=== PATIENT | male | born 1950 | race Caucasian/White ===

== ENCOUNTER 2020-10-19 22:42 | Inpatient (IN) ==
--- NOTE | 2020-10-19 22:53 | Emergency Department Note ---
Impression & Plan Non-ST elevation [place] (NSTEMI), CHF (congestive heart failure), GENAO (dyspnea on exertion) ED Provider Note NAME: BREEZY RAMIREZ AGE: 70 SEX: M : 1950 ARRIVES VIA: Ambulance INFORMANT: patient, ED PROVIDER(S): Fernando Lee MD Chief Complaint: Shortness of breath HPI: Patient does present with shortness of breath is been ongoing approximately 3 to 4 weeks. The patient had been seen in the outpatient setting due to increasing lower extremity edema and was told to continue to follow-up. The patient states he has been compliant with his medications. The patient does have a known history of CABG x4 completed 20+ years ago and does follow with Dr. Us locally. The patient denies any increase in salt or liquids in the diet. The patient does complain of exertional dyspnea but not so much orthopnea. The patient has noticed increasing swelling in his legs bilaterally. Patient has had chronic nonproductive cough and is a former smoker many years ago. The patient denies any sick contacts or recent travel. The patient denies prior history of DVT or PE. The patient does state that he was walking to and from the bathroom will cause him to be fairly winded. EMS reported the patient was able to walk to the stretcher from the home but did have some increased shortness of breath. ROS: See HPI for pertinent positives and negatives. A total of 10 systems were reviewed and otherwise negative. Past medical history: See below Surgical history: See below Social history: See below Physical Exam: GENERAL: Wearing glasses and a mask. NAD, non-toxic. EYE EXAM: Normal conjunctiva. PERRL, no anisocoria and EOM's grossly intact w/o pain. NECK: Supple, no nuchal rigidity, no adenopathy, non-tender. No signs of meningismus. LUNGS: Bibasilar crackles noted. Normal chest wall mechanics. HEART: NSR, no MRG. ABDOMEN: Abdomen soft, non-tender, normo-active bowel sounds, no masses, no rebound or guarding. BACK: No CVA TTP. SKIN: No rashes and no bruising. UPPER EXTREMITIES: Upper extremities are grossly normal. LOWER EXTREMITIES: Grossly normal, 2-3+ bilateral symmetric lower extremity edema. Well-healed bypass graft harvest scar of the left lower extremity. NEURO EXAM: A&O x3, cranial nerves II-XII grossly intact, normal speech, moves all 4 extremities on command w/o issue. Differential diagnoses: Reactive airway disease, pneumonia, pneumothorax, COPD, CHF, infections, cardiac ischemia, pulmonary embolism, musculoskeletal, gastrointestinal, as well as other pathologies. Course: Patient was seen and evaluated the bedside. Full history physical exam was performed. EKG: Location: Shortness of breath Sinus rhythm, rate of 99, normal intervals, normal axis, Q-wave in lead III. No obvious ST changes in contiguous leads. Possible slight depression in V5. Oc casional PVCs noted. Imaging Studies: 1 view chest x-ray Cardiomegaly, elevated right hemidiaphragm. Sternotomy wires and surgical clips noted. No obvious pneumothorax. Cardiac monitoring: An order was placed for continuous cardiac monitoring. The monitor shows a rate of 98 with sinus rhythm. MDM: Patient was seen due to concern for shortness of breath and does have a known history of CABG. Blood work is obtained along with an EKG troponin chest x-ray. The patient was ordered IV Lasix due to concern for volume overload. The patient has a mild white count 12 with a normal H&H and platelet count. Kidney function does show creatinine 1.6. The patient's troponin is 2.8. Upon reassessment the patient is allergic to aspirin and cannot take this. The patient denies any chest pains just exertional shortness of breath. Given this and his history of CABG I do think it of benefit to start the patient on heparin. Nitropaste also ordered. Patient also did relate that he has noticed that his systolic blood pressure at home has been in the 180s and 190s this time. Chest x-ray does show cardiomegaly. No obvious pneumothorax. Patient states that he did feel improved after just using the restroom and getting up to walk. The patient even with walking denies any chest pains. EKG without acute STEMI criteria. Given this and the lack of chest pain and the patient does not have any shortness of breath at rest which might be considered an anginal equivalent do not believe he requires emergent catheterization at this time. The patient certainly could have a component of congestive heart failure or even hypertensive emergency given the endorgan damage. It is through the on-call hospitalist Dr. Estrella and the patient was admitted to the medicine service Critical Care: I have personally spent 55 minutes of critical care time in direct management of this patient. This includes bedside care, interpretation of diagnostic studies, and testing, discussion with consultants, patient, and family members, and other require inpatient management activities. This 55 minutes is in excess of all separately billable procedures. Past Med/Surg History Medical History Benign localized prostatic hyperplasia with lower urinary tract symptoms (LUTS) CKD (chronic kidney disease), stage III Coronary artery disease Diabetes mellitus, type II History of gastric ulcer Hypercholesterolemia Hypertension Nephrolithiasis Surgical History H/O elbow surgery H/O knee surgery H/O shoulder surgery History of coronary artery bypass graft Status post coronary artery bypass grafting Family History Unknown Kidney disease kidney stones Other Diabetes No pertinent family history Social History Smoking Status: Former smoker Hx Alcohol Use: No Preferred Language: Macedonian marital status: current occupational status: retired Feels Safe at Home: Yes Allergies Allergies Allergy/AdvReac Type Severity Reaction Status Date / Time aspirin Allergy Severe GI SYMPTOMS Verified 10/19/20 23:35 Home Meds Home Medications Medication Instructions Recorded Confirmed blood sugar diagnostic #10 ea 03/23/19 10/19/20 hydrochlorothiazide 25 mg tablet 25 mg PO DAILY #30 tab 03/23/19 10/19/20 insulin syringe-needle U-100 0.3 #10 ea 03/23/19 10/19/20 mL 29 gauge x 1/2" losartan 100 mg tablet 100 mg PO DAILY #90 tab 03/23/19 10/19/20 metoprolol tartrate 50 mg tablet 75 mg PO BID #180 tab 03/23/19 10/19/20 pen needle, diabetic 32 gauge x #10 ea 03/23/19 10/19/20 5/32" pravastatin 80 mg tablet 80 mg PO DAILY tab 03/23/19 10/19/20 insulin regular human [Novolin R 60 unit SUBCUT TIDM 11/28/19 10/19/20 Regular U-100 Insuln] amlodipine 5 mg PO DAILY 10/19/20 10/19/20 Previous Rx's Medication Instructions Recorded allopurinol 100 mg tablet 100 mg PO DAILY #90 tab 04/04/20 tamsulosin 0.4 mg capsule 0.4 mg PO HS #90 cap 10/19/20 Results & Data (ED) Vital Signs Vital Signs - 24 hr 10/19/20 22:46 10/19/20 22:50 10/19/20 23:00 Temperature 37.1 C Temperature Source Oral Pulse Rate 104 H 98 H 92 H Pulse Rate from SpO2 Sensor 96 H 87 Respiratory Rate 19 22 26 H Respiratory Effort / Characteristics Non-Labored Respiratory Depth Normal Respiratory Pattern Regular Blood Pressure 156/105 H 156/105 H 172/87 H Blood Pressure Mean 122 122 115 Blood Pressure Position Lying Pulse Oximetry 96 97 96 Oxygen Delivery Method Room Air Sepsis Recent Fever Within 48 Hours No Sepsis New/Unexplained Change in Mental Status No Sepsis Action Taken by Nursing No Action Required 10/19/20 23:30 Temperature Temperature Source Pulse Rate Pulse Rate from SpO2 Sensor 85 Respiratory Rate 32 H Respiratory Effort / Characteristics Respiratory Depth Respiratory Pattern Blood Pressure 180/95 H Blood Pressure Mean 123 Blood Pressure Position Pulse Oximetry 96 Oxygen Delivery Method Sepsis Recent Fever Within 48 Hours Sepsis New/Unexplained Change in Mental Status Sepsis Action Taken by Shelter Medications Current Medication List: was personally reviewed by me Laboratory Data Attestation: I reviewed the patient's lab results. Result diagrams: 10/19/20 23:07 10/19/20 23:07 Lab Results 10/19/20 10/19/20 10/19/20 Range/Units 23:07 23:07 23:07 WBC 12.19 H (4.8-10.8) K/uL RBC 4.95 (4.7-6.1) M/uL Hgb 14.7 (14.0-18.0) g/dL Hct 43.4 (42-52) % MCV 87.7 (80-100) fL MCH 29.7 (25-34) pg MCHC 33.9 (32-36) g/dL RDW Std Deviation 45.6 (36.4-46.3) fL RDW Coeff of Livier 14.2 (11.5-14.5) % Plt Count 259 (130-400) K/uL MPV 9.9 (7.4-10.4) fL Immature Gran % (Auto) 0.4 % Neut % (Auto) 72.9 % Lymph % (Auto) 13.9 % [place] % (Auto) 10.3 % Eos % (Auto) 2.2 % Baso % (Auto) 0.3 % Neut # (Auto) 8.87 H (1.4-6.5) K/uL Lymph # (Auto) 1.70 (1.2-3.4) K/uL [place] # (Auto) 1.26 H (0.11-0.59) K/uL Eos # (Auto) 0.27 (0-0.5) K/uL Baso # (Auto) 0.04 (0-0.2) K/uL Immature Gran # (Auto) 0.05 H (0.00-0.02) K/uL PT 10.7 (9.0-12.0) Seconds INR 1.1 (0.9-1.1) APTT 31.2 H (21.0-31.0) Seconds PTT Ratio 1.2 Sodium 136 (136-145) mmol/L Potassium 4.1 (3.5-5.1) mmol/L Chloride 103 (98-107) mmol/L Carbon Dioxide 29 (21-32) mmol/L Anion Gap 4.0 (3-11) BUN 31 H (7-18) mg/dl Creatinine 1.64 H (0.6-1.4) mg/dl Est Cr Clr Drug Dosing 62.9 ml/min Est GFR ( Amer) 48.7 Est GFR (Non-Af Amer) 42.0 BUN/Creatinine Ratio 18.7 (10-20) Glucose 223 H (70-99) mg/dl Calcium 8.8 (8.5-10.1) mg/dl Phosphorus 3.2 (2.5-4.9) mg/dl Magnesium 1.8 (1.8-2.4) mg/dl Total Bilirubin 1.0 (0.2-1) mg/dl AST 19 (15-37) U/L ALT 20 (12-78) U/L Alkaline Phosphatase 124 H (45-117) U/L Troponin I 2.830 H* (0-0.045) ng/ml NT-Pro-B Natriuret Pep 841 (0-900) pg/ml Total Protein 7.5 (6.4-8.2) gm/dl Albumin 3.4 (3.4-5.0) gm/dl Globulin 4.1 H (2.5-4.0) gm/dl Albumin/Globulin Ratio 0.8 L (0.9-2) COVID-19 Eval Order SARS-CoV-2 (PCR) (Negative) Influenza Type A (PCR) (Neg) Influenza Type B (PCR) (Neg) RSV (RT-PCR) (Neg) 10/19/20 10/19/20 Range/Units 23:15 23:15 WBC (4.8-10.8) K/uL RBC (4.7-6.1) M/uL Hgb (14.0-18.0) g/dL Hct (42-52) % MCV (80-100) fL MCH (25-34) pg MCHC (32-36) g/dL RDW Std Deviation (36.4-46.3) fL RDW Coeff of [place]ier (11.5-14.5) % Plt Count (130-400) K/uL MPV (7.4-10.4) fL Immature Gran % (Auto) % Neut % (Auto) % Lymph % (Auto) % [place] % (Auto) % Eos % (Auto) % Baso % (Auto) % Neut # (Auto) (1.4-6.5) K/uL Lymph # (Auto) (1.2-3.4) K/uL [place] # (Auto) (0.11-0.59) K/uL Eos # (Auto) (0-0.5) K/uL Baso # (Auto) (0-0.2) K/uL Immature Gran # (Auto) (0.00-0.02) K/uL PT (9.0-12.0) Seconds INR (0.9-1.1) APTT (21.0-31.0) Seconds PTT Ratio Sodium (136-145) mmol/L Potassium (3.5-5.1) mmol/L Chloride (98-107) mmol/L Carbon Dioxide (21-32) mmol/L Anion Gap (3-11) BUN (7-18) mg/dl Creatinine (0.6-1.4) mg/dl Est Cr Clr Drug Dosing ml/min Est GFR ( Amer) Est GFR (Non-Af Amer) BUN/Creatinine Ratio (10-20) Glucose (70-99) mg/dl Calcium (8.5-10.1) mg/dl Phosphorus (2.5-4.9) mg/dl Magnesium (1.8-2.4) mg/dl Total Bilirubin (0.2-1) mg/dl AST (15-37) U/L ALT (12-78) U/L Alkaline Phosphatase (45-117) U/L Troponin I (0-0.045) ng/ml NT-Pro-B Natriuret Pep (0-900) pg/ml Total Protein (6.4-8.2) gm/dl Albumin (3.4-5.0) gm/dl Globulin (2.5-4.0) gm/dl Albumin/Globulin Ratio (0.9-2) COVID-19 Eval Order CovFluRsv at [facility] SARS-CoV-2 (PCR) NEGATIVE (Negative) Influenza Type A (PCR) Negative (Neg) Influenza Type B (PCR) Negative (Neg) RSV (RT-PCR) Negative (Neg) Administered Medications Heparin Sodium/Dextrose (Heparin Sodium/Dextrose) 25,000 units in 500 mls @ 0.02 mls/hr IV .Q24H TALON; Protocol Stop: 11/18/20 23:44 Last Admin: 10/20/20 00:24 Dose: 1,900 units/hr, 38 mls/hr Documented by: [id number] Cosigned by: [id number] Discontinued Medications Furosemide (Furosemide 40 Mg/4 Ml Vial) 40 mg IV NOW STA Stop: 10/19/20 23:02 Last Admin: 10/19/20 23:06 Dose: 40 mg Documented by: [id number] Heparin Sodium/Dextrose (Heparin Iv Standard *No* Bolus) 1 ea IV ONE ONE; Protocol Stop: 10/19/20 23:56 Last Admin: 10/20/20 00:25 Dose: 1 ea Documented by: [id number] Nitroglycerin (Nitroglycerin 2% Ointment 30gm Tube) 1 inch EXT NOW ONE Stop: 10/20/20 00:02 Last Admin: 10/20/20 00:24 Dose: 1 inch Documented by: [id number] Discharge Plan Visit Data Chief Complaint: Shortness of Breath/Dyspnea Stated Complaint: SOB ED Provider: Fernando Lee Discharge Problem: Non-ST elevation [place] (NSTEMI), CHF (congestive heart failure), GENAO (dyspnea on exertion) Forms Stand Alone Forms: My [facility] Prescriptions Prescriptions: No Action (DME) insulin syringe-needle U-100 [BD Insulin Syringe] 0.3 mL 29 gauge x 1/2" syringe See Dose Instructions .ROUTE .MEDSUPPLY Qty: 10 RF: 0 (DME) pen needle, diabetic [ReliOn Pen [place]] 32 gauge x 5/32" needle See Dose Instructions .ROUTE .MEDSUPPLY Qty: 10 RF: 0 (DME) Truetest Test Strips strip See Dose Instructions .ROUTE .MEDSUPPLY Qty: 10 RF: 0 pravastatin 80 mg tablet 80 mg PO DAILY RF: 0 hydrochlorothiazide 25 mg tablet 25 mg PO DAILY Qty: 30 RF: 0 losartan 100 mg tablet 100 mg PO DAILY Qty: 90 RF: 0 metoprolol tartrate 50 mg tablet 75 mg PO BID Qty: 180 RF: 0 tamsulosin 0.4 mg capsule 0.4 mg PO HS Qty: 90 RF: 3 allopurinol 100 mg tablet 100 mg PO DAILY Qty: 90 RF: 3 Novolin R Regular U-100 Insuln 100 unit/mL solution 60 unit subcut TIDM RF: 0 amlodipine 5 mg tablet 5 mg PO DAILY RF: 0 Discharge Problem: CHF (congestive heart failure) Qualifiers: Heart failure type: systolic Heart failure chronicity: acute Qualified Code(s): I50.21 - Acute systolic (congestive) heart failure
[2020-10-19] MEDS ORDERED: FUROSEMIDE 40 MG/4 ML VIAL IV STA (23:01)
[2020-10-19 23:26] LABS: Basophils # (auto) 0.04 K/uL (0-0.2); Basophils % (auto) 0.3 %; Eosinophils # (auto) 0.27 K/uL (0-0.5); Eosinophils % (auto) 2.2 %; Hematocrit (blood only) 43.4 % (42-52); Hemoglobin 14.7 g/dL (14.0-18.0); Immature Granulocytes # (auto) 0.05 K/uL (0.00-0.02); Immature Granulocytes % (auto) 0.4 %; Lymphocytes % (auto) 13.9 %; Mean Corpuscular Hemoglobin 29.7 pg (25-34); Mean Corpuscular Hgb Conc 33.9 g/dL (32-36); Mean Corpuscular Volume 87.7 fL (80-100); Mean Platelet Volume 9.9 fL (7.4-10.4); Monocytes # (auto) 1.26 K/uL (0.11-0.59); Monocytes % (auto) 10.3 %; Neutrophils # (auto) 8.87 K/uL (1.4-6.5); Neutrophils % (auto) 72.9 %; Platelet Count 259 K/uL (130-400); RDW Coefficient of Variation 14.2 % (11.5-14.5); RDW Standard Deviation 45.6 fL (36.4-46.3); Red Blood Count 4.95 M/uL (4.7-6.1); White Blood Count 12.19 K/uL (4.8-10.8)
[2020-10-19 23:42] LABS: INR 1.1 (0.9-1.1); Partial Thromboplastin Ratio 1.2; Partial Thromboplastin Time 31.2 Seconds (21.0-31.0); Prothrombin Time 10.7 Seconds (9.0-12.0)
[2020-10-19 23:45] LABS: Albumin Level 3.4 gm/dl (3.4-5.0); BUN Creatinine Ratio 18.7 (10-20); Calcium 8.8 mg/dl (8.5-10.1); Creatinine Clr Calc Pharmacy 62.9 ml/min; Est GFR (African American) 48.7; Magnesium 1.8 mg/dl (1.8-2.4); Potassium 4.1 mmol/L (3.5-5.1)
[2020-10-19 23:54] LABS: Albumin Globulin Ratio 0.8 (0.9-2); Globulin 4.1 gm/dl (2.5-4.0); Phosphorus 3.2 mg/dl (2.5-4.9); Total Protein 7.5 gm/dl (6.4-8.2); Troponin I 2.83 ng/ml (0-0.045)
[2020-10-19] MEDS ORDERED: Heparin IV Adult Wt-Based Standard *NO* Bolus Protocol IV ONE (23:55)
[2020-10-20] MEDS ORDERED: NITROGLYCERIN 2% OINTMENT 30GM TUBE EXT ONE (00:01)
[2020-10-20 00:17] LABS: Influenza A virus by PCR Negative (Neg); Influenza B virus by PCR Negative (Neg); RSV by PCR Negative (Neg); SARS CoV2 RNA(COVID-19) InHosp NEGATIVE (Negative)
[2020-10-20] MEDS: HEPARIN SODIUM/DEXTROSE 25,000 UNITS/500 ML BAG IV SCH ×2 (00:24→13:27)
[2020-10-20] MEDS ORDERED: ASPIRIN 300 MG SUPP PR ONE (01:21)
--- NOTE | 2020-10-20 01:21 | History & Physical Report ---
Date of Service October 20, 2020 Assessment & Plan (1) Non-ST elevation [place] (NSTEMI): hx CAD sp CABG Decompensated heart failure Subacute symptoms ? Uncontrolled BP as precipitant Leg swelling secondary to above rule out DVT hyperlipidemia on statin Rx PUD as per records, hx of stomach irritation from enteric-coated aspirin in the past as per patient DM2 insulin requiring, suboptimal control as of recent hemoglobin A1c of 04 August 2020 CRI, creatinine at baseline past tobacco abuse PCU Lasix albumin, monitor renal function Strict I/Os, daily weights, CHF education, fluid restriction DONNA, Cardiology consult Re: ACS, CHF Follow troponin Rectal aspirin in place of oral aspirin (given stomach irritation concerns) for ACS continue home beta-acosta, statin Rx, IV heparin initiated at the ER Titrate home BP meds LE venous Dopplers rule out DVT Basal insulin, ISS BG goal [id number], carb count coverage DVT prophylaxis with IV heparin Full code Text document was generated using [employer] voice recognition software. It may contain grammatical or spelling errors. Kindly contact undersigned for clarification of any documentation item in question. History of Present Illness Chief Complaint: Shortness of breath, leg swelling Primary Care Provider: Akash Gonzalez MD History obtained from patient and records. Medical history significant for CAD status post CABG, hypertension, hyperlipidemia, PUD as per records, DM2 insulin requiring, CRI (baseline creatinine 1.6), BPH, history nephrolithiasis, past tobacco abuse. Last confinement March 2015 for hypertensive urgency. Patient noted shortness of breath worse on exertion since last month. Bilateral leg swelling despite compliance with home diuretic Rx. Denies dietary indiscretion. No OTC NSAID intake at home. No unusual cough symptoms, no chest pain. Possible weight gain as per patient. Patient unaware of daily BP and weight trend at home. Denies snoring. Worsening exertional dyspnea the last week with abdominal distention and leg swelling. At the ER, IV Heparin started for possible ACS. Lasix given for possible CHF. Patient feeling much better. 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 Allergies Allergy/AdvReac Type Severity Reaction Status Date / Time aspirin Allergy Severe GI SYMPTOMS Verified 10/19/20 23:35 Home Medications Medication Instructions Recorded Confirmed Type blood sugar diagnostic #10 ea 03/23/19 10/19/20 History hydrochlorothiazide 25 mg tablet 25 mg PO DAILY #30 tab 03/23/19 10/19/20 History insulin syringe-needle U-100 0.3 #10 ea 03/23/19 10/19/20 History mL 29 gauge x 1/2" losartan 100 mg tablet 100 mg PO DAILY #90 tab 03/23/19 10/19/20 History metoprolol tartrate 50 mg tablet 75 mg PO BID #180 tab 03/23/19 10/19/20 History pen needle, diabetic 32 gauge x #10 ea 03/23/19 10/19/20 History 5/32" pravastatin 80 mg tablet 80 mg PO DAILY tab 03/23/19 10/19/20 History insulin regular human [Novolin R 60 unit SUBCUT TIDM 11/28/19 10/19/20 History Regular U-100 Insuln] allopurinol 100 mg tablet 100 mg PO DAILY #90 tab 04/04/20 10/19/20 Rx amlodipine 5 mg PO DAILY 10/19/20 10/19/20 History tamsulosin 0.4 mg capsule 0.4 mg PO HS #90 cap 10/19/20 10/19/20 Rx Past Med/Surg History Medical History (Updated 10/20/20 @ 13:07 by Ynes Nye DO) Benign localized prostatic hyperplasia with lower urinary tract symptoms (LUTS) CKD (chronic kidney disease), stage III Coronary artery disease Diabetes mellitus, type II History of gastric ulcer Hypercholesterolemia Hypertension Nephrolithiasis Surgical History (Updated 10/20/20 @ 13:05 by Ynes Nye DO) H/O elbow surgery H/O knee surgery H/O shoulder surgery History of coronary artery bypass graft Status post coronary artery bypass grafting Family History Unknown Kidney disease kidney stones Other Diabetes No pertinent family history Social History Smoking Status: Never smoker Hx Alcohol Use: No Hx Substance Use: No Preferred Language: Micronesian Beliefs That Will Affect Care: None marital status: Current Living Situation: Family current occupational status: retired Other Information That Helps Us Care for You: No Feels Safe at Home: Yes Safety Concerns: Feels Safe At This Time Assistive Devices: Glasses Review of Systems Review of Systems: As per HPI, all 10 systems reviewed, all other ROS negative Physical Exam Physical Exam: GENERAL: Slightly anxious, morbidly obese, episodic tachypnea SKIN: Normal color, warm HEENT: Alopecia, bespectacled, pink palpebral conjunctivae, no ptosis, dry buccal mucosa NECK : Supple, short neck, no tenderness CHEST : Decreased breath sounds, no tenderness HEART : Tachycardic, no obvious murmurs ABDOMEN: Marked abdominal distention, nontender EXTREMITIES : Bilateral LE swelling, no LE tenderness no other conspicuous deformities noted NEUROLOGIC : Coherent, no facial asymmetry, no other gross focality Results & Data Results & Data ([facility]) Vital Signs (Past 12 Hours) Vital Signs Temp Pulse Resp BP Pulse Ox 10/20/20 00:45 98 10/20/20 00:30 92 H 26 H 154/78 H 96 10/19/20 23:30 32 H 180/95 H 96 10/19/20 23:00 92 H 26 H 172/87 H 96 10/19/20 22:50 37.1 C 98 H 22 156/105 H 97 10/19/20 22:46 104 H 19 156/105 H 96 Laboratory Results Laboratory Results WBC 12.19 K/uL (4.8-10.8) H 10/19/20 23:07 RBC 4.95 M/uL (4.7-6.1) 10/19/20 23:07 Hgb 14.7 g/dL (14.0-18.0) 10/19/20 23:07 Hct 43.4 % (42-52) 10/19/20 23:07 MCV 87.7 fL (80-100) 10/19/20 23:07 MCH 29.7 pg (25-34) 10/19/20 23:07 MCHC 33.9 g/dL (32-36) 10/19/20 23:07 RDW Std Deviation 45.6 fL (36.4-46.3) 10/19/20 23:07 RDW Coeff of Livier 14.2 % (11.5-14.5) 10/19/20 23:07 Plt Count 259 K/uL (130-400) 10/19/20 23:07 MPV 9.9 fL (7.4-10.4) 10/19/20 23:07 Immature Gran % (Auto) 0.4 % 10/19/20 23:07 Neut % (Auto) 72.9 % 10/19/20 23:07 Lymph % (Auto) 13.9 % 10/19/20 23:07 [place] % (Auto) 10.3 % 10/19/20 23:07 Eos % (Auto) 2.2 % 10/19/20 23:07 Baso % (Auto) 0.3 % 10/19/20 23:07 Neut # (Auto) 8.87 K/uL (1.4-6.5) H 10/19/20 23:07 Lymph # (Auto) 1.70 K/uL (1.2-3.4) 10/19/20 23:07 [place] # (Auto) 1.26 K/uL (0.11-0.59) H 10/19/20 23:07 Eos # (Auto) 0.27 K/uL (0-0.5) 10/19/20 23:07 Baso # (Auto) 0.04 K/uL (0-0.2) 10/19/20 23:07 Immature Gran # (Auto) 0.05 K/uL (0.00-0.02) H 10/19/20 23:07 PT 10.7 Seconds (9.0-12.0) 10/19/20 23:07 INR 1.1 (0.9-1.1) 10/19/20 23:07 APTT 31.2 Seconds (21.0-31.0) H 10/19/20 23:07 PTT Ratio 1.2 10/19/20 23:07 Sodium 136 mmol/L (136-145) 10/19/20 23:07 Potassium 4.1 mmol/L (3.5-5.1) 10/19/20 23:07 Chloride 103 mmol/L (98-107) 10/19/20 23:07 Carbon Dioxide 29 mmol/L (21-32) 10/19/20 23:07 Anion Gap 4.0 (3-11) 10/19/20 23:07 BUN 31 mg/dl (7-18) H 10/19/20 23:07 Creatinine 1.64 mg/dl (0.6-1.4) H 10/19/20 23:07 Est Cr Clr Drug Dosing 62.9 ml/min 10/19/20 23:07 Est GFR ( Amer) 48.7 10/19/20 23:07 Est GFR (Non-Af Amer) 42.0 10/19/20 23:07 BUN/Creatinine Ratio 18.7 (10-20) 10/19/20 23:07 Glucose 223 mg/dl (70-99) H 10/19/20 23:07 Calcium 8.8 mg/dl (8.5-10.1) 10/19/20 23:07 Phosphorus 3.2 mg/dl (2.5-4.9) 10/19/20 23:07 Magnesium 1.8 mg/dl (1.8-2.4) 10/19/20 23:07 Total Bilirubin 1.0 mg/dl (0.2-1) 10/19/20 23:07 AST 19 U/L (15-37) 10/19/20 23:07 ALT 20 U/L (12-78) 10/19/20 23:07 Alkaline Phosphatase 124 U/L (45-117) H 10/19/20 23:07 Troponin I 2.830 ng/ml (0-0.045) H* 10/19/20 23:07 NT-Pro-B Natriuret Pep 841 pg/ml (0-900) 10/19/20 23:07 Total Protein 7.5 gm/dl (6.4-8.2) 10/19/20 23:07 Albumin 3.4 gm/dl (3.4-5.0) 10/19/20 23:07 Globulin 4.1 gm/dl (2.5-4.0) H 10/19/20 23:07 Albumin/Globulin Ratio 0.8 (0.9-2) L 10/19/20 23:07 COVID-19 Eval Order CovFluRsv at [facility] 10/19/20 23:15 SARS-CoV-2 (PCR) NEGATIVE (Negative) 10/19/20 23:15 Influenza Type A (PCR) Negative (Neg) 10/19/20 23:15 Influenza Type B (PCR) Negative (Neg) 10/19/20 23:15 RSV (RT-PCR) Negative (Neg) 10/19/20 23:15 Diagnostic Findings Chest x-ray as per my interpretation: Minimal pulmonary congestion, cardiomegaly EKG as per my interpretation : Rate 100, NSR, normal axis, T wave abnormalities lateral leads, PVCs
[2020-10-20] MEDS ORDERED: DEXTROSE 50% 50 ML SYRINGE IV PRN (02:02)
[2020-10-20] MEDS ORDERED: GLUCOSE 10 TABS/TUBE PO PRN (02:02)
[2020-10-20] MEDS ORDERED: CARBOHYDRATES FOR HYPOGLYCEMIA PO PRN (02:02)
[2020-10-20] MEDS ORDERED: ACETAMINOPHEN 325 MG TAB PO PRN (02:02)
[2020-10-20] MEDS ORDERED: LORazepam 0.5 MG/1 ML VIAL IV PRN (02:02)
[2020-10-20] MEDS ORDERED: XOPENEX/ATROVENT 1.25mg/0.5MG NEB COMBO NEB STA (02:02)
[2020-10-20] MEDS ORDERED: GLUCAGON FOR INJ 1 MG VIAL SQ PRN (02:02)
[2020-10-20] MEDS ORDERED: PROMETHAZINE HCL 12.5 MG in SODIUM CHLORIDE 0.9% 50 ML IV PRN (02:02)
[2020-10-20] MEDS ORDERED: traMADol HCL 50 MG TABLET PO PRN (02:02)
[2020-10-20] MEDS ORDERED: HYDROmorphone INJ 0.5 MG/0.5 ML SYR IV PRN (02:02)
[2020-10-20] MEDS ORDERED: GLUCOSE 40% GEL 15 GM TUBE PO PRN (02:02)
[2020-10-20] MEDS ORDERED: LEVALBUTEROL 1.25MG/0.5ML NEB INH STA (02:21)
[2020-10-20] MEDS ORDERED: IPRATROPIUM BROMIDE NEB SOLN 0.02% 2.5 ML VIAL INH STA (02:21)
[2020-10-20] MEDS: INSULIN ASPART 100 UNITS/ML 3 ML PEN SC SCH ×5 (02:32→20:32)
[2020-10-20] MEDS ORDERED: MAGNESIUM SULFATE / D5W 1 GM/100 ML BAG IV ONE (02:33)
[2020-10-20 06:24] LABS: Basophils # (auto) 0.04 K/uL (0-0.2); Basophils % (auto) 0.3 %; Eosinophils # (auto) 0.27 K/uL (0-0.5); Eosinophils % (auto) 2.2 %; Hematocrit (blood only) 41.7 % (42-52); Hemoglobin 13.8 g/dL (14.0-18.0); Immature Granulocytes # (auto) 0.03 K/uL (0.00-0.02); Immature Granulocytes % (auto) 0.2 %; Lymphocytes # (auto) 1.85 K/uL (1.2-3.4); Lymphocytes % (auto) 15.3 %; Mean Corpuscular Hemoglobin 29.1 pg (25-34); Mean Corpuscular Hgb Conc 33.1 g/dL (32-36); Mean Platelet Volume 9.9 fL (7.4-10.4); Monocytes # (auto) 1.23 K/uL (0.11-0.59); Monocytes % (auto) 10.2 %; Neutrophils # (auto) 8.69 K/uL (1.4-6.5); Neutrophils % (auto) 71.8 %; Platelet Count 215 K/uL (130-400); RDW Coefficient of Variation 14.1 % (11.5-14.5); RDW Standard Deviation 45.5 fL (36.4-46.3); Red Blood Count 4.74 M/uL (4.7-6.1); White Blood Count 12.11 K/uL (4.8-10.8)
[2020-10-20 06:45] LABS: Partial Thromboplastin Time 51.3 Seconds (21.0-31.0)
[2020-10-20 06:52] LABS: BUN Creatinine Ratio 20.1 (10-20); Calcium 8.7 mg/dl (8.5-10.1); Creatinine Clr Calc Pharmacy 70.5 ml/min; Est GFR (African American) 56.5; Est GFR (Non-African American) 48.8; Potassium 3.7 mmol/L (3.5-5.1)
[2020-10-20] MEDS ORDERED: ALBUMIN HUMAN 25% 12.5 GM/50 ML VIAL IV ONE (07:09)
[2020-10-20 07:16] LABS: Troponin I 3.74 ng/ml (0-0.045)
--- NOTE | 2020-10-20 07:22 | Ultrasound Report ---
US abdomen ltd ascites CLINICAL HISTORY: abd distension COMPARISON STUDY: Abdomen and pelvis CT 03/08/2020. FINDINGS: Real-time sonographic imaging of the abdomen was performed with underwriting service representative images submi tted. There is no ascites identified. IMPRESSION: No ascites. ACT 112: Negative or not required by law. Electronically signed by: Mal Petty M.D. 10/20/2020 7:21 AM
--- NOTE | 2020-10-20 07:26 | Ultrasound Report ---
BILATERAL LOWER EXTREMITY VENOUS DOPPLER HISTORY: leg swelling COMPARISON STUDY: None. FINDINGS: There is normal compressibility, flow, and augmentation within the bilateral lower extremit y deep venous systems. IMPRESSION: No DVT within the right or left lower extremity. ACT 112: Negative or not required by law. Electronically signed by: Mal Petty M.D. 10/20/2020 7:25 AM
[2020-10-20] MEDS: allopurinoL 100 MG TAB PO SCH (08:00)
[2020-10-20] MEDS: PRAVASTATIN SOD 40 MG TAB PO SCH (08:00)
[2020-10-20] MEDS: amLODIPine BESYLATE 5 MG TAB PO SCH (08:01)
[2020-10-20] MEDS: METOPROLOL TARTRATE 25 MG TAB PO SCH ×2 (08:01→19:46)
--- NOTE | 2020-10-20 08:11 | XRay Report ---
XR chest 1V portable HISTORY: Dyspnea COMPARISON: Chest 04/05/2015. FINDINGS: There are low lung volumes. No pneumothorax. The heart remains enlarged. There is chronic e levation of the right hemidiaphragm. There is mild central pulmonary vascular congestion without over t edema. No new focal lung consolidations to suggest pneumonia. Poststernotomy changes. IMPRESSION: 1. No significant change compared to the prior study. 2. Cardiomegaly. 3. Mild central pulmonary vascular congestion without overt edema. ACT 112: Negative or not required by law. Electronically signed by: Mal Petty M.D. 10/20/2020 8:09 AM
[2020-10-20] MEDS: ALBUMIN 25% 12.5 GM/50 ML VIAL IV SCH ×2 (08:25→20:06)
[2020-10-20] MEDS ORDERED: INSULIN GLARGINE SOLOSTAR 100 UNITS/ML 3 ML PEN SC SCH ×2 (09:00→21:00)
[2020-10-20] MEDS ORDERED: FUROSEMIDE 40 MG/4 ML VIAL IV SCH (09:00)
[2020-10-20] MEDS: FUROSEMIDE 40 MG in SYRINGE 0 ML IV SCH ×2 (09:33→19:46)
--- NOTE | 2020-10-20 11:57 | Cardiology Consultation ---
Date of Consultation October 20, 2020 Assessment & Plan (1) CHF (congestive heart failure): -appears to be acute diastolic CHF. -echocardiogram notes normal left ventricular systolic function. -agree with b.i.d. dosing of intravenous Lasix. -admits to dietary indiscretion with salt (canned soup, hamburgers, [place] fries). (2) Elevated troponin: -likely secondary to acute presentation. -coronary artery bypass was over 25 years ago. -have discussed a cardiac catheterization, however, the patient is uncertain at this time. (3) CAD (coronary artery disease): -s/p CABG x4 in 1993. -as above, consider cardiac catheterization. (4) Hypertension: -adequate control on current regimen. History of Present Illness Attending Physician: Ynes Nye, History of Present Illness Mr. Renee is a 70-year-old male admitted yesterday with symptomatic hypervolemia. This consultation was ordered to assistance cardiac management. Of note, the patient is well known to me from the outpatient setting. The patient was in his usual state of health until approximately 1 month prior to presentation. The patient was noticing progressive exertional dyspnea and lower extremity edema. Over the last week, he began to note an increase in his abdominal girth and his exertional dyspnea became quite limiting. At no time has the patient experienced angina pectoris. He also denies PND and orthopnea. He was brought to the emergency room for further care. The patient has a longstanding history of coronary artery disease having undergone a 4 vessel bypass in 1993. This included an WILSON to the LAD, an SVG to the PDA, an SVG to a PLB, and an SVG to the ramus intermedius. The patient has done well with medical management. The patient also has a longstanding history of hypercholesterolemia. He has been stable on Pravachol 80 mg q.h.s.. A fasting lipid panel performed earlier this month noted excellent control with an LDL cholesterol 63, an HDL of 44. The patient is currently resting comfortably in bed and without complaints. Past medical and surgical history 1. Coronary artery disease-see above 2. CABG x 4-1993 3. Hypertension 4. LVH 5. Hypercholesterolemia 6. Diabetes mellitus 7. Chronic renal failure 8. Nephrolithiasis 9. Gout 10. Peptic ulcer disease 11. BPH 12. Hearing deficit 13. Spinal stenosis 14. Left lower extremity radiculopathy 15. History of shoulder surgery 16. History of knee surgery 17. History of elbow surgery Social history and lives with his Retired from [employer] No tobacco Rare alcohol Family history No early coronary artery disease Review of systems A 10 review systems was undertaken and negative except for that described above. Allergies Allergy/AdvReac Type Severity Reaction Status Date / Time aspirin Allergy Severe GI SYMPTOMS Verified 10/19/20 23:35 Home Medications Medication Instructions Recorded Confirmed Type blood sugar diagnostic #10 ea 03/23/19 10/19/20 History hydrochlorothiazide 25 mg tablet 25 mg PO DAILY #30 tab 03/23/19 10/19/20 History insulin syringe-needle U-100 0.3 #10 ea 03/23/19 10/19/20 History mL 29 gauge x 1/2" losartan 100 mg tablet 100 mg PO DAILY #90 tab 03/23/19 10/19/20 History metoprolol tartrate 50 mg tablet 75 mg PO BID #180 tab 03/23/19 10/19/20 History pen needle, diabetic 32 gauge x #10 ea 03/23/19 10/19/20 History 5/32" pravastatin 80 mg tablet 80 mg PO DAILY tab 03/23/19 10/19/20 History insulin regular human [Novolin R 60 unit SUBCUT TIDM 11/28/19 10/19/20 History Regular U-100 Insuln] allopurinol 100 mg tablet 100 mg PO DAILY #90 tab 04/04/20 10/19/20 Rx amlodipine 5 mg PO DAILY 10/19/20 10/19/20 History tamsulosin 0.4 mg capsule 0.4 mg PO HS #90 cap 10/19/20 10/19/20 Rx Patient History Medical History Benign localized prostatic hyperplasia with lower urinary tract symptoms (LUTS) CKD (chronic kidney disease), stage III Coronary artery disease Diabetes mellitus, type II History of gastric ulcer Hypercholesterolemia Hypertension Nephrolithiasis Surgical History H/O elbow surgery H/O knee surgery H/O shoulder surgery History of coronary artery bypass graft Status post coronary artery bypass grafting Family History Unknown Kidney disease kidney stones Other Diabetes No pertinent family history Social History Smoking Status: Never smoker Hx Alcohol Use: No Hx Substance Use: No Preferred Language: Latvian Beliefs That Will Affect Care: None marital status: Current Living Situation: Family current occupational status: retired Other Information That Helps Us Care for You: No Feels Safe at Home: Yes Safety Concerns: Feels Safe At This Time Assistive Devices: Oxygen - Continuous Physical Exam Physical Exam: In general this is an obese white male in no acute distress. HEENT exam is negative. Neck is thick with full carotid upstrokes. No carotid bruits. Jugular venous pressure is difficult to assess. Cardiovascular exam reveals a regular rhythm with distant heart sounds. No obvious murmurs. No S3. Lungs are clear without rales, rhonchi or wheezes. Abdomen is obese without bruits. Extremities reveal intact radial artery pulses bilaterally. There is 2+ pitting edema distal to the knees, 1+ pitting edema in the thighs bilaterally. Results & Data ([facility]) Vital Signs (Past 12 Hours) Vital Signs Temp Pulse Pulse Resp BP BP BP 10/20/20 11:01 36.9 C 90 18 144/71 H 10/20/20 08:00 121 H 10/20/20 07:47 155/91 H 10/20/20 07:03 36.9 C 112 H 20 10/20/20 02:05 36.7 C 76 20 145/87 H 10/20/20 02:02 37.1 C 89 21 143/79 H 10/20/20 01:30 92 H 22 144/76 H 10/20/20 00:45 10/20/20 00:30 92 H 26 H 154/78 H Pulse Ox 10/20/20 11:01 94 10/20/20 08:00 10/20/20 07:47 10/20/20 07:03 97 10/20/20 02:05 96 10/20/20 02:02 96 10/20/20 01:30 96 10/20/20 00:45 98 10/20/20 00:30 96 Laboratory Results CBC notes hemoglobin 13.8, crit 41.7, white count 12.1, platelet count [id number]. Electrolytes noted sodium 137, potassium 3.7, chloride 103, bicarb 27, BUN 29, creatinine 1.45, and glucose of 182. Initial troponin was 2.83 with a follow-up value of 3.74. LDL cholesterol 63 with an HDL of 44. Diagnostic Findings EKG notes normal sinus rhythm with PVCs and nonspecific ST and T-wave abnormality. Echocardiogram being performed at the bedside notes normal left ventricular systolic function and mild LVH. Chest x-ray notes cardiomegaly and poor inspiration. PG Care Time/CCT Total # of Minutes Spent Total Time Spent with Patient: Total time spent is greater than 50% in coordination of care (as documented) at patient's floor/unit and/or counseling patient: Coding Level of Care Code 30215 Initial Inpt Care Lvl 3 Diagnoses CHF (congestive heart failure) I50.21 Heart failure chronicity: acute Heart failure type: systolic Elevated troponin R77.8 CAD (coronary artery disease) I25.10 Hypertension I10 (1) CHF (congestive heart failure) Heart failure chronicity: acute Heart failure type: systolic Qualified Code(s): I50.21 - Acute systolic (congestive) heart failure
--- NOTE | 2020-10-20 12:48 | XCELERA ---
[id number]
[2020-10-20] MEDS ORDERED: MoRPHine SULFATE 2 MG/ML CARP IV PRN (13:19)
--- NOTE | 2020-10-20 13:22 | Electrocardiogram Report ---
Test Reason : Blood Pressure : / mmHG Vent. Rate : 099 BPM Atrial Rate : 099 BPM P-R Int : 166 ms QRS Dur : 100 ms QT Int : 350 ms P-R-T Axes : 013 039 131 degrees QTc Int : 449 ms Sinus rhythm with occasional Premature ventricular complexes Nonspecific ST and T wave abnormality Abnormal ECG When compared with ECG of 28-NOV-2019 16:24, Premature ventricular complexes are now Present Nonspecific T wave abnormality now evident in Inferior leads Confirmed by Terell Us ([id number]) on 10/20/2020 1:21:53 PM Referred By: REFERRED SELF Confirmed By:Terell Us
--- NOTE | 2020-10-20 13:23 | Hospitalist Progress Note ---
Date of Service October 20, 2020 Assessment & Plan (1) Acute diastolic heart failure: GENAO and heart failure syndrome symptoms for the past 2-4 weeks. Cont with intravenous Lasix for now. Low salt diet, daily standing weights, accurate I/O monitoring. Cardiology following (2) Non-ST elevation [place] (NSTEMI): Known h/o CAD s/p CABG. Elevated troponin without any pain. Some concerning index anginal symptoms per patient, however. He remains on medical therapy at this time including heparin drip, Lopressor, and pravastatin. Documented allergy to aspirin. Cont monitoring on PCU and cardiology consulted and following. (3) CAD (coronary artery disease): Cont medical therapy as above. (4) Diabetes mellitus, type II: Uncontrolled with last A1C 9.0 in Jul 2020. Repeat A1C pending. Currently inpatient glucose uncontrolled. Will adjust bolus insulin range to increase correction. Will increase Lantus to 24 Units BID from 10 Units BID. Cont carb controlled diet. (5) Hypertension: At goal, cont amlodipine per home regimen. Change diet to 2gram sodium restriction. Home HCTZ also held while giving him IV Lasix. Cont to monitor. (6) Benign localized prostatic hyperplasia with lower urinary tract symptoms (LUTS): Cont tamsulosin per home regimen. (7) CKD (chronic kidney disease), stage III: Around baseline creatinine. Monitor daily BMP while on Lasix intravenous therapy. (8) Status post aorto-coronary artery bypass graft: (9) DVT prophylaxis: heparin drip Full Code Dispo-to home when medically stable. Currently treating NSTEMI medically and uncertain if further workup with cardiac cath will be needed. Will await further cardiology recommendations. Ynes Nye DO [facility] Hospitalist Admission and Anticipated Discharge Date Admission Date: October 20, 2020 Subjective 70 yo M with a h/o CAD s/p CABG 25 yrs ago presented with worsening dyspnea on exertion for the past 2-4 weeks. Patient reports feeling better today than yesterday breathing is much improved. He does admit that his symptoms are consistent with his index angina although he specifically denies any chest pain. Review of Systems Review of Systems: All systems reviewed & are unremarkable except as noted in Subjective Physical Exam Physical Exam: CONSTITUTIONAL: obese, vitals as above, generally well- appearing EYES: normal n, no scleral icterus ENT: external ear and nose normal, MMM RESPIRATORY: clear to auscultation bilaterally, no crackles, rales or wheezes, normal respiratory effort, no conversational dyspnea. CARDIOVASCULAR: regular rate and rhythm, S1 and 2 heard without murmurs, gallops or rubs, no JVD, 2+pitting edema bilaterally. GASTROINTESTINAL: soft, nontender, protuberant, no guarding MUSCULOSKELETAL: strength 5/5 throughout, head is normocephalic and atraumatic SKIN: warm and dry NEUROLOGIC: CN 2-12 grossly intact, no sensory deficit, normal cognition, normal speech, no gross focal deficits. PSYCHIATRIC: alert cooperative and oriented to person, place and time. Results & Data Results & Data ([facility]) Vital Signs (Past 12 Hours) Vital Signs Temp Pulse Pulse Resp BP BP BP 10/20/20 11:01 36.9 C 90 18 144/71 H 10/20/20 08:00 121 H 10/20/20 07:47 155/91 H 10/20/20 07:03 36.9 C 112 H 20 10/20/20 02:05 36.7 C 76 20 145/87 H 10/20/20 02:02 37.1 C 89 21 143/79 H 10/20/20 01:30 92 H 22 144/76 H Pulse Ox 10/20/20 11:01 94 10/20/20 08:00 10/20/20 07:47 10/20/20 07:03 97 10/20/20 02:05 96 10/20/20 02:02 96 10/20/20 01:30 96
[2020-10-20] MEDS ORDERED: POLYETHYLENE (MIRALAX) 17 GM PACK PO PRN (17:24)
[2020-10-20] MEDS: TAMSULOSIN HCL 0.4 MG CAP PO SCH (19:46)
[2020-10-20] MEDS: INSULIN GLARGINE SOLOSTAR 100 UNITS/ML 3 ML PEN SC SCH (20:32)
[2020-10-21] MEDS: HEPARIN SODIUM/DEXTROSE 25,000 UNITS/500 ML BAG IV SCH ×2 (02:49→15:53)
[2020-10-21 08:10] LABS: Partial Thromboplastin Ratio 2.2
[2020-10-21 08:13] LABS: Partial Thromboplastin Time 58.9 Seconds (21.0-31.0)
[2020-10-21] MEDS: INSULIN ASPART 100 UNITS/ML 3 ML PEN SC SCH ×4 (08:34→20:55)
[2020-10-21] MEDS: FUROSEMIDE 40 MG in SYRINGE 0 ML IV SCH ×2 (08:35→16:43)
[2020-10-21] MEDS: INSULIN GLARGINE SOLOSTAR 100 UNITS/ML 3 ML PEN SC SCH ×2 (08:35→20:54)
[2020-10-21] MEDS: PRAVASTATIN SOD 40 MG TAB PO SCH (08:36)
[2020-10-21] MEDS: allopurinoL 100 MG TAB PO SCH (08:36)
[2020-10-21] MEDS: amLODIPine BESYLATE 5 MG TAB PO SCH (08:36)
[2020-10-21] MEDS: METOPROLOL TARTRATE 25 MG TAB PO SCH ×2 (08:36→20:55)
[2020-10-21 11:23] LABS: Hematocrit (blood only) 41.5 % (42-52); Mean Corpuscular Hemoglobin 29.3 pg (25-34); Mean Corpuscular Hgb Conc 33.7 g/dL (32-36); Mean Corpuscular Volume 86.8 fL (80-100); Platelet Count 211 K/uL (130-400); RDW Standard Deviation 44.3 fL (36.4-46.3); Red Blood Count 4.78 M/uL (4.7-6.1); White Blood Count 12.66 K/uL (4.8-10.8)
[2020-10-21 11:40] LABS: BUN Creatinine Ratio 20.2 (10-20); Calcium 9.2 mg/dl (8.5-10.1); Creatinine Clr Calc Pharmacy 66.2 ml/min; Est GFR (Non-African American) 45.7; Magnesium 1.9 mg/dl (1.8-2.4); Potassium 3.6 mmol/L (3.5-5.1)
[2020-10-21 11:47] LABS: Troponin I 1.06 ng/ml (0-0.045)
--- NOTE | 2020-10-21 12:43 | Cardiology Progress Note ---
Date of Service October 21, 2020 Assessment & Plan (1) CHF (congestive heart failure): -hypervolemia improving with intravenous diuretics. -echocardiogram notes normal left ventricular systolic function. -continue IV Lasix. -admits to dietary indiscretion with salt. (2) Elevated troponin: -likely secondary to acute presentation. -coronary artery bypass was over 25 years ago. -proceed with cardiac catheterization tomorrow morning. (3) CAD (coronary artery disease): -s/p CABG x4 in 1993. -cardiac catheterization tomorrow. (4) Hypertension: -borderline control on current regimen. Admission and Anticipated Discharge Date Admission Date: October 20, 2020 Subjective The patient is resting comfortably in the bedside chair without complaints of chest discomfort. His dyspnea has improved. We have discussed proceeding with a cardiac catheterization tomorrow. Physical Exam Physical Exam: In general this is an obese white male in no acute distress. HEENT exam is negative. Neck is thick with full carotid upstrokes. No carotid bruits. Jugular venous pressure is difficult to assess. Cardiovascular exam reveals a regular rhythm with distant heart sounds. No obvious murmurs. No S3. Lungs are clear without rales, rhonchi or wheezes. Abdomen is obese without bruits. Extremities reveal intact radial artery pulses bilaterally. There is 1-2+ pitting edema distal to the knees, trace pitting edema in the thighs bilaterally. Results & Data ([facility]) Vital Signs (Past 12 Hours) Vital Signs Temp Pulse Pulse Resp BP Pulse Ox 10/21/20 12:10 36.7 C 91 H 18 150/70 H 95 10/21/20 07:48 36.8 C 99 H 18 143/75 H 94 10/21/20 07:30 106 H 10/21/20 03:12 36.8 C 92 H 18 149/76 H 94 Laboratory Results Second troponin I level has increased to 3.74 from initial value of 2.83. Diagnostic Findings food order expediter notes sinus rhythm with occasional episodes of sinus tachycardia. PG Care Time/CCT Total # of Minutes Spent Total Time Spent with Patient: Total time spent is greater than 50% in coordination of care (as documented) at patient's floor/unit and/or counseling patient: Coding Level of Care Code 34267 Subseq Hosp Care Lvl 3 Diagnoses CHF (congestive heart failure) I50.21 Heart failure chronicity: acute Heart failure type: systolic Elevated troponin R77.8 CAD (coronary artery disease) I25.10 Hypertension I10 (1) CHF (congestive heart failure) Heart failure chronicity: acute Heart failure type: systolic Qualified Code(s): I50.21 - Acute systolic (congestive) heart failure
--- NOTE | 2020-10-21 13:28 | Hospitalist Progress Note ---
Date of Service October 21, 2020 Assessment & Plan (1) Acute diastolic heart failure: GENAO and heart failure syndrome symptoms for the past 2-4 weeks. Cont with intravenous Lasix for now; he is improving from a symptom standpoint. Low salt diet, daily standing weights, accurate I/O monitoring. Cardiology following (2) Non-ST elevation [place] (NSTEMI): Known h/o CAD s/p CABG. Elevated troponin without any pain. Some concerning index anginal symptoms per patient, however, these are now resolved. He remains on medical therapy at this time including heparin drip, Lopressor, and pravastatin. Documented allergy to aspirin. Cont monitoring on PCU and cardiology consulted and following. Planned cath in am. (3) CAD (coronary artery disease): Cont medical therapy as above. (4) Diabetes mellitus, type II: Uncontrolled with last A1C 9.0 in Jul 2020. Repeat A1C pending. Currently inpatient glucose still uncontrolled. Will again adjust bolus insulin range to increase correction. Will increase Lantus to 30 Units BID from 24 Units BID. Tighten correction factor and increase carb coverage. (5) Hypertension: Borderline control with SBP in the 150s, cont amlodipine per home regimen. Change diet to 2gram sodium restriction. Home HCTZ also held while giving him IV Lasix. Also restarted home losartan today which was also held on admission. (6) Benign localized prostatic hyperplasia with lower urinary tract symptoms (LUTS): Cont tamsulosin per home regimen. (7) CKD (chronic kidney disease), stage III: Around baseline creatinine. Monitor daily BMP while on Lasix intravenous therapy. (8) Status post aorto-coronary artery bypass graft: (9) DVT prophylaxis: heparin drip Full Code Dispo-to home when medically stable. Cath in am. Ynes Nye DO [facility] Hospitalist Admission and Anticipated Discharge Date Admission Date: October 20, 2020 Subjective 70 yo M with a h/o CAD s/p CABG 25 yrs ago presented with worsening dyspnea on exertion for the past 2-4 weeks. Patient reports continued easy breathing. He did not sleep well last night He is tolerating p.o. Feels his legs are still swollen Patient admits that his index angina symptom has resolved today. Review of Systems Review of Systems: All systems reviewed & are unremarkable except as noted in Subjective Physical Exam Physical Exam: CONSTITUTIONAL: obese, vitals as above, generally well- appearing EYES: no scleral icterus ENT: external ear and nose normal, MMM RESPIRATORY: clear to auscultation bilaterally, no crackles, rales or wheezes, normal respiratory effort, no conversational dyspnea. CARDIOVASCULAR: regular rate and rhythm, S1 and 2 heard without murmurs, gallops or rubs, no JVD, 2+pitting edema bilaterally. GASTROINTESTINAL: soft, nontender, protuberant, no guarding MUSCULOSKELETAL: strength 5/5 throughout, head is normocephalic and atraumatic SKIN: warm and dry NEUROLOGIC: CN 2-12 grossly intact, no sensory deficit, normal cognition, normal speech, no gross focal deficits. PSYCHIATRIC: alert cooperative and oriented to person, place and time. Results & Data Results & Data ([facility]) Vital Signs (Past 12 Hours) Vital Signs Temp Pulse Pulse Resp BP Pulse Ox 10/21/20 12:10 36.7 C 91 H 18 150/70 H 95 10/21/20 07:48 36.8 C 99 H 18 143/75 H 94 10/21/20 07:30 106 H 10/21/20 03:12 36.8 C 92 H 18 149/76 H 94 Laboratory Results Short CBC 10/21/20 Range/Units 11:11 WBC 12.66 H (4.8-10.8) K/uL Hgb 14.0 (14.0-18.0) g/dL Hct 41.5 L (42-52) % Plt Count 211 (130-400) K/uL BMP 10/21/20 11:11 Sodium 133 L Potassium 3.6 Chloride 100 Carbon Dioxide 28 BUN 31 H Creatinine 1.53 H Glucose 275 H Calcium 9.2 Cardiac Enzymes 10/21/20 Range/Units 11:11 Troponin I 1.060 H* (0-0.045) ng/ml Medications Administered Current Inpatient Medications Acetaminophen (Acetaminophen 325 Mg Tab) 650 mg PO Q4H PRN PRN Reason: Pain or Fever Stop: 11/19/20 02:01 Allopurinol (Allopurinol 100 Mg Tab) 100 mg PO DAILY TALON Stop: 11/19/20 08:59 Last Admin: 10/21/20 08:36 Dose: 100 mg Documented by: Amlodipine Besylate (Amlodipine Besylate 5 Mg Tab) 5 mg PO DAILY TALON Stop: 11/19/20 08:59 Last Admin: 10/21/20 08:36 Dose: 5 mg Documented by: Dextrose (Dextrose 50% 50 Ml Syringe) 25 - 50 ml IV UD PRN; Protocol PRN Reason: Hypoglycemia Protocol Stop: 11/19/20 02:01 Glucagon (Glucagon For Inj 1 Mg Vial) 1 mg SQ UD PRN; Protocol PRN Reason: Hypoglycemia Protocol Stop: 11/19/20 02:01 Glucose (Glucose 10 Tabs/Tube) 4 - 8 tabs PO UD PRN; Protocol PRN Reason: Hypoglycemia Protocol Stop: 11/19/20 02:01 Glucose (Glucose 40% Gel 15 Gm Tube) 15 - 30 gm PO UD PRN; Protocol PRN Reason: Hypoglycemia Protocol Stop: 11/19/20 02:01 Heparin Sodium/Dextrose (Heparin Sodium/Dextrose) 25,000 units in 500 mls @ 38 mls/hr IV .[id number] [facility]; Protocol Stop: 11/18/20 23:44 Last Titration: 10/21/20 07:04 Dose: 1,900 units/hr, 38 mls/hr Documented by: Lorazepam (Ativan) 0.5 mg in 1 mls @ 1 mls/min IV Q4H PRN PRN Reason: Anxiety/Agitation Stop: 11/19/20 02:01 Promethazine HCl 12.5 mg/ (Sodium Chloride) 50.5 mls @ 202 mls/hr IV Q6H PRN PRN Reason: Nausea And Vomiting Stop: 11/19/20 02:01 Furosemide 40 mg/ Syringe 4 mls @ 4 mls/min IV [id number] [facility] Stop: 11/20/20 16:59 Insulin Aspart (Insulin Aspart 100 Units/Ml 3 Ml Pen) 0 units SC ACHS [facility] Stop: 11/19/20 20:24 Last Admin: 10/21/20 12:24 Dose: 25 units Documented by: Insulin Glargine (Insulin Glargine Solostar 100 Units/Ml 3 Ml Pen) 30 units SC BID [facility] Stop: 11/20/20 20:59 Losartan Potassium (Losartan Potassium 50 Mg Tab) 100 mg PO DAILY [facility] Stop: 11/20/20 13:29 Metoprolol Tartrate (Metoprolol Tartrate 25 Mg Tab) 75 mg PO BID [facility] Stop: 11/19/20 08:59 Last Admin: 10/21/20 08:36 Dose: 75 mg Documented by: Miscellaneous (Carbohydrates For Hypoglycemia ) 15 - 30 gm PO UD PRN PRN Reason: Hypoglycemia Protocol Stop: 11/19/20 02:01 Morphine Sulfate (Morphine Sulfate 2 Mg/Ml Carp) 2 mg IV Q4H PRN PRN Reason: chest pain Stop: 11/03/20 13:18 Polyethylene Glycol (Polyethylene (Miralax) 17 Gm Pack) 17 gm PO DAILY PRN PRN Reason: Constipation Stop: 11/19/20 17:23 Pravastatin Sodium (Pravastatin Sod 40 Mg Tab) 80 mg PO DAILY TALON Stop: 11/19/20 08:59 Last Admin: 10/21/20 08:36 Dose: 80 mg Documented by: Tamsulosin HCl (Tamsulosin Hcl 0.4 Mg Cap) 0.4 mg PO HS [facility]ALON Stop: 11/19/20 20:59 Last Admin: 10/20/20 19:46 Dose: 0.4 mg Documented by: Tramadol HCl (Tramadol Hcl 50 Mg Tablet) 25 - 50 mg PO Q4H PRN PRN Reason: Pain Stop: 11/19/20 02:01
[2020-10-21] MEDS: LOSARTAN POTASSIUM 50 MG TAB PO SCH (14:28)
[2020-10-21] MEDS: TAMSULOSIN HCL 0.4 MG CAP PO SCH (20:56)
[2020-10-22] MEDS: HEPARIN SODIUM/DEXTROSE 25,000 UNITS/500 ML BAG IV SCH (05:25)
[2020-10-22 05:55] LABS: Estimated Average Glucose 217 mg/dl; Hemoglobin A1C 9.2 % (4.5-5.6)
[2020-10-22 07:28] LABS: Partial Thromboplastin Ratio 2.3
[2020-10-22 07:34] LABS: BUN Creatinine Ratio 20.2 (10-20); Calcium 8.7 mg/dl (8.5-10.1); Est GFR (African American) 47.3; Est GFR (Non-African American) 40.8; Magnesium 1.9 mg/dl (1.8-2.4); Potassium 3.4 mmol/L (3.5-5.1)
[2020-10-22 07:36] LABS: Partial Thromboplastin Time 60.6 Seconds (21.0-31.0)
[2020-10-22 07:42] LABS: Troponin I 0.965 ng/ml (0-0.045)
[2020-10-22] MEDS: INSULIN GLARGINE SOLOSTAR 100 UNITS/ML 3 ML PEN SC SCH ×2 (08:34→20:12)
[2020-10-22] MEDS: INSULIN ASPART 100 UNITS/ML 3 ML PEN SC SCH ×4 (08:34→20:12)
[2020-10-22] MEDS: FUROSEMIDE 40 MG in SYRINGE 0 ML IV SCH ×2 (08:34→16:52)
[2020-10-22] MEDS: amLODIPine BESYLATE 5 MG TAB PO SCH (08:35)
[2020-10-22] MEDS: PRAVASTATIN SOD 40 MG TAB PO SCH (08:35)
[2020-10-22] MEDS: METOPROLOL TARTRATE 25 MG TAB PO SCH ×2 (08:35→20:11)
[2020-10-22] MEDS: LOSARTAN POTASSIUM 50 MG TAB PO SCH (08:35)
[2020-10-22] MEDS: allopurinoL 100 MG TAB PO SCH (08:35)
--- NOTE | 2020-10-22 10:30 | Hospitalist Progress Note ---
Date of Service October 22, 2020 Assessment & Plan (1) Acute diastolic heart failure: GENAO and heart failure syndrome symptoms for the past 2-4 weeks. Cont with intravenous Lasix for now; he is improving from a symptom standpoint. Low salt diet, daily standing weights, accurate I/O monitoring. Cardiology following (2) Non-ST elevation PR (NSTEMI): Known h/o CAD s/p CABG. Elevated troponin without any pain. Heart cath today with no intervention with plan for repeat complex PCI in am. Cont medical therapy with heparin, metoprolol, pravastatin, losartan. Noted allergy documented to aspirin. Clopidogrel started per Cardiology. (3) CAD (coronary artery disease): Severe disease seen on cardiac cath with occluded bypass graft. Complex PCI planned in am. Cont medical therapy as above. (4) Diabetes mellitus, type II: Uncontrolled with last A1C 9.0 in Jul 2020. Repeat A1C 9.2 Currently inpatient glucose more controlled. Cont current basal/bolus insulin regimen. (5) Hypertension: Borderline control with SBP in the 140s, cont amlodipine per home regimen. Cont 2 gram sodium restriction. Home HCTZ also held while giving him IV Lasix. Also restarted home losartan just yesterday which was held on admission. Will hold this now with increasing creatinine and concern for contrast induced nephropathy, especially in the setting of continued intravenous diuresis. (6) Benign localized prostatic hyperplasia with lower urinary tract symptoms (LUTS): Cont tamsulosin per home regimen. (7) CKD (chronic kidney disease), stage III: Around baseline creatinine. Monitor daily BMP while on Lasix intravenous therapy. (8) Status post aorto-coronary artery bypass graft: (9) DVT prophylaxis: heparin drip Full Code Dispo-to home when medically stable. Repeat cath in am. Ynes Nye DO [facility] Hospitalist Admission and Anticipated Discharge Date Admission Date: October 20, 2020 Subjective 70 yo M with a h/o CAD s/p CABG 25 yrs ago presented with worsening dyspnea on exertion for the past 2-4 weeks. -feels better overall -heart cath today with severe CAD and elevated intracardiac pressures noted -plan for complex PCI in am pending renal function. Review of Systems Review of Systems: All systems reviewed & are unremarkable except as noted in Subjective Physical Exam Physical Exam: CONSTITUTIONAL: obese, vitals as above, generally well- appearing EYES: no scleral icterus ENT: external ear and nose normal, MMM RESPIRATORY: clear to auscultation bilaterally, no crackles, rales or wheezes, normal respiratory effort, no conversational dyspnea. CARDIOVASCULAR: regular rate and rhythm, S1 and 2 heard without murmurs, gallops or rubs, no JVD, 2+pitting edema bilaterally. GASTROINTESTINAL: soft, nontender, protuberant, no guarding MUSCULOSKELETAL: strength 5/5 throughout, head is normocephalic and atraumatic SKIN: warm and dry NEUROLOGIC: CN 2-12 grossly intact, no sensory deficit, normal cognition, normal speech, no gross focal deficits. PSYCHIATRIC: alert cooperative and oriented to person, place and time. Results & Data Results & Data ([facility]) Vital Signs (Past 12 Hours) Vital Signs Temp Pulse Pulse Pulse Resp BP Pulse Ox 10/22/20 07:22 36.7 C 95 H 17 167/88 H 89 L 10/22/20 07:17 113 H 10/22/20 03:37 36.8 C 112 H 22 159/78 H 93 10/22/20 00:34 81 10/21/20 23:20 37.4 C 87 17 134/74 95 Laboratory Results Short CBC 10/19/20 10/20/20 10/21/20 Range/Units 23:07 06:09 11:11 WBC 12.66 H (4.8-10.8) K/uL Hgb 14.0 (14.0-18.0) g/dL Hct 41.5 L (42-52) % Plt Count 211 (130-400) K/uL Creatinine 1.64 H 1.45 H (0.6-1.4) mg/dl 10/21/20 10/22/20 Range/Units 11:11 06:31 WBC (4.8-10.8) K/uL Hgb (14.0-18.0) g/dL Hct (42-52) % Plt Count (130-400) K/uL Creatinine 1.53 H 1.68 H (0.6-1.4) mg/dl BMP 10/21/20 10/22/20 11:11 06:31 Sodium 133 L 137 Potassium 3.6 3.4 L Chloride 100 101 Carbon Dioxide 28 28 BUN 31 H 34 H Creatinine 1.53 H 1.68 H Glucose 275 H 176 H Calcium 9.2 8.7 Cardiac Enzymes 10/21/20 10/22/20 Range/Units 11:11 06:31 Troponin I 1.060 H* 0.965 H* (0-0.045) ng/ml Medications Administered Current Inpatient Medications Acetaminophen (Acetaminophen 325 Mg Tab) 650 mg PO Q4H PRN PRN Reason: Pain or Fever Stop: 11/19/20 02:01 Allopurinol (Allopurinol 100 Mg Tab) 100 mg PO DAILY [facility] Stop: 11/19/20 08:59 Last Admin: 10/22/20 08:35 Dose: 100 mg Documented by: Amlodipine Besylate (Amlodipine Besylate 5 Mg Tab) 5 mg PO DAILY [facility] Stop: 11/19/20 08:59 Last Admin: 10/22/20 08:35 Dose: 5 mg Documented by: Dextrose (Dextrose 50% 50 Ml Syringe) 25 - 50 ml IV UD PRN; Protocol PRN Reason: Hypoglycemia Protocol Stop: 11/19/20 02:01 Glucagon (Glucagon For Inj 1 Mg Vial) 1 mg SQ UD PRN; Protocol PRN Reason: Hypoglycemia Protocol Stop: 11/19/20 02:01 Glucose (Glucose 10 Tabs/Tube) 4 - 8 tabs PO UD PRN; Protocol PRN Reason: Hypoglycemia Protocol Stop: 11/19/20 02:01 Glucose (Glucose 40% Gel 15 Gm Tube) 15 - 30 gm PO UD PRN; Protocol PRN Reason: Hypoglycemia Protocol Stop: 11/19/20 02:01 Heparin Sodium/Dextrose (Heparin Sodium/Dextrose) 25,000 units in 500 mls @ 38 mls/hr IV .[id number] [facility]; Protocol Stop: 11/18/20 23:44 Last Titration: 10/22/20 07:05 Dose: 1,900 units/hr, 38 mls/hr Documented by: Lorazepam (Ativan) 0.5 mg in 1 mls @ 1 mls/min IV Q4H PRN PRN Reason: Anxiety/Agitation Stop: 11/19/20 02:01 Promethazine HCl 12.5 mg/ (Sodium Chloride) 50.5 mls @ 202 mls/hr IV Q6H PRN PRN Reason: Nausea And Vomiting Stop: 11/19/20 02:01 Furosemide 40 mg/ Syringe 4 mls @ 4 mls/min IV [id number] [facility] Stop: 11/20/20 16:59 Last Admin: 10/22/20 08:34 Dose: 4 mls/min Documented by: Insulin Aspart (Insulin Aspart 100 Units/Ml 3 Ml Pen) 0 units SC ACHS [facility] Stop: 11/19/20 20:24 Last Admin: 10/22/20 08:34 Dose: Not Given Documented by: Insulin Glargine (Insulin Glargine Solostar 100 Units/Ml 3 Ml Pen) 30 units SC BID [facility] Stop: 11/20/20 20:59 Last Admin: 10/22/20 08:34 Dose: 30 units Documented by: Losartan Potassium (Losartan Potassium 50 Mg Tab) 100 mg PO DAILY [facility] Stop: 11/20/20 13:29 Last Admin: 10/22/20 08:35 Dose: 100 mg Documented by: Metoprolol Tartrate (Metoprolol Tartrate 25 Mg Tab) 75 mg PO BID [facility] Stop: 11/19/20 08:59 Last Admin: 10/22/20 08:35 Dose: 75 mg Documented by: Miscellaneous (Carbohydrates For Hypoglycemia ) 15 - 30 gm PO UD PRN PRN Reason: Hypoglycemia Protocol Stop: 11/19/20 02:01 Morphine Sulfate (Morphine Sulfate 2 Mg/Ml Carp) 2 mg IV Q4H PRN PRN Reason: chest pain Stop: 11/03/20 13:18 Polyethylene Glycol (Polyethylene (Miralax) 17 Gm Pack) 17 gm PO DAILY PRN PRN Reason: Constipation Stop: 11/19/20 17:23 Pravastatin Sodium (Pravastatin Sod 40 Mg Tab) 80 mg PO DAILY [facility] Stop: 11/19/20 08:59 Last Admin: 10/22/20 08:35 Dose: 80 mg Documented by: Tamsulosin HCl (Tamsulosin Hcl 0.4 Mg Cap) 0.4 mg PO HS [facility] Stop: 11/19/20 20:59 Last Admin: 10/21/20 20:56 Dose: 0.4 mg Documented by: Tramadol HCl (Tramadol Hcl 50 Mg Tablet) 25 - 50 mg PO Q4H PRN PRN Reason: Pain Stop: 11/19/20 02:01
--- NOTE | 2020-10-22 10:37 | Cardiology Progress Note ---
Date of Service October 22, 2020 Assessment & Plan (1) CHF (congestive heart failure): -hypervolemia improving with intravenous Lasix. -echocardiogram notes normal left ventricular systolic function. -admits to dietary indiscretion with salt. (2) Elevated troponin: -likely secondary to his acute presentation. -coronary artery bypass was over 25 years ago. -proceed with cardiac catheterization later today. (3) CAD (coronary artery disease): -s/p CABG x4 in 1993. -cardiac catheterization pending. (4) Hypertension: -borderline control on current regimen. Admission and Anticipated Discharge Date Admission Date: October 20, 2020 Subjective Mr. Renee is resting comfortably in the bedside chair without complaints of chest pain or dyspnea. We again discussed his upcoming cardiac catheterization. Physical Exam Physical Exam: In general this is an obese white male in no acute distress. HEENT exam is negative. Neck is thick with full carotid upstrokes. No carotid bruits. Jugular venous pressure is difficult to assess. Cardiovascular exam reveals a regular rhythm with distant heart sounds. No obvious murmurs. No S3. Lungs are clear without rales, rhonchi or wheezes. Abdomen is obese without bruits. Extremities reveal intact radial artery pulses bilaterally. There is 1+ pitting edema distal to the knees, trace pitting edema in the thighs bilaterally. Results & Data ([facility]) Vital Signs (Past 12 Hours) Vital Signs Temp Pulse Pulse Pulse Resp BP Pulse Ox 10/22/20 07:22 36.7 C 95 H 17 167/88 H 89 L 10/22/20 07:17 113 H 10/22/20 03:37 36.8 C 112 H 22 159/78 H 93 10/22/20 00:34 81 10/21/20 23:20 37.4 C 87 17 134/74 95 Diagnostic Findings flooring installer notes sinus rhythm with an occasional PVC. PG Care Time/CCT Total # of Minutes Spent Total Time Spent with Patient: Total time spent is greater than 50% in coordination of care (as documented) at patient's floor/unit and/or counseling patient: Coding Level of Care Code 21079 Subseq Hosp Care Lvl 3 Diagnoses CHF (congestive heart failure) I50.21 Heart failure chronicity: acute Heart failure type: systolic Elevated troponin R77.8 CAD (coronary artery disease) I25.10 Hypertension I10 (1) CHF (congestive heart failure) Heart failure chronicity: acute Heart failure type: systolic Qualified Code(s): I50.21 - Acute systolic (congestive) heart failure
[2020-10-22] MEDS ORDERED: MIDAZOLAM HCL 1 MG/ML 2ML VIAL ONE (11:22)
[2020-10-22] MEDS ORDERED: niCARdipine HCL INJ 2.5 MG/ML 10 ML AMP ONE (11:22)
[2020-10-22] MEDS ORDERED: fentaNYL citrate 100 MCG/2 ML VIAL ONE (11:22)
[2020-10-22] MEDS ORDERED: HEPARIN (PORCINE) 1000 UNIT/ML 10 ML (CATH LAB USE ONLY) ONE (11:22)
[2020-10-22] MEDS ORDERED: NITROGLYCERIN/D5W 100MCG/ML 20ML SYR ONE (11:23)
--- NOTE | 2020-10-22 11:27 | Pre Anesthesia Assessment ---
Date of Service October 22, 2020 Pre Sedation Assessment Vital Signs Temp Pulse Pulse Pulse Resp BP BP 10/22/20 07:22 98.1 F 95 H 17 167/88 H 10/22/20 07:17 113 H 10/22/20 03:37 98.2 F 112 H 22 159/78 H 10/22/20 00:34 81 10/21/20 23:20 99.3 F 87 17 134/74 10/21/20 19:08 98.6 F 98 H 18 118/75 10/21/20 15:38 97.9 F 88 19 140/71 10/21/20 15:00 107 H 10/21/20 12:10 98.1 F 91 H 18 150/70 H Pulse Ox 10/22/20 07:22 89 L 10/22/20 07:17 10/22/20 03:37 93 10/22/20 00:34 10/21/20 23:20 95 10/21/20 19:08 94 10/21/20 15:38 93 10/21/20 15:00 10/21/20 12:10 95 Cardiovascular RRR, no murmur, no edema Respiratory normal respiratory effort, lungs clear to auscultation Pre-Sedation Airway Assessment Smoking Status: Never smoker Hx Sleep Apnea: No Hx Difficult Intubation: No Short, Thick Neck: Yes Thyromental Distance: < 3.5 Finger Breadths Oral Cavity: + WNL Mallampati Class: III ASA: ASA3 NPO Status Date of Last Intake of Fluids: 10/22/20 Time of Last Intake of Fluids: 07:00 Last Oral Intake of Fluids Comment: sips Date of Last Intake of Solid Food: 10/21/20 Time of Last Intake of Solid Foods: 17:00 Procedure Planning Contraindications for Sedation: none Current Medications Reviewed: Yes Notes The planned sedation has been discussed with the patient. Informed Consent was obtained. I have identified the patient, determined the appropriateness of sedation and have assessed the patient immediately prior to the procedure. All medicine(s) and interventions are by my order.
--- NOTE | 2020-10-22 14:09 | Post Anesthesia Assessment ---
Date of Service October 22, 2020 Post Sedation Assessment Vital Signs Temp Pulse Pulse Pulse Resp BP BP 10/22/20 13:57 76 18 152/74 H 10/22/20 13:43 73 10/22/20 13:32 97.7 F 78 16 136/80 10/22/20 13:10 71 16 138/68 10/22/20 12:55 66 16 131/77 10/22/20 07:22 98.1 F 95 H 17 167/88 H 10/22/20 07:17 113 H 10/22/20 03:37 98.2 F 112 H 22 159/78 H 10/22/20 00:34 81 10/21/20 23:20 99.3 F 87 17 134/74 10/21/20 19:08 98.6 F 98 H 18 118/75 10/21/20 15:38 97.9 F 88 19 140/71 10/21/20 15:00 107 H Pulse Ox 10/22/20 13:57 95 10/22/20 13:43 10/22/20 13:32 98 10/22/20 13:10 96 10/22/20 12:55 96 10/22/20 07:22 89 L 10/22/20 07:17 10/22/20 03:37 93 10/22/20 00:34 10/21/20 23:20 95 10/21/20 19:08 94 10/21/20 15:38 93 10/21/20 15:00 Recovery Score Activity: Moves 4 extremities Respiration: Deep Breath/Cough Circulation: +/-20% PreAnes Value Consciousness: Fully Awake Oxygen Saturation: > 92% On Room Air Post Anesthesia Score: 10 Discharge Sedation Level of Care: Fast Track Phase II Post Sedation Plan On clinical assessment, the patient appears to have tolerated the sedation without complications. Patient is recovering as anticipated. Patient will continue to be monitored by nursing and may be discharged when sedation discharge criteria are met per below protocol. Upon Completions of procedure up to 15 minutes continue every 5 minute vital signs and the P.A.R. score; then discharge to a Phase I or Fast Track to Phase II per the following guidelines: * Discharge Patient to appropriate Phase II area if PAR is 8 or greater or return to pre- procedure baseline. The post - procedure orders will be as directed. * If PAR score is less than 8 or not return to pre-procedure baseline then patient will follow Phase I monitoring till PAR is reached for Phase II. The Phase I may be done in procedure room or may call to secure a Phase I area. * If naloxone or flumazenil are used for reversal, hold in Phase I for continued monitoring from when last reversal dose was given for a minimum of 60 minutes or longer pending the nurse and/or physician discretion of patient condition before discharge to Phase II. Please call the Sedation Physician to re-evaluate and complete post-note for discharge to Phase II area. Do NOT discharge from procedure sedation or Phase 1 until post- sedation evaluation note is complete by procedure /sedation MD Sedation Discharge Instructions to be given to the patient at discharge to home.
--- NOTE | 2020-10-22 14:31 | Cardiac Catheterization ---
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 Cardiac Status Clinical evaluation leading to the procedure CAD Presenation: Non STEMI Anginal Classification: CCS III Heart Failure: NYHA Class: CCS IV Cardiogenic Shock within 24 Hours: No Cardiac Arrest within 24 Hours: No Imaging Studies Past 6 Months: Yes Stress Studies Past 6 Months: No Diagnostic Physicians Name: Jorge A Manzano MD Status: Elective Closure Device Percutaneous Entry Location: Radial Closure Device: Radial Band Recommendations: PCI without planned CABG Intraprocedure Events Significant Disection: No Perforation: No Cardiac Cath Procedure Full Procedure Date October 22, 2020 Pre-Procedure Diagnosis Pre-Procedure Diagnosis: Non STEMI AUC Score AUC Score: 8 Post-Procedure Diagnosis Post-Procedure Diagnosis: Severe CAD and Elevated Intracardiac Pressures Procedure(s) Performed Procedure(s) Performed: Coronary Angiography and Left Heart Cath [employer] Package Symbol Stamper Jorge A Manzano MD Towel Cabinet Repairer(s) Salvador Estimated Blood Loss Estimated Blood Loss: 15 Medication(s) Medication(s): Fentanyl, Heparin, Lidocaine 1%, Nicardipine, Nitroglycerin and Versed Summary of Findings Indication: NSTEMI, history of coronary artery disease post 4 vessel CABG Access: 6Fr left radial artery Catheters: JL4, JR4, MPA, TIFFANY, pigtail Findings: LM -Short, calcified, 40% disease LAD -calcified, 95% ostial with diffuse 70% disease extending to takeoff of bypassed first diagonal. 50% mid segment disease after takeoff of D1. Distal vessel with luminal irregularities and tapers to apex. Ostial D1 95%. Circumflex -nondominant, small caliber, 80% ostial, 50% mid segment disease. Small OM1, OM 2 occluded proximally. RCA -dominant, calcified, 100% proximal chronic total occlusion WILSON to diagonalwidely patent. Minimal post anastomotic disease and diagonal. Faint left to left collaterals to ramus/circumflex distribution. SVG to ramusoccluded SVG to PDA, PLBpatent with 50% distal graft stenosis. PDA/PLB without significant disease LVEDP -27 Arterial Closure: TR band Summary: 1. Severe rosebud multivessel coronary artery disease -40% left main, 95% ostial LAD, 70% proximal to mid LAD. 95% ostial D1 80% ostial circumflex. Occluded small OM1, OM 2 100% proximal RCA chronic total occlusion 2. Patent WILSON to D1. Faint retrofilling into LAD. 3. Patent SVG to PDA, PLB with 50% distal graft stenosis. 4. Occluded SVG to ramus 5. Elevated intracardiac filling pressure Recommendations: Patient with high risk ostial LAD disease. WILSON to diagonal is patent but with limited retrofilling into LAD. Recommend complex PCI of ostial LAD/circumflex bifurcation. Tentatively plan on procedure tomorrow pending renal function Gentle diuresis as tolerates in interim Hemodynamics Rest Ao:: 108/59/76 Final Ao: 128/67/94 LV: 137/27 Recommendations Recommendations: PCI without planned CABG Specimens Specimens: None Radiation Exposure (mGy) 3256 Contrast (mls) 80 Fluids (cc crystalloids) Fluids (cc crystalloids): 130 Drains Drains: none Anesthesia moderate [id number] Procedural Complication(s) None Disposition PCU I attest to the content of the Intraoperative Record and any orders documented therein. Any exceptions are noted below. [facility] Procedure Codes Cardiac Catheterization Procedure 1: Cardiovascular Cath Procedures: 42837 Coronaries & LHC (+/-LV) & Grafts/IM (arterial & venous) Moderate Sedation Procedure 1: Sedation/Anesthesia: 97914 Mod Sedation by the same physician;Init15 Min Child Age 5 & Up Procedure 2: Sedation/Anesthesia: 79288 Mod Sedation by the same physician; Ea [id number] Minutes PG Care Time/CCT Total # of Minutes Spent Total Time Spent with Patient: Total time spent is greater than 50% in coordination of care (as documented) at patient's floor/unit and/or counseling patient:
[2020-10-22] MEDS ORDERED: CLOPIDOGREL BISULFATE 300 MG TAB PO STA (14:56)
[2020-10-22] MEDS: TAMSULOSIN HCL 0.4 MG CAP PO SCH (20:10)
[2020-10-23 00:53] LABS: Partial Thromboplastin Ratio 1.8
[2020-10-23 00:54] LABS: Partial Thromboplastin Time 48.4 Seconds (21.0-31.0)
[2020-10-23] MEDS: HEPARIN SODIUM/DEXTROSE 25,000 UNITS/500 ML BAG IV SCH ×3 (02:58→11:55)
[2020-10-23 07:42] LABS: BUN Creatinine Ratio 22.5 (10-20); Calcium 8.7 mg/dl (8.5-10.1); Creatinine Clr Calc Pharmacy 62.2 ml/min; Est GFR (African American) 49.5; Est GFR (Non-African American) 42.7; Magnesium 1.8 mg/dl (1.8-2.4); Potassium 3.3 mmol/L (3.5-5.1)
[2020-10-23] MEDS ORDERED: HEPARIN (PORCINE) 1000 UNIT/ML 10 ML (CATH LAB USE ONLY) ONE (08:23)
[2020-10-23] MEDS ORDERED: MIDAZOLAM HCL 1 MG/ML 2ML VIAL ONE ×2 (08:23→08:49)
[2020-10-23] MEDS ORDERED: niCARdipine HCL INJ 2.5 MG/ML 10 ML AMP ONE (08:23)
[2020-10-23] MEDS ORDERED: fentaNYL citrate 100 MCG/2 ML VIAL ONE ×2 (08:23→09:39)
[2020-10-23] MEDS ORDERED: NITROGLYCERIN/D5W 100MCG/ML 20ML SYR ONE (08:24)
[2020-10-23] MEDS ORDERED: POTASSIUM CHLORIDE CRTAB 20 MEQ TABCR PO STA (08:58)
[2020-10-23] MEDS ORDERED: CLOPIDOGREL BISULFATE 75 MG TAB PO SCH (09:00)
--- NOTE | 2020-10-23 09:00 | Hospitalist Progress Note ---
Date of Service October 23, 2020 Assessment & Plan (1) Acute diastolic heart failure: GENAO and heart failure syndrome symptoms for the past 2-4 weeks. Initially diuresed with intravenous lasix which was held while monitoring for contrast induced nephropathy. Consider restarting home PO HCTZ pending renal function in am. Low salt diet, daily standing weights, accurate I/O monitoring. Cardiology following (2) Non-ST elevation [place] (NSTEMI): Known h/o CAD s/p CABG. Elevated troponin without any pain. Heart cath today with stents placed. Cont medical therapy with heparin, metoprolol, pravastatin, losartan. Noted allergy documented to aspirin. Clopidogrel started per Cardiology. (3) CAD (coronary artery disease): Cont medical therapy as above. (4) Diabetes mellitus, type II: Uncontrolled with last A1C 9.0 in Jul 2020. Repeat A1C 9.2 Currently inpatient glucose more controlled. Cont current basal/bolus insulin regimen. (5) Hypertension: Borderline control with SBP in the 140s, cont amlodipine per home regimen. Cont 2 gram sodium restriction. Home HCTZ also held while giving him IV Lasix. Home losartan held with increasing creatinine and concern for contrast induced nephropathy (two caths in last two days). (6) Benign localized prostatic hyperplasia with lower urinary tract symptoms (LUTS): Cont tamsulosin per home regimen. (7) CKD (chronic kidney disease), stage III: Around baseline creatinine. Monitor daily BMP (8) Status post aorto-coronary artery bypass graft: (9) DVT prophylaxis: Lovenox Full Code Dispo-to home when medically stable. Ynes Nye DO [facility] Hospitalist Admission and Anticipated Discharge Date Admission Date: October 20, 2020 Subjective 70 yo M with a h/o CAD s/p CABG 25 yrs ago presented with worsening dyspnea on exertion for the past 2-4 weeks. -feels better overall -repeat heart cath today with stents placed -right groin approach, no complications -asymptomatic Review of Systems Review of Systems: All systems reviewed & are unremarkable except as noted in Subjective Physical Exam Physical Exam: CONSTITUTIONAL: obese, vitals as above, generally well- appearing EYES: no scleral icterus ENT: external ear and nose normal, MMM RESPIRATORY: clear to auscultation bilaterally, no crackles, rales or wheezes, normal respiratory effort, no conversational dyspnea. CARDIOVASCULAR: regular rate and rhythm, S1 and 2 heard without murmurs, gallops or rubs, no JVD, trace LE edema bilaterally. GASTROINTESTINAL: soft, nontender, protuberant, no guarding MUSCULOSKELETAL: strength 5/5 throughout, head is normocephalic and atraumatic SKIN: warm and dry NEUROLOGIC: CN 2-12 grossly intact, no sensory deficit, normal cognition, normal speech, no gross focal deficits. PSYCHIATRIC: alert cooperative and oriented to person, place and time. Results & Data Results & Data ([facility]) Vital Signs (Past 12 Hours) Vital Signs Temp Pulse Pulse Resp BP Pulse Ox 10/23/20 08:09 94 H 18 162/102 H 95 10/23/20 07:02 36.7 C 99 H 22 133/82 96 10/23/20 07:00 96 H 10/23/20 03:18 36.4 C L 88 20 135/80 92 10/23/20 00:31 78 10/22/20 23:35 37.1 C 88 20 119/63 99 Laboratory Results [facility] 10/23/20 06:24 Sodium 138 Potassium 3.3 L Chloride 101 Carbon Dioxide 29 BUN 37 H Creatinine 1.62 H Glucose 161 H Calcium 8.7 Medications Administered Current Inpatient Medications Acetaminophen (Acetaminophen 325 Mg Tab) 650 mg PO Q4H PRN PRN Reason: Pain or Fever Stop: 11/19/20 02:01 Allopurinol (Allopurinol 100 Mg Tab) 100 mg PO DAILY [facility] Stop: 11/19/20 08:59 Last Admin: 10/22/20 08:35 Dose: 100 mg Documented by: Amlodipine Besylate (Amlodipine Besylate 5 Mg Tab) 5 mg PO DAILY [facility] Stop: 11/19/20 08:59 Last Admin: 10/22/20 08:35 Dose: 5 mg Documented by: Clopidogrel Bisulfate (Clopidogrel Bisulfate 75 Mg Tab) 75 mg PO QAM [facility] Stop: 11/22/20 08:59 Dextrose (Dextrose 50% 50 Ml Syringe) 25 - 50 ml IV UD PRN; Protocol PRN Reason: Hypoglycemia Protocol Stop: 11/19/20 02:01 Glucagon (Glucagon For Inj 1 Mg Vial) 1 mg SQ UD PRN; Protocol PRN Reason: Hypoglycemia Protocol Stop: 11/19/20 02:01 Glucose (Glucose 10 Tabs/Tube) 4 - 8 tabs PO UD PRN; Protocol PRN Reason: Hypoglycemia Protocol Stop: 11/19/20 02:01 Glucose (Glucose 40% Gel 15 Gm Tube) 15 - 30 gm PO UD PRN; Protocol PRN Reason: Hypoglycemia Protocol Stop: 11/19/20 02:01 Heparin Sodium/Dextrose (Heparin Sodium/Dextrose) 25,000 units in 500 mls @ 38 mls/hr IV .[id number] [facility]; Protocol Stop: 11/18/20 23:44 Last Admin: 10/23/20 02:58 Dose: 1,900 units/hr, 38 mls/hr Documented by: Lorazepam (Ativan) 0.5 mg in 1 mls @ 1 mls/min IV Q4H PRN PRN Reason: Anxiety/Agitation Stop: 11/19/20 02:01 Promethazine HCl 12.5 mg/ (Sodium Chloride) 50.5 mls @ 202 mls/hr IV Q6H PRN PRN Reason: Nausea And Vomiting Stop: 11/19/20 02:01 Furosemide 40 mg/ Syringe 4 mls @ 4 mls/min IV [id number] [facility] Stop: 11/20/20 16:59 Last Admin: 10/22/20 16:52 Dose: 4 mls/min Documented by: Insulin Aspart (Insulin Aspart 100 Units/Ml 3 Ml Pen) 0 units SC ACHS [facility] Stop: 11/19/20 20:24 Last Admin: 10/22/20 20:12 Dose: 2 units Documented by: Insulin Glargine (Insulin Glargine Solostar 100 Units/Ml 3 Ml Pen) 30 units SC BID [facility] Stop: 11/20/20 20:59 Last Admin: 10/22/20 20:12 Dose: 30 units Documented by: Losartan Potassium (Losartan Potassium 50 Mg Tab) 100 mg PO DAILY [facility] Stop: 11/20/20 13:29 Last Admin: 10/22/20 08:35 Dose: 100 mg Documented by: Metoprolol Tartrate (Metoprolol Tartrate 25 Mg Tab) 75 mg PO BID [facility] Stop: 11/19/20 08:59 Last Admin: 10/22/20 20:11 Dose: 75 mg Documented by: Miscellaneous (Carbohydrates For Hypoglycemia ) 15 - 30 gm PO UD PRN PRN Reason: Hypoglycemia Protocol Stop: 11/19/20 02:01 Morphine Sulfate (Morphine Sulfate 2 Mg/Ml Carp) 2 mg IV Q4H PRN PRN Reason: chest pain Stop: 11/03/20 13:18 Polyethylene Glycol (Polyethylene (Miralax) 17 Gm Pack) 17 gm PO DAILY PRN PRN Reason: Constipation Stop: 11/19/20 17:23 Pravastatin Sodium (Pravastatin Sod 40 Mg Tab) 80 mg PO DAILY [facility] Stop: 11/19/20 08:59 Last Admin: 10/22/20 08:35 Dose: 80 mg Documented by: Tamsulosin HCl (Tamsulosin Hcl 0.4 Mg Cap) 0.4 mg PO HS [facility] Stop: 11/19/20 20:59 Last Admin: 10/22/20 20:10 Dose: 0.4 mg Documented by: Tramadol HCl (Tramadol Hcl 50 Mg Tablet) 25 - 50 mg PO Q4H PRN PRN Reason: Pain Stop: 11/19/20 02:01
[2020-10-23] MEDS: INSULIN ASPART 100 UNITS/ML 3 ML PEN SC SCH ×4 (09:03→20:06)
[2020-10-23] MEDS ORDERED: TICAGRELOR 90 MG TAB PO ONE (10:55)
--- NOTE | 2020-10-23 11:13 | Post Anesthesia Assessment ---
Date of Service October 23, 2020 Post Sedation Assessment Vital Signs Temp Pulse Pulse Pulse Resp BP BP 10/23/20 08:09 94 H 18 162/102 H 10/23/20 07:02 98.1 F 99 H 22 133/82 10/23/20 07:00 96 H 10/23/20 03:18 97.5 F L 88 20 135/80 10/23/20 00:31 78 10/22/20 23:35 98.8 F 88 20 119/63 10/22/20 19:47 97.9 F 85 18 156/78 H 10/22/20 17:27 87 18 147/70 H 10/22/20 16:27 90 18 149/80 H 10/22/20 15:29 79 10/22/20 15:27 81 18 129/72 10/22/20 15:16 73 18 152/78 H 10/22/20 14:47 95 H 16 154/89 H 10/22/20 14:17 80 18 127/80 10/22/20 13:57 76 18 152/74 H 10/22/20 13:43 73 10/22/20 13:32 97.7 F 78 16 136/80 10/22/20 13:10 71 16 138/68 10/22/20 12:55 66 16 131/77 Pulse Ox 10/23/20 08:09 95 10/23/20 07:02 96 10/23/20 07:00 10/23/20 03:18 92 10/23/20 00:31 10/22/20 23:35 99 10/22/20 19:47 95 10/22/20 17:27 93 10/22/20 16:27 94 10/22/20 15:29 10/22/20 15:27 95 10/22/20 15:16 95 10/22/20 14:47 95 10/22/20 14:17 95 10/22/20 13:57 95 10/22/20 13:43 10/22/20 13:32 98 10/22/20 13:10 96 10/22/20 12:55 96 Recovery Score Activity: Moves 4 extremities Respiration: Deep Breath/Cough Circulation: +/-20% PreAnes Value Consciousness: Fully Awake Oxygen Saturation: > 92% On Room Air Post Anesthesia Score: 10 Discharge Sedation Level of Care: Fast Track Phase II Post Sedation Plan On clinical assessment, the patient appears to have tolerated the sedation without complications. Patient is recovering as anticipated. Patient will continue to be monitored by nursing and may be discharged when sedation discharge criteria are met per below protocol. Upon Completions of procedure up to 15 minutes continue every 5 minute vital signs and the P.A.R. score; then discharge to a Phase I or Fast Track to Phase II per the following guidelines: * Discharge Patient to appropriate Phase II area if PAR is 8 or greater or return to pre- procedure baseline. The post - procedure orders will be as directed. * If PAR score is less than 8 or not return to pre-procedure baseline then patient will follow Phase I monitoring till PAR is reached for Phase II. The Phase I may be done in procedure room or may call to secure a Phase I area. * If naloxone or flumazenil are used for reversal, hold in Phase I for continued monitoring from when last reversal dose was given for a minimum of 60 minutes or longer pending the nurse and/or physician discretion of patient condition before discharge to Phase II. Please call the Sedation Physician to re-evaluate and complete post-note for discharge to Phase II area. Do NOT discharge from procedure sedation or Phase 1 until post- sedation evaluation note is complete by procedure /sedation MD Sedation Discharge Instructions to be given to the patient at discharge to home.
--- NOTE | 2020-10-23 11:17 | Post Operative Brief Note ---
Cardiology Brief Post Op Date of Surgery October 23, 2020 Pre & Post Diagnosis Coronary artery disease Procedure PCI to LM-LAD and circumflex Conference Director Jorge A Manzano MD Brand Strategist Alexander Estimated Blood Loss 15 Findings See Below Successful PCI of LM, proximal LAD (3.0 x 12, 3.0 x 30 Imtiaz) Successful PCI of circumflex with 2.5 x 22 Imtiaz Fluids 300 Specimens Specimen Description: none Anesthesia Type RN Sedation Complications none Disposition Accompanied Patient To Recovery: No Disposition: PCU Overlapping Procedure I was present for: the critical portions of procedure. I was immediately available: during the entire case. Back up surgeon: used during listed procedure.
[2020-10-23] MEDS ORDERED: SODIUM CHLORIDE 0.9% 1000ML 250 ML IV SCH (11:30)
[2020-10-23] MEDS: INSULIN GLARGINE SOLOSTAR 100 UNITS/ML 3 ML PEN SC SCH ×2 (12:45→20:07)
--- NOTE | 2020-10-23 13:45 | Cardiac Catheterization ---
[facility] Data: Extruder Operator Horizontal Cardiac Status Clinical evaluation leading to the procedure CAD Presenation: Non STEMI Anginal Classification: CCS IV Heart Failure: NYHA Class: CCS IV Cardiogenic Shock within 24 Hours: No Cardiac Arrest within 24 Hours: No Imaging Studies Past 6 Months: Yes Diagnostic Physicians Name: Jorge A Manzano MD Status: Elective Closure Device Percutaneous Entry Location: Femoral Closure Device: Angio-Seal Recommendations: PCI without planned CABG PCI Indication: PCI for high risk Non-BONILLA Lesion Segment Name: ostial LAD Culprit Artery: Yes Stenosis Prior to Rx (%): 95 Chronic Total Occlusion: No IVUS: Yes FFR: No Pre-Procedure SANDRA Flow: 3 Previously Treated Lesion: No Lesion Complexity: High/C Lesion Length (mm): 30 Thrombus Present: Yes Bifurcation Lesion: Yes Guidewire Across Lesion: Stenosis Post-Procedure (%): 10 Post-Procedure SANDRA Flow: 3 Devices(s) Deployed: Yes Yes Intraprocedure Events Significant Disection: No Perforation: No Cardiac Cath Procedure Full Procedure Date October 23, 2020 Pre-Procedure Diagnosis Pre-Procedure Diagnosis: Non STEMI AUC Score AUC Score: 8 Post-Procedure Diagnosis Post-Procedure Diagnosis: Severe CAD and Successful PCI Procedure(s) Performed Procedure(s) Performed: Coronary Angiography, Drug Eluting Stent, IVUS and Femoral Artery Angiography Inshore Undersea Warfare Officer Jorge A Manzano MD Project Estimator(s) Alexander Estimated Blood Loss Estimated Blood Loss: 25 Medication(s) Medication(s): Fentanyl, Heparin, Lidocaine 1%, Nicardipine, Nitroglycerin and Versed Medication(s): Ticagrelor Summary of Findings Indication: NSTEMI, history of coronary artery disease post 4 vessel CABG. Staged PCI of LM, LAD Access: 6Fr RT NET TRAINER Catheters: JL3.5 guide Findings: For full details of patient's coronary angiography please see cath report from yesterday 10/22/2020. Briefly patient found to have patent grafts to D1 and PDA, PLB with severe [place] LM, proximal LAD and ostial circumflex disease. Brought back for PCI today. --PCI-- LM cannulated with JL3.5 guide Supervisor Net Making 50 wire placed into distal LAD Whisper wire placed into distal circumflex LM, LAD dilated with 2.5 balloon. Ostial/proximal circumflex dilated with 2.5 balloon. [place] IVUS Catheter placed across left main revealing heavily calcified circumferential disease. Unable to pass catheter more distal into LAD. LM, proximal to mid LAD dilated with 3.0 balloon. Proximal circumflex dilated with 3.0 balloon. Ostial to mid circumflex stented with 2.5 x 22 mm [place] MELLY Stent post-dilated with stent balloon. LM, LAD redilated with 2.5 balloon and 3.0 NC balloon. Eventually with aid of a telescope support catheter able to deliver a 3.0 x 30 mm [place] MELLY to mid segment. With attempting to pull catheter back stent shortened on balloon and was deployed from proximal to mid segment - stent did not cover LM, ostial LAD. Stent postdilated with 3.5 NC to high atmospheres Third MELLY (3.0 x 12 mm [place]) placed from left main ostium to LAD overlapping initial stent. Mild to moderate residual ostial circumflex disease attempt made to rewire into circumflex but unsuccessful. Stent postdilated with 3.5 NC IC vasodilators administered for spasm Post procedure SANDRA III flow through stents. Mid segment stent with mild underexpansion despite high pressure post dilation. SANDRA-3 flow through circumflex stents mild to moderate ostial stenosis. Arterial Closure: Angioseal. Summary: 1. Successful PCI of left main, proximal to mid LAD with 2 overlapping drug- eluting stents (3.0 x 12, 3.0 x 30 mm [place]; postdilated with 3.5 NC). 2. Successful PCI of proximal to mid circumflex with single drug-eluting stent (2.5 x 22 mm Imtiaz). Recommendations: Continue DAPT with aspirin, ticagrelor for least 1 year. Likely extended DAPT in the setting of complex left main bifurcation stenting. Hold evening diuretics after IV contrast load Consult cardiac rehab If in the future if has refractory exertional chest symptoms could consider repeat invasive evaluation of distal SVG to PDA, ostial circumflex. Hemodynamics Rest Ao:: 142/78/115 Final Ao: 138/77/103 LV: -- Recommendations Recommendations: PCI without planned CABG Specimens Specimens: None Radiation Exposure (mGy) 9515-counseled on signs/sxs of radiation toxicity Contrast (mls) 220 Fluids (cc crystalloids) Fluids (cc crystalloids): 300 Drains Drains: none Anesthesia moderate [id number] Procedural Complication(s) None Disposition PCU I attest to the content of the Intraoperative Record and any orders documented therein. Any exceptions are noted below. [facility] Card Cath Procedure Codes Therapeutic Services & Ancillary Proc Procedure 1: Cardiovascular Tx and Anc Procedures: 56613 IV Ultrasound (Coronary or Graft) Moderate Sedation Procedure 1: Sedation/Anesthesia: 96227 Mod Sedation by the same physician;Init15 Min Child Age 5 & Up Procedure 2: Sedation/Anesthesia: 14137 Mod Sedation by the same physician; Ea [id number] Minutes Stenting Procedure 1: Cardiovascular Stent Procedures: 62372 Perc transcatheter placement of intracoronary stent(s), with ang Procedure 2: Cardiovascular Stent Procedures: 74279 Ea addl branch of a major coronary artery PG Care Time/CCT Total # of Minutes Spent Total Time Spent with Patient: Total time spent is greater than 50% in coordination of care (as documented) at patient's floor/unit and/or counseling patient:
[2020-10-23] MEDS: PRAVASTATIN SOD 40 MG TAB PO SCH (14:50)
[2020-10-23] MEDS: METOPROLOL TARTRATE 25 MG TAB PO SCH ×2 (14:50→20:08)
[2020-10-23] MEDS: allopurinoL 100 MG TAB PO SCH (14:50)
[2020-10-23] MEDS: amLODIPine BESYLATE 5 MG TAB PO SCH (14:50)
--- NOTE | 2020-10-23 15:17 | Electrocardiogram Report ---
Test Reason : Blood Pressure : / mmHG Vent. Rate : 092 BPM Atrial Rate : 092 BPM P-R Int : 182 ms QRS Dur : 108 ms QT Int : 390 ms P-R-T Axes : 061 060 071 degrees QTc Int : 482 ms Sinus rhythm with occasional Premature ventricular complexes Prolonged QT Abnormal ECG When compared with ECG of 19-OCT-2020 22:47, Nonspecific T wave abnormality no longer evident in Lateral leads Confirmed by Terell Us ([id number]) on 10/23/2020 3:16:41 PM Referred By: REFERRED SELF Confirmed By:Terell Us
[2020-10-23] MEDS: TAMSULOSIN HCL 0.4 MG CAP PO SCH (20:07)
[2020-10-23] MEDS: TICAGRELOR 90 MG TAB PO SCH (20:07)
[2020-10-24 07:54] LABS: Mean Corpuscular Hemoglobin 29.6 pg (25-34); Mean Corpuscular Hgb Conc 34.1 g/dL (32-36); Mean Corpuscular Volume 86.7 fL (80-100); Platelet Count 273 K/uL (130-400); RDW Standard Deviation 44.8 fL (36.4-46.3); Red Blood Count 4.73 M/uL (4.7-6.1); White Blood Count 9.19 K/uL (4.8-10.8)
[2020-10-24 08:25] LABS: BUN Creatinine Ratio 18.6 (10-20); Calcium 9.5 mg/dl (8.5-10.1); Creatinine Clr Calc Pharmacy 72.4 ml/min; Est GFR (African American) 59.5; Est GFR (Non-African American) 51.3; Potassium 3.5 mmol/L (3.5-5.1)
[2020-10-24] MEDS ORDERED: POTASSIUM CHLORIDE CRTAB 20 MEQ TABCR PO STA (08:45)
--- NOTE | 2020-10-24 08:47 | Hospitalist Progress Note ---
Date of Service October 24, 2020 Assessment & Plan (1) Acute diastolic heart failure: GENAO and heart failure syndrome symptoms for the past 2-4 weeks. Initially diuresed with intravenous lasix which was held while monitoring for contrast induced nephropathy. Low salt diet, daily standing weights, accurate I/O monitoring. Cardiology following Start lasix 40 mg daily on DC (2) Non-ST elevation [place] (NSTEMI): Known h/o CAD s/p CABG. Elevated troponin without any pain. Heart cath with stents placed. Cont medical therapy with heparin, metoprolol, pravastatin, losartan. Noted allergy documented to aspirin. Brilinta started per Cardiology. -cardiac cath revealed patent WILSON to the LAD and SVG to the PDA and PLB. -SVG to the ramus intermedius occluded. -severe disease in the left main, proximal LAD, and proximal LCx. -MELLY placed in the LM and MELLY placed in the ostial proximal LAD (3 x 12 mm, 3 x 30 mm Imtiaz). -MELLY placed in the ostial and proximal LCx (2.5 x 22 mm [place]). Follow up with cardiology on Monday 10/30 (3) CAD (coronary artery disease): Cont medical therapy as above. Metoprolol increased to 100 mg BID (4) Diabetes mellitus, type II: Uncontrolled with last A1C 9.0 in Jul 2020. Repeat A1C 9.2 Currently inpatient glucose more controlled. Cont current basal/bolus insulin regimen. (5) Hypertension: Borderline control with SBP in the 140s, cont amlodipine per home regimen. Cont 2 gram sodium restriction. Home losartan held with increasing creatinine and concern for contrast induced nephropathy (two caths in last two days). Restart losartan on DC Lasix 40 mg daily Metoprolol 100 mg BID (6) Benign localized prostatic hyperplasia with lower urinary tract symptoms (LUTS): Cont tamsulosin per home regimen. (7) CKD (chronic kidney disease), stage III: Around baseline creatinine. Monitor daily BMP (8) Status post aorto-coronary artery bypass graft: (9) DVT prophylaxis: Lovenox Full Code Dispo-to home , close follow up w/ cardiology and PCP. Admission and Anticipated Discharge Date Admission Date: October 20, 2020 Subjective 70 yo M with a h/o CAD s/p CABG 25 yrs ago presented with worsening dyspnea on exertion for the past 2-4 weeks. -feels better overall -heart cath with severe CAD and elevated intracardiac pressures noted -s/p complex PCI yesterday Currently pt feels well, denies any chest pain, shortness of breath, pal pitations, abd. pain, nausea He is inquiring about going home. Review of Systems Review of Systems: All systems reviewed & are unremarkable except as noted in HPI & below Constitutional: no fever and no chills Respiratory: no cough and no dyspnea Cardiovascular: no chest pain and no palpitations Gastrointestinal: no abdominal pain, no nausea and no vomiting Physical Exam Physical Exam: CONSTITUTIONAL: obese, vitals as above, generally well-appearing EYES: no scleral icterus ENT: external ear and nose normal, MMM RESPIRATORY: clear to auscultation bilaterally, no crackles, rales or wheezes, normal respiratory effort, no conversational dyspnea. CARDIOVASCULAR: regular rate and rhythm, S1 and 2 heard without murmurs, gallops or rubs, no JVD, 1+pitting edema bilaterally. GASTROINTESTINAL: soft, nontender, protuberant, no guarding MUSCULOSKELETAL: strength 5/5 throughout, head is normocephalic and atraumatic SKIN: warm and dry NEUROLOGIC: CN 2-12 grossly intact, no sensory deficit, normal cognition, normal speech, no gross focal deficits. PSYCHIATRIC: alert cooperative and oriented to person, place and time. Results & Data Results & Data ([facility]) Vital Signs (Past 12 Hours) Vital Signs Temp Pulse Resp BP Pulse Ox 10/24/20 07:56 36.8 C 112 H 20 175/84 H 95 10/24/20 04:06 36.6 C 92 H 18 143/80 H 95 10/24/20 00:01 36.7 C 90 20 124/68 91 Laboratory Results 10/24/20 10/24/20 10/24/20 Range/Units 07:32 07:32 07:06 WBC 9.19 (4.8-10.8) K/uL RBC 4.73 (4.7-6.1) M/uL Hgb 14.0 (14.0-18.0) g/dL Hct 41.0 L (42-52) % MCV 86.7 (80-100) fL MCH 29.6 (25-34) pg MCHC 34.1 (32-36) g/dL RDW Std Deviation 44.8 (36.4-46.3) fL RDW Coeff of Livier 14.0 (11.5-14.5) % Plt Count 273 (130-400) K/uL MPV 10.0 (7.4-10.4) fL Activ Coag Time Kaolin (94-140) SECONDS Sodium 139 (136-145) mmol/L Potassium 3.5 (3.5-5.1) mmol/L Chloride 104 (98-107) mmol/L Carbon Dioxide 28 (21-32) mmol/L Anion Gap 7.0 (3-11) BUN 26 H (7-18) mg/dl Creatinine 1.39 (0.6-1.4) mg/dl Est Cr Clr Drug Dosing 72.4 ml/min Est GFR ( Amer) 59.5 Est GFR (Non-Af Amer) 51.3 BUN/Creatinine Ratio 18.6 (10-20) Glucose 131 H (70-99) mg/dl POC Glucose 129 H (70-99) mg/dl Calcium 9.5 (8.5-10.1) mg/dl Magnesium 2.0 (1.8-2.4) mg/dl 10/23/20 10/23/20 10/23/20 Range/Units 20:04 16:17 12:02 WBC (4.8-10.8) K/uL RBC (4.7-6.1) M/uL Hgb (14.0-18.0) g/dL Hct (42-52) % MCV (80-100) fL MCH (25-34) pg MCHC (32-36) g/dL RDW Std Deviation (36.4-46.3) fL RDW Coeff of [place] (11.5-14.5) % Plt Count (130-400) K/uL MPV (7.4-10.4) fL Activ Coag Time Kaolin (94-140) SECONDS Sodium (136-145) mmol/L Potassium (3.5-5.1) mmol/L Chloride (98-107) mmol/L Carbon Dioxide (21-32) mmol/L Anion Gap (3-11) BUN (7-18) mg/dl Creatinine (0.6-1.4) mg/dl Est Cr Clr Drug Dosing ml/min Est GFR ( Amer) Est GFR (Non-Af Amer) BUN/Creatinine Ratio (10-20) Glucose (70-99) mg/dl POC Glucose 200 H 135 H 191 H (70-99) mg/dl Calcium (8.5-10.1) mg/dl Magnesium (1.8-2.4) mg/dl 10/23/20 10/23/20 Range/Units 09:44 08:50 WBC (4.8-10.8) K/uL RBC (4.7-6.1) M/uL Hgb (14.0-18.0) g/dL Hct (42-52) % MCV (80-100) fL MCH (25-34) pg MCHC (32-36) g/dL RDW Std Deviation (36.4-46.3) fL RDW Coeff of [place]ier (11.5-14.5) % Plt Count (130-400) K/uL MPV (7.4-10.4) fL Activ Coag Time Kaolin 307 H 296 H (94-140) SECONDS Sodium (136-145) mmol/L Potassium (3.5-5.1) mmol/L Chloride (98-107) mmol/L Carbon Dioxide (21-32) mmol/L Anion Gap (3-11) BUN (7-18) mg/dl Creatinine (0.6-1.4) mg/dl Est Cr Clr Drug Dosing ml/min Est GFR ( Amer) Est GFR (Non-Af Amer) BUN/Creatinine Ratio (10-20) Glucose (70-99) mg/dl POC Glucose (70-99) mg/dl Calcium (8.5-10.1) mg/dl Magnesium (1.8-2.4) mg/dl Medications Administered Current Inpatient Medications Acetaminophen (Acetaminophen 325 Mg Tab) 650 mg PO Q4H PRN PRN Reason: Pain or Fever Stop: 11/19/20 02:01 Allopurinol (Allopurinol 100 Mg Tab) 100 mg PO DAILY TALON Stop: 11/19/20 08:59 Last Admin: 10/23/20 14:50 Dose: 100 mg Documented by: Amlodipine Besylate (Amlodipine Besylate 5 Mg Tab) 5 mg PO DAILY TALON Stop: 11/19/20 08:59 Last Admin: 10/23/20 14:50 Dose: 5 mg Documented by: Dextrose (Dextrose 50% 50 Ml Syringe) 25 - 50 ml IV UD PRN; Protocol PRN Reason: Hypoglycemia Protocol Stop: 11/19/20 02:01 Enoxaparin Sodium (Enoxaparin Inj 40 Mg/0.4 Ml Syr) 40 mg SQ QAM TALON Stop: 11/23/20 08:59 Glucagon (Glucagon For Inj 1 Mg Vial) 1 mg SQ UD PRN; Protocol PRN Reason: Hypoglycemia Protocol Stop: 11/19/20 02:01 Glucose (Glucose 10 Tabs/Tube) 4 - 8 tabs PO UD PRN; Protocol PRN Reason: Hypoglycemia Protocol Stop: 11/19/20 02:01 Glucose (Glucose 40% Gel 15 Gm Tube) 15 - 30 gm PO UD PRN; Protocol PRN Reason: Hypoglycemia Protocol Stop: 11/19/20 02:01 Lorazepam (Ativan) 0.5 mg in 1 mls @ 1 mls/min IV Q4H PRN PRN Reason: Anxiety/Agitation Stop: 11/19/20 02:01 Promethazine HCl 12.5 mg/ (Sodium Chloride) 50.5 mls @ 202 mls/hr IV Q6H PRN PRN Reason: Nausea And Vomiting Stop: 11/19/20 02:01 Furosemide 40 mg/ Syringe 4 mls @ 4 mls/min IV BID17 [facility] Stop: 11/20/20 16:59 Last Admin: 10/22/20 16:52 Dose: 4 mls/min Documented by: Insulin Aspart (Insulin Aspart 100 Units/Ml 3 Ml Pen) 0 units SC ACHS [facility] Stop: 11/19/20 20:24 Last Admin: 10/23/20 20:06 Dose: 2 units Documented by: Insulin Glargine (Insulin Glargine Solostar 100 Units/Ml 3 Ml Pen) 30 units SC BID [facility] Stop: 11/20/20 20:59 Last Admin: 10/23/20 20:07 Dose: 30 units Documented by: Losartan Potassium (Losartan Potassium 50 Mg Tab) 100 mg PO DAILY [facility] Stop: 11/20/20 13:29 Last Admin: 10/22/20 08:35 Dose: 100 mg Documented by: Metoprolol Tartrate (Metoprolol Tartrate 25 Mg Tab) 75 mg PO BID [facility] Stop: 11/19/20 08:59 Last Admin: 10/23/20 20:08 Dose: 75 mg Documented by: Miscellaneous (Carbohydrates For Hypoglycemia ) 15 - 30 gm PO UD PRN PRN Reason: Hypoglycemia Protocol Stop: 11/19/20 02:01 Morphine Sulfate (Morphine Sulfate 2 Mg/Ml [place]) 2 mg IV Q4H PRN PRN Reason: chest pain Stop: 11/03/20 13:18 Polyethylene Glycol (Polyethylene (Miralax) 17 Gm Pack) 17 gm PO DAILY PRN PRN Reason: Constipation Stop: 11/19/20 17:23 Potassium Chloride (Potassium Chloride Crtab 20 Meq Tabcr) 40 meq PO NOW STA Stop: 10/24/20 08:46 Pravastatin Sodium (Pravastatin Sod 40 Mg Tab) 80 mg PO DAILY TALON Stop: 11/19/20 08:59 Last Admin: 10/23/20 14:50 Dose: 80 mg Documented by: Tamsulosin HCl (Tamsulosin Hcl 0.4 Mg Cap) 0.4 mg PO HS [place]ALON Stop: 11/19/20 20:59 Last Admin: 10/23/20 20:07 Dose: 0.4 mg Documented by: Ticagrelor (Ticagrelor 90 Mg Tab) 90 mg PO BID [place] Stop: 11/22/20 21:59 Last Admin: 10/23/20 20:07 Dose: 90 mg Documented by: Tramadol HCl (Tramadol Hcl 50 Mg Tablet) 25 - 50 mg PO Q4H PRN PRN Reason: Pain Stop: 11/19/20 02:01
[2020-10-24] MEDS ORDERED: ENOXAPARIN INJ 40 MG/0.4 ML SYR SQ SCH (09:00)
[2020-10-24] MEDS: METOPROLOL TARTRATE 25 MG TAB PO SCH (09:09)
[2020-10-24] MEDS: TICAGRELOR 90 MG TAB PO SCH (09:09)
[2020-10-24] MEDS: PRAVASTATIN SOD 40 MG TAB PO SCH (09:10)
[2020-10-24] MEDS: allopurinoL 100 MG TAB PO SCH (09:10)
[2020-10-24] MEDS: INSULIN GLARGINE SOLOSTAR 100 UNITS/ML 3 ML PEN SC SCH (09:10)
[2020-10-24] MEDS: amLODIPine BESYLATE 5 MG TAB PO SCH (09:10)
[2020-10-24] MEDS: INSULIN ASPART 100 UNITS/ML 3 ML PEN SC SCH ×2 (09:11→12:56)
--- NOTE | 2020-10-24 10:41 | Cardiology Progress Note ---
Date of Service October 24, 2020 Assessment & Plan (1) CHF (congestive heart failure): -approaching euvolemia. -discharged on Lasix 40 mg daily with an additional dose when necessary for weight gain of 3 or more lbs. -daily weights and sliding-scale diuretics. -low-salt diet. -echocardiogram notes normal left ventricular systolic function. (2) Elevated troponin: -likely secondary to his acute presentation. -coronary artery bypass was over 25 years ago. -cardiac catheterization and stent placement as described. (3) CAD (coronary artery disease): -s/p CABG x4 in 1993. -cardiac cath revealed patent WILSON to the LAD and SVG to the PDA and PLB. -SVG to the ramus intermedius occluded. -severe disease in the left main, proximal LAD, and proximal LCx. -MELLY placed in the LM and MELLY placed in the ostial proximal LAD (3 x 12 mm, 3 x 30 mm [place]). -MELLY placed in the ostial and proximal LCx (2.5 x 22 mm [place]). -Brilinta added to his medical regimen. -stable for hospital discharge. -follow-up with me as scheduled next Thursday. (4) Hypertension: -borderline control on current regimen. -would increase metoprolol tartrate to 100 mg b.i.d. as he has demonstrated some sinus tachycardia. Admission and Anticipated Discharge Date Admission Date: October 20, 2020 Subjective Mr. Renee is resting comfortably in the bedside chair without complaints of chest pain or dyspnea. He is anxious for hospital discharge. We have again reviewed the concept daily weights and sliding scale diuretics. Physical Exam Physical Exam: In general this is an obese white male in no acute distress. HEENT exam is negative. Neck is thick with full carotid upstrokes. No carotid bruits. Jugular venous pressure is difficult to assess. Cardiovascular exam reveals a regular rhythm with distant heart sounds. No obvious murmurs. No S3. Lungs are clear without rales, rhonchi or wheezes. Abdomen is obese without bruits. Extremities reveal intact radial artery pulses bilaterally. There is trace to 1+ pitting edema distal to the knees. Results & Data ([facility]) Vital Signs (Past 12 Hours) Vital Signs Temp Pulse Resp BP Pulse Ox 10/24/20 07:56 36.8 C 112 H 20 175/84 H 95 10/24/20 04:06 36.6 C 92 H 18 143/80 H 95 10/24/20 00:01 36.7 C 90 20 124/68 91 Diagnostic Findings telemetry monitor notes sinus rhythm and sinus tachycardia. PG Care Time/CCT Total # of Minutes Spent Total Time Spent with Patient: Total time spent is greater than 50% in coordination of care (as documented) at patient's floor/unit and/or counseling patient: Coding Level of Care Code 46831 Subseq Hosp Care Lvl 3 Diagnoses CHF (congestive heart failure) I50.21 Heart failure chronicity: acute Heart failure type: systolic Elevated troponin R77.8 CAD (coronary artery disease) I25.10 Hypertension I10 (1) CHF (congestive heart failure) Heart failure chronicity: acute Heart failure type: systolic Qualified Code(s): I50.21 - Acute systolic (congestive) heart failure
--- NOTE | 2020-10-24 11:23 | Discharge Summary ---
Date of Service October 24, 2020 Admission HPI Per Admitting Provider History obtained from patient and records. Medical history significant for CAD status post CABG, hypertension, hyperlipidemia, PUD as per records, DM2 insulin requiring, CRI (baseline creatinine 1.6), BPH, history nephrolithiasis, past tobacco abuse. Last confinement March 2015 for hypertensive urgency. Patient noted shortness of breath worse on exertion since last month. Bilateral leg swelling despite compliance with home diuretic Rx. Denies dietary indiscretion. No OTC NSAID intake at home. No unusual cough symptoms, no chest pain. Possible weight gain as per patient. Patient unaware of daily BP and weight trend at home. Denies snoring. Worsening exertional dyspnea the last week with abdominal distention and leg swelling. At the ER, IV Heparin started for possible ACS. Lasix given for possible CHF. Patient feeling much better. 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 Admission Exam Per Admitting Provider GENERAL: Slightly anxious, morbidly obese, episodic tachypnea SKIN: Normal color, warm HEENT: Alopecia, bespectacled, pink palpebral conjunctivae, no ptosis, dry buccal mucosa NECK : Supple, short neck, no tenderness CHEST : Decreased breath sounds, no tenderness HEART : Tachycardic, no obvious murmurs ABDOMEN: Marked abdominal distention, nontender EXTREMITIES : Bilateral LE swelling, no LE tenderness no other conspicuous deformities noted NEUROLOGIC : Coherent, no facial asymmetry, no other gross focality Principal Diagnosis Acute diastolic heart failure Non-ST elevation ND CAD DM type 2 Discharge Exam CONSTITUTIONAL: obese, vitals as above, generally well-appearing EYES: no scleral icterus ENT: external ear and nose normal, MMM RESPIRATORY: clear to auscultation bilaterally, no crackles, rales or wheezes, normal respiratory effort, no conversational dyspnea. CARDIOVASCULAR: regular rate and rhythm, S1 and 2 heard without murmurs, gallops or rubs, no JVD, 1+pitting edema bilaterally. GASTROINTESTINAL: soft, nontender, protuberant, no guarding MUSCULOSKELETAL: strength 5/5 throughout, head is normocephalic and atraumatic SKIN: warm and dry NEUROLOGIC: CN 2-12 grossly intact, no sensory deficit, normal cognition, normal speech, no gross focal deficits. PSYCHIATRIC: alert cooperative and oriented to person, place and time. Discharge Data Allergies Allergy/AdvReac Type Severity Reaction Status Date / Time aspirin Allergy Severe GI SYMPTOMS Verified 10/19/20 23:35 Consultations 10/20/20 00:18 ED Decision to Admit Stat 10/20/20 02:02 Consult Cardiology Routine 10/23/20 11:21 Consult Cardiac Rehabilitation Routine Procedures Performed Operation Date: 10/22/20 12:00 Actual Procedures p Cath, Left w/Cors Vent Grafts - Jamel Manzano MD s Cineradiography w/Routine Exam - Jamel Manzano MD Operation Date: 10/23/20 09:30 Actual Procedures p Drug Eluting Stent SGl Vessel - Jamel Manzano MD s Drug Eluting Stent each ADDTL Vessel - Jamel Manzano MD s Cineradiography w/Routine Exam - Jamel Manzano MD s IVUS Coronary each ADDL Vessel - Jamel Manzano MD s IVUS Coronary Single Vessel - Jamel Manzano MD Ordered Studies 10/20/20 01:22 US abdomen ltd ascites Urgent US venous doppler LE BI Urgent 10/22/20 09:34 CL Cath Imgs for PACS use only Stat 10/23/20 06:35 CL Cath Imgs for PACS use only Routine 10/23/20 14:36 CL IVUS Coronary Single Vessel Routine Hospital Course (1) Acute diastolic heart failure: GENAO and heart failure syndrome symptoms for the past 2-4 weeks. Initially diuresed with intravenous lasix which was held while monitoring for contrast induced nephropathy. Low salt diet, daily standing weights, accurate I/O monitoring. Cardiology following Start lasix 40 mg daily on DC (2) Non-ST elevation ND (NSTEMI): Known h/o CAD s/p CABG. Elevated troponin without any pain. Heart cath with stents placed. Cont medical therapy with heparin, metoprolol, pravastatin, losartan. Noted allergy documented to aspirin. Brilinta started per Cardiology. -cardiac cath revealed patent WILSON to the LAD and SVG to the PDA and PLB. -SVG to the ramus intermedius occluded. -severe disease in the left main, proximal LAD, and proximal LCx. -MELLY placed in the LM and MELLY placed in the ostial proximal LAD (3 x 12 mm, 3 x 30 mm Imtiaz). -MELLY placed in the ostial and proximal LCx (2.5 x 22 mm Imtiaz). Follow up with cardiology on Monday 10/30 (3) CAD (coronary artery disease): Cont medical therapy as above. Metoprolol increased to 100 mg BID (4) Diabetes mellitus, type II: Uncontrolled with last A1C 9.0 in Jul 2020. Repeat A1C 9.2 Currently inpatient glucose more controlled. Cont current basal/bolus insulin regimen. (5) Hypertension: Borderline control with SBP in the 140s, cont amlodipine per home regimen. Cont 2 gram sodium restriction. Home losartan held with increasing creatinine and concern for contrast induced nephropathy (two caths in last two days). Restart losartan on DC Lasix 40 mg daily Metoprolol 100 mg BID (6) Benign localized prostatic hyperplasia with lower urinary tract symptoms (LUTS): Cont tamsulosin per home regimen. (7) CKD (chronic kidney disease), stage III: Around baseline creatinine. Monitor daily BMP (8) Status post aorto-coronary artery bypass graft: (9) DVT prophylaxis: Lovenox Full Code Dispo-to home , close follow up w/ cardiology and PCP. Total Time Total Time Spent Total Time Spent (In Minutes): 40 Total Time Includes: Examination of the Patient, Discharge Planning, Medication Reconciliation and Communication With Other Providers Discharge Plan Discharge Items Patient Disposition: Home - Self-Care Reason For Visit: ACS Discharge Diagnosis: Acute diastolic heart failure Non-ST elevation ND CAD DM type 2 Activity: Per Instructions section Non-emergency contact: Primary Care Provider and Machine Strap Buckler Call non-emergency contact if: you have any medication questions and your symptoms worsen Follow-up/Referrals: Akash Gonzalez MD [Primary Care Provider] - (Date & Time 10/30/2020 11:00 AM Provider Akash Gonzalez MD Department [facility] ) Diet: Carb Consistent or DM2, Heart Healthy and Low Sodium (2gm) Fluids: 1800ml (7 cups) Addtl Attending Provider Instructions: Follow up with your product development engineer, the appointment was scheduled for you for next Monday 10/30. Follow up with you primary care doctor, the appointment was scheduled for you or 10/30. Take metoprolol at higher dose 100 mg twice a day and a new medication Brilinta 90 mg twice a day. Take lasix 40 mg daily. Make sure to weigh yourself daily and record your weight. Take additional 40 mg of lasix if you gain 3-5 lbs overnight, and contact your health care provider. Addtl House Repairer Provider Instructions: Call your Primary Care doctor if any of the following symptoms or problems start or get worse: * Shortness of breath or difficulty breathing * Wake up at night short of breath * Chest pain * Cough * Swelling of your hands, feet, or legs * More fatigued or tired with your normal activity * Palpitations - sudden fast heart beats WEIGHT * Weigh yourself every morning after using the bathroom. * Use the same scale. * Wear the same amount of clothing. * Write your weight down on a chart. * Call your Primary Care doctor if you gain more than 2-3 pounds in 1-2 days. MEDICATIONS * Use this discharge instruction sheet for medication instructions. * Take your medications at the time your doctor ordered. * Do not skip a dose of your medicines. * If you miss a dose of medicine, take it as soon as possible, but DO NOT DOUBLE A DOSE. * Read your medicine information when you get home. * Know all of the side effects of your medicine. If in doubt, ask your pharmacist * Call your Primary Care doctor's office if you have any side effects. * Be sure all of your doctors know what medicine and herbs you take (including cold, flu, and herbal medicine). Take the following with you to your follow-up doctor appointments: * Weight Chart * Medication List * List of questions Do not drink excessive alcohol, beer or wine. Pending Studies at Discharge: No Stand-Alone Forms: My [facility] [employer], Smoking Cessation Medications and DC Order Prescriptions: New Brilinta 90 mg Tablet 90 mg PO BID 30 Days Qty: 60 RF: 0 furosemide [Lasix] 40 mg tablet 40 mg PO DAILY Qty: 30 RF: 0 metoprolol tartrate 25 mg Tablet 100 mg PO BID Qty: 60 RF: 0 Continued (DME) insulin syringe-needle U-100 [BD Insulin Syringe] 0.3 mL 29 gauge x 1/2" syringe See Dose Instructions .ROUTE .MEDSUPPLY Qty: 10 RF: 0 (DME) pen needle, diabetic [ReliOn Pen [place]] 32 gauge x 5/32" needle See Dose Instructions .ROUTE .MEDSUPPLY Qty: 10 RF: 0 (DME) Truetest Test Strips strip See Dose Instructions .ROUTE .MEDSUPPLY Qty: 10 RF: 0 pravastatin 80 mg tablet 80 mg PO DAILY RF: 0 hydrochlorothiazide 25 mg tablet 25 mg PO DAILY Qty: 30 RF: 0 losartan 100 mg tablet 100 mg PO DAILY Qty: 90 RF: 0 tamsulosin 0.4 mg capsule 0.4 mg PO HS Qty: 90 RF: 3 allopurinol 100 mg tablet 100 mg PO DAILY Qty: 90 RF: 3 Novolin R Regular U-100 Insuln 100 unit/mL solution 60 unit subcut TIDM RF: 0 amlodipine 5 mg tablet 5 mg PO DAILY RF: 0 Changed metoprolol tartrate 50 mg tablet 100 mg PO BID Qty: 180 RF: 0 Discharge Orders: Discharge Order (Routine); Ordered 10/24/20 Ordered By: Yong Anthony Admission Data Admit Date/Time: 10/20/20 01:25 Attending Provider: Yong Anthony Admit Provider: Shant Mantilla Primary Care Provider: Akash Gonzalez Other Providers: Shant Mantilla ; Terell Us ; Ynes Nye
[2020-10-24] MEDS ORDERED: METOPROLOL TARTRATE 25 MG TAB PO ONE (11:30)
== END 2020-10-24 13:30 | disposition home or self-care (01) | DRG 246 ==
LOC: ED 22:42 → SUATTDRO 10-20 01:25 → 2S 10-20 01:25

== ENCOUNTER 2020-11-05 10:12 | Inpatient (IN) ==
--- NOTE | 2020-11-05 10:34 | Emergency Department Note ---
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 The patient has had ongoing chest pain for approximately 3 weeks. The patient was seen in our facility 4 weeks ago and was admitted for an NSTEMI. At that time he was sent to [facility] and had cardiac stenting. Currently he is taking Brilinta. He states he has been compliant with his outpatient medication regimen and took his Brilinta this morning. He has noticed chest pain as well as shortness of breath on exertion. He has noted some orthopnea as well. He denies having any fever or cough. The patient denies having any new or worsening lower extremity swelling but does h ave lower extremity swelling at baseline. The patient states he has not been seen by his primary care provider for the symptoms. The patient states that he has had a cough but this is not new for him. He denies having any hemoptysis. The patient states his symptoms started to worsen over the course of the last few days. He called 911 this morning. ROS: See above HPI for pertinent positives & negatives. A total of 10 systems reviewed and were otherwise negative. PAST MEDICAL HISTORY: See Below PAST SURGICAL HISTORY: See Below FAMILY HISTORY: See Below SOCIAL HISTORY: See Below HOME MEDICATIONS: See Below ALLERGIES: See Below VITALS: See Below PHYSICAL EXAMINATION: GENERAL: The patient is awake and alert. The patient is very anxious appearing. EYES: The conjunctivae are clear. The pupils are round and reactive. EARS, NOSE, MOUTH AND THROAT: The nose is without any evidence of any deformity. NECK: The neck is nontender and supple. RESPIRATORY: Lung sounds are diminished throughout. There is rales at both bases. There is no specific conversational dyspnea noted. CARDIOVASCULAR: Regular rate and rhythm noted there no murmurs rubs or gallops normal S1 normal S2. GASTROINTESTINAL: The abdomen is soft. Abdomen is nontender. MUSCULOSKELETAL/EXTREMITIES: There is no evidence of gross deformity full range of motion is noted in the hips and shoulders. SKIN: Skin is warm and dry. Chronic venous stasis changes are noted. Pedal edema was noted bilaterally. NEUROLOGIC: Patient is awake alert and oriented x 3. MEDICAL DECISION MAKING: The patient is a 70-year-old male who presented to the emergency department for an evaluation of shortness of breath. The patient is 1 month status post cardiac catheterization and stenting. He is been having worsening shortness of breath ever since that time. Initially I thought his condition was consistent with volume overload however he did have a fever and his work-up appears to be more consistent with pneumonia. He was found to have a positive Covid swab. I discussed the patient's laboratory and radiographic studies with him. I also [facility] They have agreed to evaluate the patient in the emergency department for further management and disposition. He was treated with IV antibiotics after the chest x-ray was evaluated. Triage Nursing notes reviewed. Prior medical records reviewed Vital Signs: reviewed and remarkable for fever. Differential diagnosis: Cardiac ischemia, aortic dissection, pulmonary embolism, pneumothorax, pneumonia, pericarditis, myocarditis, esophageal rupture, GERD, cholecystitis, pancreatitis, musculoskeletal, as well as other pathologies. ER treatment provided: See below Diagnostics interpreted by me: ECG: EKG was obtained in the emergency department. My interpretation is normal sinus rhythm at 88 bpm. There was no ectopy. Minimal ST segment abnormalities were noted in the inferior and high lateral leads. This was compared to a eda ng from October 232020. No significant changes were noted. Cardiac Monitoring: An order was placed for continuous cardiac monitoring. The monitor shows a rate of 89 bpm with sinus rhythm. Laboratory studies: As stated above and show below. Imaging studies: See below Consultation(s): 1215: I discussed this case with Brynn Whitmore who is [facility]. Past Med/Surg History Medical History Benign localized prostatic hyperplasia with lower urinary tract symptoms (LUTS) Chronic diastolic CHF (congestive heart failure) CKD (chronic kidney disease), stage III Coronary artery disease s/p CABG x4 in 1993. 09/2020 - MELLY placed in the LM and MELLY placed in the ostial proximal LAD (3 x 12 mm, 3 x 30 mm Imtiaz), MELLY placed in the ostial and proximal LCx (2.5 x 22 mm [place]) Diabetes mellitus, type II History of gastric ulcer Hypercholesterolemia Hypertension Nephrolithiasis Uric acid nephrolithiasis Surgical History H/O elbow surgery H/O knee surgery H/O shoulder surgery History of coronary artery bypass graft Family History (Updated 11/05/20 @ 14:00 by RIGO Merino) Unknown Kidney disease kidney stones Other Diabetes Social History Smoking Status: Never smoker Hx Alcohol Use: No Hx Substance Use: No Preferred Language: Korean Beliefs That Will Affect Care: None marital status: Current Living Situation: Family current occupational status: retired Feels Safe at Home: Yes Assistive Devices: Glasses Allergies Allergies Allergy/AdvReac Type Severity Reaction Status Date / Time aspirin Allergy Severe GI SYMPTOMS Verified 11/05/20 10:42 Home Meds Home Medications Medication Instructions Recorded Confirmed blood sugar diagnostic #10 ea 03/23/19 10/19/20 insulin syringe-needle U-100 0.3 #10 ea 03/23/19 10/19/20 mL 29 gauge x 1/2" losartan 100 mg tablet 100 mg PO DAILY #90 tab 03/23/19 11/05/20 pen needle, diabetic 32 gauge x #10 ea 03/23/19 10/19/20 5/32" pravastatin 80 mg tablet 80 mg PO DAILY tab 03/23/19 11/05/20 Novolin R Regular U-100 Insuln See Rx Instructions .ROUTE .COMPLEX 11/28/19 11/05/20 amlodipine 5 mg PO DAILY 10/19/20 11/05/20 Previous Rx's Medication Instructions Recorded allopurinol 100 mg tablet 100 mg PO DAILY #90 tab 04/04/20 tamsulosin 0.4 mg capsule 0.4 mg PO HS #90 cap 10/19/20 furosemide [Lasix] 40 mg PO DAILY #30 tab 10/24/20 metoprolol tartrate 100 mg PO BID #180 tab 10/24/20 ticagrelor [Brilinta] 90 mg PO BID 30 Days #60 tab 10/24/20 Results & Data (ED) Vital Signs Vital Signs - 24 hr 11/05/20 10:15 11/05/20 11:00 11/05/20 11:02 Temperature 38.2 C H Temperature Source Oral Pulse Rate 88 87 85 Pulse Rate from SpO2 Sensor 86 Respiratory Rate 16 21 26 H Blood Pressure 137/67 137/78 Blood Pressure Mean 90 97 Pulse Oximetry 92 92 Oxygen Delivery Method Room Air Room Air Sepsis Recent Fever Within 48 Hours No Sepsis New/Unexplained Change in Mental Status N/A Sepsis Action Taken by Nursing No Action Required 11/05/20 11:30 11/05/20 11:31 11/05/20 11:42 Temperature Temperature Source Pulse Rate 89 85 84 Pulse Rate from SpO2 Sensor 78 87 Respiratory Rate 24 26 H 20 Blood Pressure 136/74 Blood Pressure Mean 94 Pulse Oximetry 92 93 94 Oxygen Delivery Method Room Air Sepsis Recent Fever Within 48 Hours Sepsis New/Unexplained Change in Mental Status Sepsis Action Taken by Nursing 11/05/20 12:00 11/05/20 12:01 Temperature Temperature Source Pulse Rate 86 85 Pulse Rate from SpO2 Sensor 77 87 Respiratory Rate 34 H 34 H Blood Pressure 132/77 Blood Pressure Mean 95 Pulse Oximetry 91 93 Oxygen Delivery Method Sepsis Recent Fever Within 48 Hours Sepsis New/Unexplained Change in Mental Status Sepsis Action Taken by Shelter Medications Current Medication List: was personally reviewed by me Laboratory Data Attestation: I reviewed the patient's lab results. Result diagrams: 11/05/20 10:51 11/05/20 10:51 Lab Results 11/05/20 11/05/20 11/05/20 Range/Units 10:51 10:51 10:51 WBC 4.84 (4.8-10.8) K/uL RBC 4.90 (4.7-6.1) M/uL Hgb 14.4 (14.0-18.0) g/dL Hct 41.5 L (42-52) % MCV 84.7 (80-100) fL MCH 29.4 (25-34) pg MCHC 34.7 (32-36) g/dL RDW Std Deviation 44.7 (36.4-46.3) fL RDW Coeff of Livier 14.4 (11.5-14.5) % Plt Count 191 (130-400) K/uL MPV 10.2 (7.4-10.4) fL Immature Gran % (Auto) 0.2 % Neut % (Auto) 75.2 % Lymph % (Auto) 13.0 % Mineral % (Auto) 11.4 % Eos % (Auto) 0.0 % Baso % (Auto) 0.2 % Neut # (Auto) 3.64 (1.4-6.5) K/uL Lymph # (Auto) 0.63 L (1.2-3.4) K/uL Mineral # (Auto) 0.55 (0.11-0.59) K/uL Eos # (Auto) 0.00 (0-0.5) K/uL Baso # (Auto) 0.01 (0-0.2) K/uL Immature Gran # (Auto) 0.01 (0.00-0.02) K/uL ESR 73 H (0-14) mm/hr PT 10.8 (9.0-12.0) Seconds INR 1.1 (0.9-1.1) APTT 35.5 H (21.0-31.0) Seconds PTT Ratio 1.3 D-Dimer (0-500) ug/L FEU Sodium (136-145) mmol/L Potassium (3.5-5.1) mmol/L Chloride (98-107) mmol/L Carbon Dioxide (21-32) mmol/L Anion Gap (3-11) BUN (7-18) mg/dl Creatinine (0.6-1.4) mg/dl Est Cr Clr Drug Dosing ml/min Est GFR ( Amer) Est GFR (Non-Af Amer) BUN/Creatinine Ratio (10-20) Glucose (70-99) mg/dl Calcium (8.5-10.1) mg/dl Ferritin (8-388) ng/ml Total Bilirubin (0.2-1) mg/dl AST (15-37) U/L ALT (12-78) U/L Alkaline Phosphatase (45-117) U/L Total Creatine Kinase (39-308) U/L CK-MB (CK-2) (0.5-3.6) ng/ml CK/CKMB % Calc Troponin I (0-0.045) ng/ml C-Reactive Protein (0-0.29) mg/dl NT-Pro-B Natriuret Pep (0-900) pg/ml Total Protein (6.4-8.2) gm/dl Albumin (3.4-5.0) gm/dl Globulin (2.5-4.0) gm/dl Albumin/Globulin Ratio (0.9-2) Lipase (73-393) U/L COVID-19 Eval Order SARS-CoV-2 (PCR) (Negative) Influenza Type A (PCR) (Neg) Influenza Type B (PCR) (Neg) RSV (RT-PCR) (Neg) 11/05/20 11/05/20 11/05/20 Range/Units 10:51 11:09 11:09 WBC (4.8-10.8) K/uL RBC (4.7-6.1) M/uL Hgb (14.0-18.0) g/dL Hct (42-52) % MCV (80-100) fL MCH (25-34) pg MCHC (32-36) g/dL RDW Std Deviation (36.4-46.3) fL RDW Coeff of Livier (11.5-14.5) % Plt Count (130-400) K/uL MPV (7.4-10.4) fL Immature Gran % (Auto) % Neut % (Auto) % Lymph % (Auto) % Mineral % (Auto) % Eos % (Auto) % Baso % (Auto) % Neut # (Auto) (1.4-6.5) K/uL Lymph # (Auto) (1.2-3.4) K/uL Mineral # (Auto) (0.11-0.59) K/uL Eos # (Auto) (0-0.5) K/uL Baso # (Auto) (0-0.2) K/uL Immature Gran # (Auto) (0.00-0.02) K/uL ESR (0-14) mm/hr PT (9.0-12.0) Seconds INR (0.9-1.1) APTT (21.0-31.0) Seconds PTT Ratio D-Dimer (0-500) ug/L FEU Sodium 130 L (136-145) mmol/L Potassium 4.5 (3.5-5.1) mmol/L Chloride 97 L (98-107) mmol/L Carbon Dioxide 23 (21-32) mmol/L Anion Gap 10.0 (3-11) BUN 39 H (7-18) mg/dl Creatinine 2.00 H (0.6-1.4) mg/dl Est Cr Clr Drug Dosing 48.4 ml/min Est GFR ( Amer) 38.3 Est GFR (Non-Af Amer) 33.1 BUN/Creatinine Ratio 19.4 (10-20) Glucose 271 H (70-99) mg/dl Calcium 7.6 L (8.5-10.1) mg/dl Ferritin (8-388) ng/ml Total Bilirubin 1.2 H (0.2-1) mg/dl AST 27 (15-37) U/L ALT 20 (12-78) U/L Alkaline Phosphatase 107 (45-117) U/L Total Creatine Kinase 268 (39-308) U/L CK-MB (CK-2) < 1.0 (0.5-3.6) ng/ml CK/CKMB % Calc TNP Troponin I 0.039 (0-0.045) ng/ml C-Reactive Protein 5.40 H (0-0.29) mg/dl NT-Pro-B Natriuret Pep 1091 H (0-900) pg/ml Total Protein 7.5 (6.4-8.2) gm/dl Albumin 2.8 L (3.4-5.0) gm/dl Globulin 4.7 H (2.5-4.0) gm/dl Albumin/Globulin Ratio 0.6 L (0.9-2) Lipase 227 (73-393) U/L COVID-19 Eval Order CovFluRsv at [facility] SARS-CoV-2 (PCR) POSITIVE A* (Negative) Influenza Type A (PCR) Negative (Neg) Influenza Type B (PCR) Negative (Neg) RSV (RT-PCR) Negative (Neg) 11/05/20 11/05/20 Range/Units 11:10 11:15 WBC (4.8-10.8) K/uL RBC (4.7-6.1) M/uL Hgb (14.0-18.0) g/dL Hct (42-52) % MCV (80-100) fL MCH (25-34) pg MCHC (32-36) g/dL RDW Std Deviation (36.4-46.3) fL RDW Coeff of Livier (11.5-14.5) % Plt Count (130-400) K/uL MPV (7.4-10.4) fL Immature Gran % (Auto) % Neut % (Auto) % Lymph % (Auto) % Mineral % (Auto) % Eos % (Auto) % Baso % (Auto) % Neut # (Auto) (1.4-6.5) K/uL Lymph # (Auto) (1.2-3.4) K/uL Mineral # (Auto) (0.11-0.59) K/uL Eos # (Auto) (0-0.5) K/uL Baso # (Auto) (0-0.2) K/uL Immature Gran # (Auto) (0.00-0.02) K/uL ESR (0-14) mm/hr PT (9.0-12.0) Seconds INR (0.9-1.1) APTT (21.0-31.0) Seconds PTT Ratio D-Dimer 870 H* (0-500) ug/L FEU Sodium (136-145) mmol/L Potassium (3.5-5.1) mmol/L Chloride (98-107) mmol/L Carbon Dioxide (21-32) mmol/L Anion Gap (3-11) BUN (7-18) mg/dl Creatinine (0.6-1.4) mg/dl Est Cr Clr Drug Dosing ml/min Est GFR ( Amer) Est GFR (Non-Af Amer) BUN/Creatinine Ratio (10-20) Glucose (70-99) mg/dl Calcium (8.5-10.1) mg/dl Ferritin 483.2 H (8-388) ng/ml Total Bilirubin (0.2-1) mg/dl AST (15-37) U/L ALT (12-78) U/L Alkaline Phosphatase (45-117) U/L Total Creatine Kinase (39-308) U/L CK-MB (CK-2) (0.5-3.6) ng/ml CK/CKMB % Calc Troponin I (0-0.045) ng/ml C-Reactive Protein (0-0.29) mg/dl NT-Pro-B Natriuret Pep (0-900) pg/ml Total Protein (6.4-8.2) gm/dl Albumin (3.4-5.0) gm/dl Globulin (2.5-4.0) gm/dl Albumin/Globulin Ratio (0.9-2) Lipase (73-393) U/L COVID-19 Eval Order SARS-CoV-2 (PCR) (Negative) Influenza Type A (PCR) (Neg) Influenza Type B (PCR) (Neg) RSV (RT-PCR) (Neg) Administered Medications Benzonatate (Benzonatate 100 Mg Capsule) 100 mg PO TID PRN PRN Reason: Cough Stop: 12/05/20 14:10 Last Admin: 11/05/20 14:22 Dose: 100 mg Documented by: [id number] Doxycycline Hyclate 100 mg/ (Dextrose) 110 mls @ 50 mls/hr IV Q12H TALON Stop: 11/12/20 14:59 Last Admin: 11/05/20 15:56 Dose: 50 mls/hr Documented by: [id number] Discontinued Medications Benzonatate (Benzonatate 100 Mg Capsule) Confirm Administered Dose 100 mg .ROUTE .STK-MED ONE Stop: 11/05/20 14:17 Last Admin: 11/05/20 14:22 Dose: Not Given Documented by: [id number] Ceftriaxone Sodium (Rocephin) 1,000 mg in 50 mls @ 100 mls/hr IV NOW STA Stop: 11/05/20 12:34 Last Infusion: 11/05/20 13:15 Dose: 0 mls/hr Documented by: [id number] Admin: 11/05/20 12:40 Dose: 100 mls/hr Documented by: [id number] Imaging Data Radiologist's Impression: Chest X-Ray 11/05/20 10:22 XR chest 1V portable CLINICAL HISTORY: Chest Pain COMPARISON STUDY: Chest radiograph October 19, 2020. FINDINGS: Note is made of median sternotomy wires and mediastinal surgical clips. There is no pneumothorax or pleural effusion. Enlargement of the cardiac silhouette is unchanged. There has been interval development of multifocal bilateral airspace opacities, greater within the left lung. IMPRESSION: Interval development of bilateral airspace opacities, greater within the left lung. Pneumonia is favored. Asymmetric edema could appear similar. ACT 112: Negative or not required by law. Electronically signed by: Chung Walton M.D. 11/05/2020 11:49 AM Discharge Plan Visit Data Chief Complaint: Cardiac Assessment ED Provider: Terell Rich Discharge Problem: Bilateral pneumonia, Fever, COVID-19 Patient Disposition: Admitted As Inpatient Condition: Good Discharge Instructions Interventions: ED Discharge Assessment Last Done: 11/05/20 14:05
[2020-11-05 11:21] LABS: Hematocrit (blood only) 41.5 % (42-52); Hemoglobin 14.4 g/dL (14.0-18.0); Mean Corpuscular Hemoglobin 29.4 pg (25-34); Mean Corpuscular Hgb Conc 34.7 g/dL (32-36); Mean Corpuscular Volume 84.7 fL (80-100); Mean Platelet Volume 10.2 fL (7.4-10.4); Platelet Count 191 K/uL (130-400); RDW Coefficient of Variation 14.4 % (11.5-14.5); RDW Standard Deviation 44.7 fL (36.4-46.3); White Blood Count 4.84 K/uL (4.8-10.8)
[2020-11-05 11:31] LABS: INR 1.1 (0.9-1.1); Partial Thromboplastin Ratio 1.3; Partial Thromboplastin Time 35.5 Seconds (21.0-31.0); Prothrombin Time 10.8 Seconds (9.0-12.0)
[2020-11-05 11:36] LABS: Basophils # (auto) 0.01 K/uL (0-0.2); Basophils % (auto) 0.2 %; Immature Granulocytes # (auto) 0.01 K/uL (0.00-0.02); Immature Granulocytes % (auto) 0.2 %; Lymphocytes # (auto) 0.63 K/uL (1.2-3.4); Monocytes # (auto) 0.55 K/uL (0.11-0.59); Monocytes % (auto) 11.4 %; Neutrophils # (auto) 3.64 K/uL (1.4-6.5); Neutrophils % (auto) 75.2 %
[2020-11-05 11:37] LABS: Alanine Aminotransferase 20 U/L (12-78); Albumin Level 2.8 gm/dl (3.4-5.0); Aspartate Aminotransferase 27 U/L (15-37); BUN Creatinine Ratio 19.4 (10-20); Blood Urea Nitrogen 39 mg/dl (7-18); Calcium 7.6 mg/dl (8.5-10.1); Carbon Dioxide 23 mmol/L (21-32); Chloride 97 mmol/L (98-107); Creatinine Clr Calc Pharmacy 48.4 ml/min; Est GFR (African American) 38.3; Est GFR (Non-African American) 33.1; Glucose 271 mg/dl (70-99); Lipase 227 U/L (73-393); Potassium 4.5 mmol/L (3.5-5.1); Sodium 130 mmol/L (136-145)
[2020-11-05 11:43] LABS: Albumin Globulin Ratio 0.6 (0.9-2); Alkaline Phosphatase 107 U/L (45-117); Bilirubin,Total 1.2 mg/dl (0.2-1); Creatine Kinase 268 U/L (39-308); Creatine Kinase MB < 1.0 ng/ml (0.5-3.6); Globulin 4.7 gm/dl (2.5-4.0); NT Pro B Type Natriuretic Pept 1091 pg/ml (0-900); Total Protein 7.5 gm/dl (6.4-8.2); Troponin I 0.039 ng/ml (0-0.045)
--- NOTE | 2020-11-05 11:50 | XRay Report ---
XR chest 1V portable CLINICAL HISTORY: Chest Pain COMPARISON STUDY: Chest radiograph October 19, 2020. FINDINGS: Note is made of median sternotomy wires and mediastinal surgical clips. There is no pneumot horax or pleural effusion. Enlargement of the cardiac silhouette is unchanged. There has been interva l development of multifocal bilateral airspace opacities, greater within the left lung. IMPRESSION: Interval development of bilateral airspace opacities, greater within the left lung. Pneu monia is favored. Asymmetric edema could appear similar. ACT 112: Negative or not required by law. Electronically signed by: Chung Walton M.D. 11/05/2020 11:49 AM
[2020-11-05] MEDS ORDERED: cefTRIAXone SODIUM 1,000 MG/50 ML BAG IV STA (12:05)
[2020-11-05 12:06] LABS: Influenza A virus by PCR Negative (Neg); Influenza B virus by PCR Negative (Neg); RSV by PCR Negative (Neg)
[2020-11-05 12:10] LABS: SARS CoV2 RNA(COVID-19) InHosp POSITIVE (Negative)
[2020-11-05 13:41] LABS: D Dimer 870 ug/L FEU (0-500)
--- NOTE | 2020-11-05 14:02 | History & Physical Report ---
Date of Service November 05, 2020 Assessment & Plan (1) Pneumonia due to COVID-19 virus: -Admit to telemetry -Patient presenting from home with reports of cough, generalized weakness, diarrhea x 5 days -In the ED, tested positive for COVID-19 -CXR showing bilateral pneumonia -Temp 38.2, saturating well on room air, HR and BP stable -Does not meet criteria for treatment with dexamethasone or remdesivir at this time -D-dimer 870, if worsening or no improvement, consider CTA chest once renal f unctions improve -Ferritin 43, CRP 5.4 -Given elevated CRP, start empiric ceftriaxone and doxycycline -Supportive care with sage Rothman -Follow blood cultures (2) Acute kidney injury superimposed on CKD: (3) CKD (chronic kidney disease), stage III: -Creatinine 2.0, baseline ~1.5 -Likely prerenal in nature secondary to poor p.o. intake in combination with use of furosemide and losartan -IVF x1 L given history of CHF -Hold furosemide and losartan -Follow renal functions (4) CAD (coronary artery disease): -S/p recent stenting 09/2020 -Appears stable, no reports of chest pain -Continue Brilinta, statin, beta-acosta (5) Chronic diastolic CHF (congestive heart failure): -Holding furosemide as above -Monitor volume status closely (6) Diabetes mellitus, type II: -Hgb A1c 9.2 09/2020 -Pharmacy glycemic management consult (7) Hypertension: -BP controlled, continue metoprolol and amlodipine -Holding losartan and furosemide as above (8) DVT prophylaxis: -SQ heparin History of Present Illness Chief Complaint: Cough, weakness, diarrhea Primary Care Provider: Akash Gonzalez MD 70-year-old male with PMH CAD, chronic diastolic CHF, DM type II, HTN, CKD stage III, and other problems listed below who presents to the ED for evaluation of cough, weakness, diarrhea. Patient recently admitted to [facility] 10/20 through 10/24 for NSTEMI s/p stenting and acute on chronic diastolic CHF. Patient reports that about 5 days ago, he developed a dry, nonproductive cough. He also has felt generally weak and has had a very poor appetite. He also reports diarrhea. No bright red bleeding per rectum or dark tarry stools. Denies abdominal pain, nausea, vomiting. He denies fevers and chills. No chest pain or shortness of breath. Denies lightheadedness, dizziness, diaphoresis, syncopal events. No urinary symptoms. In the ED, patient tested positive for COVID-19. He is hemodynamically stable and saturating well on room air. Temperature 38.2. Labs show creatinine 2.0 (baseline around 1.5). Patient was given IV ceftriaxone. Allergies Allergy/AdvReac Type Severity Reaction Status Date / Time aspirin Allergy Severe GI SYMPTOMS Verified 11/05/20 10:42 Home Medications Medication Instructions Recorded Confirmed Type blood sugar diagnostic #10 ea 03/23/19 10/19/20 History insulin syringe-needle U-100 0.3 #10 ea 03/23/19 10/19/20 History mL 29 gauge x 1/2" losartan 100 mg tablet 100 mg PO DAILY #90 tab 03/23/19 11/05/20 History pen needle, diabetic 32 gauge x #10 ea 03/23/19 10/19/20 History 5/32" pravastatin 80 mg tablet 80 mg PO DAILY tab 03/23/19 11/05/20 History Novolin R Regular U-100 Insuln See Rx Instructions .ROUTE .COMPLEX 11/28/19 11/05/20 History allopurinol 100 mg tablet 100 mg PO DAILY #90 tab 04/04/20 11/05/20 Rx amlodipine 5 mg PO DAILY 10/19/20 11/05/20 History tamsulosin 0.4 mg capsule 0.4 mg PO HS #90 cap 10/19/20 11/05/20 Rx furosemide [Lasix] 40 mg PO DAILY #30 tab 10/24/20 11/05/20 Rx metoprolol tartrate 100 mg PO BID #180 tab 10/24/20 11/05/20 Rx ticagrelor [Brilinta] 90 mg PO BID 30 Days #60 tab 10/24/20 11/05/20 Rx Past Med/Surg History Medical History Benign localized prostatic hyperplasia with lower urinary tract symptoms (LUTS) Chronic diastolic CHF (congestive heart failure) CKD (chronic kidney disease), stage III Coronary artery disease s/p CABG x4 in 1993. 09/2020 - MELLY placed in the LM and MELLY placed in the ostial proximal LAD (3 x 12 mm, 3 x 30 mm [place]), MELLY placed in the ostial and proximal LCx (2.5 x 22 mm Imtiaz) Diabetes mellitus, type II History of gastric ulcer Hypercholesterolemia Hypertension Nephrolithiasis Uric acid nephrolithiasis Surgical History H/O elbow surgery H/O knee surgery H/O shoulder surgery History of coronary artery bypass graft Family History (Updated 11/05/20 @ 14:00 by RIGO Merino) Unknown Kidney disease kidney stones Other Diabetes Social History Smoking Status: Former smoker Second Hand Exposure: No; Do You Dip or Chew Tobacco: No; Tobacco Cessation Education Requested by Patient: No Hx Alcohol Use: No Hx Substance Use: No Preferred Language: Telugu Communication Ability: Effective Sausage Cutter Required: No Beliefs That Will Affect Care: None marital status: Current Living Situation: Spouse current occupational status: retired Other Information That Helps Us Care for You: No Feels Safe at Home: Yes Safety Concerns: Feels Safe At This Time Assistive Devices: Cane and Glasses Review of Systems Review of Systems: ROS per HPI, all other systems reviewed and negative Physical Exam Constitutional: WD/WN, vitals as above + ill appearing and + obese; no acute distress Eyes: PERRL, conjunctivae normal, anicteric sclerae ENMT: external ear and nose normal, oropharynx normal Respiratory: normal respiratory effort and + cough; no respiratory distress Auscultation: + diminished lung sounds Cardiovascular: Rate/Rhythm: regular rate and regular rhythm Vessels: normal peripheral pulses Extremities: no edema Gastrointestinal (Abdomen): normal bowel sounds, soft, nontender, no hepatosplenomegaly Musculoskeletal: no cyanosis or clubbing, extremities motor strength 5/5 Skin: no rashes, warm and dry Neurologic: PERRL, EOMI, accommodation nl, no face palsy, no dysarthria Psychiatric: A+Ox3, euthymic affect Results & Data Results & Data ([facility]) Vital Signs (Past 12 Hours) Vital Signs Temp Pulse Resp BP Pulse Ox 11/05/20 12:38 85 30 H 95 11/05/20 12:01 85 34 H 93 11/05/20 12:00 86 34 H 132/77 91 11/05/20 11:42 84 20 94 04/12/21 11:31 85 26 H 93 11/05/20 11:30 89 24 136/74 92 11/05/20 11:02 85 26 H 137/78 92 11/05/20 11:00 87 21 11/05/20 10:15 38.2 C H 88 16 137/67 92 Laboratory Results Short CBC 11/05/20 11/05/20 Range/Units 10:51 10:51 WBC 4.84 (4.8-10.8) K/uL Hgb 14.4 (14.0-18.0) g/dL Hct 41.5 L (42-52) % Plt Count 191 (130-400) K/uL Creatinine 2.00 H (0.6-1.4) mg/dl BMP 11/05/20 10:51 Sodium 130 L Potassium 4.5 Chloride 97 L Carbon Dioxide 23 BUN 39 H Creatinine 2.00 H Glucose 271 H Calcium 7.6 L Cardiac Enzymes 11/05/20 Range/Units 10:51 Total Creatine Kinase 268 (39-308) U/L CK-MB (CK-2) < 1.0 (0.5-3.6) ng/ml Troponin I 0.039 (0-0.045) ng/ml Liver Function 11/05/20 Range/Units 10:51 Total Bilirubin 1.2 H (0.2-1) mg/dl AST 27 (15-37) U/L ALT 20 (12-78) U/L Alkaline Phosphatase 107 (45-117) U/L Albumin 2.8 L (3.4-5.0) gm/dl Diagnostic Findings Chest X-Ray 11/05/20 10:22 XR chest 1V portable CLINICAL HISTORY: Chest Pain COMPARISON STUDY: Chest radiograph October 19, 2020. FINDINGS: Note is made of median sternotomy wires and mediastinal surgical clips. There is no pneumothorax or pleural effusion. Enlargement of the cardiac silhouette is unchanged. There has been interval development of multifocal bilateral airspace opacities, greater within the left lung. IMPRESSION: Interval development of bilateral airspace opacities, greater within the left lung. Pneumonia is favored. Asymmetric edema could appear similar. ACT 112: Negative or not required by law. Electronically signed by: Chung Walton M.D. 11/05/2020 11:49 AM Code Status & VTE Plan Code Status Patient is a full code as per my discussion with him. VTE Prophylaxis Plan VTE Prophylaxis will be ordered: Yes Supervising Physician Co-Signing Physician Notes Care coordinated with Myranda Swain CRNP. Agree with above note. Patient seen and examined. Please refer to her notes for full details. Vital signs reviewed. Physical exam: General exam: Alert and oriented. Not in acute distress. CVS: S1 and S2 heard, regular rate and rhythm, no murmurs. RS: Clear to auscultation, no wheezing mild bibasilar crackles ABD: Soft, bowel sounds present, nontender, no distention. [employer]LE [employer] CONSULTANT: Nonfocal. EXT: No edema, no erythema. Labs: Reviewed. Assessment and plan: 70M who recently had Cardiac stent recently comes with cough, weakness and found to have covid pneumonia. denies sob or chest pain.Hemodynamics stable. Saturating fine on room air. Covid pneumonia Currently not meeting criteria for dexamethasone or remdesivir Close monitor in the hospital because of co morbid conditions. Hx of CAD s/p recent stents on brilinta, statin and b acosta will monitor VIOLETTE holding lasix and losartan gentle fluids will f/u labs Hx of chronic diastolic chf holding lasix monitor for volume overload. Other diagnosis and plan of care as per []. Angel hernandez MD.
[2020-11-05] MEDS ORDERED: ALBUT/IPRATROP 3MG/0.5MG NEB 3 ML VIAL NEB PRN (14:11)
[2020-11-05] MEDS ORDERED: HEPARIN SOD 5,000 UNIT/0.5 ML VIAL SQ SCH (14:11)
[2020-11-05] MEDS ORDERED: BENZONATATE 100 MG CAPSULE ONE (14:16)
[2020-11-05] MEDS: BENZONATATE 100 MG CAPSULE PO PRN ×2 (14:22→20:34)
[2020-11-05] MEDS ORDERED: PHARMACY GLYCEMIC MGMT CONSULT PRN (14:46)
[2020-11-05] MEDS ORDERED: GLUCAGON FOR INJ 1 MG VIAL IM PRN (15:00)
[2020-11-05] MEDS ORDERED: GLUCOSE 10 TABS/TUBE PO PRN (15:00)
[2020-11-05] MEDS ORDERED: DEXTROSE 50% 50 ML SYRINGE IV PRN (15:00)
[2020-11-05] MEDS ORDERED: GLUCOSE 40% GEL 15 GM TUBE PO PRN (15:00)
[2020-11-05] MEDS ORDERED: SODIUM CHLORIDE 0.9% 1000ML 1,000 ML IV SCH (15:00)
[2020-11-05] MEDS: DOXYCYCLINE HYCLATE 100 MG in DEXTROSE 5% 100 ML IV SCH (15:56)
[2020-11-05 17:44] LABS: Appearance Urine Cloudy (Clear); Bacteria Urine Automated Negative (Negative); Bilirubin Urine Negative (Negative); Blood Urine 3+ (Negative); Color Urine Yellow; Epithelial Cell Urine Auto >30 /lpf (0-5); Glucose Urine UA Negative (Negative); Ketones Urine Negative (Negative); Leukocyte Esterase Urine Negative (Negative); Nitrite Urine Negative (Negative); Protein Urine 3+ (Negative); Specific Gravity Urine 1.021 (1.000-1.030); Urobilinogen Urine Negative (Negative)
[2020-11-05 17:58] LABS: Calcium Oxalate Crystals Urine Present (None Prsent)
[2020-11-05] MEDS ORDERED: INSULIN GLARGINE SOLOSTAR 100 UNITS/ML 3 ML PEN SC ONE (18:15)
[2020-11-05] MEDS: INSULIN ASPART 100 UNITS/ML 3 ML PEN SC SCH ×2 (18:52→20:55)
[2020-11-05] MEDS: TICAGRELOR 90 MG TAB PO SCH (20:34)
[2020-11-05] MEDS: TAMSULOSIN HCL 0.4 MG CAP PO SCH (20:35)
[2020-11-05] MEDS: METOPROLOL TARTRATE 100 MG TAB PO SCH (20:35)
[2020-11-05] MEDS: HEPARIN SOD 5,000 UNIT/0.5 ML VIAL SQ SCH (20:36)
[2020-11-05] MEDS: ACETAMINOPHEN 325 MG TAB PO PRN (23:15)
[2020-11-06] MEDS ORDERED: INSULIN ASPART 100 UNITS/ML 3 ML PEN SC ONE (02:00)
[2020-11-06] MEDS: DOXYCYCLINE HYCLATE 100 MG in DEXTROSE 5% 100 ML IV SCH ×2 (02:10→14:10)
[2020-11-06] MEDS: BENZONATATE 100 MG CAPSULE PO PRN (05:27)
[2020-11-06] MEDS: HEPARIN SOD 5,000 UNIT/0.5 ML VIAL SQ SCH ×3 (05:29→20:42)
--- NOTE | 2020-11-06 05:49 | Electrocardiogram Report ---
Test Reason : Blood Pressure : / mmHG Vent. Rate : 088 BPM Atrial Rate : 088 BPM P-R Int : 178 ms QRS Dur : 094 ms QT Int : 356 ms P-R-T Axes : 010 034 063 degrees QTc Int : 430 ms Normal sinus rhythm Normal ECG When compared with ECG of 23-OCT-2020 11:08, Premature ventricular complexes are no longer Present Confirmed by Anton Solano ([id number]) on 11/06/2020 5:48:48 AM Referred By: REFERRED SELF Confirmed By:Anton Solano
[2020-11-06 06:52] LABS: Hematocrit (blood only) 43.5 % (42-52); Hemoglobin 14.8 g/dL (14.0-18.0); Mean Corpuscular Hemoglobin 28.7 pg (25-34); Mean Corpuscular Volume 84.3 fL (80-100); Platelet Count 170 K/uL (130-400); RDW Coefficient of Variation 14.3 % (11.5-14.5); RDW Standard Deviation 44.9 fL (36.4-46.3); Red Blood Count 5.16 M/uL (4.7-6.1); White Blood Count 5.11 K/uL (4.8-10.8)
[2020-11-06 07:24] LABS: BUN Creatinine Ratio 20.3 (10-20); Calcium 8.4 mg/dl (8.5-10.1); Creatinine Clr Calc Pharmacy 45.5 ml/min; Est GFR (African American) 35.5; Est GFR (Non-African American) 30.6; Potassium 4.3 mmol/L (3.5-5.1)
--- NOTE | 2020-11-06 08:45 | Pharmacy Report ---
Pharmacy Glycemic Short Note 2 - Date of Service November 06, 2020 - Glycemic Short BSG Results (Last 24 hours): 11/05/20 11/05/20 11/05/20 10:51 17:32 20:11 Glucose 271 H POC Glucose 279 H 243 H 11/06/20 11/06/20 11/06/20 02:00 05:53 07:12 Glucose 196 H POC Glucose 203 H 187 H OUTPATIENT ANTIDIABETIC REGIMEN: * Novolin R per sliding scale (patient poor historian) * HbA1c: 9.2% (10/21/20) ASSESSMENT: * PD is a 70 year old male admitted on 11/05 with pneumonia secondary to COVID-19 virus * No steroids ordered at this time * BSGs elevated on admission - 271 mg/dL * Remained elevated overnight, 243 and 203 mg/dL * Patient received 41 units of insulin overnight - 20 units of basal and 21 units of bolus * Lunch BSG of 321 mg/dL - will increase Lantus, tighten Novolog, and give one- time IV regular insulin bolus PLAN FOR INPATIENT GLYCEMIC CONTROL: * Basal insulin * Lantus 20 units SQ x 1 this morning * Additional 10 unit Lantus dose with lunch * Lantus scale 10-25 units SC HS (see EHR for details * Bolus insulin * NovoLog per scale ACHS or Q6hrs while NPO * Goal Range: Low 110 mg/dL - High 140 mg/dL * Correction Factor: 15 mg/dL/unit * Nutritional / Prandial insulin per carb ratio of 1 unit per 5 grams CHO consumed PLAN FOR DISCHARGE: * TBD
[2020-11-06] MEDS: METOPROLOL TARTRATE 100 MG TAB PO SCH ×2 (08:53→20:41)
[2020-11-06] MEDS: allopurinoL 100 MG TAB PO SCH (08:54)
[2020-11-06] MEDS: PRAVASTATIN SOD 40 MG TAB PO SCH (08:54)
[2020-11-06] MEDS: amLODIPine BESYLATE 5 MG TAB PO SCH (08:54)
[2020-11-06] MEDS: TICAGRELOR 90 MG TAB PO SCH ×2 (08:54→21:21)
[2020-11-06] MEDS: INSULIN ASPART 100 UNITS/ML 3 ML PEN SC SCH ×4 (09:00→20:40)
[2020-11-06] MEDS ORDERED: INSULIN GLARGINE SOLOSTAR 100 UNITS/ML 3 ML PEN SC SCH ×2 (09:00→21:00)
[2020-11-06] MEDS ORDERED: SODIUM CHLORIDE 0.9% 500 ML IV SCH (09:30)
[2020-11-06] MEDS: cefTRIAXone SODIUM 2,000 MG in DEXTROSE 5% 50 ML IV SCH (11:33)
[2020-11-06] MEDS ORDERED: INSULIN GLARGINE SOLOSTAR 100 UNITS/ML 3 ML PEN SC ONE (12:00)
[2020-11-06] MEDS ORDERED: INSULIN HUMAN REGULAR PER UNIT 8 UNITS in SYRINGE 7.92 ML IV ONE (12:15)
[2020-11-06] MEDS ORDERED: INSULIN HUMAN REGULAR PER IV ONE (12:15)
[2020-11-06] MEDS: dexAMETHasone 6 MG in SYRINGE 0 ML IV SCH (16:24)
[2020-11-06] MEDS: ACETAMINOPHEN 325 MG TAB PO PRN (16:24)
--- NOTE | 2020-11-06 16:45 | Hospitalist Progress Note ---
Date of Service November 06, 2020 Assessment & Plan (1) Pneumonia due to COVID-19 virus: Multifocal COVID pneumonia Hypoxia COVID Screen:positive on 11/05/20 CXR:Interval development of bilateral airspace opacities, greater within the left lung. Pneumonia is favored. Asymmetric edema could appear similar. Troponin negative CRP:5.4 Ferritin:483 D-Dimer: 870 Blood Cultures: No growth to date Started on Dexamethasone Consider Remdesivir if renal function improves Continue empiric antibiotics for now Isolation precautions--Airborne/Contact Encourage frequent Proning Resume Lasix as able Continue Supplemental Oxygen as needed DVT prophylaxis: Heparin SQ Monitor renal function Consider repeating CXR in AM (2) Acute kidney injury superimposed on CKD: (3) CKD (chronic kidney disease), stage III: Baseline ~1.5 Cr:2.1 Held losartan, lasix Gentle IV fluids given CHF Monitor renal function (4) CAD (coronary artery disease): S/p recent stenting 09/2020 Continue Brilinta, statin, beta-acosta (5) Chronic diastolic CHF (congestive heart failure): Monitor volume status Resume diuretics as able (6) Diabetes mellitus, type II: Hgb A1c 9.2 09/2020 Pharmacy glycemic management consult Continue insulin therapy (7) Hypertension: continue metoprolol and amlodipine Holding losartan due to VIOLETTE (8) DVT prophylaxis: SQ heparin Admission and Anticipated Discharge Date Admission Date: November 05, 2020 Subjective Patient is seen and examined at bedside Patient denies any significant shortness of breath or cough Slow to respond to questions but oriented Denies chest pain, dizziness, nausea, abdominal pain offers no other complaints Afebrile today evening Review of Systems Review of Systems: All systems reviewed & are unremarkable except as noted in HPI & below Physical Exam Physical Exam: Physical Exam: Vitals signs as noted above General Appearance:Obese, no apparent distress Head: normocephalic, Atraumatic Eyes: normal inspection, EOMI Neck: supple, Trachea midline Respiratory/Chest: Decreased breath sounds, CTA, No accessory muscle use Cardiovascular: S1, S2, No murmur Abdomen/GI:Soft, Non tender, Bowel sounds present Extremities/Musculoskeletal:normal inspection, Trace pedal edema Neurologic/Psych:AAOX3, grossly no focal neurological deficits Skin: normal color, warm Results & Data Results & Data ([facility]) Vital Signs (Past 12 Hours) Vital Signs Temp Pulse Pulse Resp BP Pulse Ox 04/13/21 16:00 37.8 C H 106 H 20 158/88 H 92 11/06/20 14:20 102 H 11/06/20 10:53 37.7 C H 93 H 19 147/83 H 91 11/06/20 07:13 37.6 C H 104 H 22 165/88 H 96 11/06/20 07:00 94 H Laboratory Results Short CBC 11/06/20 Range/Units 05:53 WBC 5.11 (4.8-10.8) K/uL Hgb 14.8 (14.0-18.0) g/dL Hct 43.5 (42-52) % Plt Count 170 (130-400) K/uL BMP 11/06/20 05:53 Sodium 131 L Potassium 4.3 Chloride 99 Carbon Dioxide 22 BUN 43 H Creatinine 2.13 H Glucose 196 H Calcium 8.4 L Urine 11/05/20 Range/Units 17:10 Urine Color Yellow Urine Appearance Cloudy A (Clear) Urine pH 5.0 (4.5-7.5) Ur Specific [place] 1.021 (1.000-1.030) Urine Protein 3+ H (Negative) Urine Glucose (UA) Negative (Negative)
[2020-11-06] MEDS: TAMSULOSIN HCL 0.4 MG CAP PO SCH (20:41)
[2020-11-07] MEDS: DOXYCYCLINE HYCLATE 100 MG in DEXTROSE 5% 100 ML IV SCH ×2 (03:58→14:36)
[2020-11-07] MEDS: HEPARIN SOD 5,000 UNIT/0.5 ML VIAL SQ SCH ×3 (05:48→20:38)
[2020-11-07 06:34] LABS: Hematocrit (blood only) 43.5 % (42-52); Hemoglobin 15.2 g/dL (14.0-18.0); Mean Corpuscular Hemoglobin 29.3 pg (25-34); Mean Corpuscular Hgb Conc 34.9 g/dL (32-36); Mean Corpuscular Volume 83.8 fL (80-100); Mean Platelet Volume 10.4 fL (7.4-10.4); Platelet Count 186 K/uL (130-400); RDW Coefficient of Variation 14.1 % (11.5-14.5); RDW Standard Deviation 43.8 fL (36.4-46.3); Red Blood Count 5.19 M/uL (4.7-6.1); White Blood Count 3.85 K/uL (4.8-10.8)
[2020-11-07 07:10] LABS: BUN Creatinine Ratio 22.6 (10-20); C Reactive Protein 10.7 mg/dl (0-0.29); Calcium 8.7 mg/dl (8.5-10.1); Creatinine Clr Calc Pharmacy 46.8 ml/min; Est GFR (African American) 36.8; Est GFR (Non-African American) 31.7; Potassium 4.6 mmol/L (3.5-5.1)
[2020-11-07 07:28] LABS: Beta-Hydroxybutyrate 11.55 mg/dl (0.2-2.81)
[2020-11-07] MEDS ORDERED: INSULIN GLARGINE SOLOSTAR 100 UNITS/ML 3 ML PEN SC ONE (08:00)
[2020-11-07] MEDS: dexAMETHasone 6 MG in SYRINGE 0 ML IV SCH (08:14)
[2020-11-07] MEDS: PRAVASTATIN SOD 40 MG TAB PO SCH (08:14)
[2020-11-07] MEDS: METOPROLOL TARTRATE 100 MG TAB PO SCH ×2 (08:15→20:38)
[2020-11-07] MEDS: amLODIPine BESYLATE 5 MG TAB PO SCH (08:15)
[2020-11-07] MEDS: allopurinoL 100 MG TAB PO SCH (08:15)
[2020-11-07] MEDS: INSULIN ASPART 100 UNITS/ML 3 ML PEN SC SCH ×4 (08:30→20:39)
[2020-11-07] MEDS ORDERED: INSULIN HUMAN REGULAR PER UNIT 5 UNITS in SYRINGE 4.95 ML IV ONE (08:45)
[2020-11-07] MEDS: TICAGRELOR 90 MG TAB PO SCH ×2 (08:48→20:38)
[2020-11-07] MEDS: cefTRIAXone SODIUM 2,000 MG in DEXTROSE 5% 50 ML IV SCH (09:35)
--- NOTE | 2020-11-07 11:22 | Pharmacy Report ---
Pharmacy Glycemic Short Note 2 - Date of Service November 07, 2020 - Glycemic Short BSG Results (Last 24 hours): 11/06/20 11/06/20 11/06/20 11:12 11:40 15:59 Glucose POC Glucose 379 H* 321 H* 248 H 11/06/20 11/07/20 11/07/20 20:32 05:49 08:05 Glucose 317 H* POC Glucose 231 H 349 H* 11/07/20 08:08 Glucose POC Glucose 322 H* OUTPATIENT ANTIDIABETIC REGIMEN: * Novolin R per sliding scale (patient poor historian) * HbA1c: 9.2% (10/21/20) ASSESSMENT: 11/08 * Patient received total of 112 units of insulin yesterday, of which 60 units were basal insulin * Fasting BSG elevated at 322 mg/dL - likely due to steroids, plan increase basal insulin ~30% today with higher dosing given in AM with daily dexamethasone * BSGs yesterday elevated in 200s, before steroids even started - plan to tighten to full stress of 3 dosing this AM. Will give partial IV insulin dose this AM as well d/t elevated BSGs 11/07 * PD is a 70 year old male admitted on 11/05 with pneumonia secondary to COVID-19 virus * No steroids ordered at this time * BSGs elevated on admission - 271 mg/dL * Remained elevated overnight, 243 and 203 mg/dL * Patient received 41 units of insulin overnight - 20 units of basal and 21 units of bolus * Lunch BSG of 321 mg/dL - will increase Lantus, tighten Novolog, and give one- time IV regular insulin bolus PLAN FOR INPATIENT GLYCEMIC CONTROL: * Basal insulin * Lantus 50 x 1 this AM * Lantus 30 units HS * Bolus insulin * NovoLog per scale ACHS or Q6hrs while NPO * Goal Range: Low 110 mg/dL - High 140 mg/dL * Correction Factor: 10 mg/dL/unit * Nutritional / Prandial insulin per carb ratio of 1 unit per 4 grams CHO consumed PLAN FOR DISCHARGE: * TBD
[2020-11-07] MEDS ORDERED: INSULIN REGULAR 250 UNITS in SODIUM CHLORIDE 0.9% 247.5 ML IV SCH (12:15)
[2020-11-07] MEDS ORDERED: INSULIN HUMAN REGULAR IV BOLUS 5 UNITS in SYRINGE 0 ML IV ONE (12:15)
--- NOTE | 2020-11-07 13:14 | Hospitalist Progress Note ---
Date of Service November 07, 2020 Assessment & Plan (1) Pneumonia due to COVID-19 virus: Multifocal COVID pneumonia Hypoxia COVID Screen:positive on 11/05/20 CXR:Interval development of bilateral airspace opacities, greater within the left lung. Pneumonia is favored. Asymmetric edema could appear similar. Troponin negative CRP:5.4 Ferritin:483 D-Dimer: 870 Blood Cultures: No growth to date Continue Dexamethasone May consider Remdesivir if renal function improves Continue empiric antibiotics for now. If procalcitonin remains negative tomorrow, will discontinue Continue Isolation precautions--Airborne Educated patient about self proning Incentive spirometry and flutter Wean oxygen as tolerated Encourage frequent Proning (2) Acute kidney injury superimposed on CKD: (3) CKD (chronic kidney disease), stage III: Baseline ~1.5 Cr is 2.07 today (2.13 yesterday) Continue to hold losartan and lasix for now Monitor renal function (4) CAD (coronary artery disease): S/p recent stenting 09/2020 Continue Brilinta, statin, beta-acosta (5) Chronic diastolic CHF (congestive heart failure): Monitor volume status Hold lasix for now. Will resume diuretics as able (6) Diabetes mellitus, type II: Hgb A1c 9.2 09/2020 Pharm on board helping with glycemic management Blood glucose has been poorly controlled. Likely due to dexamethasone therapy Started on insulin drip to optimize control (7) Hypertension: Continue metoprolol and amlodipine Continue to hold losartan for now due to VIOLETTE (8) DVT prophylaxis: SQ heparin Admission and Anticipated Discharge Date Admission Date: November 05, 2020 Subjective Patient seen and examined. Reports cough. Denies chest pain Denies fevers, chills Reports diarrhea is resolved Review of Systems Constitutional: no fever, no chills and no body aches Eyes: no problem reported Ear, Nose, Mouth, Throat: no problem reported Respiratory: + cough; no chest congestion and no dyspnea Cardiovascular: no chest pain, no dyspnea, no orthopnea and no lightheadedness Gastrointestinal: no abdominal pain, no nausea and no vomiting Genitourinary: no dysuria, no difficulty urinating and no urinary frequency Neurologic: no dizziness, no headache(s) and no confusion Psychiatric: no depression, no anxiety, no hallucinations and no visual hallucinations Physical Exam Constitutional: + well hydrated and + obese; no acute distress Eyes: PERRL, conjunctivae normal, anicteric sclerae ENMT: external ear and nose normal, oropharynx normal Respiratory: normal respiratory effort; no respiratory distress On nasal cannula 2 L/min, diminished breath sounds bilaterally, no crackles Cardiovascular: Rate/Rhythm: regular rate and regular rhythm S1-S2 Gastrointestinal (Abdomen): normal bowel sounds, soft, nontender, no hepatosplenomegaly Musculoskeletal: no cyanosis or clubbing, extremities motor strength 5/5 Neurologic: PERRL, EOMI, accommodation nl, no face palsy, no dysarthria Psychiatric: A+Ox3, euthymic affect Results & Data Results & Data ([facility]) Vital Signs (Past 12 Hours) Vital Signs Temp Pulse Pulse Resp BP Pulse Ox 11/07/20 08:11 36.9 C 84 20 144/81 H 94 11/07/20 07:25 81 11/07/20 03:38 36.7 C 43 L 22 133/71 92 Laboratory Results Laboratory Results - last 24 hr 11/06/20 11/06/20 11/07/20 15:59 20:32 05:49 WBC RBC Hgb Hct MCV MCH MCHC RDW Std Deviation RDW Coeff of Livier Plt Count MPV Sodium 130 L Potassium 4.6 Chloride 100 Carbon Dioxide 20 L Anion Gap 10.0 BUN 47 H Creatinine 2.07 H Est Cr Clr Drug Dosing 46.8 Est GFR ( Amer) 36.8 Est GFR (Non-Af Amer) 31.7 BUN/Creatinine Ratio 22.6 H Glucose 317 H* POC Glucose 248 H 231 H Calcium 8.7 Magnesium 2.0 C-Reactive Protein 10.70 H Beta-Hydroxybutyric Acd 11.55 H Procalcitonin 11/07/20 11/07/20 11/07/20 05:49 05:49 08:05 WBC 3.85 L RBC 5.19 Hgb 15.2 Hct 43.5 MCV 83.8 MCH 29.3 MCHC 34.9 RDW Std Deviation 43.8 RDW Coeff of Livier 14.1 Plt Count 186 MPV 10.4 Sodium Potassium Chloride Carbon Dioxide Anion Gap BUN Creatinine Est Cr Clr Drug Dosing Est GFR ( Amer) Est GFR (Non-Af Amer) BUN/Creatinine Ratio Glucose POC Glucose 349 H* Calcium Magnesium C-Reactive Protein Beta-Hydroxybutyric Acd Procalcitonin 0.20 11/07/20 11/07/20 11/07/20 08:08 11:31 11:32 WBC RBC Hgb Hct MCV MCH MCHC RDW Std Deviation RDW Coeff of Livier Plt Count MPV Sodium Potassium Chloride Carbon Dioxide Anion Gap BUN Creatinine Est Cr Clr Drug Dosing Est GFR ( Amer) Est GFR (Non-Af Amer) BUN/Creatinine Ratio Glucose POC Glucose 322 H* 370 H* 334 H* Calcium Magnesium C-Reactive Protein Beta-Hydroxybutyric Acd Procalcitonin 11/07/20 11/07/20 11:38 14:00 WBC RBC Hgb Hct MCV MCH MCHC RDW Std Deviation RDW Coeff of Livier Plt Count MPV Sodium Potassium Chloride Carbon Dioxide Anion Gap BUN Creatinine Est Cr Clr Drug Dosing Est GFR ( Amer) Est GFR (Non-Af Amer) BUN/Creatinine Ratio Glucose POC Glucose 350 H* 422 H* Calcium Magnesium C-Reactive Protein Beta-Hydroxybutyric Acd Procalcitonin
[2020-11-07] MEDS: BENZONATATE 100 MG CAPSULE PO PRN ×2 (14:35→22:57)
[2020-11-07] MEDS ORDERED: INSULIN ASPART 100 UNITS/ML 3 ML PEN SC SCH (16:30)
[2020-11-07] MEDS: TAMSULOSIN HCL 0.4 MG CAP PO SCH (20:38)
[2020-11-07] MEDS: guaiFENesin SUGAR FREE 200 MG/10 ML UDC PO PRN (21:15)
[2020-11-08] MEDS: DOXYCYCLINE HYCLATE 100 MG in DEXTROSE 5% 100 ML IV SCH ×2 (03:45→15:31)
[2020-11-08] MEDS: guaiFENesin SUGAR FREE 200 MG/10 ML UDC PO PRN ×3 (03:46→20:30)
[2020-11-08] MEDS: INSULIN ASPART 100 UNITS/ML 3 ML PEN SC SCH ×6 (03:55→20:32)
[2020-11-08] MEDS: HEPARIN SOD 5,000 UNIT/0.5 ML VIAL SQ SCH ×3 (05:52→22:15)
[2020-11-08] MEDS: PRAVASTATIN SOD 40 MG TAB PO SCH (08:27)
[2020-11-08] MEDS: allopurinoL 100 MG TAB PO SCH (08:27)
[2020-11-08] MEDS: dexAMETHasone 6 MG in SYRINGE 0 ML IV SCH (08:27)
[2020-11-08] MEDS: amLODIPine BESYLATE 5 MG TAB PO SCH (08:27)
[2020-11-08] MEDS: TICAGRELOR 90 MG TAB PO SCH ×2 (08:27→20:29)
[2020-11-08] MEDS: METOPROLOL TARTRATE 100 MG TAB PO SCH ×2 (08:27→20:29)
[2020-11-08 08:35] LABS: Hematocrit (blood only) 44.5 % (42-52); Hemoglobin 15.3 g/dL (14.0-18.0); Mean Corpuscular Hemoglobin 28.4 pg (25-34); Mean Corpuscular Hgb Conc 34.4 g/dL (32-36); Mean Corpuscular Volume 82.6 fL (80-100); Mean Platelet Volume 10.4 fL (7.4-10.4); Platelet Count 203 K/uL (130-400); RDW Coefficient of Variation 14.1 % (11.5-14.5); RDW Standard Deviation 41.9 fL (36.4-46.3); Red Blood Count 5.39 M/uL (4.7-6.1); White Blood Count 10.44 K/uL (4.8-10.8)
[2020-11-08 09:00] LABS: C Reactive Protein 7.17 mg/dl (0-0.29); Calcium 8.5 mg/dl (8.5-10.1); Creatinine Clr Calc Pharmacy 48.2 ml/min; Est GFR (African American) 38.1; Est GFR (Non-African American) 32.9; Potassium 4.2 mmol/L (3.5-5.1)
[2020-11-08] MEDS ORDERED: INSULIN GLARGINE SOLOSTAR 100 UNITS/ML 3 ML PEN SC SCH ×2 (09:00)
[2020-11-08] MEDS: INSULIN HUMAN NPH SC SCH (09:45)
[2020-11-08] MEDS: INSULIN GLARGINE SOLOSTAR 100 UNITS/ML 3 ML PEN SC SCH (09:47)
[2020-11-08] MEDS: BENZONATATE 100 MG CAPSULE PO PRN (10:00)
[2020-11-08] MEDS: cefTRIAXone SODIUM 2,000 MG in DEXTROSE 5% 50 ML IV SCH (10:02)
--- NOTE | 2020-11-08 12:09 | Hospitalist Progress Note ---
Date of Service November 08, 2020 Assessment & Plan (1) Pneumonia due to COVID-19 virus: Multifocal COVID pneumonia Acute hypoxic respiratory failure On admission: COVID Screen:positive on 11/05/20 CXR:Interval development of bilateral airspace opacities, greater within the left lung. Pneumonia is favored. Asymmetric edema could appear similar. Troponin negative CRP:5.4-->10.7-->7.17 Ferritin:483 D-Dimer: 870 Blood Cultures: No growth to date Continue dexamethasone Remdesivir not given due to renal function XR done due to worsening hypoxia show worsening opacities Patient's comorbidities put him at risk for deterioration In view of this, will leave antibiotics on for now Will appreciate input of Room Service Bellhop evaluation and recommendation Educated patient about self proning. He stated he is not able to do this Incentive spirometry and flutter Continue oxygen supplementation (2) Acute kidney injury superimposed on CKD: (3) CKD (chronic kidney disease), stage III: Baseline ~1.5 Cr is 2.01 today Continue to hold losartan and lasix for now Monitor renal function (4) CAD (coronary artery disease): S/p recent stenting 09/2020 Continue Brilinta, statin, beta-acosta (5) Chronic diastolic CHF (congestive heart failure): Monitor volume status Continue to hold lasix for now. Will resume diuretics as able (6) Diabetes mellitus, type II: Hgb A1c 9.2 09/2020 Pharm on board helping with glycemic management Blood glucose has been poorly controlled. Likely due to dexamethasone therapy (7) Hypertension: Continue metoprolol and amlodipine Continue to hold losartan for now due to VIOLETTE (8) DVT prophylaxis: SQ heparin q8h Admission and Anticipated Discharge Date Admission Date: November 05, 2020 Subjective Patient seen and examined Has had increased oxygen requirement overnight currently on 5 L/min Patient reports persistent cough and shortness of breath with minimal exertion Denies chest pain. No fevers [last recorded fever was on 11/06/2020], no chills Denies palpitations Review of Systems Constitutional: no fever and no chills Eyes: no problem reported Ear, Nose, Mouth, Throat: no problem reported Respiratory: + cough and + dyspnea on exertion Cardiovascular: + dyspnea on exertion; no chest pain and no palpitations Gastrointestinal: no abdominal pain, no nausea and no vomiting Genitourinary: no dysuria, no difficulty urinating and no urinary frequency Neurologic: + generalized weakness Psychiatric: no depression and no irritability Physical Exam Constitutional: + well hydrated and + obese; no acute distress Eyes: PERRL, conjunctivae normal, anicteric sclerae ENMT: external ear and nose normal, oropharynx normal Respiratory: normal respiratory effort; no respiratory distress On 5 L/min of nasal oxygen, diminished breath sounds bilaterally Cardiovascular: Rate/Rhythm: regular rate and regular rhythm S1-S2 Gastrointestinal (Abdomen): normal bowel sounds, soft, nontender, no hepatosplenomegaly Musculoskeletal: no cyanosis or clubbing, extremities motor strength 5/5 Neurologic: PERRL, EOMI, accommodation nl, no face palsy, no dysarthria Psychiatric: A+Ox3, euthymic affect Results & Data Results & Data ([facility]) Vital Signs (Past 12 Hours) Vital Signs Temp Pulse Pulse Resp BP Pulse Ox 11/08/20 08:02 111 H 18 156/94 H 91 11/08/20 07:30 103 H 11/08/20 03:47 36.9 C 96 H 21 142/86 H 93 11/08/20 00:23 36.9 C 92 H 19 115/90 94 Laboratory Results Laboratory Results - last 24 hr 11/07/20 11/07/20 11/07/20 15:14 15:15 16:08 WBC RBC Hgb Hct MCV MCH MCHC RDW Std Deviation RDW Coeff of Livier Plt Count MPV Sodium Potassium Chloride Carbon Dioxide Anion Gap BUN Creatinine Est Cr Clr Drug Dosing Est GFR ( Amer) Est GFR (Non-Af Amer) BUN/Creatinine Ratio Glucose POC Glucose 374 H* 349 H* 381 H* Calcium C-Reactive Protein Procalcitonin 11/07/20 11/07/20 11/07/20 16:09 17:00 18:06 WBC RBC Hgb Hct MCV MCH MCHC RDW Std Deviation RDW Coeff of Livier Plt Count MPV Sodium Potassium Chloride Carbon Dioxide Anion Gap BUN Creatinine Est Cr Clr Drug Dosing Est GFR ( Amer) Est GFR (Non-Af Amer) BUN/Creatinine Ratio Glucose POC Glucose 345 H* 288 H 265 H Calcium C-Reactive Protein Procalcitonin 11/07/20 11/07/20 11/07/20 19:06 20:02 22:11 WBC RBC Hgb Hct MCV MCH MCHC RDW Std Deviation RDW Coeff of Livier Plt Count MPV Sodium Potassium Chloride Carbon Dioxide Anion Gap BUN Creatinine Est Cr Clr Drug Dosing Est GFR ( Amer) Est GFR (Non-Af Amer) BUN/Creatinine Ratio Glucose POC Glucose 234 H 165 H 130 H Calcium C-Reactive Protein Procalcitonin 11/08/20 11/08/20 11/08/20 00:17 03:51 07:59 WBC RBC Hgb Hct MCV MCH MCHC RDW Std Deviation RDW Coeff of Livier Plt Count MPV Sodium Potassium Chloride Carbon Dioxide Anion Gap BUN Creatinine Est Cr Clr Drug Dosing Est GFR ( Amer) Est GFR (Non-Af Amer) BUN/Creatinine Ratio Glucose POC Glucose 118 H 129 H 150 H Calcium C-Reactive Protein Procalcitonin 11/08/20 11/08/20 11/08/20 08:00 08:00 08:00 WBC 10.44 RBC 5.39 Hgb 15.3 Hct 44.5 MCV 82.6 MCH 28.4 MCHC 34.4 RDW Std Deviation 41.9 RDW Coeff of Livier 14.1 Plt Count 203 MPV 10.4 Sodium 133 L Potassium 4.2 Chloride 103 Carbon Dioxide 20 L Anion Gap 10.0 BUN 60 H Creatinine 2.01 H Est Cr Clr Drug Dosing 48.2 Est GFR ( Amer) 38.1 Est GFR (Non-Af Amer) 32.9 BUN/Creatinine Ratio 30.0 H Glucose 183 H POC Glucose Calcium 8.5 C-Reactive Protein 7.17 H Procalcitonin 0.22 11/08/20 12:02 WBC RBC Hgb Hct MCV MCH MCHC RDW Std Deviation RDW Coeff of Livier Plt Count MPV Sodium Potassium Chloride Carbon Dioxide Anion Gap BUN Creatinine Est Cr Clr Drug Dosing Est GFR ( Amer) Est GFR (Non-Af Amer) BUN/Creatinine Ratio Glucose POC Glucose 282 H Calcium C-Reactive Protein Procalcitonin
--- NOTE | 2020-11-08 12:14 | XRay Report ---
XR chest 1V portable CLINICAL HISTORY: Worsening hypoxia. COVID 19 pneumonia COMPARISON STUDY: Chest radiograph November 05, 2020. FINDINGS: There are median sternotomy wires and mediastinal surgical clips. No pneumothorax or pleura l effusion is noted. Moderate progression of extensive bilateral airspace opacities is noted. Cardiom egaly is unchanged. IMPRESSION: Progression of extensive bilateral airspace opacities consistent with multifocal pneumon ia. ACT 112: Negative or not required by law. Electronically signed by: Chung Walton M.D. 11/08/2020 12:12 PM
--- NOTE | 2020-11-08 14:39 | Pharmacy Report ---
Pharmacy Glycemic Short Note 2 - Date of Service November 08, 2020 - Glycemic Short BSG Results (Last 24 hours): 11/07/20 11/07/20 11/07/20 15:14 15:15 16:08 Glucose POC Glucose 374 H* 349 H* 381 H* 11/07/20 11/07/20 11/07/20 16:09 17:00 18:06 Glucose POC Glucose 345 H* 288 H 265 H 11/07/20 11/07/20 11/07/20 19:06 20:02 22:11 Glucose POC Glucose 234 H 165 H 130 H 11/08/20 11/08/20 11/08/20 00:17 03:51 07:59 Glucose POC Glucose 118 H 129 H 150 H 11/08/20 11/08/20 08:00 12:02 Glucose 183 H POC Glucose 282 H OUTPATIENT ANTIDIABETIC REGIMEN: * Novolin R per sliding scale (patient poor historian) * HbA1c: 9.2% (10/21/20) ASSESSMENT: 11/09 * Patient received total of 175 units of insulin yesterday, including insulin drip * Insulin drip held overnight - Plan to start Lantus 40 units daily, NPH 45 units daily (~0.4 units/kg to cover DXM) * Lunch time BSG trending upward, plan to tighten CF/CR 11/08 * Patient received total of 112 units of insulin yesterday, of which 60 units were basal insulin * Fasting BSG elevated at 322 mg/dL - likely due to steroids, plan increase basal insulin ~30% today with higher dosing given in AM with daily dexamethasone * BSGs yesterday elevated in 200s, before steroids even started - plan to tighten to full stress of 3 dosing this AM. Will give partial IV insulin dose this AM as well d/t elevated BSGs 11/07 * PD is a 70 year old male admitted on 11/05 with pneumonia secondary to COVID-19 virus * No steroids ordered at this time * BSGs elevated on admission - 271 mg/dL * Remained elevated overnight, 243 and 203 mg/dL * Patient received 41 units of insulin overnight - 20 units of basal and 21 units of bolus * Lunch BSG of 321 mg/dL - will increase Lantus, tighten Novolog, and give one- time IV regular insulin bolus PLAN FOR INPATIENT GLYCEMIC CONTROL: * Basal insulin * Lantus 40 units daily * NPH 45 units daily * Bolus insulin * NovoLog per scale ACHS or Q6hrs while NPO * Goal Range: Low 110 mg/dL - High 140 mg/dL * Correction Factor: 6 mg/dL/unit * Nutritional / Prandial insulin per carb ratio of 1 unit per 2 grams CHO consumed PLAN FOR DISCHARGE: * TBD
--- NOTE | 2020-11-08 15:38 | Pulmonary Consultation ---
Date of Consultation November 08, 2020 Assessment & Plan (1) Acute hypoxemic respiratory failure: 70-year-old male with a past medical history of coronary artery disease, CKD stage III, morbid obesity, hypertension and diabetes mellitus type 2 presenting to the hospital due to acute hypoxemic respiratory failure from COVID-19 pneumonitis. Acute hypoxemic respiratory failure: Secondary to Covid pneumonitis. Continue with Decadron. Not a candidate for remdesivir given his VIOLETTE. I would avoid Tocilizumab at this time given that he is only requiring low flow oxygen and given his VIOLETTE. I encourage self proning, but the patient noted that he is not interested in proning at this time. Continue to monitor fluid status closely given the propensity of diastolic heart failure in this patient. I do not see any obvious indication for antibiotics at this time as his procalcitonin is negative. Parenchymal infiltrates are likely secondary to CHF and COVID-19 pneumonitis. His fever is also likely from the Covid pneumonitis. Would encourage using CPAP therapy at night empirically given the high likelihood of sleep disordered breathing and hypoxemic respiratory failure. Agree with continued spirometry and flutter valve. No other specific pulmonary interventions at this time. Pulmonary will sign off. Thank you for the consult. Please call with questions. (2) Pneumonia due to COVID-19 virus: (3) Chronic diastolic CHF (congestive heart failure): (4) Acute kidney injury superimposed on CKD: History of Present Illness Reason for Consultation: COVID-19 pneumonitis and hypoxia Attending Physician: Rossana Posada MD History of Present Illness 70-year-old male with a past medical history of morbid obesity, coronary artery disease, CKD stage III, hypertension diabetes mellitus type 2 who presented to the hospital 3 days ago for increasing shortness of breath and cough. Notably he was recently discharged from the hospital on 10/24/2020 for a CHF exacerbation. He also underwent drug-eluting stenting to the LAD and proximal circumflex artery. Patient denies any shortness of breath at this time. He does endorse a dry cough. Denies any chest pain. He denies any orthopnea. He is currently requiring 4 L of oxygen saturating 91%. He was reporting diarrhea earlier during the hospitalization. He also reports having a poor appetite. He notes that he lives in a house in [facility]. He has 4 steps at home. He denies any trouble getting around his home or doing his activities of daily living prior to COVID-19 infection. He smoked 50 years ago. He did not receive the COVID-19 vaccination. Chest x-ray completed today demonstrates progression of bilateral airspace opacities. COVID-19 testing was positive on 11/05/2020. White count is 10,440. Creatinine is 2.01. Procalcitonin was 0.22 ng/milliliters. He is currently receiving doxycycline, ceftriaxone and Decadron 6 mg daily. He is also on heparin 5000 units subcu every 8 hours. Allergies Allergy/AdvReac Type Severity Reaction Status Date / Time aspirin Allergy Severe GI SYMPTOMS Verified 11/05/20 10:42 Home Medications Medication Instructions Recorded Confirmed Type blood sugar diagnostic #10 ea 03/23/19 10/19/20 History insulin syringe-needle U-100 0.3 #10 ea 03/23/19 10/19/20 History mL 29 gauge x 1/2" losartan 100 mg tablet 100 mg PO DAILY #90 tab 03/23/19 11/05/20 History pen needle, diabetic 32 gauge x #10 ea 03/23/19 10/19/20 History 5/32" pravastatin 80 mg tablet 80 mg PO DAILY tab 03/23/19 11/05/20 History Novolin R Regular U-100 Insuln See Rx Instructions .ROUTE .COMPLEX 11/28/19 11/05/20 History allopurinol 100 mg tablet 100 mg PO DAILY #90 tab 04/04/20 11/05/20 Rx amlodipine 5 mg PO DAILY 10/19/20 11/05/20 History tamsulosin 0.4 mg capsule 0.4 mg PO HS #90 cap 10/19/20 11/05/20 Rx furosemide [Lasix] 40 mg PO DAILY #30 tab 10/24/20 11/05/20 Rx metoprolol tartrate 100 mg PO BID #180 tab 10/24/20 11/05/20 Rx ticagrelor [Brilinta] 90 mg PO BID 30 Days #60 tab 10/24/20 11/05/20 Rx Patient History Medical History Benign localized prostatic hyperplasia with lower urinary tract symptoms (LUTS) Chronic diastolic CHF (congestive heart failure) CKD (chronic kidney disease), stage III Coronary artery disease s/p CABG x4 in 1993. 09/2020 - MELLY placed in the LM and MELLY placed in the ostial proximal LAD (3 x 12 mm, 3 x 30 mm Raymond), MELLY placed in the ostial and proximal LCx (2.5 x 22 mm Raymond) Diabetes mellitus, type II History of gastric ulcer Hypercholesterolemia Hypertension Nephrolithiasis Uric acid nephrolithiasis Surgical History H/O elbow surgery H/O knee surgery H/O shoulder surgery History of coronary artery bypass graft Family History Unknown Kidney disease kidney stones Other Diabetes Social History Smoking Status: Former smoker Second Hand Exposure: No; Do You Dip or Chew Tobacco: No; Tobacco Cessation Education Requested by Patient: No Hx Alcohol Use: No Hx Substance Use: No Preferred Language: Polish Communication Ability: Effective Design Draftsman Required: No Beliefs That Will Affect Care: None marital status: Current Living Situation: Spouse current occupational status: retired Other Information That Helps Us Care for You: No Feels Safe at Home: Yes Safety Concerns: Feels Safe At This Time Assistive Devices: Walker Review of Systems Review of Systems: All systems reviewed & are unremarkable except as noted in HPI & below Physical Exam Constitutional: + ill appearing and + obese Eyes: PERRL, conjunctivae normal, anicteric sclerae ENMT: external ear and nose normal, oropharynx normal Neck: + thick neck Respiratory: normal respiratory effort, lungs clear to auscultation Cardiovascular: RRR, no murmur, no edema Gastrointestinal (Abdomen): normal bowel sounds, soft, nontender, no hepatosplenomegaly Musculoskeletal: no cyanosis or clubbing, extremities motor strength 5/5 Skin: no rashes, warm and dry Neurologic: PERRL, EOMI, accommodation nl, no face palsy, no dysarthria Psychiatric: A+Ox3, euthymic affect Results & Data Results & Data ([facility]) Vital Signs (Past 12 Hours) Vital Signs Temp Pulse Pulse Resp BP Pulse Ox 11/08/20 12:16 98.1 F 100 H 20 153/74 H 92 11/08/20 08:02 111 H 18 156/94 H 91 11/08/20 07:30 103 H 11/08/20 03:47 98.4 F 96 H 21 142/86 H 93 I reviewed the vital signs, labs and imaging PG Care Time/CCT Total # of Minutes Spent Total Time Spent with Patient: Total time spent is greater than 50% in coordination of care (as documented) at patient's floor/unit and/or counseling patient: Coding Level of Care Code 39989 Initial Inpt Care Lvl 2 Diagnoses Acute hypoxemic respiratory failure J96.01 Pneumonia due to COVID-19 virus U07.1; J12.82 Chronic diastolic CHF (congestive heart failure) I50.32 Acute kidney injury superimposed on CKD N17.9; N18.9
[2020-11-08] MEDS: TAMSULOSIN HCL 0.4 MG CAP PO SCH (20:29)
[2020-11-09] MEDS: guaiFENesin SUGAR FREE 200 MG/10 ML UDC PO PRN ×3 (02:42→20:26)
[2020-11-09] MEDS: DOXYCYCLINE HYCLATE 100 MG in DEXTROSE 5% 100 ML IV SCH (02:42)
[2020-11-09] MEDS: INSULIN ASPART 100 UNITS/ML 3 ML PEN SC SCH ×6 (04:58→20:57)
[2020-11-09 06:13] LABS: Hematocrit (blood only) 44.1 % (42-52); Hemoglobin 15.3 g/dL (14.0-18.0); Mean Corpuscular Hemoglobin 28.8 pg (25-34); Mean Corpuscular Hgb Conc 34.7 g/dL (32-36); Mean Corpuscular Volume 82.9 fL (80-100); Mean Platelet Volume 10.2 fL (7.4-10.4); Platelet Count 206 K/uL (130-400); RDW Coefficient of Variation 14.3 % (11.5-14.5); RDW Standard Deviation 43.1 fL (36.4-46.3); Red Blood Count 5.32 M/uL (4.7-6.1); White Blood Count 8.97 K/uL (4.8-10.8)
[2020-11-09 06:29] LABS: D Dimer 1640 ug/L FEU (0-500)
[2020-11-09] MEDS: HEPARIN SOD 5,000 UNIT/0.5 ML VIAL SQ SCH ×3 (06:41→21:02)
[2020-11-09 06:48] LABS: BUN Creatinine Ratio 33.6 (10-20); Calcium 8.4 mg/dl (8.5-10.1); Creatinine Clr Calc Pharmacy 49.9 ml/min; Est GFR (African American) 39.8; Est GFR (Non-African American) 34.3
[2020-11-09 06:51] LABS: C Reactive Protein 7.76 mg/dl (0-0.29)
[2020-11-09] MEDS ORDERED: FUROSEMIDE 40 MG in SYRINGE 0 ML IV ONE (08:30)
[2020-11-09] MEDS: dexAMETHasone 6 MG in SYRINGE 0 ML IV SCH (08:54)
[2020-11-09] MEDS: TICAGRELOR 90 MG TAB PO SCH ×2 (08:54→20:08)
[2020-11-09] MEDS: amLODIPine BESYLATE 5 MG TAB PO SCH (08:54)
[2020-11-09] MEDS: METOPROLOL TARTRATE 100 MG TAB PO SCH ×2 (08:54→20:10)
[2020-11-09] MEDS: allopurinoL 100 MG TAB PO SCH (08:54)
[2020-11-09] MEDS: PRAVASTATIN SOD 40 MG TAB PO SCH (08:54)
[2020-11-09] MEDS: INSULIN GLARGINE SOLOSTAR 100 UNITS/ML 3 ML PEN SC SCH (09:32)
[2020-11-09] MEDS: INSULIN HUMAN NPH SC SCH (09:33)
--- NOTE | 2020-11-09 11:52 | Pharmacy Report ---
Pharmacy Glycemic Short Note 2 - Date of Service November 09, 2020 - Glycemic Short BSG Results (Last 24 hours): 11/08/20 11/08/20 11/08/20 12:02 16:45 20:06 Glucose POC Glucose 282 H 154 H 132 H 11/08/20 11/09/20 11/09/20 23:59 04:14 05:47 Glucose 131 H POC Glucose 103 H 122 H 11/09/20 11/09/20 07:39 10:56 Glucose POC Glucose 147 H 279 H OUTPATIENT ANTIDIABETIC REGIMEN: * Novolin R per sliding scale (patient poor historian) * HbA1c: 9.2% (10/21/20) ASSESSMENT: 11/09 * Patient transitioned off of insulin drip, blood sugars at goal except for pre lunch = 279mg/dl * due to IV dexamethasone and late breakfast NovoLog administration and early blood sugar check for lunch, will wait to make changes * Increase NPH if pre-dinner BSG remains > 200mg/dl 11/08 * Patient received total of 175 units of insulin yesterday, including insulin drip * Insulin drip held overnight - Plan to start Lantus 40 units daily, NPH 45 units daily (~0.4 units/kg to cover DXM) * Lunch time BSG trending upward, plan to tighten CF/CR 11/07 * Patient received total of 112 units of insulin yesterday, of which 60 units were basal insulin * Fasting BSG elevated at 322 mg/dL - likely due to steroids, plan increase basal insulin ~30% today with higher dosing given in AM with daily dexamethasone * BSGs yesterday elevated in 200s, before steroids even started - plan to tighten to full stress of 3 dosing this AM. Will give partial IV insulin dose this AM as well d/t elevated BSGs 11/06 * PD is a 70 year old male admitted on 11/05 with pneumonia secondary to COVID-19 virus * No steroids ordered at this time * BSGs elevated on admission - 271 mg/dL * Remained elevated overnight, 243 and 203 mg/dL * Patient received 41 units of insulin overnight - 20 units of basal and 21 units of bolus * Lunch BSG of 321 mg/dL - will increase Lantus, tighten Novolog, and give one- time IV regular insulin bolus PLAN FOR INPATIENT GLYCEMIC CONTROL: * Basal insulin * Lantus 40 units daily * NPH 45 units daily * Bolus insulin * NovoLog per scale ACHS or Q6hrs while NPO * Goal Range: Low 110 mg/dL - High 140 mg/dL * Correction Factor: 6 mg/dL/unit * Nutritional / Prandial insulin per carb ratio of 1 unit per 2 grams CHO consumed PLAN FOR DISCHARGE: * TBD
--- NOTE | 2020-11-09 12:30 | Hospitalist Progress Note ---
Date of Service November 09, 2020 Assessment & Plan (1) Pneumonia due to COVID-19 virus: Multifocal COVID pneumonia Acute hypoxic respiratory failure On admission: COVID Screen:positive on 11/05/20 CXR:Interval development of bilateral airspace opacities, greater within the left lung. Pneumonia is favored. Asymmetric edema could appear similar. Troponin negative CRP:5.4-->10.7-->7.17-->7.76 Ferritin:483 D-Dimer: 870 -->1640 Blood Cultures: No growth to date Continue dexamethasone Remdesivir not given due to renal function XR done yesterday due to worsened hypoxia show worsening opacities Senior Contracts Manager recommendations appreciated Antibiotics discontinued He stated he is not able to prone Incentive spirometry and flutter Continue oxygen supplementation and continue to wean as tolerated Gave one dose of lasix today CPAP HS (2) Acute kidney injury superimposed on CKD: (3) CKD (chronic kidney disease), stage III: Baseline ~1.5 Cr trending down slowly. 1.94 today Continue to hold losartan Give one dose of lasix today Monitor renal function (4) CAD (coronary artery disease): S/p recent stenting 09/2020 Continue Brilinta, statin, beta-acosta (5) Chronic diastolic CHF (congestive heart failure): Monitor volume status Gave one dose of lasix today (6) Diabetes mellitus, type II: Hgb A1c 9.2 09/2020 Pharm on board helping with glycemic management Blood glucose has been poorly controlled due to dexamethasone therapy (7) Hypertension: Continue metoprolol and amlodipine Continue to hold losartan for now due to VIOLETTE (8) DVT prophylaxis: SQ heparin q8h Admission and Anticipated Discharge Date Admission Date: November 05, 2020 Subjective Patient seen and examined. Reports feeling better today. Still has cough and exertional dyspnea Review of Systems Constitutional: no fever, no chills and no body aches Eyes: no problem reported Ear, Nose, Mouth, Throat: no problem reported Respiratory: + cough and + dyspnea on exertion Cardiovascular: + dyspnea on exertion; no chest pain and no palpitations Gastrointestinal: no abdominal pain, no nausea, no vomiting, no constipation and no diarrhea/loose stools Genitourinary: no dysuria, no difficulty urinating and no urinary frequency Musculoskeletal: no body aches Neurologic: + generalized weakness; no headache(s) and no confusion Psychiatric: no depression and no anxiety Physical Exam Constitutional: + well hydrated and + obese; no acute distress Eyes: PERRL, conjunctivae normal, anicteric sclerae ENMT: external ear and nose normal, oropharynx normal Respiratory: normal respiratory effort; no respiratory distress Auscultation: + diminished lung sounds On 3 L/min nasal oxygen Cardiovascular: Rate/Rhythm: regular rate and regular rhythm S1-S2 Gastrointestinal (Abdomen): normal bowel sounds, soft, nontender, no hepatosplenomegaly Musculoskeletal: no cyanosis or clubbing, extremities motor strength 5/5 Trace pedal edema Neurologic: PERRL, EOMI, accommodation nl, no face palsy, no dysarthria Psychiatric: A+Ox3, euthymic affect Results & Data Results & Data ([facility]) Vital Signs (Past 12 Hours) Vital Signs Temp Pulse Pulse Resp BP Pulse Ox 11/09/20 10:57 36.7 C 88 20 147/81 H 91 11/09/20 08:00 98 H 11/09/20 07:56 90 19 145/87 H 90 11/09/20 07:38 36.8 C 85 20 148/83 H 93 11/09/20 04:11 36.9 C 105 H 21 140/94 91 Laboratory Results Laboratory Results - last 24 hr 11/08/20 11/08/20 11/08/20 16:45 20:06 23:59 WBC RBC Hgb Hct MCV MCH MCHC RDW Std Deviation RDW Coeff of Livier Plt Count MPV ESR D-Dimer Sodium Potassium Chloride Carbon Dioxide Anion Gap BUN Creatinine Est Cr Clr Drug Dosing Est GFR ( Amer) Est GFR (Non-Af Amer) BUN/Creatinine Ratio Glucose POC Glucose 154 H 132 H 103 H Calcium C-Reactive Protein 11/09/20 11/09/20 11/09/20 04:14 05:47 05:47 WBC 8.97 RBC 5.32 Hgb 15.3 Hct 44.1 MCV 82.9 MCH 28.8 MCHC 34.7 RDW Std Deviation 43.1 RDW Coeff of Livier 14.3 Plt Count 206 MPV 10.2 ESR 70 H D-Dimer Sodium Potassium Chloride Carbon Dioxide Anion Gap BUN Creatinine Est Cr Clr Drug Dosing Est GFR ( Amer) Est GFR (Non-Af Amer) BUN/Creatinine Ratio Glucose POC Glucose 122 H Calcium C-Reactive Protein 0411/09/20 11/09/20 05:47 05:47 07:39 WBC RBC Hgb Hct MCV MCH MCHC RDW Std Deviation RDW Coeff of Livier Plt Count MPV ESR D-Dimer 1640 H* Sodium 137 Potassium 4.0 Chloride 106 Carbon Dioxide 20 L Anion Gap 11.0 BUN 65 H Creatinine 1.94 H Est Cr Clr Drug Dosing 49.9 Est GFR ( Amer) 39.8 Est GFR (Non-Af Amer) 34.3 BUN/Creatinine Ratio 33.6 H Glucose 131 H POC Glucose 147 H Calcium 8.4 L C-Reactive Protein 7.76 H 11/09/20 10:56 WBC RBC Hgb Hct MCV MCH MCHC RDW Std Deviation RDW Coeff of Livier Plt Count MPV ESR D-Dimer Sodium Potassium Chloride Carbon Dioxide Anion Gap BUN Creatinine Est Cr Clr Drug Dosing Est GFR ( Amer) Est GFR (Non-Af Amer) BUN/Creatinine Ratio Glucose POC Glucose 279 H Calcium C-Reactive Protein
[2020-11-09] MEDS ORDERED: POLYETHYLENE (MIRALAX) 17 GM PACK PO PRN (16:41)
[2020-11-09] MEDS: TAMSULOSIN HCL 0.4 MG CAP PO SCH (20:09)
[2020-11-10] MEDS: HEPARIN SOD 5,000 UNIT/0.5 ML VIAL SQ SCH ×3 (06:26→21:10)
[2020-11-10] MEDS: TICAGRELOR 90 MG TAB PO SCH ×2 (07:49→21:08)
[2020-11-10] MEDS: METOPROLOL TARTRATE 100 MG TAB PO SCH ×2 (07:49→21:08)
[2020-11-10] MEDS: dexAMETHasone 6 MG in SYRINGE 0 ML IV SCH (07:50)
[2020-11-10] MEDS: PRAVASTATIN SOD 40 MG TAB PO SCH (07:50)
[2020-11-10] MEDS: amLODIPine BESYLATE 5 MG TAB PO SCH (07:50)
[2020-11-10] MEDS: allopurinoL 100 MG TAB PO SCH (07:50)
[2020-11-10] MEDS: INSULIN ASPART 100 UNITS/ML 3 ML PEN SC SCH ×5 (07:58→21:39)
[2020-11-10 08:01] LABS: Hematocrit (blood only) 43.8 % (42-52); Hemoglobin 15.3 g/dL (14.0-18.0); Mean Corpuscular Hemoglobin 28.9 pg (25-34); Mean Corpuscular Hgb Conc 34.9 g/dL (32-36); Mean Corpuscular Volume 82.6 fL (80-100); Mean Platelet Volume 10.2 fL (7.4-10.4); Platelet Count 286 K/uL (130-400); RDW Coefficient of Variation 14.4 % (11.5-14.5); RDW Standard Deviation 43.7 fL (36.4-46.3); White Blood Count 9.28 K/uL (4.8-10.8)
[2020-11-10] MEDS: INSULIN GLARGINE SOLOSTAR 100 UNITS/ML 3 ML PEN SC SCH (08:06)
[2020-11-10] MEDS: INSULIN HUMAN NPH SC SCH (08:06)
[2020-11-10 08:20] LABS: BUN Creatinine Ratio 37.4 (10-20); C Reactive Protein 3.8 mg/dl (0-0.29); Calcium 8.7 mg/dl (8.5-10.1); Creatinine Clr Calc Pharmacy 52.8 ml/min; Est GFR (Non-African American) 37.1; Magnesium 2.3 mg/dl (1.8-2.4); Potassium 3.9 mmol/L (3.5-5.1)
[2020-11-10 08:21] LABS: Phosphorus 4.1 mg/dl (2.5-4.9)
[2020-11-10] MEDS ORDERED: amLODIPine BESYLATE 5 MG TAB PO ONE (08:30)
--- NOTE | 2020-11-10 09:47 | Pharmacy Report ---
Pharmacy Glycemic Short Note 2 - Date of Service November 10, 2020 - Glycemic Short BSG Results (Last 24 hours): 11/09/20 11/09/20 11/09/20 10:56 15:09 20:15 Glucose POC Glucose 279 H 157 H 114 H 11/10/20 11/10/20 07:06 07:26 Glucose 79 POC Glucose 78 OUTPATIENT ANTIDIABETIC REGIMEN: * Novolin R per sliding scale (patient poor historian) * HbA1c: 9.2% (10/21/20) ASSESSMENT: 11/10 * Pt has received 183 units of insulin over the past 24hrs * 40 units of basal with Lantus * 45 units of NPH for steroid induced hyperglycemia with daily DXM * 98 units of bolus with NovoLog * BSGs [phone] mg/dl * AM fasting BSG is below goal range at 78 mg/dl - will decrease basal insulin with Lantus from 40 units to 35 units starting tomorrow (40units already given 11/10) * Pre-lunch BSG remains high - will tighten CR at breakfast only 11/09 * Patient transitioned off of insulin drip, blood sugars at goal except for pre lunch = 279mg/dl * due to IV dexamethasone and late breakfast NovoLog administration and early blood sugar check for lunch, will wait to make changes * Increase NPH if pre-dinner BSG remains > 200mg/dl 11/08 * Patient received total of 175 units of insulin yesterday, including insulin drip * Insulin drip held overnight - Plan to start Lantus 40 units daily, NPH 45 units daily (~0.4 units/kg to cover DXM) * Lunch time BSG trending upward, plan to tighten CF/CR 11/07 * Patient received total of 112 units of insulin yesterday, of which 60 units were basal insulin * Fasting BSG elevated at 322 mg/dL - likely due to steroids, plan increase basal insulin ~30% today with higher dosing given in AM with daily dexamethasone * BSGs yesterday elevated in 200s, before steroids even started - plan to tighten to full stress of 3 dosing this AM. Will give partial IV insulin dose this AM as well d/t elevated BSGs 11/06 * PD is a 70 year old male admitted on 11/05 with pneumonia secondary to COVID-19 virus * No steroids ordered at this time * BSGs elevated on admission - 271 mg/dL * Remained elevated overnight, 243 and 203 mg/dL * Patient received 41 units of insulin overnight - 20 units of basal and 21 units of bolus * Lunch BSG of 321 mg/dL - will increase Lantus, tighten Novolog, and give one- time IV regular insulin bolus PLAN FOR INPATIENT GLYCEMIC CONTROL: * Basal insulin * Lantus 35 units daily (starting 11/11) * NPH 45 units daily * Bolus insulin * NovoLog per scale ACHS or Q6hrs while NPO * Goal Range: Low 110 mg/dL - High 140 mg/dL * Correction Factor: 6 mg/dL/unit * Nutritional / Prandial insulin per carb ratio of 1 unit per 1.5 grams CHO consumed at breakfast only * Nutritional / Prandial insulin per carb ratio of 1 unit per 2 grams CHO consumed at lunch, dinner, and HS PLAN FOR DISCHARGE: * A1c = 9.2 % on 10/21/20 * Goal A1c = below 7-7.5 % based on age and comorbidities * Pt is maintained on Novolin regular insulin SSI monotherapy. * Basal insulin will be needed at dc based on A1c. Dosing TBD
[2020-11-10] MEDS ORDERED: FUROSEMIDE 40 MG TAB PO ONE (11:29)
--- NOTE | 2020-11-10 13:45 | Hospitalist Progress Note ---
Date of Service November 10, 2020 Assessment & Plan (1) Pneumonia due to COVID-19 virus: Multifocal COVID pneumonia Acute hypoxic respiratory failure On admission: COVID Screen:positive on 11/05/20 CXR:Interval development of bilateral airspace opacities, greater within the left lung. Pneumonia is favored. Asymmetric edema could appear similar. Troponin negative CRP:5.4-->10.7-->7.17-->7.76 Ferritin:483 D-Dimer: 870 -->1640 Blood Cultures: No growth to date Continue dexamethasone day 5 Remdesivir not given due to renal function XR done yesterday due to worsened hypoxia show worsening opacities [place] recommendations appreciated He stated he is not able to prone despite encouragement Refused any further trial of CPAP Encouraged to do incentive spirometry and flutter Continue oxygen supplementation and continue to wean as tolerated Give lasix 40 today and resume daily (2) Acute kidney injury superimposed on CKD: (3) CKD (chronic kidney disease), stage III: Baseline ~1.5 Cr was 2 on admission, increased to 2.13. Currently trending down slowly. 1.86 today Continue to hold losartan Was on Lasix at home. Resume daily Lasix and monitor renal function as well as I's and O's (4) CAD (coronary artery disease): S/p recent stenting 09/2020 Continue Brilinta, statin, beta-acosta (5) Chronic diastolic CHF (congestive heart failure): Monitor volume status Resume daily Lasix. (6) Diabetes mellitus, type II: Hgb A1c 9.2 09/2020 Pharm on board helping with glycemic management (7) Hypertension: Continue metoprolol and amlodipine Blood pressure poorly controlled. Amlodipine increased to 10 mg daily. Continue to hold losartan for now due to VIOLETTE on CKD 3 (8) DVT prophylaxis: SQ heparin q8h Admission and Anticipated Discharge Date Admission Date: November 05, 2020 Subjective Patient seen and examined. Reports improvement in cough. Still has dyspnea with mild exertion. Still has weakness. Stated that he cannot tolerate CPAP trial last night Review of Systems Constitutional: no fever, no chills and no body aches Eyes: no problem reported Ear, Nose, Mouth, Throat: no problem reported Respiratory: + cough and + dyspnea on exertion Cardiovascular: + dyspnea on exertion; no chest pain and no palpitations Gastrointestinal: no abdominal pain, no nausea, no vomiting, no constipation and no diarrhea/loose stools Genitourinary: no dysuria, no difficulty urinating and no urinary frequency Neurologic: + generalized weakness; no headache(s) and no confusion Psychiatric: no depression and no irritability Physical Exam Constitutional: + well hydrated and + obese; no acute distress Eyes: PERRL, conjunctivae normal, anicteric sclerae ENMT: external ear and nose normal, oropharynx normal Respiratory: normal respiratory effort; no respiratory distress Auscultation: + diminished lung sounds Still on 3 L/min of nasal oxygen Cardiovascular: Rate/Rhythm: regular rate and regular rhythm S1-S2. Gastrointestinal (Abdomen): normal bowel sounds, soft, nontender, no hepatosplenomegaly Musculoskeletal: no cyanosis or clubbing, extremities motor strength 5/5 No pedal edema Neurologic: PERRL, EOMI, accommodation nl, no face palsy, no dysarthria Psychiatric: A+Ox3, euthymic affect Results & Data Results & Data ([facility]) Vital Signs (Past 12 Hours) Vital Signs Temp Pulse Pulse Resp BP BP Pulse Ox 11/10/20 12:10 36.5 C 76 16 171/96 H 93 11/10/20 08:30 36.4 C L 97 H 16 181/127 H 179/104 H 90 11/10/20 07:51 171/84 H 11/10/20 07:44 105 H 11/10/20 03:37 35.9 C L 81 19 147/108 H 91 Laboratory Results Laboratory Results - last 24 hr 11/09/20 11/09/20 11/10/20 15:09 20:15 07:06 WBC 9.28 RBC 5.30 Hgb 15.3 Hct 43.8 MCV 82.6 MCH 28.9 MCHC 34.9 RDW Std Deviation 43.7 RDW Coeff of Livier 14.4 Plt Count 286 MPV 10.2 Sodium Potassium Chloride Carbon Dioxide Anion Gap BUN Creatinine Est Cr Clr Drug Dosing Est GFR ( Amer) Est GFR (Non-Af Amer) BUN/Creatinine Ratio Glucose POC Glucose 157 H 114 H Calcium Phosphorus Magnesium C-Reactive Protein Procalcitonin 11/10/20 11/10/20 11/10/20 07:06 07:06 07:26 WBC RBC Hgb Hct MCV MCH MCHC RDW Std Deviation RDW Coeff of Livier Plt Count MPV Sodium 138 Potassium 3.9 Chloride 109 H Carbon Dioxide 22 Anion Gap 7.0 BUN 68 H Creatinine 1.82 H Est Cr Clr Drug Dosing 52.8 Est GFR ( Amer) 43.0 Est GFR (Non-Af Amer) 37.1 BUN/Creatinine Ratio 37.4 H Glucose 79 POC Glucose 78 Calcium 8.7 Phosphorus 4.1 Magnesium 2.3 C-Reactive Protein 3.80 H Procalcitonin 0.18 11/10/20 11:26 WBC RBC Hgb Hct MCV MCH MCHC RDW Std Deviation RDW Coeff of Livier Plt Count MPV Sodium Potassium Chloride Carbon Dioxide Anion Gap BUN Creatinine Est Cr Clr Drug Dosing Est GFR ( Amer) Est GFR (Non-Af Amer) BUN/Creatinine Ratio Glucose POC Glucose 178 H Calcium Phosphorus Magnesium C-Reactive Protein Procalcitonin
[2020-11-10] MEDS: guaiFENesin SUGAR FREE 200 MG/10 ML UDC PO PRN (21:07)
[2020-11-10] MEDS: TAMSULOSIN HCL 0.4 MG CAP PO SCH (21:08)
[2020-11-11] MEDS: HEPARIN SOD 5,000 UNIT/0.5 ML VIAL SQ SCH ×3 (05:40→23:32)
[2020-11-11 06:51] LABS: Hematocrit (blood only) 44.2 % (42-52); Hemoglobin 15.1 g/dL (14.0-18.0); Mean Corpuscular Hemoglobin 28.7 pg (25-34); Mean Corpuscular Hgb Conc 34.2 g/dL (32-36); Mean Platelet Volume 10.1 fL (7.4-10.4); Platelet Count 251 K/uL (130-400); RDW Coefficient of Variation 14.3 % (11.5-14.5); RDW Standard Deviation 44.1 fL (36.4-46.3); Red Blood Count 5.26 M/uL (4.7-6.1); White Blood Count 8.06 K/uL (4.8-10.8)
[2020-11-11 07:11] LABS: BUN Creatinine Ratio 42.2 (10-20); Calcium 8.3 mg/dl (8.5-10.1); Creatinine Clr Calc Pharmacy 55.3 ml/min; Est GFR (African American) 45.7; Est GFR (Non-African American) 39.4; Magnesium 2.4 mg/dl (1.8-2.4); Potassium 4.3 mmol/L (3.5-5.1)
[2020-11-11 07:15] LABS: C Reactive Protein 1.82 mg/dl (0-0.29)
[2020-11-11] MEDS: dexAMETHasone 6 MG in SYRINGE 0 ML IV SCH (08:48)
[2020-11-11] MEDS: allopurinoL 100 MG TAB PO SCH (08:49)
[2020-11-11] MEDS: METOPROLOL TARTRATE 100 MG TAB PO SCH ×2 (08:49→20:09)
[2020-11-11] MEDS: TICAGRELOR 90 MG TAB PO SCH ×2 (08:49→20:09)
[2020-11-11] MEDS: amLODIPine BESYLATE 5 MG TAB PO SCH (08:50)
[2020-11-11] MEDS: FUROSEMIDE 40 MG TAB PO SCH (08:50)
[2020-11-11] MEDS: PRAVASTATIN SOD 40 MG TAB PO SCH (08:50)
[2020-11-11] MEDS ORDERED: INSULIN GLARGINE SOLOSTAR 100 UNITS/ML 3 ML PEN SC SCH ×3 (09:00)
[2020-11-11] MEDS: INSULIN HUMAN NPH SC SCH (09:43)
[2020-11-11] MEDS: INSULIN ASPART 100 UNITS/ML 3 ML PEN SC SCH ×4 (09:43→20:17)
--- NOTE | 2020-11-11 13:12 | Hospitalist Progress Note ---
Date of Service November 11, 2020 Assessment & Plan (1) Pneumonia due to COVID-19 virus: Multifocal COVID pneumonia Acute hypoxic respiratory failure On admission: COVID Screen:positive on 11/05/20 CXR:Interval development of bilateral airspace opacities, greater within the left lung. Pneumonia is favored. Asymmetric edema could appear similar. Troponin negative CRP:5.4-->10.7-->7.17-->7.76-->3.8-->1.8 Ferritin:483 D-Dimer: 870 -->1640 Blood Cultures: No growth to date Continue dexamethasone day 6 Remdesivir not given due to renal function Director Economic recommendations appreciated Not able to self prone Refused CPAP Continue incentive spirometry and flutter Continue oxygen supplementation and continue to wean as tolerated Give lasix 40 today and resume daily Currently on room air. Will do 2 step to assess for ambulatory oxygen requirement tomorrow (2) Acute kidney injury superimposed on CKD: (3) CKD (chronic kidney disease), stage III: Baseline ~1.5 Cr was 2 on admission, increased to 2.13. Creatinine continues to trend down. 1.73 today Plan to resume losartan tomorrow Continue Lasix IV 40 daily for now (4) CAD (coronary artery disease): S/p recent stenting 09/2020 Continue Brilinta, statin, beta-acosta (5) Chronic diastolic CHF (congestive heart failure): Monitor volume status Continue daily Lasix (6) Diabetes mellitus, type II: Hgb A1c 9.2 09/2020 Pharm on board helping with glycemic management (7) Hypertension: Continue metoprolol and amlodipine Blood pressure poorly controlled. Continue amlodipine Resume losartan at half home dose tomorrow (8) DVT prophylaxis: SQ heparin q8h Possible discharge in 1-2 days Patient declined SNF. Will need home PT/OT on discharge Admission and Anticipated Discharge Date Admission Date: November 05, 2020 Subjective Patient seen and examined this morning. Patient reports that cough and exertional dyspnea significantly improved. Currently on 2 L/min nasal oxygen saturating 94%. Oxygen discontinued and patient was saturating 92 to 94% on room room air. Patient reports weakness is much improved unable to get up and out of bed without as much assist as before. RN confirms this. Review of Systems Constitutional: no fever and no chills Eyes: no problem reported Ear, Nose, Mouth, Throat: no problem reported Respiratory: + cough and + dyspnea on exertion Cardiovascular: + dyspnea on exertion; no chest pain and no palpitations Gastrointestinal: no abdominal pain, no nausea, no vomiting, no constipation and no diarrhea/loose stools Genitourinary: no dysuria, no difficulty urinating and no urinary frequency Musculoskeletal: no body aches Neurologic: + generalized weakness; no headache(s) and no confusion Psychiatric: no depression and no anxiety Physical Exam Constitutional: + well hydrated and + obese; no acute distress Eyes: PERRL, conjunctivae normal, anicteric sclerae ENMT: external ear and nose normal, oropharynx normal Respiratory: normal respiratory effort; no respiratory distress Auscultation: + diminished lung sounds Cardiovascular: Rate/Rhythm: regular rate and regular rhythm S1 S2 no pedal edema Gastrointestinal (Abdomen): normal bowel sounds, soft, nontender, no hepatosplenomegaly Musculoskeletal: no cyanosis or clubbing, extremities motor strength 5/5 Neurologic: PERRL, EOMI, accommodation nl, no face palsy, no dysarthria Psychiatric: A+Ox3, euthymic affect Results & Data Results & Data ([facility]) Vital Signs (Past 12 Hours) Vital Signs Temp Pulse Pulse Resp BP BP Pulse Ox 11/11/20 11:16 36.5 C 83 22 146/83 H 95 11/11/20 07:35 66 11/11/20 07:33 36.3 C L 70 20 135/80 94 11/11/20 03:30 36.4 C L 73 20 134/86 91 Laboratory Results Laboratory Results - last 24 hr 11/10/20 11/10/20 11/11/20 16:53 20:05 05:49 WBC 8.06 RBC 5.26 Hgb 15.1 Hct 44.2 MCV 84.0 MCH 28.7 MCHC 34.2 RDW Std Deviation 44.1 RDW Coeff of Livier 14.3 Plt Count 251 MPV 10.1 Sodium Potassium Chloride Carbon Dioxide Anion Gap BUN Creatinine Est Cr Clr Drug Dosing Est GFR ( Amer) Est GFR (Non-Af Amer) BUN/Creatinine Ratio Glucose POC Glucose 110 H 153 H Calcium Phosphorus Magnesium C-Reactive Protein 11/11/20 11/11/20 11/11/20 05:49 07:30 11:14 WBC RBC Hgb Hct MCV MCH MCHC RDW Std Deviation RDW Coeff of Livier Plt Count MPV Sodium 141 Potassium 4.3 Chloride 109 H Carbon Dioxide 21 Anion Gap 11.0 BUN 73 H Creatinine 1.73 H Est Cr Clr Drug Dosing 55.3 Est GFR ( Amer) 45.7 Est GFR (Non-Af Amer) 39.4 BUN/Creatinine Ratio 42.2 H Glucose 174 H POC Glucose 179 H 290 H Calcium 8.3 L Phosphorus 5.0 H Magnesium 2.4 C-Reactive Protein 1.82 H
[2020-11-11] MEDS: TAMSULOSIN HCL 0.4 MG CAP PO SCH (20:08)
[2020-11-11] MEDS: CARBOHYDRATES FOR HYPOGLYCEMIA PO PRN (23:50)
[2020-11-12] MEDS: guaiFENesin SUGAR FREE 200 MG/10 ML UDC PO PRN ×4 (04:11→20:16)
[2020-11-12] MEDS: HEPARIN SOD 5,000 UNIT/0.5 ML VIAL SQ SCH ×3 (05:28→20:26)
[2020-11-12 06:40] LABS: BUN Creatinine Ratio 43.9 (10-20); Calcium 8.6 mg/dl (8.5-10.1); Creatinine Clr Calc Pharmacy 58.3 ml/min; Est GFR (African American) 48.4; Est GFR (Non-African American) 41.7; Magnesium 2.4 mg/dl (1.8-2.4)
[2020-11-12] MEDS: TICAGRELOR 90 MG TAB PO SCH ×2 (08:15→20:16)
[2020-11-12] MEDS: dexAMETHasone 6 MG in SYRINGE 0 ML IV SCH (08:15)
[2020-11-12] MEDS: METOPROLOL TARTRATE 100 MG TAB PO SCH ×2 (08:15→20:17)
[2020-11-12] MEDS: amLODIPine BESYLATE 5 MG TAB PO SCH (08:16)
[2020-11-12] MEDS: FUROSEMIDE 40 MG TAB PO SCH (08:16)
[2020-11-12] MEDS: PRAVASTATIN SOD 40 MG TAB PO SCH (08:16)
[2020-11-12] MEDS: allopurinoL 100 MG TAB PO SCH (08:16)
[2020-11-12] MEDS: INSULIN HUMAN NPH SC SCH (08:27)
[2020-11-12] MEDS: INSULIN ASPART 100 UNITS/ML 3 ML PEN SC SCH ×4 (08:27→20:51)
--- NOTE | 2020-11-12 08:56 | Pharmacy Report ---
Pharmacy Glycemic Short Note 2 - Date of Service November 12, 2020 - Glycemic Short BSG Results (Last 24 hours): 11/11/20 11/11/20 11/11/20 11:14 15:53 19:55 Glucose POC Glucose 290 H 215 H 173 H 11/11/20 11/12/20 11/12/20 23:48 00:06 00:22 Glucose POC Glucose 64 L* 57 L* 69 L* 11/12/20 11/12/20 11/12/20 00:41 00:59 03:50 Glucose POC Glucose 83 109 H 88 11/12/20 11/12/20 05:39 07:42 Glucose 100 H POC Glucose 103 H OUTPATIENT ANTIDIABETIC REGIMEN: * Novolin R per sliding scale (patient poor historian) * HbA1c: 9.2% (10/21/20) ASSESSMENT: 11/12 * BSGs yesterday of 179, 290, 215, 173, and 64 mg/dL * BSG of 64 mg/dL required treatment with apple juice, peanut butter, and icecream * Patient received 204 units of insulin yesterday - 40 units of Lantus, 45 units of NPH, and 119 units of prandial/correctional insulin) * Fasting BSG of 103 mg/dL this morning - will decrease Lantus ~10% * Despite low BSGs overnight, will maintain aggressive AM Novolog and NPH given upward trend at lunchtime * Will plan to loosen evening Novolog parameters to avoid repeat hypoglycemia 11/10 * Pt has received 183 units of insulin over the past 24hrs * 40 units of basal with Lantus * 45 units of NPH for steroid induced hyperglycemia with daily DXM * 98 units of bolus with NovoLog * BSGs [phone] mg/dl * AM fasting BSG is below goal range at 78 mg/dl - will decrease basal insulin with Lantus from 40 units to 35 units starting tomorrow (40units already given 11/10) * Pre-lunch BSG remains high - will tighten CR at breakfast only 11/09 * Patient transitioned off of insulin drip, blood sugars at goal except for pre lunch = 279mg/dl * due to IV dexamethasone and late breakfast NovoLog administration and early blood sugar check for lunch, will wait to make changes * Increase NPH if pre-dinner BSG remains > 200mg/dl 11/06 * PD is a 70 year old male admitted on 11/05 with pneumonia secondary to COVID-19 virus * No steroids ordered at this time * BSGs elevated on admission - 271 mg/dL * Remained elevated overnight, 243 and 203 mg/dL * Patient received 41 units of insulin overnight - 20 units of basal and 21 units of bolus * Lunch BSG of 321 mg/dL - will increase Lantus, tighten Novolog, and give one- time IV regular insulin bolus PLAN FOR INPATIENT GLYCEMIC CONTROL: * Basal insulin - decrease Lantus (~10%) * Lantus 35 units daily * NPH 45 units daily with IV dexamethasone * Bolus insulin - loosen evening Novolog parameters * NovoLog per scale ACHS or Q6hrs while NPO * Goal Range: Low 110 mg/dL - High 140 mg/dL * Correction Factor: 6 mg/dL/unit at breakfast and lunch * Correction Factor: 12 mg/dL/unit dinner and HS * Nutritional / Prandial insulin per carb ratio of 1 unit per 1 grams CHO consumed at breakfast only * Nutritional / Prandial insulin per carb ratio of 3 at lunch, dinner, and HS PLAN FOR DISCHARGE: * A1c = 9.2 % on 10/21/20 * Goal A1c = below 7-7.5 % based on age and comorbidities * Pt reported outpatient regimen is Novolin R 60 units TIDM * Patient would benefit from switching to scheduled once daily long-acting basal insulin + scheduled mealtime rapid-acting insulin +/- sliding scale * Based on previous admission data last month while not receiving steroids, reasonable initial regimen would be: * Insulin glargine or detemir 50 units SC daily * Novolog or Humalog scheduled 15 units SC TIDM +/- sliding scale (described below) - if patient is not eating, then only give insulin based on sliding scale (hold scheduled 15 unit dose). * Blood Sugar 70-150 administer 0 units * Blood Sugar 151-200 administer 1 units * Blood Sugar 201-250 administer 3 units * Blood Sugar 251-300 administer 5 units * Blood Sugar 301-350 administer 7 units * Blood Sugar 351-400 administer 9 units * Blood Sugar >400 administer 11 units and call MD * Ensure prompt outpatient follow-up with primary care provider for further insulin dose titration * Support Patient Self-Management * Healthy Lifestyle (diet, exercise, and smoking cessation) * Disease self-management (SMBG) * Prevention of complications (BP, Lipid goals, Immunizations) * Consider outpatient Diabetes Self-Management Education & Support * Most patients on multiple-dose insulin (MDI) should SMBG * Prior to meals and snacks * At bedtime * Prior to exercise * When they suspect low blood glucose * After treating low blood glucose until they are normoglycemic * Prior to critical tasks such as driving * Occasionally postprandially
[2020-11-12] MEDS ORDERED: INSULIN GLARGINE SOLOSTAR 100 UNITS/ML 3 ML PEN SC SCH (09:00)
[2020-11-12] MEDS ORDERED: LOSARTAN POTASSIUM 50 MG TAB PO SCH (09:00)
--- NOTE | 2020-11-12 15:11 | Hospitalist Progress Note ---
Date of Service November 12, 2020 Assessment & Plan (1) Pneumonia due to COVID-19 virus: Multifocal COVID pneumonia Acute hypoxic respiratory failure On admission: COVID Screen:positive on 11/05/20 CXR:Interval development of bilateral airspace opacities, greater within the left lung. Pneumonia is favored. Asymmetric edema could appear similar. Troponin negative CRP:5.4-->10.7-->7.17-->7.76-->3.8-->1.8 Ferritin:483 D-Dimer: 870 -->1640 Blood Cultures: No growth to date [place] on dexamethasone Remdesivir not given due to renal function Continue incentive spirometry and flutter Successfully weaned off oxygen. 2 steps does not show any oxygen needs with activity ambulation Continue daily Lasix (2) Acute kidney injury superimposed on CKD: (3) CKD (chronic kidney disease), stage III: Baseline ~1.5 Cr was 2 on admission, increased to 2.13. Creatinine continues to trend down. 1.65 today Continue losartan Continue Lasix 40 daily (4) CAD (coronary artery disease): S/p recent stenting 09/2020 Continue Brilinta, statin, beta-acosta (5) Chronic diastolic CHF (congestive heart failure): Monitor volume status Continue daily Lasix (6) Diabetes mellitus, type II: Hgb A1c 9.2 09/2020 Pharm on board helping with glycemic management Patient blood glucose has been poorly controlled at home. Takes Novolin N 60 units 3 times daily. Reports that blood glucose checks at home usually reads "low' Working with case management/patient's pharm to assess if patient can afford basal insulin with mealtime coverage plus or minus sliding scale Diabetes education provided tobacco educator consult (7) Hypertension: Continue metoprolol, amlodipine and losartan (8) DVT prophylaxis: SQ heparin q8h Case management discussed with patient's today who would want patient to go to long-term facility/rehab costing manager discussed with the patient We will keep patient till tomorrow to figure out discharge planning as well as best diabetic regimen for patient that he can afford/insurance approve Admission and Anticipated Discharge Date Admission Date: November 05, 2020 Subjective Patient seen and examined. Patient reports feeling better today. Still coughing but much improved. Exertional dyspnea is also much improved No chest pain, palpitations, headache, dizziness Improved weakness Physical Exam Constitutional: + well hydrated and + obese; no acute distress Eyes: PERRL, conjunctivae normal, anicteric sclerae ENMT: external ear and nose normal, oropharynx normal Respiratory: normal respiratory effort; no respiratory distress Auscultation: + diminished lung sounds Cardiovascular: Rate/Rhythm: regular rate and regular rhythm S1-S2 Gastrointestinal (Abdomen): normal bowel sounds, soft, nontender, no hepatosplenomegaly Musculoskeletal: no cyanosis or clubbing, extremities motor strength 5/5 Trace pedal edema Neurologic: PERRL, EOMI, accommodation nl, no face palsy, no dysarthria Psychiatric: A+Ox3, euthymic affect Results & Data Results & Data ([facility]) Vital Signs (Past 12 Hours) Vital Signs Temp Pulse Pulse Pulse Pulse Resp Resp 11/12/20 15:05 36.5 C 83 18 11/12/20 11:33 36.3 C L 75 19 11/12/20 09:49 108 H 81 86 22 11/12/20 07:16 36.6 C 86 18 Resp Resp BP Pulse Ox Pulse Ox Pulse Ox Pulse Ox 11/12/20 15:05 156/72 H 93 11/12/20 11:33 127/68 93 11/12/20 09:49 20 18 91 92 94 11/12/20 07:16 153/98 H 96 Laboratory Results Laboratory Results - last 24 hr 11/11/20 11/11/20 11/11/20 15:53 19:55 23:48 Sodium Potassium Chloride Carbon Dioxide Anion Gap BUN Creatinine Est Cr Clr Drug Dosing Est GFR ( Amer) Est GFR (Non-Af Amer) BUN/Creatinine Ratio Glucose POC Glucose 215 H 173 H 64 L* Calcium Phosphorus Magnesium 11/12/20 11/12/20 11/12/20 00:06 00:22 00:41 Sodium Potassium Chloride Carbon Dioxide Anion Gap BUN Creatinine Est Cr Clr Drug Dosing Est GFR ( Amer) Est GFR (Non-Af Amer) BUN/Creatinine Ratio Glucose POC Glucose 57 L* 69 L* 83 Calcium Phosphorus Magnesium 11/12/20 11/12/20 11/12/20 00:59 03:50 05:39 Sodium 144 Potassium 4.0 Chloride 112 H Carbon Dioxide 26 Anion Gap 6.0 BUN 72 H Creatinine 1.65 H Est Cr Clr Drug Dosing 58.3 Est GFR ( Amer) 48.4 Est GFR (Non-Af Amer) 41.7 BUN/Creatinine Ratio 43.9 H Glucose 100 H POC Glucose 109 H 88 Calcium 8.6 Phosphorus 4.0 D Magnesium 2.4 11/12/20 11/12/20 07:42 12:05 Sodium Potassium Chloride Carbon Dioxide Anion Gap BUN Creatinine Est Cr Clr Drug Dosing Est GFR ( Amer) Est GFR (Non-Af Amer) BUN/Creatinine Ratio Glucose POC Glucose 103 H 104 H Calcium Phosphorus Magnesium
[2020-11-12] MEDS: TAMSULOSIN HCL 0.4 MG CAP PO SCH (20:17)
[2020-11-12] MEDS: CARBOHYDRATES FOR HYPOGLYCEMIA PO PRN (23:42)
[2020-11-13] MEDS: BENZONATATE 100 MG CAPSULE PO PRN (00:57)
[2020-11-13] MEDS: HEPARIN SOD 5,000 UNIT/0.5 ML VIAL SQ SCH ×3 (06:02→20:20)
[2020-11-13 07:58] LABS: Calcium 8.8 mg/dl (8.5-10.1); Creatinine Clr Calc Pharmacy 54.6 ml/min; Est GFR (Non-African American) 38.9; Magnesium 2.3 mg/dl (1.8-2.4); Potassium 4.4 mmol/L (3.5-5.1)
[2020-11-13 07:59] LABS: Phosphorus 4.1 mg/dl (2.5-4.9)
[2020-11-13] MEDS: FUROSEMIDE 40 MG TAB PO SCH (08:29)
[2020-11-13] MEDS: TICAGRELOR 90 MG TAB PO SCH ×2 (08:29→20:20)
[2020-11-13] MEDS: PRAVASTATIN SOD 40 MG TAB PO SCH (08:33)
[2020-11-13] MEDS: guaiFENesin SUGAR FREE 200 MG/10 ML UDC PO PRN (08:33)
[2020-11-13] MEDS: allopurinoL 100 MG TAB PO SCH (08:33)
[2020-11-13] MEDS: amLODIPine BESYLATE 5 MG TAB PO SCH (08:33)
[2020-11-13] MEDS: METOPROLOL TARTRATE 100 MG TAB PO SCH ×2 (08:33→20:20)
[2020-11-13] MEDS: LOSARTAN POTASSIUM 50 MG TAB PO SCH (08:45)
[2020-11-13] MEDS ORDERED: INSULIN HUMAN NPH SC SCH (09:00)
[2020-11-13] MEDS: dexAMETHasone 6 MG in SYRINGE 0 ML IV SCH (09:12)
[2020-11-13] MEDS: INSULIN GLARGINE SOLOSTAR 100 UNITS/ML 3 ML PEN SC SCH (09:31)
[2020-11-13] MEDS: INSULIN ASPART 100 UNITS/ML 3 ML PEN SC SCH ×4 (09:31→20:58)
--- NOTE | 2020-11-13 14:33 | Pharmacy Report ---
Pharmacy Glycemic Short Note 2 - Date of Service November 13, 2020 - Glycemic Short BSG Results (Last 24 hours): 11/12/20 11/12/20 11/12/20 17:08 20:00 23:38 Glucose POC Glucose 94 111 H 54 L* 11/12/20 11/13/20 11/13/20 23:57 04:18 07:05 Glucose 83 POC Glucose 79 104 H 11/13/20 11/13/20 11/13/20 07:38 07:57 11:57 Glucose POC Glucose 85 83 110 H OUTPATIENT ANTIDIABETIC REGIMEN: * Novolin R per sliding scale (patient poor historian) * HbA1c: 9.2% (10/21/20) ASSESSMENT: 11/13: * Pt received total of 186 units of insulin yesterday: 35 units Lantus, 45 units NPH and 106 units of Novolog bolus (prandial/correctional insulin). * Fasting BSG of 85 today AM. At midnight yesterday, patient had low BSG of 54 mg/dl. * Basal insulins (both Lantus and NPH) dosing reduced this morning. * Once Dexamethasone IV is stopped, NPH can be stopped as well. * Novolog CR was also loosened further with lunch, dinner and bedtime checks. 11/12 * BSGs yesterday of 179, 290, 215, 173, and 64 mg/dL * BSG of 64 mg/dL required treatment with apple juice, peanut butter, and icecream * Patient received 204 units of insulin yesterday - 40 units of Lantus, 45 units of NPH, and 119 units of prandial/correctional insulin) * Fasting BSG of 103 mg/dL this morning - will decrease Lantus ~10% * Despite low BSGs overnight, will maintain aggressive AM Novolog and NPH given upward trend at lunchtime * Will plan to loosen evening Novolog parameters to avoid repeat hypoglycemia 11/10 * Pt has received 183 units of insulin over the past 24hrs * 40 units of basal with Lantus * 45 units of NPH for steroid induced hyperglycemia with daily DXM * 98 units of bolus with NovoLog * BSGs [phone] mg/dl * AM fasting BSG is below goal range at 78 mg/dl - will decrease basal insulin with Lantus from 40 units to 35 units starting tomorrow (40units already given 11/10) * Pre-lunch BSG remains high - will tighten CR at breakfast only 11/09 * Patient transitioned off of insulin drip, blood sugars at goal except for pre lunch = 279mg/dl * due to IV dexamethasone and late breakfast NovoLog administration and early blood sugar check for lunch, will wait to make changes * Increase NPH if pre-dinner BSG remains > 200mg/dl 11/06 * PD is a 70 year old male admitted on 11/05 with pneumonia secondary to COVID-19 virus * No steroids ordered at this time * BSGs elevated on admission - 271 mg/dL * Remained elevated overnight, 243 and 203 mg/dL * Patient received 41 units of insulin overnight - 20 units of basal and 21 units of bolus * Lunch BSG of 321 mg/dL - will increase Lantus, tighten Novolog, and give one- time IV regular insulin bolus PLAN FOR INPATIENT GLYCEMIC CONTROL: * Basal insulin - decreased both * Lantus 30 units daily * NPH 40 units daily with IV dexamethasone * Bolus insulin - loosen evening Novolog parameters * NovoLog per scale ACHS or Q6hrs while NPO * Goal Range: Low 110 mg/dL - High 140 mg/dL * Correction Factor: 6 mg/dL/unit at breakfast and lunch * Correction Factor: 12 mg/dL/unit dinner and HS * Nutritional / Prandial insulin per carb ratio of 1 unit per 1 grams CHO consumed at breakfast only * Nutritional / Prandial insulin per carb ratio of 4 at lunch, dinner, and HS PLAN FOR DISCHARGE: * A1c = 9.2 % on 10/21/20 * Goal A1c = below 7-7.5 % based on age and comorbidities * Pt reported outpatient regimen is Novolin R 60 units TIDM * Patient would benefit from switching to scheduled once daily long-acting basal insulin + scheduled mealtime rapid-acting insulin +/- sliding scale * Based on previous admission data last month while not receiving steroids, reasonable initial regimen would be: * Insulin glargine or detemir 50 units SC daily * Novolog or Humalog scheduled 15 units SC TIDM +/- sliding scale (described below) - if patient is not eating, then only give insulin based on sliding scale (hold scheduled 15 unit dose). * Blood Sugar 70-150 administer 0 units * Blood Sugar 151-200 administer 1 units * Blood Sugar 201-250 administer 3 units * Blood Sugar 251-300 administer 5 units * Blood Sugar 301-350 administer 7 units * Blood Sugar 351-400 administer 9 units * Blood Sugar >400 administer 11 units and call MD * Ensure prompt outpatient follow-up with primary care provider for further insulin dose titration * Support Patient Self-Management * Healthy Lifestyle (diet, exercise, and smoking cessation) * Disease self-management (SMBG) * Prevention of complications (BP, Lipid goals, Immunizations) * Consider outpatient Diabetes Self-Management Education & Support * Most patients on multiple-dose insulin (MDI) should SMBG * Prior to meals and snacks * At bedtime * Prior to exercise * When they suspect low blood glucose * After treating low blood glucose until they are normoglycemic * Prior to critical tasks such as driving * Occasionally postprandially
--- NOTE | 2020-11-13 14:54 | Hospitalist Progress Note ---
Date of Service November 13, 2020 Assessment & Plan (1) Pneumonia due to COVID-19 virus: Multifocal COVID pneumonia Acute hypoxic respiratory failure On admission: COVID Screen:positive on 11/05/20 CXR:Interval development of bilateral airspace opacities, greater within the left lung. Pneumonia is favored. Asymmetric edema could appear similar. Troponin negative CRP:5.4-->10.7-->7.17-->7.76-->3.8-->1.8 Ferritin:483 D-Dimer: 870 -->1640 Blood Cultures: No growth to date Courrently on dexamethasone Remdesivir not given due to renal function Continue incentive spirometry and flutter Successfully weaned off oxygen. 2 steps does not show any oxygen needs with activity ambulation Continue daily Lasix (2) Acute kidney injury superimposed on CKD: (3) CKD (chronic kidney disease), stage III: Baseline ~1.5 Cr was 2 on admission, increased to 2.13. Creatinine continues trended down Cr is 1.75 today Continue losartan Continue Lasix 40 daily (4) CAD (coronary artery disease): S/p recent stenting 09/2020 Continue Brilinta, statin, beta-acosta (5) Chronic diastolic CHF (congestive heart failure): Monitor volume status Continue daily Lasix (6) Diabetes mellitus, type II: Hgb A1c 9.2 09/2020 Pharm on board helping with glycemic management Patient blood glucose has been poorly controlled at home. Takes Novolin N 60 units 3 times daily. Reports that blood glucose checks at home usually reads "low' Diabetes education provided Patient will benefit more from long acting insulin + meal time Patient was concerned about cost. I sent script to his preferred pharm and called them. With his discount card, he will be able to get both for about $30 Patient stated he is ok with this. (7) Hypertension: Continue metoprolol, amlodipine and losartan (8) DVT prophylaxis: SQ heparin q8h Patient had repeatedly declined rehab for the past few days Spoke to and daughter to give them updates. They are concerned about him going home for now. Daughter called patient and discussed with him after which he agreed to go to rehab CM working on placement Admission and Anticipated Discharge Date Admission Date: November 05, 2020 Subjective Patient seen and examined. Reports cough continue to improve as well as weakness. Denies any shortness of breath No chest pain, palpitations No nausea, vomiting, abdominal pain, diarrhea No dysuria, frequency, urgency Physical Exam Constitutional: + well hydrated and + obese; no acute distress Eyes: PERRL, conjunctivae normal, anicteric sclerae ENMT: external ear and nose normal, oropharynx normal Respiratory: normal respiratory effort; no respiratory distress Auscultation: + diminished lung sounds; no crackles Cardiovascular: Rate/Rhythm: regular rate and regular rhythm S1-S2 Gastrointestinal (Abdomen): normal bowel sounds, soft, nontender, no hepatosplenomegaly Musculoskeletal: no cyanosis or clubbing, extremities motor strength 5/5 Neurologic: PERRL, EOMI, accommodation nl, no face palsy, no dysarthria Psychiatric: A+Ox3, euthymic affect Results & Data Results & Data ([facility]) Vital Signs (Past 12 Hours) Vital Signs Temp Pulse Pulse Resp BP Pulse Ox 11/13/20 11:58 36.8 C 73 20 105/82 95 11/13/20 07:22 74 11/13/20 07:05 36.6 C 79 20 150/82 H 95 11/13/20 03:14 36.4 C L 78 20 137/83 94 Laboratory Results Abnormal lab results 11/12/20 11/12/20 11/13/20 Range/Units 20:00 23:38 04:18 Chloride (98-107) mmol/L BUN (7-18) mg/dl Creatinine (0.6-1.4) mg/dl BUN/Creatinine Ratio (10-20) POC Glucose 111 H 54 L* 104 H (70-99) mg/dl 11/13/20 11/13/20 Range/Units 07:05 11:57 Chloride 109 H (98-107) mmol/L BUN 68 H (7-18) mg/dl Creatinine 1.75 H (0.6-1.4) mg/dl BUN/Creatinine Ratio 39.0 H (10-20) POC Glucose 110 H (70-99) mg/dl
[2020-11-13] MEDS: TAMSULOSIN HCL 0.4 MG CAP PO SCH (20:20)
[2020-11-14] MEDS: HEPARIN SOD 5,000 UNIT/0.5 ML VIAL SQ SCH ×3 (06:24→20:38)
[2020-11-14 07:34] LABS: BUN Creatinine Ratio 41.4 (10-20); Calcium 8.7 mg/dl (8.5-10.1); Creatinine Clr Calc Pharmacy 55.5 ml/min; Est GFR (Non-African American) 39.7; Potassium 4.4 mmol/L (3.5-5.1)
[2020-11-14] MEDS: LOSARTAN POTASSIUM 50 MG TAB PO SCH (07:59)
[2020-11-14] MEDS: allopurinoL 100 MG TAB PO SCH (07:59)
[2020-11-14] MEDS: dexAMETHasone 6 MG in SYRINGE 0 ML IV SCH (07:59)
[2020-11-14] MEDS: FUROSEMIDE 40 MG TAB PO SCH (08:00)
[2020-11-14] MEDS: METOPROLOL TARTRATE 100 MG TAB PO SCH ×2 (08:00→20:37)
[2020-11-14] MEDS: amLODIPine BESYLATE 5 MG TAB PO SCH (08:00)
[2020-11-14] MEDS: PRAVASTATIN SOD 40 MG TAB PO SCH (08:00)
[2020-11-14] MEDS: TICAGRELOR 90 MG TAB PO SCH ×2 (08:01→20:38)
[2020-11-14] MEDS: INSULIN HUMAN NPH SC SCH (09:31)
[2020-11-14] MEDS: INSULIN GLARGINE SOLOSTAR 100 UNITS/ML 3 ML PEN SC SCH (09:31)
[2020-11-14] MEDS: INSULIN ASPART 100 UNITS/ML 3 ML PEN SC SCH ×4 (09:31→20:36)
--- NOTE | 2020-11-14 14:26 | Pharmacy Report ---
Pharmacy Glycemic Short Note 2 - Date of Service November 14, 2020 - Glycemic Short BSG Results (Last 24 hours): 11/13/20 11/13/20 11/14/20 16:40 20:08 06:22 Glucose 102 H POC Glucose 86 106 H 11/14/20 11/14/20 07:33 11:40 Glucose POC Glucose 102 H 129 H OUTPATIENT ANTIDIABETIC REGIMEN: * Novolin R per sliding scale (patient poor historian) * HbA1c: 9.2% (10/21/20) ASSESSMENT: 11/14: * Pt received total of 133 units of insulin yesterday: 70 units Lantus + 63 units bolus. * Fasting BSG is 102 mg/dl today. Dinner BSG yesterday was at 86 mg/dl, therefore reduced NPH dose this AM. (NPH is ordered to prevent steroid induced hyperglycemia). * Further Novolog parameters were also loosened today. 11/13: * Pt received total of 186 units of insulin yesterday: 35 units Lantus, 45 units NPH and 106 units of Novolog bolus (prandial/correctional insulin). * Fasting BSG of 85 today AM. At midnight yesterday, patient had low BSG of 54 mg/dl. * Basal insulins (both Lantus and NPH) dosing reduced this morning. * Once Dexamethasone IV is stopped, NPH can be stopped as well. * Novolog CR was also loosened further with lunch, dinner and bedtime checks. 11/12 * BSGs yesterday of 179, 290, 215, 173, and 64 mg/dL * BSG of 64 mg/dL required treatment with apple juice, peanut butter, and icecream * Patient received 204 units of insulin yesterday - 40 units of Lantus, 45 units of NPH, and 119 units of prandial/correctional insulin) * Fasting BSG of 103 mg/dL this morning - will decrease Lantus ~10% * Despite low BSGs overnight, will maintain aggressive AM Novolog and NPH given upward trend at lunchtime * Will plan to loosen evening Novolog parameters to avoid repeat hypoglycemia 11/10 * Pt has received 183 units of insulin over the past 24hrs * 40 units of basal with Lantus * 45 units of NPH for steroid induced hyperglycemia with daily DXM * 98 units of bolus with NovoLog * BSGs [phone] mg/dl * AM fasting BSG is below goal range at 78 mg/dl - will decrease basal insulin with Lantus from 40 units to 35 units starting tomorrow (40units already given 11/10) * Pre-lunch BSG remains high - will tighten CR at breakfast only 11/09 * Patient transitioned off of insulin drip, blood sugars at goal except for pre lunch = 279mg/dl * due to IV dexamethasone and late breakfast NovoLog administration and early blood sugar check for lunch, will wait to make changes * Increase NPH if pre-dinner BSG remains > 200mg/dl 11/06 * PD is a 70 year old male admitted on 11/05 with pneumonia secondary to COVID-19 virus * No steroids ordered at this time * BSGs elevated on admission - 271 mg/dL * Remained elevated overnight, 243 and 203 mg/dL * Patient received 41 units of insulin overnight - 20 units of basal and 21 units of bolus * Lunch BSG of 321 mg/dL - will increase Lantus, tighten Novolog, and give one- time IV regular insulin bolus PLAN FOR INPATIENT GLYCEMIC CONTROL: * Basal insulin - decreased both * Lantus 30 units daily * NPH 30 units daily with IV dexamethasone * Bolus insulin - loosen evening Novolog parameters * NovoLog per scale ACHS or Q6hrs while NPO * Goal Range: Low 110 mg/dL - High 140 mg/dL * Correction Factor: 6 mg/dL/unit at breakfast * Correction Factor: 12 mg/dL/unit at lunch, dinner and HS * Nutritional / Prandial insulin per carb ratio of 1 unit per 2 grams CHO consumed at breakfast only * Nutritional / Prandial insulin per carb ratio of 5 at lunch, dinner, and HS PLAN FOR DISCHARGE: * A1c = 9.2 % on 10/21/20 * Goal A1c = below 7-7.5 % based on age and comorbidities * Pt reported outpatient regimen is Novolin R 60 units TIDM * Patient would benefit from switching to scheduled once daily long-acting basal insulin + scheduled mealtime rapid-acting insulin +/- sliding scale * Based on previous admission data last month while not receiving steroids, reasonable initial regimen would be: * Insulin glargine or detemir 50 units SC daily * Novolog or Humalog scheduled 15 units SC TIDM +/- sliding scale (described below) - if patient is not eating, then only give insulin based on sliding scale (hold scheduled 15 unit dose). * Blood Sugar 70-150 administer 0 units * Blood Sugar 151-200 administer 1 units * Blood Sugar 201-250 administer 3 units * Blood Sugar 251-300 administer 5 units * Blood Sugar 301-350 administer 7 units * Blood Sugar 351-400 administer 9 units * Blood Sugar >400 administer 11 units and call MD * Ensure prompt outpatient follow-up with primary care provider for further insulin dose titration * Support Patient Self-Management * Healthy Lifestyle (diet, exercise, and smoking cessation) * Disease self-management (SMBG) * Prevention of complications (BP, Lipid goals, Immunizations) * Consider outpatient Diabetes Self-Management Education & Support * Most patients on multiple-dose insulin (MDI) should SMBG * Prior to meals and snacks * At bedtime * Prior to exercise * When they suspect low blood glucose * After treating low blood glucose until they are normoglycemic * Prior to critical tasks such as driving * Occasionally postprandially
--- NOTE | 2020-11-14 17:05 | Hospitalist Progress Note ---
Date of Service November 14, 2020 Assessment & Plan (1) Pneumonia due to COVID-19 virus: Multifocal COVID pneumonia Acute hypoxic respiratory failure On admission: COVID Screen:positive on 11/05/20 CXR:Interval development of bilateral airspace opacities, greater within the left lung. Pneumonia is favored. Asymmetric edema could appear similar. Troponin negative CRP:5.4-->10.7-->7.17-->7.76-->3.8-->1.8 Ferritin:483 D-Dimer: 870 -->1640 Blood Cultures: No growth to date Continue dexamethasone Not a candidate for Remdesivir due to decrease renal function on admissition Continue incentive spirometry and flutter Saturated well on RA 2 step exercise done and pt does not require any oxygen needs with activity ambulation Continue daily Lasix Clinically improves significantly (2) Acute kidney injury superimposed on CKD: (3) CKD (chronic kidney disease), stage III: Baseline ~1.5 Cr was 2 on admission, increased to 2.13. Creatinine continues trended down Cr is 1.72 today Continue losartan Continue Lasix 40 daily Continue monitor BMP (4) CAD (coronary artery disease): S/p recent stenting 09/2020 Continue Brilinta, statin, beta-acosta (5) Chronic diastolic CHF (congestive heart failure): Monitor volume status Continue daily Lasix (6) Diabetes mellitus, type II: Hgb A1c 9.2 09/2020 Pharm on board helping with glycemic management Patient blood glucose has been poorly controlled at home. Takes Novolin N 60 units 3 times daily at home Pharmacy on board for glycemic management Plan to transition on long acting basal insulin + scheduled mealtime rapid- acting insulin +/- sliding scale Insulin glargine or detemir 50 units SC daily Novolog or Humalog scheduled 15 units SC TIDM +/- sliding scale (described below) - if patient is not eating, then only give insulin based on sliding scale (hold scheduled 15 unit dose). Blood Sugar 70-150 administer 0 units Blood Sugar 151-200 administer 1 units Blood Sugar 201-250 administer 3 units Blood Sugar 251-300 administer 5 units Blood Sugar 301-350 administer 7 units Blood Sugar 351-400 administer 9 units Blood Sugar >400 administer 11 units and call MD Patient was concerned about cost. Script sent to his preferred pharm, With his discount card, he will be able to get both for about $30 Pt said that he would bet able to afford it (7) Hypertension: Continue metoprolol, amlodipine and losartan (8) DVT prophylaxis: SQ heparin q8h Disposition Waiting for placement to rehab Admission and Anticipated Discharge Date Admission Date: November 05, 2020 Subjective Pt was seen and examined for follow up of covid 19 Lying on the recliner chair with no distress Pt said that he feels much better He is saturated well on RA denies any chest pain, palpitation, dizziness and SOB Review of Systems Review of Systems: All systems reviewed & are unremarkable except as noted in Subjective Physical Exam Physical Exam: General- No acute distress Head- atraumatic Eyes- PERRL, EOMI, ENT- oropharynx clear Neck- supple, no JVD Lungs- diminished BS Heart- regular rhythm; no murmur Abdomen- normal bowel sounds, soft, nontender Extremities- no calf tenderness Neuro- alert, oriented x 3; PERRL, EOMI; no facial palsy; no dysarthria Skin- warm & dry Results & Data Results & Data ([facility]) Vital Signs (Past 12 Hours) Vital Signs Temp Pulse Pulse Resp BP Pulse Ox Pulse Ox 11/14/20 15:43 36.7 C 74 20 126/73 95 11/14/20 15:23 36.4 C L 74 20 121/79 91 11/14/20 15:10 79 11/14/20 11:37 36.8 C 72 20 115/64 96 11/14/20 07:57 92 11/14/20 07:53 73 11/14/20 07:30 36.5 C 81 22 144/73 H 95
[2020-11-14] MEDS: TAMSULOSIN HCL 0.4 MG CAP PO SCH (20:37)
[2020-11-14] MEDS: guaiFENesin SUGAR FREE 200 MG/10 ML UDC PO PRN (20:38)
[2020-11-15] MEDS: HEPARIN SOD 5,000 UNIT/0.5 ML VIAL SQ SCH (06:31)
[2020-11-15] MEDS: LOSARTAN POTASSIUM 50 MG TAB PO SCH (07:03)
[2020-11-15] MEDS: dexAMETHasone 6 MG in SYRINGE 0 ML IV SCH (07:03)
[2020-11-15] MEDS: PRAVASTATIN SOD 40 MG TAB PO SCH (07:03)
[2020-11-15] MEDS: amLODIPine BESYLATE 5 MG TAB PO SCH (07:03)
[2020-11-15] MEDS: FUROSEMIDE 40 MG TAB PO SCH (07:04)
[2020-11-15] MEDS: allopurinoL 100 MG TAB PO SCH (07:04)
[2020-11-15] MEDS: METOPROLOL TARTRATE 100 MG TAB PO SCH (07:04)
[2020-11-15] MEDS: TICAGRELOR 90 MG TAB PO SCH (07:04)
[2020-11-15] MEDS: INSULIN ASPART 100 UNITS/ML 3 ML PEN SC SCH ×2 (08:58→12:21)
[2020-11-15] MEDS: INSULIN GLARGINE SOLOSTAR 100 UNITS/ML 3 ML PEN SC SCH (09:17)
[2020-11-15] MEDS: INSULIN HUMAN NPH SC SCH (09:17)
--- NOTE | 2020-11-15 12:52 | Discharge Summary ---
Date of Service November 15, 2020 Admission HPI Per Admitting Provider 70-year-old male with PMH CAD, chronic diastolic CHF, DM type II, HTN, CKD stage III, and other problems listed below who presents to the ED for evaluation of cough, weakness, diarrhea. Patient recently admitted to [facility] 10/20 through 10/24 for NSTEMI s/p stenting and acute on chronic diastolic CHF. Patient reports that about 5 days ago, he developed a dry, nonproductive cough. He also has felt generally weak and has had a very poor appetite. He also reports diarrhea. No bright red bleeding per rectum or dark tarry stools. Denies abdominal pain, nausea, vomiting. He denies fevers and chills. No chest pain or shortness of breath. Denies lightheadedness, dizziness, diaphoresis, syncopal events. No urinary symptoms. In the ED, patient tested positive for COVID-19. He is hemodynamically stable and saturating well on room air. Temperature 38.2. Labs show creatinine 2.0 (baseline around 1.5). Patient was given IV ceftriaxone. Admission Exam Per Admitting Provider Constitutional: WD/WN, vitals as above + ill appearing and + obese; no acute distress Eyes: PERRL, conjunctivae normal, anicteric sclerae ENMT: external ear and nose normal, oropharynx normal Respiratory: normal respiratory effort and + cough; no respiratory distress Auscultation: + diminished lung sounds Cardiovascular: regular rate and regular rhythm Vessels: normal peripheral pulses Extremities: no edema Gastrointestinal: normal bowel sounds, soft, nontender, no hepatosplenomegaly Musculoskeletal: no cyanosis or clubbing, extremities motor strength 5/5 Skin: no rashes, warm and dry Neurologic: PERRL, EOMI, accommodation nl, no face palsy, no dysarthria Psychiatric: A+Ox3, euthymic affect Principal Diagnosis Acute hypoxic respiratory failure COVID-19 pneumonia Acute on chronic kidney disease stage III Discharge Exam General- No acute distress Head- atraumatic Eyes- PERRL, EOMI, ENT- oropharynx clear Neck- supple, no JVD Lungs- diminished BS Heart- regular rhythm; no murmur Abdomen- normal bowel sounds, soft, nontender Extremities- no calf tenderness Neuro- alert, oriented x 3; PERRL, EOMI; no facial palsy; no dysarthria Skin- warm & dry Discharge Data Allergies Allergy/AdvReac Type Severity Reaction Status Date / Time aspirin Allergy Severe GI SYMPTOMS Verified 11/05/20 10:42 Consultations 11/05/20 12:17 ED Decision to Admit Stat 11/08/20 12:08 Consult Pulmonology Routine Ordered Studies XR chest 1V portable CLINICAL HISTORY: Worsening hypoxia. COVID 19 pneumonia COMPARISON STUDY: Chest radiograph November 05, 2020. FINDINGS: There are median sternotomy wires and mediastinal surgical clips. No pneumothorax or pleural effusion is noted. Moderate progression of extensive bilateral airspace opacities is noted. Cardiomegaly is unchanged. IMPRESSION: Progression of extensive bilateral airspace opacities consistent with multifocal pneumonia. ACT 112: Negative or not required by law. Electronically signed by: Chung Walton M.D. 11/08/2020 12:12 PM Dictated: 11/08/20 1211Transcribed: 11/08/20 121 XR chest 1V portable CLINICAL HISTORY: Chest Pain COMPARISON STUDY: Chest radiograph October 19, 2020. FINDINGS: Note is made of median sternotomy wires and mediastinal surgical clips. There is no pneumothorax or pleural effusion. Enlargement of the cardiac silhouette is unchanged. There has been interval development of multifocal bilateral airspace opacities, greater within the left lung. IMPRESSION: Interval development of bilateral airspace opacities, greater within the left lung. Pneumonia is favored. Asymmetric edema could appear similar. ACT 112: Negative or not required by law. Electronically signed by: Chung Walton M.D. 11/05/2020 11:49 AM Dictated: 11/05/20 1146Transcribed: 11/05/20 1146 Hospital Course (1) Pneumonia due to COVID-19 virus: Multifocal COVID pneumonia Acute hypoxic respiratory failure On admission: COVID Screen:positive on 11/05/20 CXR:Interval development of bilateral airspace opacities, greater within the left lung. Pneumonia is favored. Asymmetric edema could appear similar. Troponin negative CRP:5.4-->10.7-->7.17-->7.76-->3.8-->1.8 Ferritin:483 D-Dimer: 870 -->1640 Blood Cultures: No growth to date Continue dexamethasone Not a candidate for Remdesivir due to decrease renal function on admissition Continue incentive spirometry and flutter Saturated well on RA 2 step exercise done and pt does not require any oxygen needs with activity ambulation Continue daily Lasix Clinically improves significantly (2) Acute kidney injury superimposed on CKD: (3) CKD (chronic kidney disease), stage III: Baseline ~1.5 Cr was 2 on admission, increased to 2.13. Creatinine continues trended down Cr is 1.72 today Continue losartan Continue Lasix 40 daily Continue monitor BMP (4) CAD (coronary artery disease): S/p recent stenting 09/2020 Continue Brilinta, statin, beta-acosta (5) Chronic diastolic CHF (congestive heart failure): Monitor volume status Continue daily Lasix (6) Diabetes mellitus, type II: Hgb A1c 9.2 09/2020 Pharm on board helping with glycemic management Patient blood glucose has been poorly controlled at home. Takes Novolin N 60 units 3 times daily at home Pharmacy on board for glycemic management Plan to transition on long acting basal insulin + scheduled mealtime rapid- acting insulin +/- sliding scale Insulin glargine or detemir 50 units SC daily Novolog or Humalog scheduled 15 units SC TIDM +/- sliding scale (described below) - if patient is not eating, then only give insulin based on sliding scale (hold scheduled 15 unit dose). Blood Sugar 70-150 administer 0 units Blood Sugar 151-200 administer 1 units Blood Sugar 201-250 administer 3 units Blood Sugar 251-300 administer 5 units Blood Sugar 301-350 administer 7 units Blood Sugar 351-400 administer 9 units Blood Sugar >400 administer 11 units and call MD Patient was concerned about cost. Script sent to his preferred pharm, With his discount card, he will be able to get both for about $30 Pt said that he would bet able to afford it (7) Hypertension: Continue metoprolol, amlodipine and losartan (8) DVT prophylaxis: SQ heparin q8h Disposition Waiting for placement to rehab Total Time Total Time Spent Total Time Spent (In Minutes): 35 minutes Total Time Includes: Examination of the Patient, Discharge Planning, Medication Reconciliation, Communication With Other Providers and Other Discharge Plan Discharge Items Patient Disposition: Transfer Inpatient Rehab Fac Reason For Visit: COVID PNEUMONIA Discharge Diagnosis: Acute hypoxic respiratory failure COVID-19 pneumonia Acute on chronic kidney disease stage III Condition on Discharge: Good Activity: Resume your previous activity Non-emergency contact: Primary Care Provider Call non-emergency contact if: you have any medication questions and your symptoms worsen Follow-up/Referrals: Akash Gonzalez MD [Primary Care Provider] - (Date & Time 11/16/2020 10:00 AM Provider Akash Gonzalez MD [facility] PLEASE NOTE THAT THIS IS A TELEHEALTH APPOINTMENT. PLEASE FOLLOW THE INSTRUCTIONS PROVIDED IN YOUR EMAIL. IF YOU HAVE ANY QUESTIONS REGARDING THIS APPOINTMENT, PLEASE CALL ) Diet: Carb Consistent or DM2 and Heart Healthy Fluids: 2000ml (8 cups) Addtl Attending Provider Instructions: Mr. Renee. You came to the hospital with shortness of breath, cough, weakness and diarrhea. You were evaluated and found to have COVID-19 pneumonia. You also required oxygen during your hospital stay You were treated and your symptoms improved. Due to poor control of your diabetes at home, your insulin regimen was changed to long acting insulin glargine or lantus once daily and short acting novolog with meals. Please take as educated. The details of the sliding scale are also attached. Continue to monitor your blood sugar Please follow the COVID-19 home isolation instructions as detailed below. Continue to wear mask Please ensure follow-up with your primary doctor. It was a pleasure taking care of you. Coronavirus disease 2019 (COVID-19) is a virus that causes a respiratory illness. It is caused by a coronavirus called 2019 novel coronavirus (2019- nCoV). There are many types of coronavirus. Coronaviruses are a very common cause of bronchitis. They may sometimes cause lung infection(pneumonia). Symptoms can range from mild to severe respiratory illness. These viruses are also foundin some animals. COVID-19 was first found in people in [facility], in late 2019. In 2020, several cases of COVID-19 have been confirmed in the [place] Public health officials are working to find the source. How the virus spreads is not yet fully known. It may be spread through droplets of fluid that a person coughs or sneezes into the air. It may be spread if you touch a surface with virus on it, such as a handle or object, and then touch your mouth. What are the symptoms of COVID-19? Some people have no symptoms or mild symptoms. Symptoms may appear 2 to 14 days after contact with the virus. Symptoms can include: Fever Coughing Trouble breathing What are possible complications from COVID-19? In many cases, this virus can cause infection (pneumonia) in both lungs. In some cases, this can cause . How is COVID-19 diagnosed? Your healthcare provider will ask about your symptoms. He or she will also ask about your recent travel and contact with sick people. Testing for the virus is only done through the CDC. If yourhealthcare provider thinks you may have COVID- 19, he or she will work with your local health department and the CDC on testing. Follow all instructions from your healthcare provider. COVID-19 is diagnosed by: Nasal and throat swab. A cotton-tipped swab is wiped inside your nose or throat. This is done to check for viruses in your nasal mucus. Sputum culture. A small sample of mucus coughed from your lungs (sputum) is collected if you have a cough. It is checked for the virus. How is COVID-19 treated? There is currently no medicine to treat the virus. Treatment is done to help your body while it fights the virus. This is known as supportive care. Supportive care may include: Pain medicine. These include acetaminophen and ibuprofen. They are used to help ease pain and reduce fever. Bed rest. This helps your body fight the illness. For severe illness, you may need to stay in the hospital. Care during severe illness may include: IV (intravenous) fluids.These are given through a vein to help keep your body hydrated. Oxygen. Supplemental oxygen or ventilation with a breathing machine (ventilator) may be given. This is done to keep enough oxygen in your body. Are you at risk for COVID-19? If youve been to a place where people have been sick with this virus, you are at risk for infection. You are at risk if you: Recently traveled to an affected area Had contact with a sick person who recently traveled to this area Had contact with a person who was diagnosed with COVID-19 How can COVID-19 be prevented? There is no vaccine yet. The best prevention is to not have contact with the virus. The CDC advises that people should not travel to areas where there are COVID-19 outbreaks right now for any reason that is not urgent. To help prevent spreading the infection, wash your hands often, or use an alcohol-basedhand cardroom plastic card grader. If you are in an area with COVID-19: Wash your hands often. Or use an alcohol-based hand cardroom plastic card grader often. Only touch your eyes, nose, or mouth with clean hands. Dont have contact with people who are sick. Follow local instructions about being in public. For example, you may be told to not use public transport for a period of time. Stay away from markets that have live or animals. Wash your hands after touching any animals. Don't touch animals that may be sick. Dont share eating or drinking tools with sick people. Dont kiss someone who is sick. Clean surfaces often with disinfectant. If you were in an area with COVID-19 in the last 14 days: Call your healthcare provider. He or she can talk with local health staff to see what action may be needed. Follow all instructions from your provider. Take your temperature every morning and evening for at least 14 days. This is to check for fever. Keep a record of the readings. Keep watch for symptoms of the virus. Tell your provider right away if you have symptoms. If you were in an area with COVID-19 and have a fever or other symptoms: Dont panic. Keep in mind that other illnesses can cause similar symptoms. Stay away from work, school, and public places. Limit physical contact with family members. Don't kiss anyone or share eating or drinking utensils. Clean surfaces you touch with disinfectant. This is to help prevent the virus from spreading. Call your healthcare provider. Explain that you have been exposed to COVID-19 and have symptoms. Do this before going to any hospital. Wait for instructions. Keep in mind that healthcare staff may wear protective equipment such as masks, gowns, gloves, and eye protection. You may be put in a separate room. This is to prevent the possible virus from spreading. Tell the healthcare staff about recent travel. This includes local travel on public transport. Staff may need to find other people you have been in contact with. Follow all instructions the healthcare staff give you. If you have been diagnosed with COVID-19 Follow all instructions from your healthcare provider. Dont leave your home, except to get medical care. Call your healthcare providers office before going. They can prepare and give you instructions. This will help prevent the virus from spreading. Dont go to work, school, or public areas. Dont use public transport or taxis. Stay away from other people in your home. Have them wear face masks around you. Dont share household items or food. Wear a face mask if you can. This includes at home or in a medical facility. Cover your face with a tissue when you cough or sneeze. Throw the tissue away. Wash your hands. Wash your hands often. Caregivers should: Follow all instructions from healthcare staff. Wear a face mask and protective clothing as advised. Wash hands often. Keep track of the sick persons symptoms. Clean surfaces, fabrics, and laundry thoroughly. Keep other people away from the sick person. When to call your healthcare provider Call your healthcare provider: If youve recently traveled and have symptoms If you have been diagnosed with COVID-19 and your symptoms are worse To learn more To find out more about COVID-19, visit the CDC website at www.cdc.gov/coronavirus/2019-ncov/index.html. [employer]. [address] [place] [address]. All rights reserved. This information is not intended as a substitute for professional medical care. Always follow your healthcare professional's instructions. This information has been adapted from [employer] Home Isolation COVID-19 Instructions The following information about Home Isolation is from the CDC Website: https://www.cdc.gov/coronavirus/2019-ncov/hcp/iuvdpehp-gpyrdrm-ayhzfc.html Stay home except to get medical care People who are mildly ill with COVID-19 are able to isolate at home during their illness. You should restrict activities outside your home, except for getting medical care. Do not go to work, school, or public areas. Avoid using public transportation, ride-sharing, or taxis. Separate yourself from other people and animals in your home People: As much as possible, you should stay in a specific room and away from other people in your home. Also, you should use a separate bathroom, if available. Animals: You should restrict contact with pets and other animals while you are sick with COVID-19, just like you would around other people. Although there have not been reports of pets or other animals becoming sick with COVID-19, it is still recommended that people sick with COVID-19 limit contact with animals until more information is known about the virus. When possible, have another member of your household care for your animals while you are sick. If you are sick with COVID-19, avoid contact with your pet, including petting, snuggling, being kissed or licked, and sharing food. If you must care for your pet or be around animals while you are sick, wash your hands before and after you interact with pets and wear a face mask. Call ahead before visiting your doctor If you have a medical appointment, call the healthcare provider and tell them that you have or may have COVID-19. This will help the healthcare providers office take steps to keep other people from getting infected or exposed. Wear a face mask You should wear a face mask when you are around other people (e.g., sharing a room or vehicle) or pets and before you enter a healthcare providers office. If you are not able to wear a face mask (for example, because it causes trouble breathing), then people who live with you should not stay in the same room with you, or they should wear a face mask if they enter your room. Cover your coughs and sneezes Cover your mouth and nose with a tissue when you cough or sneeze. Throw used tissues in a lined trash can. Immediately wash your hands with soap and water for at least 20 seconds or, if soap and water are not available, clean your hands with an alcohol-based hand cardroom plastic card grader that contains at least 60% alcohol. Clean your hands often Wash your hands often with soap and water for at least 20 seconds, especially after blowing your nose, coughing, or sneezing; going to the bathroom; and before eating or preparing food. If soap and water are not readily available, use an alcohol-based hand cardroom plastic card grader with at least 60% alcohol, covering all surfaces of your hands and rubbing them together until they feel dry. Soap and water are the best option if hands are visibly dirty. Avoid touching your eyes, nose, and mouth with unwashed hands. Avoid sharing personal household items You should not share dishes, drinking glasses, cups, eating utensils, towels, or bedding with other people or pets in your home. After using these items, they should be washed thoroughly with soap and water. Clean all high-touch surfaces everyday High touch surfaces include counters, tabletops, doorknobs, bathroom fixtures, toilets, phones, keyboards, tablets, and bedside tables. Also, clean any surfaces that may have blood, stool, or body fluids on them. Use a household cleaning spray or wipe, according to the label instructions. Labels contain instructions for safe and effective use of the cleaning product including precautions you should take when applying the product, such as wearing gloves and making sure you have good ventilation during use of the product. Monitor your symptoms Seek prompt medical attention if your illness is worsening (e.g., difficulty breathing).Beforeseeking care, call your healthcare provider and tell them that you have, or are being evaluated for, COVID-19. Put on a face mask before you enter the facility. These steps will help the healthcare providers office to keep other people in the office or waiting room from getting infected or exposed. Ask your healthcare provider to call the local or state health department. Persons who are placed under active monitoring or facilitated self- monitoring should follow instructions provided by their local health department or occupational health professionals, as appropriate. When working with your local health department check their available hours. If you have a medical emergency and need to call 911, notify the dispatch personnel that you have, or are being evaluated for COVID-19. If possible, put on a face mask before emergency medical services arrive. Discontinuing home isolation Patients with confirmed COVID-19 should remain under home isolation precautions until the risk of secondary transmission to others is thought to be low. The decision to discontinue home isolation precautions should be made on a [id number] basis, in consultation with healthcare providers and [facility] and [facility] health departments. Addtl [employer] Provider Instructions: INSULIN REGIMEN Insulin glargine or detemir 50 units daily Novolog scheduled 15 units with every meal + sliding scale (described below) - if patient is not eating, then only give insulin based on sliding scale (hold scheduled 15 unit dose). Blood Sugar 70-150 administer 0 units Blood Sugar 151-200 administer 1 units Blood Sugar 201-250 administer 3 units Blood Sugar 251-300 administer 5 units Blood Sugar 301-350 administer 7 units Blood Sugar 351-400 administer 9 units Blood Sugar >400 administer 11 units and call your doctor Pending Studies at Discharge: No Stand-Alone Forms: [employer], Smoking Cessation Skilled Items Patient informed of condition?: Yes DNR: No Discharge Level of Care: Acute rehab Communicable Disease: Yes Discharge Prognosis: Stable Lines: None Urinary Catheter: No Medications and DC Order Prescriptions: New insulin glargine 100 unit/mL (3 mL) insulin pen 50 unit subcut DAILY Qty: 15 RF: 0 insulin aspart U-100 [Novolog Flexpen U-100 Insulin] 100 unit/mL (3 mL) insulin pen 15 unit subcut .tidac Qty: 15 RF: 0 (DME) pen needle, diabetic 32 gauge x 5/32" needle See Rx Instructions .ROUTE .MEDSUPPLY Qty: 100 RF: 1 Continued (DME) pen needle, diabetic [ReliOn Pen [place]] 32 gauge x 5/32" needle See Dose Instructions .ROUTE .MEDSUPPLY Qty: 10 RF: 0 (DME) Truetest Test Strips strip See Dose Instructions .ROUTE .MEDSUPPLY Qty: 10 RF: 0 pravastatin 80 mg tablet 80 mg PO DAILY RF: 0 losartan 100 mg tablet 100 mg PO DAILY Qty: 90 RF: 0 tamsulosin 0.4 mg capsule 0.4 mg PO HS Qty: 90 RF: 3 allopurinol 100 mg tablet 100 mg PO DAILY Qty: 90 RF: 3 amlodipine 5 mg tablet 5 mg PO DAILY RF: 0 Brilinta 90 mg Tablet 90 mg PO BID 30 Days Qty: 60 RF: 0 furosemide [Lasix] 40 mg tablet 40 mg PO DAILY Qty: 30 RF: 0 metoprolol tartrate 50 mg tablet 100 mg PO BID Qty: 180 RF: 0 Discontinued (DME) insulin syringe-needle U-100 [BD Insulin Syringe] 0.3 mL 29 gauge x 1/2" syringe See Dose Instructions .ROUTE .MEDSUPPLY Qty: 10 RF: 0 Novolin R Regular U-100 Insuln 100 unit/mL solution See Rx Instructions .ROUTE .COMPLEX RF: 0 Discharge Orders: Discharge Order (Routine); Ordered 11/15/20 Ordered By: Al Izaguirre Admission Data Admit Date/Time: 11/05/20 12:21 Attending Provider: Al Izaguirre Admit Provider: Angel Keene Primary Care Provider: Akash Gonzalez Other Providers: Angel Keene ; Julius Marcum ; Torres Peterson ; [facility] ; [facility] ; Rossana Posada I.
== END 2020-11-15 13:53 | DRG 177 ==
LOC: ED 10:12 → EDINP 12:21 → SUATTDRO 12:21 → 2S 14:05

== ENCOUNTER 2022-03-30 14:34 | Inpatient (IN) ==
[2022-03-30] MEDS ORDERED: XYLOCAINE 1%/SOD BICARB 20 ML VIAL INFIL ONE (15:37)
--- NOTE | 2022-03-30 15:43 | Emergency Department Note ---
Impression & Plan Abscess of buttock, right, Cellulitis, Leukocytosis ED Provider Note INFORMANT: Patient ED PROVIDER(S): Michael Whitlock MD CHIEF COMPLAINT: Infection PLAN: Disposition: Admitted Condition: Good Outpatient prescription management: none Referral: None MEDICAL DECISION MAKING: Patient presented because of an infection in the right buttock area. On examination he had some surrounding cellulitis to what appeared to be a sizable abscess. I discussed incision and drainage and the patient was in agreement. Blood work was obtained. The patient underwent incision and drainage and a la rge amount of purulent material was obtained. Please see the note below. He had cultures obtained. The patient and I discussed treatment options and elected for inpatient treatment given his history. He had a leukocytosis on CBC and and mild hyperglycemia. Patient was given IV Rocephin and daptomycin. [facility] Patient was evaluated in the ER and admitted for further management Triage Nursing notes reviewed and agree them. Vital Signs: reviewed and remarkable for borderline tachycardia Differential diagnosis: Cellulitis, abscess, MRSA infection, DVT, necrotizing fasciitis, dermatitis, drug eruption, allergic reaction, as well as other pathologies. Diagnostics interpreted by me: ECG: none Cardiac Monitoring: Cardiac monitoring ordered by me: The patient was placed on continuous cardiac monitoring and observed. It revealed a normal sinus rhythm at 97 beats per minute without ectopy or evidence of dysrhythmia. Imaging studies: Deferred HPI: The patient is a 71year old diabetic male who presents to the Emergency Room with complaints of wound on the right buttock. This started a few weeks ago and is worsening. The patient also notes the following associated symptoms, redness, swelling, seeping of fluid. The patient has found no relieving factors. Current pain is rated as 3/10. Patient noted some shortness of breath with exertion but states that is chronic. Pt denies LOC, headache, fevers, chills, diaphoresis, visual changes, neck pain, chest pain, breathing difficulties, nausea, vomiting, abdominal pain, back pain, melena, hematochezia, urinary symptoms, numbness, weakness, lymphadenopathy, rash, or other complaints. ROS: See above HPI for pertinent positives & negatives. A total of 10 systems re viewed and were otherwise negative. PAST MEDICAL HISTORY:See Below , diabetes PAST SURGICAL HISTORY:See Below, FAMILY HISTORY:See Below SOCIAL HISTORY:See Below, quit smoking HOME MEDICATIONS:See Below ALLERGIES:See Below VITALS:See Below PHYSICAL EXAMINATION: GENERAL: Awake, alert, well-appearing, in no distress HENT: Normocephalic, atraumatic. Oropharynx unremarkable. EYES: Normal conjunctiva. Sclera non-icteric. NECK: Inspection normal. Non-tender. Supple. No nuchal rigidity. FROM. No masses. RESPIRATORY: Clear to auscultation. No wheezes. No rales. Normal respiratory effort. CARDIAC: Normal rate. Normal rhythm. No murmurs. No rubs. Extremities warm and well perfused. Pulses equal. No JVD. GI: Soft, non-distended. No tenderness to palpation. No rebound or guarding. No masses. /RECTAL: There is a large 8 x 5 cm of swelling, induration and tenderness on the inferior aspect of the right buttock. Does not extend to the perianal area. There is slight ulceration of the skin in the center. There is some purulent drainage present surrounding skin is indurated. There is no crepitus.. MUSCULOSKELETAL: Atraumatic. Chest examination reveals no tenderness. The back is symmetrical on inspection without obvious abnormality. There is no CVA tenderness to palpation. No joint edema. LOWER EXTREMITIES: Calves are equal size bilaterally and non-tender. 1+ edema. No discoloration. NEURO: Normal sensorium. No sensory or motor deficits noted. SKIN: No rash or jaundice noted. INCISION & DRAINAGE: Indication: Abscess. Verbal consent was obtained after the risks and benefits were explained, including but not limited to bleeding, scarring, infection, pain, and bone/joint/nerve damage. At this time, the risks of the procedure are less than the risks of NOT performing the procedure. A time out was taken and the correct patient and site identified. The skin was prepped with betadine and a sterile field set. The wound was anesthetized with 5 ml of 1% lidocaine without epinephrine. The abscess cavity was entered with a number 11 blade and copious purulent material expressed, about 20 mL.. Copious irrigation was performed u sing saline. The wound was explored for foreign bodies and none found. Debridement was not performed. Packing placed and a sterile dressing applied. Detailed wound care instructions and signs and symptoms of worsening infection reviewed with the patient. No complications and the patient tolerated the procedure well. Michael Whitlock MD Past Med/Surg History Medical History (Updated 03/30/22 @ 22:36 by Michael Whitlock MD) Benign localized prostatic hyperplasia with lower urinary tract symptoms (LUTS) CAD (coronary artery disease) Follows with Dr. Us Chronic diastolic CHF (congestive heart failure) CKD (chronic kidney disease), stage III Coronary artery disease s/p CABG x4 in 1993. 09/2020 - MELLY placed in the LM and MELLY placed in the ostial proximal LAD (3 x 12 mm, 3 x 30 mm Imtaiz), MELLY placed in the ostial and proximal LCx (2.5 x 22 mm Imtiaz) DDD (degenerative disc disease) Diabetes mellitus, type II Hearing deficit BL [place] History of COVID-19 09/2020; covid pneumonia - hospitalized at [place]; resolved. History of gastric ulcer History of GI bleed History of myocardial infarction 09/2020 History of nephrolithiasis HLD (hyperlipidemia) HTN (hypertension) Hypertension Kidney stones at present; no issues Osteoarthritis Surgical History (Updated 11/08/21 @ 09:15 by Deyvi Atwood MD) H/O elbow surgery Rt H/O heart artery stent x3 (09/2020) H/O knee surgery Rt H/O shoulder surgery Rt History of colonoscopy History of cystoscopy with stone extraction History of esophagogastroduodenoscopy (EGD) History of left cataract surgery Hx of CABG Hx of cardiac catheterization 09/2020 [place] - [place] - 3 stents Family History Unknown Kidney disease kidney stones Other Diabetes Social History Smoking Status: Never smoker Tobacco Type: Cigarettes Second Hand Exposure: No; Hx Alcohol Use: No Hx Substance Use: No Preferred Language: Bulgarian Communication Ability: Effective Communications Senior Associate Required: No Beliefs That Will Affect Care: None marital status: Current Living Situation: Spouse Current Living Situation Comment: single story home with current occupational status: retired Feels Safe at Home: Yes Safety Concerns: Feels Safe At This Time Assistive Devices: Cane, Glasses and Hearing Aid - Bilateral Assistive Devices Comment: hearing aides left at home Allergies Allergies Allergy/AdvReac Type Severity Reaction Status Date / Time aspirin Allergy Intermediate GI SYMPTOMS Verified 03/30/22 17:09 Home Meds Home Medications Medication Instructions Recorded Confirmed blood sugar diagnostic (Truetest #10 ea 03/23/19 01/20/22 Test Strips) losartan 100 mg tablet 100 mg PO QAM #90 tabs 03/23/19 03/30/22 pen needle, diabetic 32 gauge x #10 ea 03/23/19 01/20/22" (ReliOn Pen [place]) pravastatin 80 mg tablet 80 mg PO HS 03/23/19 03/30/22 amlodipine 5 mg tablet 5 mg PO QAM 10/19/20 03/30/22 dulaglutide 1.5 mg/0.5 mL 1.5 mg subcut WK 04/26/21 03/30/22 subcutaneous pen injector (Trulicity) ticagrelor 90 mg tablet (Brilinta) 90 mg PO BID 07/16/21 03/30/22 allopurinol 100 mg tablet 100 mg PO QAM 10/25/21 03/30/22 cholecalciferol (vitamin D3) 50 50 mcg PO QAM 10/25/21 03/30/22 mcg (2,000 unit) capsule (Vitamin D3) furosemide 40 mg tablet (Lasix) 40 mg PO QAM 10/25/21 03/30/22 insulin aspart U-100 100 unit/mL 25 unit subcut TIDM 10/25/21 03/30/22 (3 mL) subcutaneous pen (Novolog Flexpen U-100 Insulin aspart) insulin glargine 100 unit/mL (3 50 unit subcut QAM 10/25/21 03/30/22 mL) subcutaneous pen metoprolol tartrate 100 mg tablet 100 mg PO BID 03/30/22 03/30/22 Previous Rx's Medication Instructions Recorded pen needle, diabetic 32 gauge x #100 ea 11/13/20" tamsulosin 0.4 mg capsule 0.4 mg PO HS #90 caps 12/25/21 Results & Data (ED) Vital Signs Vital Signs - 24 hr 03/30/22 14:43 03/30/22 14:52 03/30/22 15:00 Temperature 36.8 C Temperature Source Oral Pulse Rate 98 H 101 H 97 H Pulse Rate from SpO2 Sensor 95 H 80 Pulse Rhythm Regular Pulse Strength Normal Respiratory Rate 18 Respiratory Effort / Characteristics Non-Labored Spontaneous Respiratory Depth Normal Respiratory Pattern Regular Blood Pressure 155/72 H Blood Pressure Mean 99 Blood Pressure Position Lying Pulse Oximetry 95 93 93 Oxygen Delivery Method Room Air Sepsis Recent Fever Within 48 Hours No Sepsis New/Unexplained Change in Mental Status N/A Sepsis Action Taken by Nursing No Action Required 03/30/22 15:01 03/30/22 15:01 03/30/22 17:56 Temperature 37.2 C Temperature Source Oral Pulse Rate 94 H Pulse Rate from SpO2 Sensor 98 H Pulse Rhythm Pulse Strength Respiratory Rate Respiratory Effort / Characteristics Respiratory Depth Respiratory Pattern Blood Pressure 141/49 H Blood Pressure Mean 79 Blood Pressure Position Pulse Oximetry 95 Oxygen Delivery Method Sepsis Recent Fever Within 48 Hours Sepsis New/Unexplained Change in Mental Status Sepsis Action Taken by Nursing 03/30/22 15:30 03/30/22 16:00 03/30/22 16:00 Temperature Temperature Source Pulse Rate 99 H Pulse Rate from SpO2 Sensor 95 H 96 H Pulse Rhythm Pulse Strength Respiratory Rate 34 H 34 H Respiratory Effort / Characteristics Respiratory Depth Respiratory Pattern Blood Pressure 159/73 H Blood Pressure Mean 101 Blood Pressure Position Pulse Oximetry 94 93 Oxygen Delivery Method Sepsis Recent Fever Within 48 Hours Sepsis New/Unexplained Change in Mental Status Sepsis Action Taken by Nursing 03/30/22 16:30 03/30/22 16:30 03/30/22 17:00 Temperature Temperature Source Pulse Rate 99 H 114 H Pulse Rate from SpO2 Sensor 96 H 126 H Pulse Rhythm Pulse Strength Respiratory Rate 25 H 24 Respiratory Effort / Characteristics Respiratory Depth Respiratory Pattern Blood Pressure 160/128 H Blood Pressure Mean 138 Blood Pressure Position Pulse Oximetry 93 Oxygen Delivery Method Sepsis Recent Fever Within 48 Hours Sepsis New/Unexplained Change in Mental Status Sepsis Action Taken by Nursing 03/30/22 17:01 03/30/22 17:01 03/30/22 17:30 Temperature Temperature Source Pulse Rate 113 H Pulse Rate from SpO2 Sensor 105 H 126 H Pulse Rhythm Pulse Strength Respiratory Rate 39 H Respiratory Effort / Characteristics Respiratory Depth Respiratory Pattern Blood Pressure 183/89 H Blood Pressure Mean 120 Blood Pressure Position Pulse Oximetry 95 94 Oxygen Delivery Method Sepsis Recent Fever Within 48 Hours Sepsis New/Unexplained Change in Mental Status Sepsis Action Taken by Nursing 03/30/22 17:39 03/30/22 17:39 Temperature Temperature Source Pulse Rate 118 H Pulse Rate from SpO2 Sensor 120 H Pulse Rhythm Pulse Strength Respiratory Rate 32 H Respiratory Effort / Characteristics Respiratory Depth Respiratory Pattern Blood Pressure 174/106 H Blood Pressure Mean 128 Blood Pressure Position Pulse Oximetry 95 Oxygen Delivery Method Sepsis Recent Fever Within 48 Hours Sepsis New/Unexplained Change in Mental Status Sepsis Action Taken by Nursing Laboratory Data Result diagrams: 03/30/22 14:50 03/30/22 14:50 Lab Results 03/30/22 03/30/22 Range/Units 14:50 14:50 WBC 15.22 H (4.8-10.8) K/ul RBC 4.72 (4.63-6.08) M/uL Hgb 13.6 L (14.0-18.0) g/dl Hct 42.0 (40.1-51.0) % MCV 89.0 (80.0-100.0) fL MCH 28.8 (25.0-34.0) pg MCHC 32.4 (32.0-36.0) g/dL RDW Std Deviation 46.4 H (36.4-46.3) fL RDW Coeff of Livier 14.2 (11.5-14.5) % Plt Count 281 (130-400) K/uL MPV 10.0 (9.4-12.4) fL Immature Gran % (Auto) 0.9 % Neut % (Auto) 79.4 % Lymph % (Auto) 9.1 % [place] % (Auto) 8.8 % Eos % (Auto) 1.4 % Baso % (Auto) 0.4 % Neut # (Auto) 12.09 H (1.4-6.5) K/uL Lymph # (Auto) 1.38 (1.2-3.4) K/uL [place] # (Auto) 1.34 H (0.24-0.82) K/uL Eos # (Auto) 0.21 (0-0.50) K/uL Baso # (Auto) 0.06 (0-0.2) K/uL Immature Gran # (Auto) 0.14 H (0.00-0.02) K/uL Sodium 138 (136-145) mmol/L Potassium 4.1 (3.5-5.1) mmol/L Chloride 102 (98-107) mmol/L Carbon Dioxide 27 (21-32) mmol/L Anion Gap 9 (3-11) BUN 36 H (6-23) mg/dl Creatinine 1.88 H (0.6-1.4) mg/dl Est Cr Clr Drug Dosing 53.5 ml/min Est GFR ( Amer) 41.0 ml/min Est GFR (Non-Af Amer) 35.4 ml/min BUN/Creatinine Ratio 19.1 (10-20) Glucose 298 H (70-99(Fasting)) mg/dl Calcium 9.0 (8.5-10.1) mg/dl Total Bilirubin 0.9 (0.2-1.0) mg/dl AST 11 L (13-39) U/L ALT 15 (7-52) U/L Alkaline Phosphatase 105 H (34-104) U/L Total Protein 6.9 (6.0-8.3) gm/dl Albumin 3.5 (3.4-5.0) gm/dl Globulin 3.4 (2.5-4.0) gm/dl Albumin/Globulin Ratio 1.0 (0.9-2) Administered Medications Daptomycin 625 mg/ Syringe 12.5 mls @ 6.25 mls/min IV Q24H TALON; Protocol Stop: 04/01/22 16:59 Last Admin: 03/30/22 18:31 Dose: 6.25 mls/min Documented By: [id number] Discontinued Medications Ceftriaxone Sodium (Rocephin) 2,000 mg in 70 mls @ 140 mls/hr IV NOW STA Stop: 03/30/22 17:20 Last Infusion: 03/30/22 18:55 Dose: 0 mls/hr Documented By: [id number] Admin: 03/30/22 17:50 Dose: 140 mls/hr Documented By: AM Cefepime HCl 2,000 mg/ Syringe 20 mls @ 5 mls/min IV 1830 ONE; Protocol Stop: 03/30/22 18:33 Last Admin: 03/30/22 18:32 Dose: 5 mls/min Documented By: [id number] Lidocaine HCl (Xylocaine 1%/Sod Bicarb 20 Ml Vial) 20 ml INFIL NOW ONE Stop: 03/30/22 15:38 Last Admin: 03/30/22 17:00 Dose: 20 ml Documented By: AM Discharge Plan Visit Data Chief Complaint: Infection, Wound Stated Complaint: WOUND ED Provider: Michael Whitlock Discharge Problem: Abscess of buttock, right, Cellulitis, Leukocytosis Patient Disposition: Admitted As Inpatient Discharge Instructions Interventions: ED Discharge Assessment Last Done: 03/30/22 21:30
[2022-03-30 15:51] LABS: Basophils # (auto) 0.06 K/uL (0-0.2); Basophils % (auto) 0.4 %; Eosinophils # (auto) 0.21 K/uL (0-0.50); Eosinophils % (auto) 1.4 %; Hemoglobin 13.6 g/dl (14.0-18.0); Immature Granulocytes # (auto) 0.14 K/uL (0.00-0.02); Immature Granulocytes % (auto) 0.9 %; Lymphocytes # (auto) 1.38 K/uL (1.2-3.4); Lymphocytes % (auto) 9.1 %; Mean Corpuscular Hemoglobin 28.8 pg (25.0-34.0); Mean Corpuscular Hgb Conc 32.4 g/dL (32.0-36.0); Monocytes # (auto) 1.34 K/uL (0.24-0.82); Monocytes % (auto) 8.8 %; Neutrophils # (auto) 12.09 K/uL (1.4-6.5); Neutrophils % (auto) 79.4 %; Platelet Count 281 K/uL (130-400); RDW Coefficient of Variation 14.2 % (11.5-14.5); RDW Standard Deviation 46.4 fL (36.4-46.3); Red Blood Count 4.72 M/uL (4.63-6.08); White Blood Count 15.22 K/ul (4.8-10.8)
[2022-03-30 16:21] LABS: Albumin Level 3.5 gm/dl (3.4-5.0); BUN Creatinine Ratio 19.1 (10-20); Bilirubin,Total 0.9 mg/dl (0.2-1.0); Creatinine Clr Calc Pharmacy 53.5 ml/min; Est GFR (Non-African American) 35.4 ml/min; Globulin 3.4 gm/dl (2.5-4.0); Potassium 4.1 mmol/L (3.5-5.1); Total Protein 6.9 gm/dl (6.0-8.3)
[2022-03-30] MEDS ORDERED: cefTRIAXone SODIUM 2,000 MG/70 ML BAG IV STA (16:51)
--- NOTE | 2022-03-30 17:38 | History & Physical Report ---
Date of Service March 30, 2022 Assessment & Plan (1) Abscess of buttock, right: Plan: Possible sepsis Underwent I&D in the emergency room White blood cell count 15,000, patient afebrile, tachycardic in 110s to low 120s Culture from the wound and blood culture obtained and pending In the ED received ceftriaxone and daptomycin Given history of diabetes, will continue with daptomycin and cefepime for now Wound care consulted Chronic conditions: CAD status post CABG, s/p stents CHF diastolic Hypertension Hyperlipidemia -Continue home medications, metoprolol, Brilinta, statin, furosemide, amlodipine Diabetes mellitus type 2, on insulin -Continue home insulin, diabetic pharmacy also consulted BPH -cont. home tamsulosin Morbid obesity BMI ~ 43 -Lifestyle modification recommended DVT subq heparin Code: Full code (patient said he would not want to get anything done, unless we thought it could help. Discussed with the patient that we cannot know how s uccessful CRP would be. Pt also reported having living will, will try to review again). History of Present Illness Chief Complaint: R buttocks abscess Primary Care Provider: Akash Gonzalez MD 71-year-old morbidly obese (BMI 43) male, with history of diabetes mellitus type 2 (on insulin), CKD stage III, CAD status post CABG and s/p stents, CHF (diastolic), hypertension, hyperlipidemia, BPH, who presents with right buttocks abscess. He underwent I&D in the emergency room, (area about 8x10 cm). Copious pus noted. WBC 15,000. Cultures from the wound and blood cultures obtained and pending. In the emergency room, patient received ceftriaxone and daptomycin. Patient reports history of broils, and thought this happened again. However it was not healing and he felt more pain, therefore presented in the ED. Initially did not have any fever, however on my evaluation, patient reports feeling quite cold and asking for blankets. On my evaluation patient is tachycardic in the 110s, to low 120s. However denies any chest pain, palpitations. He is slightly tremulous. Denies shortness of breath. Denies any cough. Also denies any abdominal pain nausea vomiting diarrhea. RN present at the bedside in the ED. Allergies Allergy/AdvReac Type Severity Reaction Status Date / Time aspirin Allergy Intermediate GI SYMPTOMS Verified 03/30/22 17:09 Home Medications Medication Instructions Recorded Confirmed Type blood sugar diagnostic (Truetest #10 ea 03/23/19 01/20/22 History Test Strips) losartan 100 mg tablet 100 mg PO QAM #90 tabs 03/23/19 03/30/22 History pen needle, diabetic 32 gauge x #10 ea 03/23/19 01/20/22 History 532" (ReliOn Pen [place]) pravastatin 80 mg tablet 80 mg PO HS 03/23/19 03/30/22 History amlodipine 5 mg tablet 5 mg PO QAM 10/19/20 03/30/22 History pen needle, diabetic 32 gauge x #100 ea 11/13/20 01/20/22 Rx 32" dulaglutide 1.5 mg/0.5 mL 1.5 mg subcut WK 04/26/21 03/30/22 History subcutaneous pen injector (Trulicity) ticagrelor 90 mg tablet (Brilinta) 90 mg PO BID 07/16/21 03/30/22 History allopurinol 100 mg tablet 100 mg PO QAM 10/25/21 03/30/22 History cholecalciferol (vitamin D3) 50 50 mcg PO QAM 10/25/21 03/30/22 History mcg (2,000 unit) capsule (Vitamin D3) furosemide 40 mg tablet (Lasix) 40 mg PO QAM 10/25/21 03/30/22 History insulin aspart U-100 100 unit/mL 25 unit subcut TIDM 10/25/21 03/30/22 History (3 mL) subcutaneous pen (Novolog Flexpen U-100 Insulin aspart) insulin glargine 100 unit/mL (3 50 unit subcut QAM 10/25/21 03/30/22 History mL) subcutaneous pen tamsulosin 0.4 mg capsule 0.4 mg PO HS #90 caps 12/25/21 03/30/22 Rx metoprolol tartrate 100 mg tablet 100 mg PO BID 03/30/22 03/30/22 History Past Med/Surg History Medical History (Updated 03/30/22 @ 15:43 by Michael Whitlock MD) Benign localized prostatic hyperplasia with lower urinary tract symptoms (LUTS) CAD (coronary artery disease) Follows with Dr. Us Chronic diastolic CHF (congestive heart failure) CKD (chronic kidney disease), stage III Coronary artery disease s/p CABG x4 in 1993. 09/2020 - MELLY placed in the LM and MELLY placed in the ostial proximal LAD (3 x 12 mm, 3 x 30 mm Imtiaz), MELLY placed in the ostial and proximal LCx (2.5 x 22 mm Imtiaz) DDD (degenerative disc disease) Diabetes mellitus, type II Hearing deficit BL [place] History of COVID-19 09/2020; covid pneumonia - hospitalized at [place]; resolved. History of gastric ulcer History of GI bleed History of myocardial infarction 09/2020 History of nephrolithiasis HLD (hyperlipidemia) HTN (hypertension) Hypertension Kidney stones at present; no issues Osteoarthritis Surgical History (Updated 11/08/21 @ 09:15 by Deyvi Atwood MD) H/O elbow surgery Rt H/O heart artery stent x3 (09/2020) H/O knee surgery Rt H/O shoulder surgery Rt History of colonoscopy History of cystoscopy with stone extraction History of esophagogastroduodenoscopy (EGD) History of left cataract surgery Hx of CABG Hx of cardiac catheterization 09/2020 [place] - [place] - 3 stents Family History Unknown Kidney disease kidney stones Other Diabetes Social History Smoking Status: Former smoker Tobacco Type: Cigarettes Second Hand Exposure: No; Hx Alcohol Use: No Hx Substance Use: No Preferred Language: Swedish Communication Ability: Effective Secondary Art Teacher Required: No Beliefs That Will Affect Care: None marital status: Current Living Situation: Spouse current occupational status: retired Feels Safe at Home: Yes Assistive Devices: Cane, Glasses and Hearing Aid - Bilateral Review of Systems Review of Systems: All systems reviewed & are unremarkable except as noted in HPI & below Physical Exam Constitutional: WD/WN, vitals as above (morbidly obese M in NAD, feeling cold, tachycardic) Eyes: PERRL, conjunctivae normal, anicteric sclerae ENMT: external ear and nose normal, oropharynx normal Neck: + thick neck Respiratory: normal respiratory effort, lungs clear to auscultation (somewhat diminished BS (possibly d/t body habitus)) Cardiovascular: Rate/Rhythm: + tachycardic (trace LE edema) Chest (Breasts): Chest: normal inspection of chest (scar in midline noted (hx of cabg)) Gastrointestinal (Abdomen): normal bowel sounds, soft, nontender, no hepatosplenomegaly (obese abdomen) Musculoskeletal: no cyanosis or clubbing, extremities motor strength 5/5 Skin: no rashes, warm and dry (R buttocks erythematous, packing and dressing applied) Neurologic: PERRL, EOMI, accommodation nl, no face palsy, no dysarthria Psychiatric: A+Ox3, euthymic affect Results & Data Results & Data ([facility]) Vital Signs (Past 12 Hours) Vital Signs Temp Pulse Resp BP Pulse Ox O2 Del Method 03/30/22 15:01 94 H 95 03/30/22 15:01 141/49 H 03/30/22 15:00 97 H 93 03/30/22 14:52 101 H 93 03/30/22 14:43 36.8 C 98 H 18 155/72 H 95 Room Air Laboratory Results 03/30/22 03/30/22 Range/Units 14:50 14:50 WBC 15.22 H (4.8-10.8) K/ul RBC 4.72 (4.63-6.08) M/uL Hgb 13.6 L (14.0-18.0) g/dl Hct 42.0 (40.1-51.0) % MCV 89.0 (80.0-100.0) fL MCH 28.8 (25.0-34.0) pg MCHC 32.4 (32.0-36.0) g/dL RDW Std Deviation 46.4 H (36.4-46.3) fL RDW Coeff of Livier 14.2 (11.5-14.5) % Plt Count 281 (130-400) K/uL MPV 10.0 (9.4-12.4) fL Immature Gran % (Auto) 0.9 % Neut % (Auto) 79.4 % Lymph % (Auto) 9.1 % [place] % (Auto) 8.8 % Eos % (Auto) 1.4 % Baso % (Auto) 0.4 % Neut # (Auto) 12.09 H (1.4-6.5) K/uL Lymph # (Auto) 1.38 (1.2-3.4) K/uL [place] # (Auto) 1.34 H (0.24-0.82) K/uL Eos # (Auto) 0.21 (0-0.50) K/uL Baso # (Auto) 0.06 (0-0.2) K/uL Immature Gran # (Auto) 0.14 H (0.00-0.02) K/uL Sodium 138 (136-145) mmol/L Potassium 4.1 (3.5-5.1) mmol/L Chloride 102 (98-107) mmol/L Carbon Dioxide 27 (21-32) mmol/L Anion Gap 9 (3-11) BUN 36 H (6-23) mg/dl Creatinine 1.88 H (0.6-1.4) mg/dl Est Cr Clr Drug Dosing 53.5 ml/min Est GFR ( Amer) 41.0 ml/min Est GFR (Non-Af Amer) 35.4 ml/min BUN/Creatinine Ratio 19.1 (10-20) Glucose 298 H (70-99(Fasting)) mg/dl Calcium 9.0 (8.5-10.1) mg/dl Total Bilirubin 0.9 (0.2-1.0) mg/dl AST 11 L (13-39) U/L ALT 15 (7-52) U/L Alkaline Phosphatase 105 H (34-104) U/L Total Protein 6.9 (6.0-8.3) gm/dl Albumin 3.5 (3.4-5.0) gm/dl Globulin 3.4 (2.5-4.0) gm/dl Albumin/Globulin Ratio 1.0 (0.9-2)
[2022-03-30] MEDS ORDERED: ACETAMINOPHEN 325 MG TAB PO PRN (17:58)
[2022-03-30] MEDS ORDERED: POLYETHYLENE (MIRALAX) 17 GM PACK PO PRN (17:58)
[2022-03-30] MEDS ORDERED: CEFEPIME 2,000 MG in SYRINGE 0 ML IV ONE (18:30)
[2022-03-30] MEDS: DAPTOmycin 625 MG in SYRINGE 0 ML IV SCH (18:31)
[2022-03-30] MEDS ORDERED: PHARMACY GLYCEMIC MGMT CONSULT PRN (21:40)
[2022-03-30] MEDS ORDERED: LANTUS PER UNIT CHARGE SQ ONE (22:13)
[2022-03-30] MEDS ORDERED: LACTATED RINGER'S 1,000 ML IV ONE (22:43)
[2022-03-30] MEDS: TICAGRELOR 90 MG TAB PO SCH (23:31)
[2022-03-30] MEDS: INSULIN ASPART PER UNIT SC SCH (23:32)
[2022-03-30] MEDS: METOPROLOL TARTRATE 100 MG TAB PO SCH (23:32)
[2022-03-30] MEDS: TAMSULOSIN HCL 0.4 MG CAP PO SCH (23:32)
[2022-03-30] MEDS: PRAVASTATIN SOD 40 MG TAB PO SCH (23:32)
[2022-03-30] MEDS: HEPARIN SOD 5,000 UNIT/0.5 ML VIAL SQ SCH (23:33)
[2022-03-31] MEDS ORDERED: INSULIN ASPART PER UNIT SC SCH (02:00)
[2022-03-31] MEDS: CEFEPIME 2,000 MG in SYRINGE 0 ML IV SCH ×3 (06:14→18:41)
[2022-03-31] MEDS: HEPARIN SOD 5,000 UNIT/0.5 ML VIAL SQ SCH ×3 (06:14→20:49)
[2022-03-31 06:19] LABS: Basophils # (auto) 0.06 K/uL (0-0.2); Basophils % (auto) 0.4 %; Eosinophils # (auto) 0.19 K/uL (0-0.50); Eosinophils % (auto) 1.1 %; Hematocrit (blood only) 40.2 % (40.1-51.0); Immature Granulocytes # (auto) 0.13 K/uL (0.00-0.02); Immature Granulocytes % (auto) 0.8 %; Lymphocytes # (auto) 1.41 K/uL (1.2-3.4); Lymphocytes % (auto) 8.4 %; Mean Corpuscular Hemoglobin 28.1 pg (25.0-34.0); Mean Corpuscular Hgb Conc 32.3 g/dL (32.0-36.0); Mean Corpuscular Volume 86.8 fL (80.0-100.0); Monocytes # (auto) 1.37 K/uL (0.24-0.82); Monocytes % (auto) 8.2 %; Neutrophils # (auto) 13.59 K/uL (1.4-6.5); Neutrophils % (auto) 81.1 %; Platelet Count 270 K/uL (130-400); RDW Coefficient of Variation 14.3 % (11.5-14.5); RDW Standard Deviation 45.9 fL (36.4-46.3); Red Blood Count 4.63 M/uL (4.63-6.08); White Blood Count 16.75 K/ul (4.8-10.8)
[2022-03-31 06:50] LABS: BUN Creatinine Ratio 20.6 (10-20); Calcium 8.6 mg/dl (8.5-10.1); Creatinine Clr Calc Pharmacy 61.8 ml/min; Est GFR (African American) 51.8 ml/min; Est GFR (Non-African American) 44.7 ml/min; Magnesium 1.6 mg/dl (1.7-2.4); Potassium 3.8 mmol/L (3.5-5.1)
[2022-03-31] MEDS ORDERED: MAGNESIUM SULFATE / D5W 1 GM/100 ML BAG IV ONE (07:14)
--- NOTE | 2022-03-31 07:36 | Electrocardiogram Report ---
Test Reason : Blood Pressure : / mmHG Vent. Rate : 121 BPM Atrial Rate : 121 BPM P-R Int : 160 ms QRS Dur : 100 ms QT Int : 330 ms P-R-T Axes : 038 029 035 degrees QTc Int : 468 ms Sinus tachycardia with Premature atrial complexes possible Inferior infarct , age undetermined Abnormal ECG When compared with ECG of 05-NOV-2020 10:18, Premature atrial complexes are now Present Nonspecific T wave abnormality now evident in Inferior leads Confirmed by Jorge A De Los Santos ([id number]) on 03/31/2022 7:35:55 AM Referred By: REFERRED SELF Confirmed By:Johnnie De Los Santos
[2022-03-31 08:00] LABS: Estimated Average Glucose 212 mg/dl
[2022-03-31] MEDS: allopurinoL 100 MG TAB PO SCH (08:05)
[2022-03-31] MEDS: LOSARTAN POTASSIUM 50 MG TAB PO SCH (08:06)
[2022-03-31] MEDS: amLODIPine BESYLATE 5 MG TAB PO SCH (08:06)
[2022-03-31] MEDS: TICAGRELOR 90 MG TAB PO SCH ×2 (08:06→20:48)
[2022-03-31] MEDS: FUROSEMIDE 40 MG TAB PO SCH (08:06)
[2022-03-31] MEDS: METOPROLOL TARTRATE 100 MG TAB PO SCH ×2 (08:06→20:48)
[2022-03-31] MEDS: INSULIN ASPART PER UNIT SC SCH ×4 (08:09→20:39)
--- NOTE | 2022-03-31 08:28 | Hospitalist Progress Note ---
Date of Service March 31, 2022 Assessment & Plan (1) Abscess of buttock, right: Plan: Sepsis, POA White blood cell count 15,000, patient afebrile, tachycardic in 110s to low 120s Bacteremia - MRSA Underwent I&D in the emergency room wound cultx- posit. for staph Blood cultx- positive for MRSA In the ED received ceftriaxone and daptomycin Continue dapto + cefepime for now repeat blood cultx 03/31 Surgery consulted for source control - plan for OR for further debridement Wound care consulted ID consult TTE echo Chronic conditions: CAD status post CABG, s/p stents CHF diastolic Hypertension Hyperlipidemia -Continue home medications, metoprolol, Brilinta, statin, furosemide, amlodipine Diabetes mellitus type 2, on insulin -Continue home insulin, diabetic pharmacy also consulted CKD stage 3 - monitor renal function - try to avoid nephrotoxic agents BPH -cont. home tamsulosin Morbid obesity BMI ~ 43 -Lifestyle modification recommended DVT subq heparin Code: Full code (patient said he would not want to get anything done, unless we thought it could help. Discussed with the patient that we cannot know how successful CRP would be. Pt also reported having living will, will try to review w/ the pt again). Admission and Anticipated Discharge Date Admission Date: March 30, 2022 Subjective Patient seen in follow-up of possible sepsis, right buttocks abscess Underwent I&D in ED Now found to have MRSA bacteremia, positive staph on wound culture as well Feeling better overall Denies fevers, chills, chest pain, shortness of breath, vomiting, nausea vomiting Review of Systems Review of Systems: All systems reviewed & are unremarkable except as noted in Subjective Physical Exam Physical Exam: Constitutional:L morbidly obese M i n NAD Eyes: PERRL, EOMI, conju nctivae normal, an icteric sclerae ENMT: external ear and n ose normal, oropha rynx normal Neck: + thick neck Respiratory: normal respiratory effort, lungs diego ar to auscultation (somewhat diminis hed BS (possibly d /t body habitus)) Cardiovascular:L Rate/Rhythm: RRR, trace LE edema Chest (Breasts): Chest: scar in mid line noted (hx of cabg)) Gastrointestinal ( Abdomen): normal bowel sound s, soft, nontender , obese abdomen Musculoskeletal: extremities motor strength 5/5 Skin: R buttocks erythem atous, +pus draina ge, packing and dr macario applied aft er I&D in ER Neurologic: PERRL, EOMI, no fa ce palsy, no dysar thria, moves extre mities Psychiatric: A+Ox3, euthymic af fect Results & Data Results & Data ([facility]) Vital Signs (Past 12 Hours) Vital Signs Temp Pulse Pulse Resp BP BP Pulse Ox 03/31/22 07:57 36.5 C 98 H 16 128/60 93 03/31/22 02:41 36.5 C 88 18 131/71 94 03/30/22 21:59 126 H 03/30/22 23:28 111 H 161/84 H 95 03/30/22 21:47 03/30/22 21:47 36.8 C 129 H 19 153/82 H 92 03/30/22 21:00 127 H 24 174/109 H 93 O2 Del Method 03/31/22 07:57 Room Air 03/31/22 02:41 Room Air 03/30/22 21:59 03/30/22 23:28 Room Air 03/30/22 21:47 Room Air 03/30/22 21:47 Room Air 03/30/22 21:00 Laboratory Results 03/31/22 03/31/22 03/31/22 Range/Units 07:30 05:28 05:28 WBC 16.75 H (4.8-10.8) K/ul RBC 4.63 (4.63-6.08) M/uL Hgb 13.0 L (14.0-18.0) g/dl Hct 40.2 (40.1-51.0) % MCV 86.8 (80.0-100.0) fL MCH 28.1 (25.0-34.0) pg MCHC 32.3 (32.0-36.0) g/dL RDW Std Deviation 45.9 (36.4-46.3) fL RDW Coeff of Livier 14.3 (11.5-14.5) % Plt Count 270 (130-400) K/uL MPV 10.0 (9.4-12.4) fL Immature Gran % (Auto) 0.8 % Neut % (Auto) 81.1 % Lymph % (Auto) 8.4 % Moody % (Auto) 8.2 % Eos % (Auto) 1.1 % Baso % (Auto) 0.4 % Neut # (Auto) 13.59 H (1.4-6.5) K/uL Lymph # (Auto) 1.41 (1.2-3.4) K/uL Moody # (Auto) 1.37 H (0.24-0.82) K/uL Eos # (Auto) 0.19 (0-0.50) K/uL Baso # (Auto) 0.06 (0-0.2) K/uL Immature Gran # (Auto) 0.13 H (0.00-0.02) K/uL Sodium 136 (136-145) mmol/L Potassium 3.8 (3.5-5.1) mmol/L Chloride 102 (98-107) mmol/L Carbon Dioxide 25 (21-32) mmol/L Anion Gap 9 (3-11) BUN 32 H (6-23) mg/dl Creatinine 1.55 H D (0.6-1.4) mg/dl Est Cr Clr Drug Dosing 61.8 ml/min Est GFR ( Amer) 51.8 ml/min Est GFR (Non-Af Amer) 44.7 ml/min BUN/Creatinine Ratio 20.6 H (10-20) Glucose 239 H (70-99(Fasting)) mg/dl POC Glucose 213 H (70-99) mg/dl Estimat Average Glucose mg/dl Hemoglobin A1c (4.5-5.6) % Calcium 8.6 (8.5-10.1) mg/dl Phosphorus 3.0 (2.5-4.9) mg/dl Magnesium 1.6 L (1.7-2.4) mg/dl Total Bilirubin (0.2-1.0) mg/dl AST (13-39) U/L ALT (7-52) U/L Alkaline Phosphatase (34-104) U/L Total Protein (6.0-8.3) gm/dl Albumin (3.4-5.0) gm/dl Globulin (2.5-4.0) gm/dl Albumin/Globulin Ratio (0.9-2) SARS-CoV-2, RNA, NAAT (NEGATIVE) 03/31/22 03/30/22 03/30/22 Range/Units 02:22 23:18 18:10 WBC (4.8-10.8) K/ul RBC (4.63-6.08) M/uL Hgb (14.0-18.0) g/dl Hct (40.1-51.0) % MCV (80.0-100.0) fL MCH (25.0-34.0) pg MCHC (32.0-36.0) g/dL RDW Std Deviation (36.4-46.3) fL RDW Coeff of Livier (11.5-14.5) % Plt Count (130-400) K/uL MPV (9.4-12.4) fL Immature Gran % (Auto) % Neut % (Auto) % Lymph % (Auto) % Moody % (Auto) % Eos % (Auto) % Baso % (Auto) % Neut # (Auto) (1.4-6.5) K/uL Lymph # (Auto) (1.2-3.4) K/uL Moody # (Auto) (0.24-0.82) K/uL Eos # (Auto) (0-0.50) K/uL Baso # (Auto) (0-0.2) K/uL Immature Gran # (Auto) (0.00-0.02) K/uL Sodium (136-145) mmol/L Potassium (3.5-5.1) mmol/L Chloride (98-107) mmol/L Carbon Dioxide (21-32) mmol/L Anion Gap (3-11) BUN (6-23) mg/dl Creatinine (0.6-1.4) mg/dl Est Cr Clr Drug Dosing ml/min Est GFR ( Amer) ml/min Est GFR (Non-Af Amer) ml/min BUN/Creatinine Ratio (10-20) Glucose (70-99(Fasting)) mg/dl POC Glucose 298 H 271 H (70-99) mg/dl Estimat Average Glucose mg/dl Hemoglobin A1c (4.5-5.6) % Calcium (8.5-10.1) mg/dl Phosphorus (2.5-4.9) mg/dl Magnesium (1.7-2.4) mg/dl Total Bilirubin (0.2-1.0) mg/dl AST (13-39) U/L ALT (7-52) U/L Alkaline Phosphatase (34-104) U/L Total Protein (6.0-8.3) gm/dl Albumin (3.4-5.0) gm/dl Globulin (2.5-4.0) gm/dl Albumin/Globulin Ratio (0.9-2) SARS-CoV-2, RNA, NAAT NEGATIVE (NEGATIVE) 03/30/22 03/30/22 03/30/22 Range/Units 16:50 14:50 14:50 WBC 15.22 H (4.8-10.8) K/ul RBC 4.72 (4.63-6.08) M/uL Hgb 13.6 L (14.0-18.0) g/dl Hct 42.0 (40.1-51.0) % MCV 89.0 (80.0-100.0) fL MCH 28.8 (25.0-34.0) pg MCHC 32.4 (32.0-36.0) g/dL RDW Std Deviation 46.4 H (36.4-46.3) fL RDW Coeff of Livier 14.2 (11.5-14.5) % Plt Count 281 (130-400) K/uL MPV 10.0 (9.4-12.4) fL Immature Gran % (Auto) 0.9 % Neut % (Auto) 79.4 % Lymph % (Auto) 9.1 % Moody % (Auto) 8.8 % Eos % (Auto) 1.4 % Baso % (Auto) 0.4 % Neut # (Auto) 12.09 H (1.4-6.5) K/uL Lymph # (Auto) 1.38 (1.2-3.4) K/uL Moody # (Auto) 1.34 H (0.24-0.82) K/uL Eos # (Auto) 0.21 (0-0.50) K/uL Baso # (Auto) 0.06 (0-0.2) K/uL Immature Gran # (Auto) 0.14 H (0.00-0.02) K/uL Sodium 138 (136-145) mmol/L Potassium 4.1 (3.5-5.1) mmol/L Chloride 102 (98-107) mmol/L Carbon Dioxide 27 (21-32) mmol/L Anion Gap 9 (3-11) BUN 36 H (6-23) mg/dl Creatinine 1.88 H (0.6-1.4) mg/dl Est Cr Clr Drug Dosing 53.5 ml/min Est GFR ( Amer) 41.0 ml/min Est GFR (Non-Af Amer) 35.4 ml/min BUN/Creatinine Ratio 19.1 (10-20) Glucose 298 H (70-99(Fasting)) mg/dl POC Glucose (70-99) mg/dl Estimat Average Glucose 212 mg/dl Hemoglobin A1c 9.0 H (4.5-5.6) % Calcium 9.0 (8.5-10.1) mg/dl Phosphorus (2.5-4.9) mg/dl Magnesium (1.7-2.4) mg/dl Total Bilirubin 0.9 (0.2-1.0) mg/dl AST 11 L (13-39) U/L ALT 15 (7-52) U/L Alkaline Phosphatase 105 H (34-104) U/L Total Protein 6.9 (6.0-8.3) gm/dl Albumin 3.5 (3.4-5.0) gm/dl Globulin 3.4 (2.5-4.0) gm/dl Albumin/Globulin Ratio 1.0 (0.9-2) SARS-CoV-2, RNA, NAAT (NEGATIVE) Medications Administered Current Inpatient Medications Acetaminophen (Acetaminophen 325 Mg Tab) 650 mg PO Q4H PRN PRN Reason: Pain or Fever Stop: 04/29/22 17:57 Last Admin: 03/30/22 23:31 Dose: 650 mg Allopurinol (Allopurinol 100 Mg Tab) 100 mg PO [facility] Stop: 04/30/22 08:59 Last Admin: 03/31/22 08:05 Dose: 100 mg Amlodipine Besylate (Amlodipine Besylate 5 Mg Tab) 5 mg PO [facility] Stop: 04/30/22 08:59 Last Admin: 03/31/22 08:06 Dose: 5 mg Furosemide (Furosemide 40 Mg Tab) 40 mg PO [facility] Stop: 04/30/22 08:59 Last Admin: 03/31/22 08:06 Dose: 40 mg Heparin Sodium (Porcine) (Heparin Sod 5,000 Unit/0.5 Ml Vial) 7,500 units SQ Q8 [facility] Stop: 04/29/22 21:59 Last Admin: 03/31/22 06:14 Dose: 7,500 units Daptomycin 625 mg/ Syringe 12.5 mls @ 6.25 mls/min IV Q24H [facility]; Protocol Stop: 04/01/22 16:59 Last Admin: 03/30/22 18:31 Dose: 6.25 mls/min Cefepime HCl 2,000 mg/ Syringe 20 mls @ 5 mls/min IV Q12H [facility]; Protocol Stop: 04/07/22 06:29 Last Admin: 03/31/22 06:14 Dose: 5 mls/min Magnesium Sulfate/Dextrose (Magnesium Sulfate / D5w) 1 gm in 100 mls @ 50 mls/hr IV ONE ONE Stop: 03/31/22 09:13 Insulin Aspart (Insulin Aspart Per Unit) 0 units SC ACHS [facility] Stop: 04/29/22 22:29 Last Admin: 03/31/22 08:09 Dose: 15 units Insulin Glargine (Lantus Per Unit Charge) 35 units SQ DAILY [facility] Stop: 04/30/22 08:59 Losartan Potassium (Losartan Potassium 50 Mg Tab) 100 mg PO QAM [facility] Stop: 04/30/22 08:59 Last Admin: 03/31/22 08:06 Dose: 100 mg Metoprolol Tartrate (Metoprolol Tartrate 100 Mg Tab) 100 mg PO BID [facility] Stop: 04/29/22 21:39 Last Admin: 03/31/22 08:06 Dose: 100 mg Miscellaneous Information (Pharmacy Glycemic Mgmt Consult) 1 each N/A UD PRN PRN Reason: Consult Stop: 04/29/22 21:39 Polyethylene Glycol (Polyethylene (Miralax) 17 Gm Pack) 17 gm PO DAILY PRN PRN Reason: Constipation Stop: 04/29/22 17:57 Pravastatin Sodium (Pravastatin Sod 40 Mg Tab) 80 mg PO HS [facility] Stop: 04/29/22 21:39 Last Admin: 03/30/22 23:32 Dose: 80 mg Tamsulosin HCl (Tamsulosin Hcl 0.4 Mg Cap) 0.4 mg PO HS [facility] Stop: 04/29/22 21:39 Last Admin: 03/30/22 23:32 Dose: 0.4 mg Ticagrelor (Ticagrelor 90 Mg Tab) 90 mg PO BID [facility] Stop: 04/29/22 21:39 Last Admin: 03/31/22 08:06 Dose: 90 mg
[2022-03-31] MEDS ORDERED: LANTUS PER UNIT CHARGE SQ SCH (09:00)
[2022-03-31 10:17] LABS: A calco-baum cmplx NotReported Not Detected (NotDetected); Bact fragilis Not Reported Not Detected (NotDetected); C auris Not Reported Not Detected (NotDetected); Calbicans Not Reported Not Detected (NotDetected); Candida glabrata Not Reported Not Detected (NotDetected); Candida krusei Not Reported Not Detected (NotDetected); Cneoformans/gatti Not Reported Not Detected (NotDetected); Cparapsilosis Not Reported Not Detected (NotDetected); Ctropicalis Not Reported Not Detected (NotDetected); E cloacae compx Not Reported Not Detected (NotDetected); Efaecalis Not Reported Not Detected (NotDetected); Efaecium Not Reported Not Detected (NotDetected); Enterobacterales Not Reported Not Detected (NotDetected); Escherichia coli Not Reported Not Detected (NotDetected); H influenzae Not Reported Not Detected (NotDetected); K aerogenes Not Reported Not Detected (NotDetected); Koxytoca Not Reported Not Detected (NotDetected); Kpneumoniae grp Not Reported Not Detected (NotDetected); Lmonocyt Not Reported Not Detected (NotDetected); N meningitidis Not Reported Not Detected (NotDetected); P aeruginosa Not Reported Not Detected (NotDetected); Proteus spp Not Reported Not Detected (NotDetected); Salmonella spp Not Reported Not Detected (NotDetected); Smarcescens Not Reported Not Detected (NotDetected); Staph lugdunensis Not Reported Not Detected (NotDetected); Staph spp. Not Reported DETECTED (NotDetected); Staphaureus Not Reported DETECTED (NotDetected); Staphepi Not Reported Not Detected (NotDetected); Staphylococcus spp. DETECTED (NotDetected); Stenmaltophilia Not Reported Not Detected (NotDetected); Strep agal(GrpB) Not Reported Not Detected (NotDetected); Strep pneum Not Reported Not Detected (NotDetected); Strep pyog (GrpA) Not Reported Not Detected (NotDetected); Strep spp Not Reported Not Detected (NotDetected)
[2022-03-31 10:46] LABS: mecAC+MREJ Resistant Gene MRSA DETECTED (NotDetected)
--- NOTE | 2022-03-31 11:36 | Surgery Consultation ---
Date of Consultation March 31, 2022 Assessment & Plan (1) Abscess of buttock, right: This is a 71yM with a PMH of CAD s/p stents on Brilinta, CABG, CHF, DM2, CKD who presents to the [facility] ED on 03/30/22 with complaints of right buttock pain with possible abscess that started ~ 2 weeks ago. Area of concern was I&D in the ER by physician and ~20cc purulent fluid expressed. This was sent for cultures and wound was packed with nu-gauze. Today WBC 16 (15). Patient is afebrile, HR's have been anywhere from 80-120s. Wound and blood cultures returned + for staph aureus. Patient is currently receiving IV abx (cefepime and daptomycin ordered) and ID has been consulted. On exam patient's wound is erythematous with + induration, tenderness to palpation, with purulent drainage. Wound would be amenable to larger incision for drainage, would benefit from this being performed in the OR. Will make NPO for OR. Dr. Sandoval will obtain consent. Supervising Physician Co-Signing Physician Notes Dr. Mejía large area of cellulitis over approximately 10 to 12 cm involving the right buttock area Severe induration and likely necrosis of the soft tissue-apparently growing out MRSA Patient is tachycardic intermittently admitted with a high white blood cell count This needs to be opened widely and possible debridement-MRSA is notorious for skin and soft tissue necrosis Patient will at least have to have packing placed 2-3 times per day May require wound VAC depending on the necrosis This is an urgent/emergent situation as this will not improve without wide incision and drainage and debridement History of Present Illness Attending Physician: Yong Anthony MD History of Present Illness This is a 71yM with a PMH of CAD s/p stents on Brilinta, CABG, CHF, DM2, CKD who presents to the [facility] ED on 03/30/22 with complaints of right buttock pain with possible abscess. The patient says he noticed the area of concern about 2 weeks ago. The area has increased in size and started to become more painful prompting him to come into the ER for further evaluation. Says it started draining bloody drainage about a week ago. Has a history of "boils", last one being in grade school, and had them taken care of in the ER or by starting abx by his PCP. In the ER there was noted to be erythema, induration with signs of abscess. This was I&D and the patient was admitted to the hospital for IV abx. Patient denies any fevers/chills, CP/SOB, n/v, or change in bowel habits. Says since having it opened up in the ER it is feeling better. Allergies Allergy/AdvReac Type Severity Reaction Status Date / Time aspirin Allergy Intermediate GI SYMPTOMS Verified 03/30/22 17:09 Home Medications Medication Instructions Recorded Confirmed Type blood sugar diagnostic (Truetest #10 ea 03/23/19 01/20/22 History Test Strips) losartan 100 mg tablet 100 mg PO QAM #90 tabs 03/23/19 03/30/22 History pen needle, diabetic 32 gauge x #10 ea 03/23/19 01/20/22 History 5/32" (ReliOn Pen [place]) pravastatin 80 mg tablet 80 mg PO HS 03/23/19 03/30/22 History amlodipine 5 mg tablet 5 mg PO QAM 10/19/20 03/30/22 History pen needle, diabetic 32 gauge x #100 ea 11/13/20 01/20/22 Rx 5/32" dulaglutide 1.5 mg/0.5 mL 1.5 mg subcut WK 04/26/21 03/30/22 History subcutaneous pen injector (Trulicity) ticagrelor 90 mg tablet (Brilinta) 90 mg PO BID 07/16/21 03/30/22 History allopurinol 100 mg tablet 100 mg PO QAM 10/25/21 03/30/22 History cholecalciferol (vitamin D3) 50 50 mcg PO QAM 10/25/21 03/30/22 History mcg (2,000 unit) capsule (Vitamin D3) furosemide 40 mg tablet (Lasix) 40 mg PO QAM 10/25/21 03/30/22 History insulin aspart U-100 100 unit/mL 25 unit subcut TIDM 10/25/21 03/30/22 History (3 mL) subcutaneous pen (Novolog Flexpen U-100 Insulin aspart) insulin glargine 100 unit/mL (3 50 unit subcut QAM 10/25/21 03/30/22 History mL) subcutaneous pen tamsulosin 0.4 mg capsule 0.4 mg PO HS #90 caps 12/25/21 03/30/22 Rx metoprolol tartrate 100 mg tablet 100 mg PO BID 03/30/22 03/30/22 History Patient History Medical History Benign localized prostatic hyperplasia with lower urinary tract symptoms (LUTS) CAD (coronary artery disease) Follows with Dr. Us Chronic diastolic CHF (congestive heart failure) CKD (chronic kidney disease), stage III Coronary artery disease s/p CABG x4 in 1993. 09/2020 - MELLY placed in the LM and MELLY placed in the ostial proximal LAD (3 x 12 mm, 3 x 30 mm [place]), MELYL placed in the ostial and proximal LCx (2.5 x 22 mm [place]) DDD (degenerative disc disease) Diabetes mellitus, type II Hearing deficit [place] History of COVID-19 09/2020; covid pneumonia - hospitalized at [place]; resolved. History of gastric ulcer History of GI bleed History of myocardial infarction 09/2020 History of nephrolithiasis HLD (hyperlipidemia) HTN (hypertension) Hypertension Kidney stones at present; no issues Osteoarthritis Surgical History H/O elbow surgery Rt H/O heart artery stent x3 (09/2020) H/O knee surgery Rt H/O shoulder surgery Rt History of colonoscopy History of cystoscopy with stone extraction History of esophagogastroduodenoscopy (EGD) History of left cataract surgery Hx of CABG Hx of cardiac catheterization 09/2020 [place] - 3 stents Family History Unknown Kidney disease kidney stones Other Diabetes Social History Smoking Status: Never smoker Tobacco Type: Cigarettes Second Hand Exposure: No; Hx Alcohol Use: No Hx Substance Use: No Preferred Language: Swiss Communication Ability: Effective 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 Beliefs That Will Affect Care: None marital status: Current Living Situation: Spouse Current Living Situation Comment: single story home with current occupational status: retired Feels Safe at Home: Yes Safety Concerns: Feels Safe At This Time Assistive Devices: Cane, Glasses and Hearing Aid - Bilateral Assistive Devices Comment: hearing aides left at home Review of Systems Constitutional: no fever and no chills Respiratory: no dyspnea Cardiovascular: no chest pain Gastrointestinal: no abdominal pain and no change in bowel habits Integumentary: + pain and swelling on R buttocks, draining bloody fluid Physical Exam Physical Exam: awake/alert, no distress Respiratory: normal respiratory effort Skin: + mod-large area of erythema to inferior R buttocks with surrounding induration and + purulent drainage. tender to palpation Results & Data ([facility]) Vital Signs (Past 12 Hours) Vital Signs Temp Pulse Resp BP Pulse Ox O2 Del Method 03/31/22 11:22 36.5 C 80 16 132/77 95 Room Air 03/31/22 08:00 Room Air 03/31/22 07:57 36.5 C 98 H 16 128/60 93 Room Air 03/31/22 02:41 36.5 C 88 18 131/71 94 Room Air 03/30/22 23:28 111 H 161/84 H 95 Room Air PG Care Time/CCT Total # of Minutes Spent Total Time Spent with Patient: Total time spent is greater than 50% in coordination of care (as documented) at patient's floor/unit and/or counseling patient: Coding Level of Care Code 23891 Initial Inpt Care Lvl 1 Diagnoses Abscess of buttock, right L02.31
[2022-03-31] MEDS ORDERED: BUPIVACAINE 0.5 % 5 MG/1 ML MPF 30ML VIAL ONE (12:22)
[2022-03-31] MEDS ORDERED: PROPOFOL IV EMULSION 10 MG/ML 20 ML VIAL IV ONE (12:30)
[2022-03-31] MEDS ORDERED: fentaNYL citrate 100 MCG/2 ML VIAL ONE (12:30)
[2022-03-31] MEDS ORDERED: MIDAZOLAM HCL 1 MG/ML 2ML VIAL ONE (12:30)
[2022-03-31] MEDS ORDERED: SUCCINYLCHOLINE CHLORIDE 20 MG/ML 10 ML VIAL IV ONE (12:30)
[2022-03-31] MEDS ORDERED: LIDOCAINE 2% MPF LOCAL 5 ML VIAL INFIL ONE (12:30)
--- NOTE | 2022-03-31 13:11 | Anesthesiology Consultation ---
Date of Service March 31, 2022 Assessment & Plan ASA [id number] Proposed Anesthesia Anesthesia Type: General Risk / Benefits Reviewed With: PT / POA / Parent / Guardian, Accepts Plan and Informed Consent Obtained Additional Comments: dr sandoval feels this cannot wait for npo eight hours. pt is presenting signs of sepsis. i agree with his assessment and we will proceed with rsi intubation History Surgery Operation Date: 03/31/22 12:00 Proposed Procedures p Incision and Drainage with Debridement Right Buttock Abscess - Ori Sandoval MD, FACS Height/Weight Height: 6 ft Weight: 129.9 kg Allergies Allergy/AdvReac Type Severity Reaction Status Date / Time aspirin Allergy Intermediate GI SYMPTOMS Verified 03/30/22 17:09 Medications Home Medications Medication Instructions Recorded Confirmed Last Taken blood sugar diagnostic (Truetest #10 ea 03/23/19 01/20/22 Unknown Test Strips) losartan 100 mg tablet 100 mg PO QAM #90 tabs 03/23/19 03/30/22 03/30/22 pen needle, diabetic 32 gauge x #10 ea 03/23/19 01/20/22 Unknown " (ReliOn Pen [place]) pravastatin 80 mg tablet 80 mg PO HS 03/23/19 03/30/22 03/29/22 amlodipine 5 mg tablet 5 mg PO QAM 10/19/20 03/30/22 03/30/22 pen needle, diabetic 32 gauge x #100 ea 11/13/20 01/20/22 Unknown " dulaglutide 1.5 mg/0.5 mL 1.5 mg subcut WK 04/26/21 03/30/22 11/13/21 06:00 subcutaneous pen injector (Trulicity) ticagrelor 90 mg tablet (Brilinta) 90 mg PO BID 07/16/21 03/30/22 03/30/22 08:00 allopurinol 100 mg tablet 100 mg PO QAM 10/25/21 03/30/22 03/30/22 cholecalciferol (vitamin D3) 50 50 mcg PO QAM 10/25/21 03/30/22 03/30/22 mcg (2,000 unit) capsule (Vitamin D3) furosemide 40 mg tablet (Lasix) 40 mg PO QAM 10/25/21 03/30/22 03/30/22 insulin aspart U-100 100 unit/mL 25 unit subcut TIDM 10/25/21 03/30/22 03/30/22 08:00 (3 mL) subcutaneous pen (Novolog Flexpen U-100 Insulin aspart) insulin glargine 100 unit/mL (3 50 unit subcut QAM 10/25/21 03/30/22 03/30/22 mL) subcutaneous pen tamsulosin 0.4 mg capsule 0.4 mg PO HS #90 caps 12/25/21 03/30/22 03/29/22 metoprolol tartrate 100 mg tablet 100 mg PO BID 03/30/22 03/30/22 03/30/22 08:00 Active Medications Generic Name Dose Route Start Last Admin Trade Name Freq PRN Reason Stop Dose Admin Acetaminophen 650 mg 03/30/22 17:58 03/30/22 23:31 Acetaminophen 325 Mg Tab PO 04/29/22 17:57 650 mg Q4H PRN Administration Pain or Fever Allopurinol 100 mg 03/31/22 09:00 03/31/22 08:05 Allopurinol 100 Mg Tab PO 04/30/22 08:59 100 mg QAM [facility] Administration Amlodipine Besylate 5 mg 03/31/22 09:00 03/31/22 08:06 Amlodipine Besylate 5 Mg Tab PO 04/30/22 08:59 5 mg QAM [facility] Administration Furosemide 40 mg 03/31/22 09:00 03/31/22 08:06 Furosemide 40 Mg Tab PO 04/30/22 08:59 40 mg QAM [facility] Administration Heparin Sodium (Porcine) 7,500 units 03/30/22 22:00 03/31/22 06:14 Heparin Sod 5,000 Unit/0.5 Ml Vial SQ 04/29/22 21:59 7,500 units Q8 [facility] Administration Daptomycin 625 mg/ Syringe 12.5 mls @ 6.25 mls/min 03/30/22 17:00 03/30/22 18:31 IV 04/13/22 16:59 6.25 mls/min Q24H [facility] Administration Protocol Cefepime HCl 2,000 mg/ Syringe 20 mls @ 5 mls/min 03/31/22 06:30 03/31/22 06:14 IV 04/07/22 06:29 5 mls/min Q12H [facility] Administration Protocol Insulin Aspart 0 units 03/30/22 22:30 03/31/22 11:49 Insulin Aspart Per Unit SC 04/29/22 22:29 10 units ACHS [facility] Administration Insulin Glargine 35 units 03/31/22 09:00 03/31/22 08:31 Lantus Per Unit Charge SQ 04/30/22 08:59 35 units DAILY [facility] Administration Losartan Potassium 100 mg 03/31/22 09:00 03/31/22 08:06 Losartan Potassium 50 Mg Tab PO 04/30/22 08:59 100 mg QAM [facility] Administration Metoprolol Tartrate 100 mg 03/30/22 21:40 03/31/22 08:06 Metoprolol Tartrate 100 Mg Tab PO 04/29/22 21:39 100 mg BID [facility] Administration Pravastatin Sodium 80 mg 03/30/22 21:40 03/30/22 23:32 Pravastatin Sod 40 Mg Tab PO 04/29/22 21:39 80 mg HS [facility] Administration Tamsulosin HCl 0.4 mg 03/30/22 21:40 03/30/22 23:32 Tamsulosin Hcl 0.4 Mg Cap PO 04/29/22 21:39 0.4 mg HS [facility] Administration Ticagrelor 90 mg 03/30/22 21:40 03/31/22 08:06 Ticagrelor 90 Mg Tab PO 04/29/22 21:39 90 mg BID [facility] Administration NPO Date Last Intake of Fluids: 03/31/22 Time Last Intake of Fluids: 08:00 Date Last Intake of Solids: 03/31/22 Time Last Intake of Solids: 08:00 Past Medical History Medical History Benign localized prostatic hyperplasia with lower urinary tract symptoms (LUTS) CAD (coronary artery disease) Follows with Dr. Us Chronic diastolic CHF (congestive heart failure) CKD (chronic kidney disease), stage III Coronary artery disease s/p CABG x4 in 1993. 09/2020 - MELLY placed in the LM and MELLY placed in the ostial proximal LAD (3 x 12 mm, 3 x 30 mm [place]), MELLY placed in the ostial and proximal LCx (2.5 x 22 mm [place]) DDD (degenerative disc disease) Diabetes mellitus, type II Hearing deficit [place] History of COVID-19 09/2020; covid pneumonia - hospitalized at [place]; resolved. History of gastric ulcer History of GI bleed History of myocardial infarction 09/2020 History of nephrolithiasis HLD (hyperlipidemia) HTN (hypertension) Hypertension Kidney stones at present; no issues Osteoarthritis Exercise / Class Metabolic Activity II 4-5 Yardwork/Stairs/Walk up hill Past Family History Family History Unknown Kidney disease kidney stones Other Diabetes Past Surgical History Surgical History H/O elbow surgery Rt H/O heart artery stent x3 (09/2020) H/O knee surgery Rt H/O shoulder surgery Rt History of colonoscopy History of cystoscopy with stone extraction History of esophagogastroduodenoscopy (EGD) History of left cataract surgery Hx of CABG Hx of cardiac catheterization 09/2020 [place] - [place] - 3 stents Past Anesthesia History No Hx of Anesthesia Complications and No Family Hx of Anesthesia Complications History of PONV No Hx of PONV and No Hx of Motion Sickness Social History Smoking Status: Never smoker Hx Alcohol Use: No Hx Substance Use: No substance use type: does not use Review of Systems denies fever/cough/ colds/ chest pain/ SOB/ LEYLA activity limited by lower back. pt has not been checking daily weights denies LEYLA Physical Exam Vital Signs Last Vital Signs Temp 36.5 C 03/31/22 11:22 Pulse 80 03/31/22 11:22 Resp 16 03/31/22 11:22 BP 132/77 03/31/22 11:22 Pulse Ox 95 03/31/22 11:22 O2 Del Method 03/31/22 11:22 ENMT Mouth: no TMJ abnormality and no dentition abnormality Thyromental Distance: > or= 3.5 Finger Breadths Mallampati Class: II Neck neck extension not limited Respiratory normal respiratory effort; no respiratory distress Auscultation: lungs clear to auscultation bilaterally Cardiovascular Rate/Rhythm: regular rate and regular rhythm Neurologic moves all extremities Psychiatric Orientation: alert and oriented x 3 Testing Laboratory Results 03/31/22 05:28 03/31/22 05:28 Hemoglobin A1c 9.0 % (4.5-5.6) H 03/30/22 16:50 03/30/22 17:35 Anaerobic Blood Culture - Preliminary Blood Gram positive cocci clusters 03/30/22 16:45 Gram Stain - Final Leg Wound Culture - Preliminary Staphylococcus species 03/31/22 03/31/22 03/31/22 11:08 07:30 02:22 POC Glucose 254 H 213 H 298 H
[2022-03-31] MEDS ORDERED: ATROPINE SULFATE 0.1 MG/ML 10ML SYR IV PRN (13:12)
[2022-03-31] MEDS ORDERED: HYDROmorphone INJ 2 MG/ML SYR/VIAL IV PRN (13:12)
[2022-03-31] MEDS ORDERED: fentaNYL citrate 100 MCG/2 ML VIAL IV PRN (13:12)
[2022-03-31] MEDS ORDERED: ePHEDrine sulfate 50 MG/ML AMP IV PRN (13:12)
[2022-03-31] MEDS ORDERED: ONDANSETRON INJ 2 MG/ML 2 ML VIAL IV PRN ×2 (13:12→16:18)
[2022-03-31] MEDS ORDERED: VASOPRESSIN 20 UNIT/ML VIAL ONE (14:17)
[2022-03-31] MEDS ORDERED: NEOSTIGMINE METHYLSULFATE 1 MG/ML 10ML VIAL ONE (14:17)
[2022-03-31] MEDS ORDERED: GLYCOPYRROLATE 0.2 MG/ML VIAL ONE (14:17)
[2022-03-31] MEDS ORDERED: ACETAMINOPHEN 1,000 MG/100 ML VIAL IV ONE ×2 (14:21→14:34)
--- NOTE | 2022-03-31 14:21 | Post Operative Brief Note ---
PG Immediate Post Op with CF Date of Surgery March 31, 2022 Pre & Post Diagnosis Operation Date: 03/31/22 12:00 Pre-Op Diagnosis: ABSCESS,POSSIBLE SEPSIS-right gluteal I identified the patient and participated in the time-out.: Yes Procedure Operation Date: 03/31/22 12:00 Actual Procedures p Incision and Drainage with Debridement Right gluteal abscess(Right) - Ori Sandoval MD, FACS Surgeon Ori Sandoval MD, FACS [employer] Shant Leigh Estimated Blood Loss 20 Findings Consistent with Post-Op Diagnosis Patient with an 8 x 5 cm gluteal abscess requiring skin and soft tissue debridement Specimens Specimen Description: 1. Right buttock wound
--- NOTE | 2022-03-31 14:31 | Pharmacy Report ---
Pharmacy Glycemic Short Note 2 - Date of Service March 31, 2022 - Glycemic Short BSG Results (Last 24 hours): 03/30/22 03/30/22 03/31/22 14:50 23:18 02:22 Glucose 298 H POC Glucose 271 H 298 H 03/31/22 03/31/22 03/31/22 05:28 07:30 11:08 Glucose 239 H POC Glucose 213 H 254 H OUTPATIENT ANTIDIABETIC REGIMEN: * Lantus 50 units Qam, Novolog 25 units tidm + SSI, trulicity ASSESSMENT: * 71 year old, now NPO for I&D for possible abscess. Pharmacy consulted for glycemic management. Patient received total of ~60 units of insulin yesterday, of which 50 units were basal insulin * Fasting BSG elevated at 213 mg/dL - BSGs elevated likely due to infection. Plan to titrate up basal this morning, will have scale for HS based upon BSG value PLAN FOR INPATIENT GLYCEMIC CONTROL: * Hold outpatient oral diabetes medications * Basal insulin * Lantus 35 units x 1 * Lantus HS 20-30 units hs * Bolus insulin * NovoLog per scale ACHS or Q6hrs while NPO * Goal Range: Low 110 mg/dL - High 140 mg/dL * Correction Factor: 10 mg/dL/unit * Nutritional / Prandial insulin per carb ratio of 1 unit per 3 grams CHO consumed
[2022-03-31] MEDS ORDERED: ACETAMINOPHEN 1000 MG/100 ML IV IV ONE ×2 (15:15)
--- NOTE | 2022-03-31 15:30 | Operative Report (OR) ---
DATE OF OPERATION: 03/31/2022 NAME OF OPERATION: Incision, drainage and debridement of right gluteal abscess, 8 x 5 cm. STAFF SURGEON: Ori Sandoval MD GEOPHYSICIST: Ayanna Leigh PA-C. ANESTHESIA: General. DESCRIPTION OF PROCEDURE: The patient was brought in the operating room and placed on the operating table in the supine position. After appropriate anesthetic, he was placed in lithotomy position. Hi s right gluteal area was prepped and draped in the usual fashion. He had a very large area of erythe ma and necrotic tissue. A large elliptical incision was made, encountering significant purulent flui d, which was cultured. The abscess did extend approximately 8 x 5 cm with purulent fluid. It was de brided of skin and necrotic tissue and then a Betadine gauze packing placed. Dressing applied. The patient was transferred to recovery room in stable condition. My funeral assistant, Ayanna Leigh helped with prepping, draping and incision, drainage and debridement of th e wound. Job ID: [id number]
[2022-03-31] MEDS ORDERED: HYDROmorphone INJ 0.5 MG/0.5 ML SYR IV PRN ×2 (16:18)
[2022-03-31] MEDS ORDERED: HYDROCODONE/ACETAMOPHEN 5/325MG TAB PO PRN (16:18)
[2022-03-31] MEDS ORDERED: PROMETHAZINE HCL 12.5 MG in SODIUM CHLORIDE 0.9% 50 ML IV PRN (16:18)
[2022-03-31] MEDS: SODIUM CHLORIDE 0.9% 1000ML 1,000 ML IV SCH (16:30)
[2022-03-31] MEDS: DAPTOmycin 625 MG in SYRINGE 0 ML IV SCH (16:56)
--- NOTE | 2022-03-31 17:09 | Anesthesiology Progress Note ---
Date of Service March 31, 2022 Anesthesia Post Procedure Vital Signs Vital Signs: Temp Pulse Pulse Pulse Resp BP BP 03/31/22 16:45 36.5 C 78 03/31/22 16:17 36.4 C L 90 03/31/22 15:40 85 18 138/64 03/31/22 15:30 36.2 C L 93 H 24 140/60 03/31/22 15:20 95 H 17 143/63 H 03/31/22 15:10 92 H 15 154/66 H 03/31/22 15:00 95 H 22 122/96 03/31/22 15:55 82 23 127/58 L 03/31/22 14:52 36 C L 100 H 24 157/69 H 03/31/22 11:22 36.5 C 80 16 132/77 03/31/22 08:00 03/31/22 07:57 36.5 C 98 H 16 128/60 03/31/22 02:41 36.5 C 88 18 131/71 03/30/22 21:59 126 H 03/30/22 23:28 111 H 161/84 H 03/30/22 21:47 03/30/22 21:47 36.8 C 129 H 19 153/82 H 03/30/22 21:00 127 H 24 174/109 H 03/30/22 20:00 128 H 22 178/101 H 03/30/22 19:30 126 H 22 173/95 H 03/30/22 18:30 122 H 38 H 03/30/22 18:30 150/99 H 03/30/22 18:00 115 H 45 H 03/30/22 18:00 173/109 H 03/30/22 17:39 118 H 32 H 03/30/22 17:39 174/106 H 03/30/22 17:30 03/30/22 17:56 37.2 C BP Pulse Ox O2 Del Method O2 Flow Rate 03/31/22 16:45 127/68 94 Nasal Cannula 4 03/31/22 16:17 120/60 93 Nasal Cannula 4 03/31/22 15:40 94 Oxymask 3 03/31/22 15:30 93 Oxymask 4 03/31/22 15:20 94 Oxymask 4 03/31/22 15:10 94 Oxymask 4 03/31/22 15:00 95 Oxymask 6 03/31/22 15:55 93 Oxymask 3 03/31/22 14:52 93 Oxymask 6 03/31/22 11:22 95 Room Air 03/31/22 08:00 Room Air 03/31/22 07:57 93 Room Air 03/31/22 02:41 94 Room Air 03/30/22 21:59 03/30/22 23:28 95 Room Air 03/30/22 21:47 Room Air 03/30/22 21:47 92 Room Air 03/30/22 21:00 93 03/30/22 20:00 93 03/30/22 19:30 93 03/30/22 18:30 95 03/30/22 18:30 03/30/22 18:00 95 03/30/22 18:00 03/30/22 17:39 95 03/30/22 17:39 03/30/22 17:30 94 03/30/22 17:56 Transfer of Care Handoff Completed per policy Notes Mental Status: alert / awake / arousable and participated in evaluation Patient Amnestic to Procedure: Yes Nausea / Vomiting: adequately controlled Pain: adequately controlled Airway Patency, RR, SpO2: stable & adequate BP & HR: stable & adequate Hydration State: stable & adequate Anesthetic Complications: no major complications apparent and Pt Satisfied with anesthetic care
[2022-03-31] MEDS: LANTUS PER UNIT CHARGE SQ SCH (20:38)
[2022-03-31] MEDS: PRAVASTATIN SOD 40 MG TAB PO SCH (20:48)
[2022-03-31] MEDS: TAMSULOSIN HCL 0.4 MG CAP PO SCH (20:49)
[2022-04-01] MEDS: HEPARIN SOD 5,000 UNIT/0.5 ML VIAL SQ SCH ×3 (06:31→21:11)
[2022-04-01 06:38] LABS: Hemoglobin 12.2 g/dl (14.0-18.0); Mean Corpuscular Hemoglobin 28.2 pg (25.0-34.0); Mean Corpuscular Hgb Conc 32.1 g/dL (32.0-36.0); Mean Platelet Volume 9.9 fL (9.4-12.4); Platelet Count 264 K/uL (130-400); RDW Coefficient of Variation 14.3 % (11.5-14.5); RDW Standard Deviation 46.2 fL (36.4-46.3); Red Blood Count 4.32 M/uL (4.63-6.08); White Blood Count 11.28 K/ul (4.8-10.8)
[2022-04-01] MEDS: CEFEPIME 2,000 MG in SYRINGE 0 ML IV SCH (07:04)
--- NOTE | 2022-04-01 07:07 | Surgery Progress Note ---
Date of Service April 01, 2022 Assessment & Plan (1) Abscess of buttock, right: Plan: Patient with relatively large 5 x 8 cm abscess with microabscesses within the tissue and skin necrosis Required skin debridement and will likely require a wound VAC possibly an i rrigating wound VAC Positive blood cultures and likely wound culture MRSA Patient appears to be doing relatively well this morning We will see what the wound care nurse thinks-can place VAC today if possible Will need extensive home care with nurses and/or wound clinic Admission and Anticipated Discharge Date Admission Date: March 30, 2022 Results & Data ([facility]) Vital Signs (Past 12 Hours) Vital Signs Temp Pulse Pulse Pulse Resp BP BP 04/01/22 03:22 36.5 C 71 18 98/60 L 04/01/22 00:37 77 03/31/22 22:27 36.4 C L 79 20 106/58 L 03/31/22 22:51 03/31/22 20:42 83 118/72 03/31/22 19:39 36.5 C 85 20 110/71 Pulse Ox O2 Del Method O2 Flow Rate 04/01/22 03:22 95 Nasal Cannula 3 04/01/22 00:37 03/31/22 22:27 93 Nasal Cannula 3 03/31/22 22:51 Nasal Cannula 3 03/31/22 20:42 03/31/22 19:39 96 Nasal Cannula 3 PG Care Time/CCT Total # of Minutes Spent Total Time Spent with Patient: Total time spent is greater than 50% in coordination of care (as documented) at patient's floor/unit and/or counseling patient: Coding Level of Care Code None Diagnoses Abscess of buttock, right L02.31
[2022-04-01 07:14] LABS: BUN Creatinine Ratio 21.1 (10-20); Calcium 8.2 mg/dl (8.5-10.1); Creatinine Clr Calc Pharmacy 55.9 ml/min; Est GFR (African American) 44.7 ml/min; Est GFR (Non-African American) 38.6 ml/min; Magnesium 1.8 mg/dl (1.7-2.4); Phosphorus 5.1 mg/dl (2.5-4.9); Potassium 4.3 mmol/L (3.5-5.1)
[2022-04-01] MEDS: FUROSEMIDE 40 MG TAB PO SCH (08:20)
[2022-04-01] MEDS: allopurinoL 100 MG TAB PO SCH (08:20)
[2022-04-01] MEDS: TICAGRELOR 90 MG TAB PO SCH ×2 (08:20→21:07)
[2022-04-01] MEDS: LOSARTAN POTASSIUM 50 MG TAB PO SCH (08:21)
[2022-04-01] MEDS: amLODIPine BESYLATE 5 MG TAB PO SCH (08:21)
[2022-04-01] MEDS: INSULIN ASPART PER UNIT SC SCH ×4 (08:21→21:16)
[2022-04-01] MEDS: METOPROLOL TARTRATE 100 MG TAB PO SCH ×2 (08:21→21:08)
--- NOTE | 2022-04-01 08:50 | Hospitalist Progress Note ---
Date of Service April 01, 2022 Assessment & Plan (1) Abscess of buttock, right: Plan: Sepsis, POA White blood cell count 15,000, patient afebrile, tachycardic in 110s to low 120s Bacteremia - MRSA Underwent I&D in the emergency room 03/31 Surgery consulted - pt s/p I&D and further debridement w/ surgery (Dr. Sandoval) wound cultx from ED- posit. for MRSA Blood cultx- positive for MRSA cultx from OR - Staph species - final read pending Repeat blood cultx - negative for 24 hrs TTE echo - no vegetations noted In the ED received ceftriaxone and daptomycin Continued daptomycin + cefepime, will STOP cefepime as cultx posit. for staph Wound care consulted - possible VAC ID consulted Chronic conditions: CAD status post CABG, s/p stents CHF diastolic Hypertension Hyperlipidemia -Continue home medications, metoprolol, Brilinta, statin, furosemide, amlodipine Diabetes mellitus type 2, on insulin -Continue home insulin, diabetic pharmacy also consulted CKD stage 3 - monitor renal function - try to avoid nephrotoxic agents BPH -cont. home tamsulosin Morbid obesity BMI ~ 43 -Lifestyle modification recommended DVT subq heparin Code: Full code (patient said he would not want to get anything done, unless we thought it could help. Discussed with the patient that we cannot know how successful CRP would be. Pt also reported having living will, will try to review w/ the pt again). Admission and Anticipated Discharge Date Admission Date: March 30, 2022 Subjective Patient seen in follow-up of MRSA bacteremia, right buttocks abscess Underwent I&D in ED and then again in OR w/ surgery (Dr. Sandoval) yesterday wound care consulted - possible VAC Feeling much better overall Denies fevers, chills, chest pain, shortness of breath, nausea vomiting Review of Systems Review of Systems: All systems reviewed & are unremarkable except as noted in Subjective Physical Exam Physical Exam: Constitutional:L morbidly obese M i n NAD Eyes: PERRL, EOMI, conju nctivae normal, an icteric sclerae ENMT: external ear and n ose normal, oropha rynx normal Neck: + thick neck Respiratory: normal respiratory effort, lungs diego ar to auscultation (somewhat diminis hed BS (possibly d /t body habitus)) Cardiovascular:L Rate/Rhythm: RRR, trace LE edema Chest (Breasts): Chest: scar in mid line noted (hx of cabg)) Gastrointestinal ( Abdomen): normal bowel sound s, soft, nontender , obese abdomen Musculoskeletal: extremities motor strength 5/5 Skin: R buttocks erythem atous, surgical dr amirah applied aft er I&D Neurologic: PERRL, EOMI, no fa ce palsy, no dysar thria, moves extre mities Psychiatric: A+Ox3, euthymic af fect Results & Data Results & Data ([facility]) Vital Signs (Past 12 Hours) Vital Signs Temp Pulse Pulse Resp BP Pulse Ox O2 Del Method 04/01/22 08:09 Nasal Cannula 04/01/22 07:46 36.4 C L 86 20 124/64 95 Nasal Cannula 04/01/22 03:22 36.5 C 71 18 98/60 L 95 Nasal Cannula 04/01/22 00:37 77 03/31/22 22:27 36.4 C L 79 20 106/58 L 93 Nasal Cannula 03/31/22 22:51 Nasal Cannula O2 Flow Rate 04/01/22 08:09 3.5 04/01/22 07:46 4 04/01/22 03:22 3 04/01/22 00:37 03/31/22 22:27 3 03/31/22 22:51 3 Laboratory Results 04/01/22 04/01/22 04/01/22 Range/Units 07:36 06:09 06:09 WBC 11.28 H (4.8-10.8) K/ul RBC 4.32 L (4.63-6.08) M/uL Hgb 12.2 L (14.0-18.0) g/dl Hct 38.0 L (40.1-51.0) % MCV 88.0 (80.0-100.0) fL MCH 28.2 (25.0-34.0) pg MCHC 32.1 (32.0-36.0) g/dL RDW Std Deviation 46.2 (36.4-46.3) fL RDW Coeff of Livier 14.3 (11.5-14.5) % Plt Count 264 (130-400) K/uL MPV 9.9 (9.4-12.4) fL Sodium 137 (136-145) mmol/L Potassium 4.3 (3.5-5.1) mmol/L Chloride 103 (98-107) mmol/L Carbon Dioxide 28 (21-32) mmol/L Anion Gap 6 (3-11) BUN 37 H (6-23) mg/dl Creatinine 1.75 H (0.6-1.4) mg/dl Est Cr Clr Drug Dosing 55.9 ml/min Est GFR ( Amer) 44.7 ml/min Est GFR (Non-Af Amer) 38.6 ml/min BUN/Creatinine Ratio 21.1 H (10-20) Glucose 179 H (70-99(Fasting)) mg/dl POC Glucose 212 H (70-99) mg/dl Calcium 8.2 L (8.5-10.1) mg/dl Phosphorus 5.1 H D (2.5-4.9) mg/dl Magnesium 1.8 (1.7-2.4) mg/dl Staphylococcus sp PCR (NotDetected) Staph aureus (PCR) (NotDetected) mecA/C & MREJ Resist Gene (NotDetected) Bld Cult ID Panel PCR (NotDetected) 03/31/22 03/31/22 03/31/22 Range/Units 20:03 16:39 14:53 WBC (4.8-10.8) K/ul RBC (4.63-6.08) M/uL Hgb (14.0-18.0) g/dl Hct (40.1-51.0) % MCV (80.0-100.0) fL MCH (25.0-34.0) pg MCHC (32.0-36.0) g/dL RDW Std Deviation (36.4-46.3) fL RDW Coeff of Livier (11.5-14.5) % Plt Count (130-400) K/uL MPV (9.4-12.4) fL Sodium (136-145) mmol/L Potassium (3.5-5.1) mmol/L Chloride (98-107) mmol/L Carbon Dioxide (21-32) mmol/L Anion Gap (3-11) BUN (6-23) mg/dl Creatinine (0.6-1.4) mg/dl Est Cr Clr Drug Dosing ml/min Est GFR ( Amer) ml/min Est GFR (Non-Af Amer) ml/min BUN/Creatinine Ratio (10-20) Glucose (70-99(Fasting)) mg/dl POC Glucose 152 H 159 H 164 H (70-99) mg/dl Calcium (8.5-10.1) mg/dl Phosphorus (2.5-4.9) mg/dl Magnesium (1.7-2.4) mg/dl Staphylococcus sp PCR (NotDetected) Staph aureus (PCR) (NotDetected) mecA/C & MREJ Resist Gene (NotDetected) Bld Cult ID Panel PCR (NotDetected) 03/31/22 03/30/22 Range/Units 11:08 17:35 WBC (4.8-10.8) K/ul RBC (4.63-6.08) M/uL Hgb (14.0-18.0) g/dl Hct (40.1-51.0) % MCV (80.0-100.0) fL MCH (25.0-34.0) pg MCHC (32.0-36.0) g/dL RDW Std Deviation (36.4-46.3) fL RDW Coeff of Livier (11.5-14.5) % Plt Count (130-400) K/uL MPV (9.4-12.4) fL Sodium (136-145) mmol/L Potassium (3.5-5.1) mmol/L Chloride (98-107) mmol/L Carbon Dioxide (21-32) mmol/L Anion Gap (3-11) BUN (6-23) mg/dl Creatinine (0.6-1.4) mg/dl Est Cr Clr Drug Dosing ml/min Est GFR ( Amer) ml/min Est GFR (Non-Af Amer) ml/min BUN/Creatinine Ratio (10-20) Glucose (70-99(Fasting)) mg/dl POC Glucose 254 H (70-99) mg/dl Calcium (8.5-10.1) mg/dl Phosphorus (2.5-4.9) mg/dl Magnesium (1.7-2.4) mg/dl Staphylococcus sp PCR DETECTED A (NotDetected) Staph aureus (PCR) DETECTED A (NotDetected) mecA/C & MREJ Resist Gene MRSA DETECTED A* (NotDetected) Bld Cult ID Panel PCR See PCR Comment (NotDetected) Medications Administered Current Inpatient Medications Acetaminophen (Acetaminophen 325 Mg Tab) 650 mg PO Q4H PRN PRN Reason: Pain or Fever Stop: 04/29/22 17:57 Last Admin: 03/30/22 23:31 Dose: 650 mg Hydrocodone Bitart/Acetaminophen (Hydrocodone/Acetamophen 5/325mg Tab) 1 - 2 tab PO Q4HWA PRN PRN Reason: Pain Stop: 04/14/22 16:17 Allopurinol ([facility]ol 100 Mg Tab) [facility] [place] Stop: 04/30/22 08:59 Last Admin: 04/01/22 08:20 Dose: 100 mg Amlodipine Besylate (Amlodipine Besylate 5 Mg Tab) 5 mg PO QAM [facility] Stop: 04/30/22 08:59 Last Admin: 04/01/22 08:21 Dose: 5 mg Furosemide (Furosemide 40 Mg Tab) [facility] [place] Stop: 04/30/22 08:59 Last Admin: 04/01/22 08:20 Dose: 40 mg Heparin Sodium (Porcine) (Heparin Sod 5,000 Unit/0.5 Ml Vial) 7,500 units SQ Q8 [facility] Stop: 04/29/22 21:59 Last Admin: 04/01/22 06:31 Dose: 7,500 units Hydromorphone HCl (Hydromorphone Inj 0.5 Mg/0.5 Ml Syr) 0.25 mg IV Q3RWA PRN PRN Reason: Pain (1,2,3,4,5) Stop: 04/14/22 16:17 Hydromorphone HCl (Hydromorphone Inj 0.5 Mg/0.5 Ml Syr) 0.5 mg IV Q3HWA PRN PRN Reason: Pain (6,7,8,9,10) Stop: 04/14/22 16:17 Daptomycin 625 mg/ Syringe 12.5 mls @ 6.25 mls/min IV Q24H [facility]; Protocol Stop: 04/13/22 16:59 Last Admin: 03/31/22 16:56 Dose: 6.25 mls/min Cefepime HCl 2,000 mg/ Syringe 20 mls @ 5 mls/min IV Q12H [facility]; Protocol Stop: 04/07/22 06:29 Last Admin: 04/01/22 07:04 Dose: 5 mls/min Sodium Chloride (Nss 1000ml) 1,000 mls @ 50 mls/hr IV .Q20H [facility] Stop: 04/30/22 16:17 Last Infusion: 03/31/22 18:50 Dose: 50 mls/hr Promethazine HCl 12.5 mg/ (Sodium Chloride) 50.5 mls @ 204 mls/hr IV Q6H PRN PRN Reason: Nausea And Vomiting Stop: 04/30/22 16:17 Insulin Aspart (Insulin Aspart Per Unit) 0 units SC ACHS [facility] Stop: 04/29/22 22:29 Last Admin: 04/01/22 08:21 Dose: 18 units Insulin Glargine (Lantus Per Unit Charge) 0 units SQ HS [facility]; Protocol Stop: 04/30/22 20:59 Last Admin: 03/31/22 20:38 Dose: 20 units Insulin Glargine (Lantus Per Unit Charge) 35 units SQ DAILY [facility] Stop: 05/01/22 08:59 Last Admin: 04/01/22 08:26 Dose: 35 units Losartan Potassium (Losartan Potassium 50 Mg Tab) 100 mg PO QAM [facility] Stop: 04/30/22 08:59 Last Admin: 04/01/22 08:21 Dose: 100 mg Metoprolol Tartrate (Metoprolol Tartrate 100 Mg Tab) 100 mg PO BID [facility] Stop: 04/29/22 21:39 Last Admin: 04/01/22 08:21 Dose: 100 mg Miscellaneous Information (Pharmacy Glycemic Mgmt Consult) 1 each N/A UD PRN PRN Reason: Consult Stop: 04/29/22 21:39 Ondansetron HCl (Ondansetron Inj 2 Mg/Ml 2 Ml Vial) 4 mg IV Q6H PRN PRN Reason: Nausea And Vomiting Stop: 04/30/22 16:17 Polyethylene Glycol (Polyethylene (Miralax) 17 Gm Pack) 17 gm PO DAILY PRN PRN Reason: Constipation Stop: 04/29/22 17:57 Pravastatin Sodium (Pravastatin Sod 40 Mg Tab) 80 mg PO HS [facility] Stop: 04/29/22 21:39 Last Admin: 03/31/22 20:48 Dose: 80 mg Tamsulosin HCl (Tamsulosin Hcl 0.4 Mg Cap) 0.4 mg PO HS [facility] Stop: 04/29/22 21:39 Last Admin: 03/31/22 20:49 Dose: 0.4 mg Ticagrelor (Ticagrelor 90 Mg Tab) 90 mg PO BID [facility] Stop: 04/29/22 21:39 Last Admin: 04/01/22 08:20 Dose: 90 mg
[2022-04-01] MEDS ORDERED: LANTUS PER UNIT CHARGE SQ SCH (09:00)
[2022-04-01] MEDS ORDERED: MICONAZOLE NITRATE POWDER 43 GM EXT PRN (11:07)
--- NOTE | 2022-04-01 11:38 | Electrocardiogram Report ---
Test Reason : Blood Pressure : / mmHG Vent. Rate : 125 BPM Atrial Rate : 125 BPM P-R Int : 166 ms QRS Dur : 096 ms QT Int : 358 ms P-R-T Axes : 032 026 052 degrees QTc Int : 516 ms Poor data quality, interpretation may be adversely affected Sinus tachycardia with Premature atrial complexes Inferior infarct , age undetermined Abnormal ECG When compared with ECG of 05-NOV-2020 10:18, Premature atrial complexes are now Present Confirmed by Jorge A De Los Santos ([id number]) on 04/01/2022 11:38:04 AM Referred By: REFERRED SELF Confirmed By:Johnnie De Los Santos
[2022-04-01] MEDS: SODIUM CHLORIDE 0.9% 1000ML 1,000 ML IV SCH (13:06)
[2022-04-01] MEDS: CARBOHYDRATES FOR HYPOGLYCEMIA PO PRN ×3 (16:33→17:16)
[2022-04-01] MEDS ORDERED: GLUCOSE 40% GEL 15 GM TUBE PO PRN (17:00)
[2022-04-01] MEDS ORDERED: GLUCOSE 10 TAB/TUBE PO PRN (17:00)
[2022-04-01] MEDS ORDERED: DEXTROSE 50% 50 ML SYRINGE IV PRN (17:00)
[2022-04-01] MEDS ORDERED: GLUCAGON FOR INJ 1 MG VIAL IM PRN (17:00)
[2022-04-01] MEDS: DAPTOmycin 625 MG in SYRINGE 0 ML IV SCH (17:20)
[2022-04-01] MEDS: PRAVASTATIN SOD 40 MG TAB PO SCH (21:07)
[2022-04-01] MEDS: TAMSULOSIN HCL 0.4 MG CAP PO SCH (21:08)
[2022-04-01] MEDS: LANTUS PER UNIT CHARGE SQ SCH (21:14)
[2022-04-02] MEDS: HEPARIN SOD 5,000 UNIT/0.5 ML VIAL SQ SCH ×3 (05:55→21:17)
--- NOTE | 2022-04-02 06:39 | Surgery Progress Note ---
Date of Service April 02, 2022 Assessment & Plan (1) History of incision and drainage: Plan: Severe infection from MRSA requiring debridement Currently with a wound VAC Will need nursing help on discharge and also wound clinic follow-up IV antibiotics Infectious disease consult pending stable from surgical standpoint Admission and Anticipated Discharge Date Admission Date: March 30, 2022 Results & Data ([facility]) Vital Signs (Past 12 Hours) Vital Signs Temp Pulse Pulse Resp BP BP Pulse Ox 04/02/22 02:53 36.6 C 90 20 132/62 93 04/01/22 23:37 36.6 C 84 20 116/81 90 04/01/22 23:26 84 04/01/22 19:18 36.5 C 84 20 148/89 H 93 O2 Del Method 04/02/22 02:53 Room Air 04/01/22 23:37 Room Air 04/01/22 23:26 04/01/22 19:18 Room Air PG Care Time/CCT Total # of Minutes Spent Total Time Spent with Patient: Total time spent is greater than 50% in coordination of care (as documented) at patient's floor/unit and/or counseling patient: Coding Level of Care Code None Diagnoses History of incision and drainage Z98.890
[2022-04-02 06:56] LABS: Hematocrit (blood only) 38.8 % (40.1-51.0); Hemoglobin 12.3 g/dl (14.0-18.0); Mean Corpuscular Hemoglobin 27.9 pg (25.0-34.0); Mean Corpuscular Hgb Conc 31.7 g/dL (32.0-36.0); Mean Platelet Volume 9.6 fL (9.4-12.4); Platelet Count 302 K/uL (130-400); RDW Coefficient of Variation 14.1 % (11.5-14.5); RDW Standard Deviation 45.7 fL (36.4-46.3); Red Blood Count 4.41 M/uL (4.63-6.08)
[2022-04-02 07:27] LABS: BUN Creatinine Ratio 24.1 (10-20); Calcium 8.3 mg/dl (8.5-10.1); Creatinine Clr Calc Pharmacy 60.4 ml/min; Est GFR (African American) 49.1 ml/min; Est GFR (Non-African American) 42.4 ml/min; Magnesium 1.9 mg/dl (1.7-2.4); Phosphorus 2.9 mg/dl (2.5-4.9)
[2022-04-02 07:36] LABS: Partial Thromboplastin Ratio 1.4; Partial Thromboplastin Time 38.8 Seconds (21.0-31.0)
[2022-04-02] MEDS: LOSARTAN POTASSIUM 50 MG TAB PO SCH (07:36)
[2022-04-02] MEDS: FUROSEMIDE 40 MG TAB PO SCH (07:37)
[2022-04-02] MEDS: amLODIPine BESYLATE 5 MG TAB PO SCH (07:37)
[2022-04-02] MEDS: allopurinoL 100 MG TAB PO SCH (07:38)
[2022-04-02] MEDS: TICAGRELOR 90 MG TAB PO SCH ×2 (07:38→21:15)
[2022-04-02] MEDS: METOPROLOL TARTRATE 100 MG TAB PO SCH ×2 (07:38→21:17)
--- NOTE | 2022-04-02 07:49 | Pharmacy Report ---
Pharmacy Glycemic Short Note 2 - Date of Service April 02, 2022 - Glycemic Short BSG Results (Last 24 hours): 04/01/22 04/01/22 04/01/22 11:32 16:33 16:33 Glucose POC Glucose 258 H 57 L* 59 L* 04/01/22 04/01/22 04/01/22 16:52 16:54 17:16 Glucose POC Glucose 60 L* 60 L* 58 L* 04/01/22 04/01/22 04/01/22 17:18 17:19 17:42 Glucose POC Glucose 64 L* 61 L* 82 04/01/22 04/01/22 04/02/22 19:15 20:19 06:25 Glucose 169 H POC Glucose 163 H 201 H 04/02/22 07:29 Glucose POC Glucose 182 H OUTPATIENT ANTIDIABETIC REGIMEN: * Lantus 50 units Qam, Novolog 25 units tidm + SSI, trulicity ASSESSMENT: 04/02 * Patient received total of 113 units of insulin yesterday, of which 55 units were basal * Fasting BSG 169 mg/dL - patient possibly getting discharged soon. May try and transition back to once daily Lantus starting tomorrow. * Patient hypoglycemic yesterday afternoon, possibly related to too much novolog at lunch time or stacking of insulin with breakfast/lunch. Patient has tight CF/CR - will trial tighter CF/CR with breakfast since lunch BSG always >250 then looser the rest of day 03/31 * 71 year old, now NPO for I&D for possible abscess. Pharmacy consulted for glycemic management. Patient received total of ~60 units of insulin yesterday, of which 50 units were basal insulin * Fasting BSG elevated at 213 mg/dL - BSGs elevated likely due to infection. Plan to titrate up basal this morning, will have scale for HS based upon BSG value PLAN FOR INPATIENT GLYCEMIC CONTROL: * Hold outpatient oral diabetes medications * Basal insulin * Lantus 30 x 1 Qam * Lantus 20 units with dinner --> Transition back to once daily Lantus 50 units starting tomorrow 04/03 at lunch time * Bolus insulin * NovoLog per scale ACHS or Q6hrs while NPO * Goal Range: Low 110 mg/dL - High 140 mg/dL * Correction Factor: 10 mg/dL/unit - breakfast only ; CF 15 rest of day * Nutritional / Prandial insulin per carb ratio of 1 unit per 3 grams CHO consumed - breakfast only ; CR 5 rest of day
[2022-04-02] MEDS: INSULIN ASPART PER UNIT SC SCH ×5 (07:57→21:15)
[2022-04-02] MEDS ORDERED: LANTUS PER UNIT CHARGE SQ SCH (09:00)
[2022-04-02] MEDS: SODIUM CHLORIDE 0.9% 1000ML 1,000 ML IV SCH (09:20)
--- NOTE | 2022-04-02 16:59 | Hospitalist Progress Note ---
Date of Service April 02, 2022 Assessment & Plan (1) Abscess of buttock, right: Plan: Right buttock Abscess Sepsis, POA S/P Incision, drainage and debridement of right gluteal abscess, 8 x 5 cm. on 03/31/22 Bacteremia - MRSA Blood culture 03/30: MRSA Blood culture 03/31: No growth to date Wound culture MRSA ECHO: No evidence of mass or vegetation. Cannot rule out endocarditis. Moderate concentric LVH Appreciate surgery input Continue IV cefepime, daptomycin>> daptomycin Continue wound VAC Infectious disease consulted Other Chronic conditions: CAD status post CABG, s/p stents CHF diastolic Hypertension Hyperlipidemia -Continue home medications, metoprolol, Brilinta, statin, furosemide, amlodipine Monitor volume status DM II -Continue home insulin, diabetic pharmacy also consulted CKD III monitor renal function BPH -continue tamsulosin Morbid obesity BMI ~ 43 -Lifestyle modification recommended DVT Px: Heparin SQ Code Status: Full code Admission and Anticipated Discharge Date Admission Date: March 30, 2022 Subjective Patient is seen and examined at bedside States having mild pain at the site of wound VAC Denies any chest pain, shortness of breath, dizziness, nausea, abdominal pain Offers no other complaints Review of Systems 2 Review of Systems: All systems reviewed & are unremarkable except as noted in Subjective Physical Exam Physical Exam: Physical Exam: Vitals signs as noted above General Appearance:Morbidly Obese, no apparent distress Head: normocephalic, Atraumatic Eyes: normal inspection, EOMI Neck: supple, Trachea midline Respiratory/Chest: Normal breath sounds, CTA, No accessory muscle use Cardiovascular: S1, S2, No murmur Abdomen/GI:Soft, Non tender, Bowel sounds present Extremities/Musculoskeletal:normal inspection, B/L LE edema, R buttock wound VAC Neurologic/Psych:AAOX3, grossly no focal neurological deficits Skin: normal color, warm Results & Data Results & Data ([facility]) Vital Signs (Past 12 Hours) Vital Signs Temp Pulse Pulse Resp BP Pulse Ox O2 Del Method 04/02/22 14:32 85 04/02/22 16:09 36.5 C 90 18 133/58 L 94 Room Air 04/02/22 11:57 84 04/02/22 11:18 36.7 C 84 20 128/67 94 Room Air 04/02/22 07:42 36.5 C 97 H 20 157/80 H 96 Room Air Laboratory Results Short CBC 04/02/22 Range/Units 06:25 WBC 12.00 H (4.8-10.8) K/ul Hgb 12.3 L (14.0-18.0) g/dl Hct 38.8 L (40.1-51.0) % Plt Count 302 (130-400) K/uL BMP 04/02/22 06:25 Sodium 137 Potassium 4.0 Chloride 104 Carbon Dioxide 26 BUN 39 H Creatinine 1.62 H Glucose 169 H Calcium 8.3 L
[2022-04-02] MEDS ORDERED: LANTUS PER UNIT CHARGE SQ ONE (17:00)
[2022-04-02] MEDS: DAPTOmycin 625 MG in SYRINGE 0 ML IV SCH (17:37)
[2022-04-02] MEDS: TAMSULOSIN HCL 0.4 MG CAP PO SCH (21:16)
[2022-04-02] MEDS: PRAVASTATIN SOD 40 MG TAB PO SCH (21:18)
[2022-04-03] MEDS ORDERED: MAGNESIUM SULFATE / D5W 1 GM/100 ML BAG IV ONE (04:54)
--- NOTE | 2022-04-03 04:57 | Communication Note ---
Date of Service: April 03, 2022 Patient with NSVT run followed by bradycardia, cardiac rate 40s as per RN. Patient asymptomatic as per RN. AP NSVT/bradycardia Check a.m. electrolytes now Decrease maintenance beta-acosta dose. Will relay to AM provider.
[2022-04-03] MEDS: HEPARIN SOD 5,000 UNIT/0.5 ML VIAL SQ SCH ×3 (05:30→20:35)
[2022-04-03 06:29] LABS: Hematocrit (blood only) 39.5 % (40.1-51.0); Hemoglobin 12.8 g/dl (14.0-18.0); Mean Corpuscular Hemoglobin 28.4 pg (25.0-34.0); Mean Corpuscular Hgb Conc 32.4 g/dL (32.0-36.0); Mean Corpuscular Volume 87.8 fL (80.0-100.0); Mean Platelet Volume 9.5 fL (9.4-12.4); Platelet Count 309 K/uL (130-400); RDW Coefficient of Variation 14.2 % (11.5-14.5); RDW Standard Deviation 45.8 fL (36.4-46.3); White Blood Count 10.32 K/ul (4.8-10.8)
[2022-04-03 06:54] LABS: BUN Creatinine Ratio 25.8 (10-20); Calcium 8.7 mg/dl (8.5-10.1); Creatinine Clr Calc Pharmacy 76.4 ml/min; Est GFR (African American) 65.3 ml/min; Est GFR (Non-African American) 56.3 ml/min; Magnesium 2.1 mg/dl (1.7-2.4)
[2022-04-03 07:23] LABS: Partial Thromboplastin Ratio 1.5; Partial Thromboplastin Time 42.5 Seconds (21.0-31.0)
[2022-04-03] MEDS: INSULIN ASPART PER UNIT SC SCH ×4 (08:25→20:27)
[2022-04-03] MEDS: amLODIPine BESYLATE 5 MG TAB PO SCH (08:27)
[2022-04-03] MEDS: LOSARTAN POTASSIUM 50 MG TAB PO SCH (08:28)
[2022-04-03] MEDS: FUROSEMIDE 40 MG TAB PO SCH (08:29)
[2022-04-03] MEDS: allopurinoL 100 MG TAB PO SCH (08:29)
[2022-04-03] MEDS: TICAGRELOR 90 MG TAB PO SCH ×2 (08:29→20:33)
[2022-04-03] MEDS ORDERED: METOPROLOL TARTRATE 50 MG TAB PO SCH (09:00)
--- NOTE | 2022-04-03 09:42 | Surgery Progress Note ---
Date of Service April 03, 2022 Assessment & Plan (1) Abscess of buttock, right: Plan: Patient clinically feeling well WBC 8. afebrile R buttock cultures growing MRSA. On Daptomycin Awaiting ID consult Vac in place holding seal. Change per wound care instructions Will need set up with follow up in the wound care clinic Admission and Anticipated Discharge Date Admission Date: March 30, 2022 Subjective Patient is feeling well. Denies any pain to buttocks wound. Tolerating diet. + bowel function. Denies fevers. Awaiting ID consult Physical Exam Physical Exam: awake/alert, sitting in chair Respiratory: normal respiratory effort Skin: buttocks wound with vac in place holding seal Results & Data ([facility]) Vital Signs (Past 12 Hours) Vital Signs Temp Pulse Pulse Resp BP Pulse Ox O2 Del Method 04/03/22 08:17 36.4 C L 51 L 20 163/74 H 93 Room Air 04/03/22 07:33 64 04/03/22 00:00 85 04/03/22 03:12 36.5 C 48 L 18 134/54 L 94 Room Air 04/02/22 23:06 36.7 C 90 20 141/72 H 95 Room Air PG Care Time/CCT Total # of Minutes Spent Total Time Spent with Patient: Total time spent is greater than 50% in coordination of care (as documented) at patient's floor/unit and/or counseling patient: Coding Level of Care Code None Diagnoses Abscess of buttock, right L02.31
[2022-04-03] MEDS: LANTUS PER UNIT CHARGE SQ SCH (12:21)
--- NOTE | 2022-04-03 15:23 | Hospitalist Progress Note ---
Date of Service April 03, 2022 Assessment & Plan (1) Abscess of buttock, right: Plan: Right buttock Abscess Sepsis, POA S/P Incision, drainage and debridement of right gluteal abscess, 8 x 5 cm. on 03/31/22 Bacteremia - MRSA Blood culture 03/30: MRSA Blood culture 03/31: No growth to date Wound culture MRSA ECHO: No evidence of mass or vegetation. Cannot rule out endocarditis. Moderate concentric LVH Appreciate surgery input Continue IV cefepime, daptomycin>> daptomycin Continue wound VAC Infectious disease consulted--waiting for Input Repeat blood cultures negative to date, plan for PICC line placement as able Other Chronic conditions: CAD status post CABG, s/p stents CHF diastolic Hypertension Hyperlipidemia -Continue home medications, metoprolol, Brilinta, statin, furosemide, amlodipine Monitor volume status DM II -Continue home insulin, diabetic pharmacy also consulted CKD III monitor renal function BPH -continue tamsulosin Morbid obesity BMI ~ 43 -Lifestyle modification recommended DVT Px: Heparin SQ Code Status: Full code Admission and Anticipated Discharge Date Admission Date: March 30, 2022 Subjective Patient is seen and examined at bedside Doing well Denies any pain of Right buttock abscess Also denies any chest pain, shortness of breath, dizziness, nausea, abdominal pain Afebrile today Review of Systems Review of Systems: All systems reviewed & are unremarkable except as noted in Subjective Physical Exam Physical Exam: Physical Exam: Vitals signs as noted above General Appearance:Morbidly Obese, no apparent distress Head: normocephalic, Atraumatic Eyes: normal inspection, EOMI Neck: supple, Trachea midline Respiratory/Chest: Normal breath sounds, CTA, No accessory muscle use Cardiovascular: S1, S2, No murmur Abdomen/GI:Soft, Non tender, Bowel sounds present Extremities/Musculoskeletal:normal inspection, B/L LE edema, R buttock wound VAC Neurologic/Psych:AAOX3, grossly no focal neurological deficits Skin: normal color, warm Results & Data Results & Data ([facility]) Vital Signs (Past 12 Hours) Vital Signs Temp Pulse Pulse Resp BP Pulse Ox O2 Del Method 04/03/22 15:02 90 04/03/22 07:52 Room Air 04/03/22 11:24 36.3 C L 88 19 177/78 H 97 Room Air 04/03/22 08:17 36.4 C L 51 L 20 163/74 H 93 Room Air 04/03/22 07:33 64 Laboratory Results Short CBC 04/03/22 Range/Units 06:09 WBC 10.32 (4.8-10.8) K/ul Hgb 12.8 L (14.0-18.0) g/dl Hct 39.5 L (40.1-51.0) % Plt Count 309 (130-400) K/uL BMP 04/03/22 06:09 Sodium 140 Potassium 4.0 Chloride 106 Carbon Dioxide 26 BUN 33 H Creatinine 1.28 D Glucose 148 H Calcium 8.7 Cardiac Enzymes 04/03/22 Range/Units 06:09 Total Creatine Kinase 80 (30-223) U/L
--- NOTE | 2022-04-03 16:44 | Electrocardiogram Report ---
Test Reason : Blood Pressure : / mmHG Vent. Rate : 091 BPM Atrial Rate : 091 BPM P-R Int : 162 ms QRS Dur : 104 ms QT Int : 382 ms P-R-T Axes : -14 041 157 degrees QTc Int : 469 ms Sinus rhythm with premature atrial contractions and PVCs Nonspecific ST abnormality Possible Inferior infarct (cited on or before 30-MAR-2022) Abnormal ECG When compared with ECG of 30-MAR-2022 23:48, Premature ventricular complexes are now Present Nonspecific T wave abnormality no longer evident in Inferior leads Confirmed by Jorge A De Los Santos ([id number]) on 04/03/2022 4:44:44 PM Referred By: REFERRED SELF Confirmed By:Johnnie De Los Santos
[2022-04-03] MEDS: DAPTOmycin 625 MG in SYRINGE 0 ML IV SCH (17:07)
[2022-04-03] MEDS: METOPROLOL TARTRATE 100 MG TAB PO SCH (20:32)
[2022-04-03] MEDS: PRAVASTATIN SOD 40 MG TAB PO SCH (20:32)
[2022-04-03] MEDS: TAMSULOSIN HCL 0.4 MG CAP PO SCH (20:33)
[2022-04-04] MEDS ORDERED: XOPENEX/ATROVENT 1.25mg/0.5MG NEB COMBO NEB STA (02:35)
[2022-04-04] MEDS ORDERED: LEVALBUTEROL 1.25MG/0.5ML NEB INH STA (02:43)
[2022-04-04] MEDS ORDERED: IPRATROPIUM BROMIDE NEB SOLN 0.02% 2.5 ML VIAL INH STA (02:43)
[2022-04-04] MEDS: HEPARIN SOD 5,000 UNIT/0.5 ML VIAL SQ SCH ×3 (05:11→21:15)
[2022-04-04 07:43] LABS: Hemoglobin 12.5 g/dl (14.0-18.0); Mean Corpuscular Hemoglobin 28.4 pg (25.0-34.0); Mean Corpuscular Hgb Conc 32.9 g/dL (32.0-36.0); Mean Corpuscular Volume 86.4 fL (80.0-100.0); Mean Platelet Volume 9.4 fL (9.4-12.4); Nucleated RBC # (auto) 0.02 K/uL (0-0); Nucleated RBC % (auto) 0.2 %; Platelet Count 320 K/uL (130-400); RDW Coefficient of Variation 14.4 % (11.5-14.5); RDW Standard Deviation 45.3 fL (36.4-46.3)
[2022-04-04 07:55] LABS: Partial Thromboplastin Ratio 1.5; Partial Thromboplastin Time 40.3 Seconds (21.0-31.0)
[2022-04-04] MEDS: amLODIPine BESYLATE 5 MG TAB PO SCH (08:03)
[2022-04-04] MEDS: FUROSEMIDE 40 MG TAB PO SCH (08:03)
[2022-04-04] MEDS: allopurinoL 100 MG TAB PO SCH (08:03)
[2022-04-04] MEDS: LOSARTAN POTASSIUM 50 MG TAB PO SCH (08:03)
[2022-04-04] MEDS: METOPROLOL TARTRATE 100 MG TAB PO SCH ×2 (08:04→21:14)
[2022-04-04] MEDS: TICAGRELOR 90 MG TAB PO SCH ×2 (08:04→21:15)
[2022-04-04 08:08] LABS: BUN Creatinine Ratio 21.7 (10-20); Calcium 8.7 mg/dl (8.5-10.1); Est GFR (African American) 59.6 ml/min; Est GFR (Non-African American) 51.4 ml/min; Potassium 3.9 mmol/L (3.5-5.1)
[2022-04-04] MEDS: LANTUS PER UNIT CHARGE SQ SCH (08:11)
[2022-04-04] MEDS: INSULIN ASPART PER UNIT SC SCH ×4 (08:11→21:15)
--- NOTE | 2022-04-04 08:21 | XRay Report ---
SINGLE VIEW CHEST CLINICAL HISTORY: Dyspnea FINDINGS: 2 AP, portable, upright chest radiographs are compared to study dated 11/08/2020. The examin ation is degraded by portable technique and patient rotation. The patient is status post midline ster notomy. The heart is enlarged noting atherosclerotic calcification of the thoracic aorta. The pulmona ry vasculature is noncongested. Chronic interstitial thickening is similar to previous. There is left basilar consolidation and a small left pleural effusion. The right lung appears clear. No pneumothor ax is seen. The skeletal structures are osteopenic. The bony thorax is grossly intact. IMPRESSION: 1. Cardiomegaly without radiographic evidence of congestive failure. 2. Left basilar consolidation and small left pleural effusion. Correlate clinically for evidence of p neumonia/aspiration pneumonitis. Radiographic follow-up to resolution is recommended. ACT 112: Negative or not required by law. Electronically signed by: Boogie Delgado M.D. 04/04/2022 8:20 AM
[2022-04-04] MEDS: DAPTOmycin 850 MG in SYRINGE 0 ML IV SCH (10:56)
--- NOTE | 2022-04-04 11:10 | Post Operative Brief Note ---
PG Immediate Post Op with CF Date of Surgery April 02, 2022 Pre & Post Diagnosis Operation Date: 03/31/22 12:00 Pre-Op Diagnosis: Abscess of Right buttock Post-Op Diagnosis: Abscess of Right buttock I identified the patient and participated in the time-out.: Yes Procedure Operation Date: 03/31/22 12:00 Actual Procedures p Incision and Drainage with Debridement Right Buttock Abscess(Right) - Ori Sandoval MD, FACS Surgeon Ori Sandoval MD, FACS Dope Pourer Shant Leigh Estimated Blood Loss 20 Findings Consistent with Post-Op Diagnosis Skin necrosis with multiple microabscesses requiring significant debridement Specimens Specimen Description: 1. Right buttock wound
--- NOTE | 2022-04-04 11:12 | Surgery Progress Note ---
Date of Service April 04, 2022 Assessment & Plan (1) History of incision and drainage: Plan: Patient with irrigating wound VAC Wound nurse to evaluate and likely change today Patient apparently [facility] Will need IV antibiotics Follow-up with wound clinic Discharge when okay with medical team and able to go to [facility] Admission and Anticipated Discharge Date Admission Date: March 30, 2022 Results & Data ([facility]) Vital Signs (Past 12 Hours) Vital Signs Temp Pulse Pulse Resp BP Pulse Ox O2 Del Method 04/04/22 07:28 99 H 04/04/22 04:00 36.4 C L 53 L 20 150/79 H 95 Room Air 04/04/22 02:56 56 L 16 Room Air 04/03/22 23:43 94 H FiO2 04/04/22 07:28 04/04/22 04:00 04/04/22 02:56 96 04/03/22 23:43 PG Care Time/CCT Total # of Minutes Spent Total Time Spent with Patient: Total time spent is greater than 50% in coordination of care (as documented) at patient's floor/unit and/or counseling patient: Coding Level of Care Code None Diagnoses History of incision and drainage Z98.890
--- NOTE | 2022-04-04 11:36 | Pharmacy Report ---
Pharmacy Glycemic Short Note 2 - Date of Service April 04, 2022 - Glycemic Short BSG Results (Last 24 hours): 04/03/22 04/03/22 04/03/22 11:34 16:41 20:03 Glucose POC Glucose 206 H 118 H 142 H 04/04/22 04/04/22 04/04/22 07:16 07:46 11:30 Glucose 153 H POC Glucose 150 H 177 H OUTPATIENT ANTIDIABETIC REGIMEN: * Lantus 50 units Qam, Novolog 25 units tidm + SSI, trulicity ASSESSMENT: 04/04/22 * Patient's BSGs yesterday were [phone] mg/dL. Fasting today is 150 mg/dL. Lunch is 177 mg/dL. * Will continue Lantus 50 units daily as fasting steady. Transition to AM Lantus finished today. * Continue Novolog. Will leave CF at lunch today since lunch BSG not extremely elevated. 04/02 * Patient received total of 113 units of insulin yesterday, of which 55 units were basal * Fasting BSG 169 mg/dL - patient possibly getting discharged soon. May try and transition back to once daily Lantus starting tomorrow. * Patient hypoglycemic yesterday afternoon, possibly related to too much novolog at lunch time or stacking of insulin with breakfast/lunch. Patient has tight CF/CR - will trial tighter CF/CR with breakfast since lunch BSG always >250 then looser the rest of day 03/31 * 71 year old, now NPO for I&D for possible abscess. Pharmacy consulted for glycemic management. Patient received total of ~60 units of insulin yesterday, of which 50 units were basal insulin * Fasting BSG elevated at 213 mg/dL - BSGs elevated likely due to infection. Plan to titrate up basal this morning, will have scale for HS based upon BSG value PLAN FOR INPATIENT GLYCEMIC CONTROL: * Hold outpatient oral diabetes medications * Basal insulin * Lantus 50 units daily. * Bolus insulin * NovoLog per scale ACHS or Q6hrs while NPO * Goal Range: Low 110 mg/dL - High 140 mg/dL * Correction Factor: 10 mg/dL/unit - breakfast only ; CF 20 rest of day * Nutritional / Prandial insulin per carb ratio of 1 unit per 4 grams CHO consumed - breakfast only ; CR 7 rest of day
[2022-04-04] MEDS ORDERED: ALBUTEROL 0.083% NEBU SOLN 3 ML VIAL NEB PRN (11:47)
--- NOTE | 2022-04-04 15:53 | Hospitalist Progress Note ---
Date of Service April 04, 2022 Assessment & Plan (1) Abscess of buttock, right: Plan: Right buttock Abscess Sepsis, POA S/P Incision, drainage and debridement of right gluteal abscess, 8 x 5 cm. on 03/31/22 Bacteremia - MRSA Blood culture 03/30: MRSA Blood culture 03/31: No growth to date Wound culture MRSA ECHO: No evidence of mass or vegetation. Cannot rule out endocarditis. Moderate concentric LVH Appreciate surgery input Continue IV cefepime, daptomycin>> daptomycin Continue wound VAC Appreciate ID input Plan for PICC line placement today Plan to continue IV daptomycin for 4 weeks Needs weekly CBC, BMP, CK, CRP while on IV antibiotics Needs rehab placement Other Chronic conditions: CAD status post CABG, s/p stents CHF diastolic Hypertension Hyperlipidemia -Continue home medications, metoprolol, Brilinta, statin, furosemide, amlodipine Monitor volume status Nebs as needed DM II -Continue home insulin, diabetic pharmacy also consulted CKD III monitor renal function Avoid nephrotoxic agents as able BPH -continue tamsulosin Morbid obesity BMI ~ 43 -Lifestyle modification recommended DVT Px: Heparin SQ Code Status: Full code Admission and Anticipated Discharge Date Admission Date: March 30, 2022 Subjective Patient is seen and examined at bedside Reports having an episode of dyspnea overnight States feeling better today Reports minimal cough Denies dyspnea today Pain of Right buttock abscess is controlled Denies any chest pain, dizziness, nausea, abdominal pain Review of Systems Review of Systems: All systems reviewed & are unremarkable except as noted in Subjective Physical Exam Physical Exam: Physical Exam: Vitals signs as noted above General Appearance:Morbidly Obese, no apparent distress Head: normocephalic, Atraumatic Eyes: normal inspection, EOMI Neck: supple, Trachea midline Respiratory/Chest: Normal breath sounds, CTA, No accessory muscle use Cardiovascular: S1, S2, No murmur Abdomen/GI:Soft, Non tender, Bowel sounds present Extremities/Musculoskeletal:normal inspection, B/L LE edema, R buttock wound VAC Neurologic/Psych:AAOX3, grossly no focal neurological deficits Skin: normal color, warm Results & Data Results & Data ([facility]) Vital Signs (Past 12 Hours) Vital Signs Temp Pulse Pulse Resp BP BP Pulse Ox 04/04/22 14:57 86 04/04/22 11:24 36.4 C L 85 19 122/72 94 04/04/22 07:28 99 H 04/04/22 04:00 36.4 C L 53 L 20 150/79 H 95 O2 Del Method 04/04/22 14:57 04/04/22 11:24 Room Air 04/04/22 07:28 04/04/22 04:00 Room Air Laboratory Results Short CBC 04/04/22 Range/Units 07:16 WBC 12.20 H (4.8-10.8) K/ul Hgb 12.5 L (14.0-18.0) g/dl Hct 38.0 L (40.1-51.0) % Plt Count 320 (130-400) K/uL BMP 04/04/22 07:16 Sodium 139 Potassium 3.9 Chloride 105 Carbon Dioxide 27 BUN 30 H Creatinine 1.38 Glucose 153 H Calcium 8.7
[2022-04-04] MEDS ORDERED: FUROSEMIDE INJ 20 MG/2 ML VIAL IV ONE (16:00)
[2022-04-04] MEDS ORDERED: ALBUT/IPRATROP 3MG/0.5MG NEB 3 ML VIAL NEB PRN (19:32)
[2022-04-04] MEDS ORDERED: POTASSIUM CHLORIDE CRTAB 20 MEQ TABCR PO STA (19:33)
[2022-04-04] MEDS ORDERED: XOPENEX/ATROVENT 1.25mg/0.5MG NEB COMBO NEB PRN (19:33)
[2022-04-04] MEDS ORDERED: LEVALBUTEROL 1.25MG/0.5ML NEB INH PRN (19:45)
[2022-04-04] MEDS ORDERED: IPRATROPIUM BROMIDE NEB SOLN 0.02% 2.5 ML VIAL INH PRN (19:45)
[2022-04-04] MEDS: TAMSULOSIN HCL 0.4 MG CAP PO SCH (21:15)
[2022-04-05] MEDS: HEPARIN SOD 5,000 UNIT/0.5 ML VIAL SQ SCH ×2 (05:04→14:56)
[2022-04-05 08:17] LABS: Partial Thromboplastin Ratio 1.3; Partial Thromboplastin Time 35.6 Seconds (21.0-31.0)
[2022-04-05] MEDS: LOSARTAN POTASSIUM 50 MG TAB PO SCH (08:48)
[2022-04-05] MEDS: allopurinoL 100 MG TAB PO SCH (08:48)
[2022-04-05] MEDS: METOPROLOL TARTRATE 100 MG TAB PO SCH (08:49)
[2022-04-05] MEDS: FUROSEMIDE 40 MG TAB PO SCH (08:49)
[2022-04-05] MEDS: amLODIPine BESYLATE 5 MG TAB PO SCH (08:49)
[2022-04-05] MEDS: TICAGRELOR 90 MG TAB PO SCH (08:49)
[2022-04-05] MEDS: INSULIN ASPART PER UNIT SC SCH (08:51)
[2022-04-05 08:56] LABS: BUN Creatinine Ratio 23.5 (10-20); Calcium 8.8 mg/dl (8.5-10.1); Creatinine Clr Calc Pharmacy 74.2 ml/min; Est GFR (African American) 62.9 ml/min; Est GFR (Non-African American) 54.3 ml/min; Potassium 5.1 mmol/L (3.5-5.1)
[2022-04-05] MEDS ORDERED: LANTUS PER UNIT CHARGE SQ SCH (09:00)
[2022-04-05] MEDS ORDERED: INSULIN ASPART PER UNIT SC SCH ×2 (11:30→16:30)
[2022-04-05] MEDS: DAPTOmycin 850 MG in SYRINGE 0 ML IV SCH (11:41)
--- NOTE | 2022-04-05 12:33 | Hospitalist Progress Note ---
Date of Service April 05, 2022 Assessment & Plan (1) Abscess of buttock, right: Plan: Right buttock Abscess Sepsis, POA S/PIncision, drainage and debridement of right gluteal abscess, 8 x 5 cm. on 03/31/22 Bacteremia - MRSA Blood culture 03/30: MRSA Blood culture 03/31: No growth to date Wound culture MRSA ECHO: No evidence of mass or vegetation. Cannot rule out endocarditis. Moderate concentric LVH Appreciate surgery input Continue IV cefepime, daptomycin>> daptomycin Continue wound VAC Appreciate ID input PICC line placed Had dressing change yesterday Plan to continue IV daptomycin for 4 weeks Needs weekly CBC, BMP, CK, CRP while on IV antibiotics Plan to discharge to Rehab facility today Other Chronic conditions: CAD status post CABG, s/p stents CHF diastolic Hypertension Hyperlipidemia -Continue home medications, metoprolol, Brilinta, statin, furosemide, amlodipine Monitor volume status Nebs as needed DM II -Continue home insulin, diabetic pharmacy also consulted CKD III monitor renal function Avoid nephrotoxic agents as able BPH -continue tamsulosin Morbid obesity BMI ~ 43 -Lifestyle modification recommended DVT Px: Heparin SQ Code Status: Full code Disposition Acute Rehab Admission and Anticipated Discharge Date Admission Date: March 30, 2022 Subjective Patient is seen and examined at bedside States doing well today Slept well overnight and no issues Right buttock abscess pain is controlled Denies any chest pain, dyspnea, dizziness, nausea, abdominal pain No new complaints Plan to be discharged to rehab facility today Review of Systems Review of Systems: All systems reviewed & are unremarkable except as noted in Subjective Physical Exam Physical Exam: Physical Exam: Vitals signs as noted above General Appearance:Morbidly Obese, no apparent distress Head: normocephalic, Atraumatic Eyes: normal inspection, EOMI Neck: supple, Trachea midline Respiratory/Chest: Normal breath sounds, CTA, No accessory muscle use Cardiovascular: S1, S2, No murmur Abdomen/GI:Soft, Non tender, Bowel sounds present Extremities/Musculoskeletal:normal inspection, B/L LE edema, R buttock wound VAC Neurologic/Psych:AAOX3, grossly no focal neurological deficits Skin: normal color, warm Results & Data Results & Data ([facility]) Vital Signs (Past 12 Hours) Vital Signs Temp Pulse Pulse Resp BP Pulse Ox O2 Del Method 04/05/22 11:48 36.5 C 81 18 117/69 93 Room Air 04/05/22 07:29 87 04/05/22 07:26 36.5 C 89 18 160/78 H 96 Room Air 04/05/22 04:06 37.1 C 74 18 152/84 H 95 Room Air Laboratory Results [facility] 04/05/22 07:27 Sodium 137 Potassium 5.1 D Chloride 103 Carbon Dioxide 27 BUN 31 H Creatinine 1.32 Glucose 178 H Calcium 8.8
--- NOTE | 2022-04-05 12:49 | Discharge Summary ---
Date of Service April 05, 2022 Admission HPI Per Admitting Provider Chief Complaint: R buttocks abscess Primary Care Provider: Akash Gonzalez MD 71-year-old morbidly obese (BMI 43) male, with history of diabetes mellitus type 2 (on insulin), CKD stage III, CAD status post CABG and s/p stents, CHF (diastolic), hypertension, hyperlipidemia, BPH, who presents with right buttocks abscess. He underwent I&D in the emergency room, (area about 8x10 cm). Copious pus noted. WBC 15,000. Cultures from the wound and blood cultures obtained and pending. In the emergency room, patient received ceftriaxone and daptomycin. Patient reports history of broils, and thought this happened again. However it was not healing and he felt more pain, therefore presented in the ED. Initially did not have any fever, however on my evaluation, patient reports feeling quite cold and asking for blankets. On my evaluation patient is tachycardic in the 110s, to low 120s. However denies any chest pain, palpitations. He is slightly tremulous. Denies shortness of breath. Denies any cough. Also denies any abdominal pain nausea vomiting diarrhea. Admission Exam Per Admitting Provider Physical Exam Constitutional: WD/WN, vitals as above (morbidly obese M in NAD, feeling cold, tachycardic) Eyes: PERRL, conjunctivae normal, anicteric sclerae ENMT: external ear and nose normal, oropharynx normal Neck: + thick neck Respiratory: normal respiratory effort, lungs clear to auscultation (somewhat diminished BS (possibly d/t body habitus)) Cardiovascular: Rate/Rhythm: + tachycardic (trace LE edema) Chest (Breasts): Chest: normal inspection of chest (scar in midline noted (hx of cabg)) Gastrointestinal (Abdomen): normal bowel sounds, soft, nontender, no hepatosplenomegaly (obese abdomen) Musculoskeletal: no cyanosis or clubbing, extremities motor strength 5/5 Skin: no rashes, warm and dry (R buttocks erythematous, packing and dressing applied) Neurologic: PERRL, EOMI, accommodation nl, no face palsy, no dysarthria Psychiatric: A+Ox3, euthymic affect Principal Diagnosis Right buttock Abscess Sepsis MRSA Bacteremia CKD III DM II Chronic diastolic CHF CAD S/P CABG Discharge Data Allergies Allergy/AdvReac Type Severity Reaction Status Date / Time aspirin Allergy Intermediate GI SYMPTOMS Verified 03/30/22 17:09 Consultations 03/31/22 10:53 Consult Infectious Diseases Routine 03/31/22 11:00 Consult General Surgery Routine Procedures Performed Operation Date: 03/31/22 12:00 Actual Procedures p Incision and Drainage with Debridement Right Buttock Abscess(Right) - Ori Sandoval MD, FACS Diabetes Follow up Diabetes Follow-up Needed for HgbA1c >9% Hospital Course (1) Abscess of buttock, right: Right buttock Abscess Sepsis, POA S/PIncision, drainage and debridement of right gluteal abscess, 8 x 5 cm. on 03/31/22 Bacteremia - MRSA Blood culture 03/30: MRSA Blood culture 03/31: No growth to date Wound culture MRSA ECHO: No evidence of mass or vegetation. Cannot rule out endocarditis. Moderate concentric LVH Appreciate surgery input Continue IV cefepime, daptomycin>> daptomycin Continue wound VAC Appreciate ID input PICC line placed Had dressing change yesterday Plan to continue IV daptomycin for 4 weeks Needs weekly CBC, BMP, CK, CRP while on IV antibiotics Plan to discharge to Rehab facility today Other Chronic conditions: CAD status post CABG, s/p stents CHF diastolic Hypertension Hyperlipidemia -Continue home medications, metoprolol, Brilinta, statin, furosemide, amlodipine Monitor volume status Nebs as needed DM II -Continue home insulin, diabetic pharmacy also consulted CKD III monitor renal function Avoid nephrotoxic agents as able BPH -continue tamsulosin Morbid obesity BMI ~ 43 -Lifestyle modification recommended DVT Px: Heparin SQ Code Status: Full code Disposition Acute Rehab Total Time Total Time Spent Total Time Spent (In Minutes): 59 minutes Discharge Plan Discharge Items Patient Disposition: Transfer Inpatient Rehab Fac Reason For Visit: ABSCESS,POSSIBLE SEPSIS Discharge Diagnosis: Right buttock Abscess Sepsis MRSA Bacteremia CKD III DM II Chronic diastolic CHF CAD S/P CABG Activity: Per Instructions section Exercise/Sports: Gradually increase as tolerated Non-emergency contact: Primary Care Provider, Surgeon and Specialist Call non-emergency contact if: you have any medication questions, your symptoms worsen, your pain is concerning for you, you have a fever, your wound has increased redness, your wound has increased drainage and your wound pain has increased Follow-up/Referrals: Akash Gonzalez MD [Primary Care Provider] - Diet: Carb Consistent or DM2 and Heart Healthy Addtl Attending Provider Instructions: Follow-up with your primary care physician in 1 week upon discharge from rehab facility Follow-up with your surgeon in 1-2 weeks Follow up with your Infectious disease in 4 weeks ---Complete the IV antibiotic Course Daptomycin 850 mg daily till Apr 30 2022. Further duration of antibiotics to be determined by clinical course, your infectious disease specialist. --Get weekly CBC, BMP, CK, CRP while on IV antibiotics and follow up with your primary care physician -- Continue wound care at rehab facility. -- Your final blood cultures are pending at the time of discharge. Follow-up with your physician for results. ---Do not take Pravastatin while on IV Daptomycin. Can discuss with PCP as to when it can be resumed. Seek immediate medical attention if your symptoms reoccur or worsen Please take all medications as instructed on discharge list below. Please call if you have any questions or problems. You can reach a [facility] hospitalist on duty at [facility] 24 hours a day by calling [phone] Pending Studies at Discharge: Yes Studies:: Final blood cultures from 03/31/22 Stand-Alone Forms: My [facility] Skilled Items Patient informed of condition?: Yes DNR: No Discharge Level of Care: Acute rehab Communicable Disease: No Discharge Prognosis: Stable Lines: PICC Urinary Catheter: No Medications and DC Order Prescriptions: New daptomycin 500 mg recon soln 850 mg IV DAILY Qty: 1 0RF Rx Instructions: administer over 30 mins Continued tamsulosin 0.4 mg capsule 0.4 mg PO HS Qty: 90 3RF (DME) pen needle, diabetic [ReliOn Pen [place]] 32 gauge x 5/" needle See Dose Instructions .ROUTE .MEDSUPPLY Qty: 10 Rx Instructions: As directed (DME) Truetest Test Strips strip See Dose Instructions .ROUTE .MEDSUPPLY Qty: 10 Rx Instructions: As directed losartan 100 mg tablet 100 mg PO QAM Qty: 90 Brilinta 90 mg tablet 90 mg PO BID Trulicity 1.5 mg/0.5 mL pen injector 1.5 mg subcut WK amlodipine 5 mg tablet 5 mg PO QAM (DME) pen needle, diabetic 32 gauge x 5/32" needle See Rx Instructions .ROUTE .MEDSUPPLY Qty: 100 1RF Rx Instructions: Use with insulin pen 4 times daily cholecalciferol (vitamin D3) [Vitamin D3] 50 mcg (2,000 unit) Capsule 50 mcg PO QAM furosemide [Lasix] 40 mg tablet 40 mg PO QAM allopurinol 100 mg tablet 100 mg PO QAM insulin aspart U-100 [Novolog Flexpen U-100 Insulin] 100 unit/mL (3 mL) insulin pen 25 unit subcut TIDM Rx Instructions: Take 25Units with each meal plus additional units based on sliding scale provided (Not > 80Units/day) insulin glargine 100 unit/mL (3 mL) insulin pen 50 unit subcut QAM metoprolol tartrate 100 mg tablet 100 mg PO BID Discontinued pravastatin 80 mg tablet 80 mg PO HS Discharge Orders: Discharge Order (Routine); Ordered 04/05/22 Ordered By: Julius Marcum Admission Data Admit Date/Time: 03/30/22 17:58 Attending Provider: Julius Marcum Admit Provider: Yong Anthony Primary Care Provider: Akash Gonzalez Other Providers: Kenton Mejia ; Cristiano Butler ; Colt Houston I. ; Aj Bill II ; Deidra Land ; Delfino Carrillo ; Ori Champagne ; Ori Sandoval ; [facility]
== END 2022-04-05 17:30 | DRG 854 ==
LOC: ED 14:34 → SUATTDRO 17:58 → 2W 17:58